=== PATIENT | female | born 1975 | race Caucasian/White ===

== ENCOUNTER → 2017-06-04 | Outpatient (POV) | payer BC, SELFPAY | PROVIDERS: Visit Provider Specialist | DX: F44.5 Conversion disorder with seizures or convulsions (principal); R40.4 Transient alteration of awareness; I95.89 Other hypotension; M54.2 Cervicalgia | CPT/HCPCS: 95819 ==

== ENCOUNTER → 2017-08-10 12:42 | Outpatient (CLI) | payer BC, SELFPAY ==
--- NOTE | 2017-08-10 12:46 | CT_ITS ---
CT abdomen pelvis wo con CLINICAL INDICATION: Lower abdominal pain and flank pain with microhematuria ITS.REASON: MICROHEMATURIA ORDERING PHYSICIAN: Venkatesh Irene MD PATIENT AGE: 41 years COMPARISON: 04/16/2010 TECHNIQUE: Axial images obtained with sagittal and coronal reformats. PROCEDURE: Oral Contrast: None IV Contrast: None . FINDINGS: Lung bases are clear. The liver, gallbladder, spleen, adrenal glands, and pancreas have an unremarkable unenhanced CT appearance. No renal mass or hydronephrosis. No renal or ureteral calculi. Urinary bladder is decompressed. No stones evident within the bladder. Prior appendectomy. No evidence of intestinal obstruction, free air, or diverticulitis. Surgical clips are present in the posterior aspect of the left mid abdominal region. There is mild thickening of the ascending colon which could be due to nondistention or mild colitis. There is a small umbilical hernia containing fat. Para no pelvic mass or focal inflammatory change evident. There are postsurgical changes of the rectosigmoid region. No acute bony anomalies. IMPRESSION: 1. No acute abdominal or pelvic findings. No renal or ureteral calculi or hydronephrosis. 2. Small umbilical hernia containing fat. 3. Postsurgical changes
== END ==
LOC: RAD 12:42
PROVIDERS: PCP Family Medicine; Visit Provider Urology
DX: R31.29 Other microscopic hematuria (principal)
CPT/HCPCS: 74176

== ENCOUNTER 2017-08-31 20:12 | Emergency (ER) | payer BC, SELFPAY ==
[2017-08-31 20:31] VITALS: BP 128/85; PULSE 107; RESP 28; TEMP 37.4; O2SAT 86; BMI 30.7
--- NOTE | 2017-08-31 20:42 | XR_ITS ---
XR chest 2V COMPARISON: PA and lateral chest 01/10/2016 HISTORY: Shortness of breath TECHNIQUE: PA and lateral chest FINDINGS: Lung linder are well expanded. There is ill-defined opacity left suprahilar region and proximal aspect of the left upper lobe suggesting a pneumonic infiltrate. The remainder left lung field is clear and right lung field is clear. Cardiac size is normal and is no pleural fluid. IMPRESSION: Probable left suprahilar left upper lobe bronchopneumonia
[2017-08-31 20:55] LABS: Basophils % 0.2 % (0.1-2.0); Eosinophils % 0.6 % (0.1-12.0); Hematocrit 41.4 % (37.0-47.0); Hemoglobin 14.5 g/dL (12.2-16.2); Lymphocytes # 1.3 K/mm3 (0.7-4.5); Lymphocytes % 23.7 K/mm3 (10-50); Mean Corpuscular HGB Conc 34.9 g/dL (31.8-35.4); Mean Corpuscular Hemoglobin 31.9 pg (27.0-31.2); Mean Corpuscular Volume 91.3 fl (81-99); Mean Platelet Volume 8.6 fl (7.4-10.4); Monocytes # 0.2 K/mm3 (0.1-1.0); Monocytes % 3.1 % (1.7-9.3); Neutrophils % 72.5 % (37.0-80.0); Platelet Count 130 K/mm3 (142-424); Red Blood Count 4.54 M/mm3 (4.20-5.40); Red Cell Distribution Width 13.1 % (11.5-17.5); White Blood Count 5.5 K/mm3 (4.8-10.8)
[2017-08-31 21:08] LABS: Alanine Aminotransferase 45 U/L (12-78); Albumin Level 3.4 gm/dL (3.4-5.0); Albumin/Globulin Ratio 0.9 (1.1-1.8); Alkaline Phosphatase 109 U/L (46-116); Anion Gap 12.4 mEq/L (5-15); Aspartate Amino Transferase 40 U/L (15-37); Bilirubin,Total 0.2 mg/dL (0.2-1.0); Blood Urea Nitrogen 4 mg/dL (7-18); Calcium 8.1 mg/dL (8.5-10.1); Carbon Dioxide 25 mmol/L (21.0-32.0); Chloride 101 mmol/L (98-107); Creatinine Clearance Estimated 132 mL/min (0-300); Creatinine,Serum 0.76 mg/dL (0.55-1.02); Estimated Glomerular Filt Rate 85 ml/min (>60); GFR (African American) 103 ML/MIN (>60); Globulin 3.9 gm/dl (1.3-3.2); Glucose 130 mg/dL (74-106); Potassium 3.4 mmoL/L (3.5-5.1); Sodium 135 mmol/L (136-145); Total Protein,Serum 7.3 gm/dL (6.4-8.2)
[2017-08-31 21:16] LABS: Lactic Acid 1.8 mmol/L (0.4-2.0)
--- NOTE | 2017-08-31 21:56 | HMH.EDSOB ---
ED Disposition Clinical Impression: Bronchitis, Pleurisy Disposition: Home, Self-Care Condition on Discharge: Good Instructions: DI for Pleurisy Additional Instructions: use meds and call pcp for follow up Prescriptions: Azithromycin [Zithromax 250mg tab] 250 mg PO DIRECTED #6 tab predniSONE [Prednisone 20mg Tab] 20 mg PO DAILY #10 tab Referrals: Newton Connors MD [Primary Care Provider] - - Critical Care Critical Care Time: No Attestation: On 08/31/17, the high probability of a clinically significant, sudden or life threatening deterioration of the following system(s) required my full and direct attention, intervention and personal management. The time I documented below is in addition to time spent performing reported procedures but includes the following listed in this critical care notation. Medical Decision Making - Medical Records Medical records reviewed: Yes: I reviewed the patient's medical records. Vital Signs: 08/31/17 20:31 08/31/17 22:22 Temperature 99.3 F 100.1 F H Temperature Source Oral Oral Pulse Rate [Right Radial] 107 H 91 H Respiratory Rate 28 H 18 Blood Pressure [Right Arm] 128/85 107/67 Blood Pressure Mean [Right Arm] 99 80 Blood Pressure Source [Right Arm] Automatic Cuff Automatic Cuff Blood Pressure Position [Right Arm] Sitting Sitting 02 Sat by Pulse Oximetry 86 L 94 L Oxygen Delivery Method Room Air Room Air - Lab Data Lab results reviewed: Yes: I reviewed the patient's lab results. Lab Results 08/31/17 20:40: WBC 5.5, RBC 4.54, Hgb 14.5, Hct 41.4, MCV 91.3, MCH 31.9 H, MCHC 34.9, RDW 13.1, Plt Count 130 L, MPV 8.6, Neut % (Auto) 72.5, Lymph % (Auto) 23.7, [place] % (Auto) 3.1, Eos % (Auto) 0.6, Baso % (Auto) 0.2, Neut # (Auto) 4.0, Lymph # (Auto) 1.3, [place] # (Auto) 0.2, Eos # (Auto) 0.0, Baso # (Auto) 0.0 08/31/17 20:40: Sodium 135 L, Potassium 3.4 L, Chloride 101, Carbon Dioxide 25, Anion Gap 12.4, BUN 4 L, Creatinine 0.76, Estimated Creat Clear 132, Estimated GFR 85, Est GFR ( Amer) 103, Glucose 130 H, Calcium 8.1 L, Total Bilirubin 0.2, AST 40 H, ALT 45, Alkaline Phosphatase 109, Total Protein 7.3, Albumin 3.4, Globulin 3.9 H, Albumin/Globulin Ratio 0.9 L 08/31/17 20:40: Lactic Acid 1.8 Result diagrams: 08/31/17 20:40 08/31/17 20:40 Orders (Tests/Meds): ED MEDICATIONS Discontinued Medications Generic Name Dose Route Start Last Admin Trade Name Freq PRN Reason Stop Dose Admin Acetaminophen 650 mg 08/31/17 20:52 08/31/17 20:54 Acetaminophen 325mg Tab PO 08/31/17 20:53 650 mg ONCE ONE Administration Albuterol/Ipratropium 3 ml 08/31/17 20:42 08/31/17 20:45 Duoneb 3ml Neb IH 08/31/17 20:43 3 ml ONCE ONE Administration Sodium Chloride 1,000 mls @ 999 mls/hr 08/31/17 20:45 08/31/17 20:45 Sod Chlor 0.9% 1000ml Bag IV 08/31/17 21:45 999 mls/hr .Q1H1M LIDA Administration Ceftriaxone Sodium 1 gm/ 50 mls @ 100 mls/hr 08/31/17 22:08 08/31/17 22:17 Sodium Chloride IV 08/31/17 22:37 100 mls/hr ONCE ONE Administration Ibuprofen 600 mg 08/31/17 20:52 08/31/17 20:54 Motrin 600mg Tablet PO 08/31/17 20:53 600 mg ONCE ONE Administration Ketorolac Tromethamine 30 mg 08/31/17 22:07 08/31/17 22:17 Toradol 30mg/Ml Vial IV 08/31/17 22:08 30 mg ONCE ONE Administration Methylprednisolone Sodium Succinate 125 mg 08/31/17 20:42 08/31/17 20:44 Solu-Medrol 125mg/2ml Vial IV 08/31/17 20:43 125 mg ONCE ONE Administration ORDERS Category Date Time Status XR chest 2V Stat Exams 08/31/17 20:42 Taken Blood Culture Stat Micro 08/31/17 20:40 Received - Radiology Data #1 Image(s): Chest Image Reviewed: Yes I reviewed the patient's radiology image Preliminary Findings: Abnormal (central marking ) - Elver Inquiry Pt receiving controlled substance: No Resp/SOB HPI - General Chief Complaint: Shortness of Breath/Dyspnea Stated Complaint: SOA; has had flu & b
--- NOTE | 2017-08-31 22:03 | ED_ITS ---
ED Disposition Clinical Impression: Bronchitis, Pleurisy Disposition: Home, Self-Care Condition on Discharge: Good Instructions: DI for Pleurisy Additional Instructions: use meds and call pcp for follow up Prescriptions: Azithromycin [Zithromax 250mg tab] 250 mg PO DIRECTED #6 tab predniSONE [Prednisone 20mg Tab] 20 mg PO DAILY #10 tab Referrals: Newton Connors MD [Primary Care Provider] - - Critical Care Critical Care Time: No Attestation: On 08/31/17, the high probability of a clinically significant, sudden or life threatening deterioration of the following system(s) required my full and direct attention, intervention and personal management. The time I documented below is in addition to time spent performing reported procedures but includes the following listed in this critical care notation. Medical Decision Making - Medical Records Medical records reviewed: Yes: I reviewed the patient's medical records. Vital Signs: 08/31/17 20:31 08/31/17 22:22 Temperature 99.3 F 100.1 F H Temperature Source Oral Oral Pulse Rate [Right Radial] 107 H 91 H Respiratory Rate 28 H 18 Blood Pressure [Right Arm] 128/85 107/67 Blood Pressure Mean [Right Arm] 99 80 Blood Pressure Source [Right Arm] Automatic Cuff Automatic Cuff Blood Pressure Position [Right Arm] Sitting Sitting 02 Sat by Pulse Oximetry 86 L 94 L Oxygen Delivery Method Room Air Room Air - Lab Data Lab results reviewed: Yes: I reviewed the patient's lab results. Lab Results 08/31/17 20:40: WBC 5.5, RBC 4.54, Hgb 14.5, Hct 41.4, MCV 91.3, MCH 31.9 H, MCHC 34.9, RDW 13.1, Plt Count 130 L, MPV 8.6, Neut % (Auto) 72.5, Lymph % (Auto ) 23.7, [place] % (Auto) 3.1, Eos % (Auto) 0.6, Baso % (Auto) 0.2, Neut # (Auto) 4.0, Lymph # (Auto) 1.3, [place] # (Auto) 0.2, Eos # (Auto) 0.0, Baso # (Auto) 0.0 08/31/17 20:40: Sodium 135 L, Potassium 3.4 L, Chloride 101, Carbon Dioxide 25, Anion Gap 12.4, BUN 4 L, Creatinine 0.76, Estimated Creat Clear 132, Estimated GFR 85, Est GFR ( Amer) 103, Glucose 130 H, Calcium 8.1 L, Total Bilirubin 0.2, AST 40 H, ALT 45, Alkaline Phosphatase 109, Total Protein 7.3, Albumin 3.4, Globulin 3.9 H, Albumin/Globulin Ratio 0.9 L 08/31/17 20:40: Lactic Acid 1.8 Result diagrams: 08/31/17 20:40 08/31/17 20:40 Orders (Tests/Meds): ED MEDICATIONS Discontinued Medications Generic Name Dose Route Start Last Admin Trade Name Freq PRN Reason Stop Dose Admin Acetaminophen 650 mg 08/31/17 20:52 08/31/17 20:54 Acetaminophen 325mg Tab PO 08/31/17 20:53 650 mg ONCE ONE Administration Albuterol/Ipratropium 3 ml 08/31/17 20:42 08/31/17 20:45 Duoneb 3ml Neb IH 08/31/17 20:43 3 ml ONCE ONE Administration Sodium Chloride 1,000 mls @ 999 mls/hr 08/31/17 20:45 08/31/17 20:45 Sod Chlor 0.9% 1000ml Bag IV 08/31/17 21:45 999 mls/hr .Q1H1M LIDA Administration Ceftriaxone Sodium 1 gm/ 50 mls @ 100 mls/hr 08/31/17 22:08 08/31/17 22:17 Sodium Chloride IV 08/31/17 22:37 100 mls/hr ONCE ONE Administration Ibuprofen 600 mg 08/31/17 20:52 08/31/17 20:54 Motrin 600mg Tablet PO 08/31/17 20:53 600 mg ONCE ONE Administration Ketorolac Tromethamine 30 mg 08/31/17 22:07 08/31/17 22:17 Toradol 30mg/Ml Vial IV 08/31/17 22:08 30 mg ONCE ONE Administration Methylpr
[2017-08-31 22:22] VITALS: BP 107/67; PULSE 91; RESP 18; TEMP 37.8; O2SAT 94
[2017-08-31 23:13] VITALS: BP 130/78; PULSE 88; RESP 20; TEMP 37.7; O2SAT 95
== END 2017-08-31 23:16 | disposition home or self-care (01) ==
LOC: ER 20:15 → UTC 20:18 → ER 20:27
PROVIDERS: Emergency Medicine; Emergency Provider Nurse Practitioner; PCP Family Medicine
DX: J20.9 Acute bronchitis, unspecified (principal); R09.1 Pleurisy; F17.210 Nicotine dependence, cigarettes, uncomplicated; Z88.1 Allergy status to other antibiotic agents
CPT/HCPCS: 71046; 80053; 83605; 85025; 87040; 87077; 96365; 96367; 96374; 96375; 99284

== ENCOUNTER 2017-09-04 18:41 | Emergency (ER) | payer BC, SELFPAY ==
[2017-09-04 19:19] VITALS: BP 121/82; PULSE 84; RESP 20; TEMP 36.3; O2SAT 96; BMI 29.9
--- NOTE | 2017-09-04 20:01 | HMH.EDUTC ---
[facility] [place] Clinical Impression: Nausea & vomiting Disposition: Home, Self-Care Condition on Discharge: Good Instructions: DI for Nausea -- Adult, DI for Vomiting -- Adult Additional Instructions: ? Drink extra fluids with and between meals. If you have difficulty drinking, try very small amounts of water or suck on ice chips. ? Avoid fruit juices, as these do not replace minerals and can actually increase diarrhea. ? Children and adults can use sports drinks to replenish electrolytes. Younger children and infants should use products formulated for children, like oral rehydration solutions. ? Eat food in small amounts and let your stomach recover. ? Get lots of rest. You may feel tired or weak. ? Check with your doctor before taking medications or giving them to children. Never give aspirin to children or teenagers with a viral illness. This can cause Markos syndrome, a potentially life-threatening condition. Prescriptions: Ondansetron [Zofran 4mg ODT] 4 mg PO Q8H PRN #20 tab.rapdis PRN Reason: Nausea Referrals: Newton Connors MD [Primary Care Provider] - As needed Forms: Work/School Release Time of Disposition: 20:19 Medical Decision Making - Medical Records Medical records reviewed: Yes: I reviewed the patient's medical records. Vital Signs: 09/04/17 19:19 Temperature 97.4 F L Temperature Source Temporal Artery Scan Pulse Rate [Right Radial] 84 Respiratory Rate 20 Blood Pressure [Right Arm] 121/82 Blood Pressure Mean [Right Arm] 95 Blood Pressure Source [Right Arm] Automatic Cuff Blood Pressure Position [Right Arm] Sitting 02 Sat by Pulse Oximetry 96 Oxygen Delivery Method Room Air - Elver Inquiry Pt receiving controlled substance: No Elver was queried for this patient: No [facility] [place] - General Stated complaint: Cough, Vomiting Mode of Arrival: Family Vehicle Source of Information: Patient Limitations: No Limitations Description of Symptoms (Recalled from Triage Doc. by RN): PT C/O NAUSEA, VOMITING, CONGESTION. HEENT Symptoms (Recalled from RN notes): Yes (CONGESTION) Resp Symptoms (Recalled from RN notes): No Skin Symptoms (Recalled from RN notes): No MS Symptoms (Recalled from RN notes): No Functional Status (Recalled from RN notes): NA - History of Present Illness Provider Complaint: Patient state that she was recently seen and treated for flu State that then about 3 days ago she was given azithromycin and steriod State that now she is having some nausea States that she has been vomiting since early this morning States that she was worried that she would get dehydrated so she came in to get something for her nausea - Related Data Home Medications Medication Instructions Recorded Confirmed etodolac 400 mg tablet 400 mg PO .prn tab 07/26/17 09/04/17 nebivolol 5 mg tablet 5 mg PO QDAY 07/26/17 09/04/17 omeprazole 40 mg capsule,delayed 40 mg PO QDAY 07/26/17 09/04/17 release Albuterol Sulfate [Albuterol HFA 2 act INHALATION Q4HP PRN 08/31/17 09/04/17 Inhaler] Benzonatate [Benzonatate 200mg Cap] 200 mg PO TIDP PRN 08/31/17 09/04/17 Oseltamivir Phosphate 75 mg PO DAILY 08/31/17 09/04/17 Promethazine/Dextromethorphan 5 ml PO Q6HP PRN 08/31/17 09/04/17 [Promethazine-Dm Syrup] Venlafaxine HCl [Venlafaxine HCl 150 mg PO DAILY 08/31/17 09/04/17 ER] Azithromycin [Zithromax 250mg 250 mg PO DIRECTED 09/04/17 09/04/17 tab] predniSONE [Prednisone 20mg 20 mg PO DAILY 09/04/17 09/04/17 Tab] Previous Rx's Medication Instructions Recorded Ondansetron [Zofran 4mg ODT] 4 mg PO Q8H PRN #20 tab.rapdis 09/04/17 Allergies Allergy/AdvReac Type Severity Reaction Status Date / Time levofloxacin [From LEVAQUIN] Allergy Unknown SWELLING Verified 08/31/17 20:44 - Worker's Comp Is this a Worker's Comp case?: No H History I have reviewed the patient's past medical history: Yes Medical History: Denies:: Cancer, Diabetes Mellitus Typ
--- NOTE | 2017-09-04 20:15 | ED_ITS ---
[facility] [place] Clinical Impression: Nausea & vomiting Disposition: Home, Self-Care Condition on Discharge: Good Instructions: DI for Nausea -- Adult, DI for Vomiting -- Adult Additional Instructions: ? Drink extra fluids with and between meals. If you have difficulty drinking, try very small amounts of water or suck on ice chips. ? Avoid fruit juices, as these do not replace minerals and can actually increase diarrhea. ? Children and adults can use sports drinks to replenish electrolytes. Younger children and infants should use products formulated for children, like oral rehydration solutions. ? Eat food in small amounts and let your stomach recover. ? Get lots of rest. You may feel tired or weak. ? Check with your doctor before taking medications or giving them to children. Never give aspirin to children or teenagers with a viral illness. This can cause Kae?s syndrome, a potentially life-threatening condition. Prescriptions: Ondansetron [Zofran 4mg ODT] 4 mg PO Q8H PRN #20 tab.rapdis PRN Reason: Nausea Referrals: Newton Connors MD [Primary Care Provider] - As needed Forms: Work/School Release Time of Disposition: 20:19 Medical Decision Making - Medical Records Medical records reviewed: Yes: I reviewed the patient's medical records. Vital Signs: 09/04/17 19:19 Temperature 97.4 F L Temperature Source Temporal Artery Scan Pulse Rate [Right Radial] 84 Respiratory Rate 20 Blood Pressure [Right Arm] 121/82 Blood Pressure Mean [Right Arm] 95 Blood Pressure Source [Right Arm] Automatic Cuff Blood Pressure Position [Right Arm] Sitting 02 Sat by Pulse Oximetry 96 Oxygen Delivery Method Room Air - Elver Inquiry Pt receiving controlled substance: No Elver was queried for this patient: No [facility] [place] - General Stated complaint: Cough, Vomiting Mode of Arrival: Family Vehicle Source of Information: Patient Limitations: No Limitations Description of Symptoms (Recalled from Triage Doc. by RN): PT C/O NAUSEA, VOMITING, CONGESTION. HEENT Symptoms (Recalled from RN notes): Yes (CONGESTION) Resp Symptoms (Recalled from RN notes): No Skin Symptoms (Recalled from RN notes): No MS Symptoms (Recalled from RN notes): No Functional Status (Recalled from RN notes): NA - History of Present Illness Provider Complaint: Patient state that she was recently seen and treated for flu State that then about 3 days ago she was given azithromycin and steriod State that now she is having some nausea States that she has been vomiting since early this morning States that she was worried that she would get dehydrated so she came in to get something for her nausea - Related Data Home Medications Medication Instructions Recorded Confirmed etodolac 400 mg tablet 400 mg PO .prn tab 07/26/17 09/04/17 nebivolol 5 mg tablet 5 mg PO QDAY 07/26/17 09/04/17 omeprazole 40 mg capsule,delayed 40 mg PO QDAY 07/26/17 09/04/17 release Albuterol Sulfate [Albuterol HFA 2 act INHALATION Q4HP PRN 08/31/17 09/04/17 Inhaler] Benzonatate [Benzonatate 200mg Cap] 200 mg PO TIDP PRN 08/31/17 09/04/17 Oseltamivir Phosphate 75 mg PO DAILY 08/31/17 09/04/17 Promethazine/Dextromethorphan 5 ml PO Q6HP PRN 08/31/17 09/04/17 [Promethazine-Dm Syrup] Venlafaxine HCl [Venlafaxine HCl 150 mg PO DAILY 08/31/17 09/04/17 ER] Azithromycin [Zithromax 250mg 250 mg PO DIRECTED
[2017-09-04 20:28] VITALS: BP 128/79; PULSE 81; RESP 20; TEMP 36.6; O2SAT 97
== END 2017-09-04 20:29 | disposition home or self-care (01) ==
PROVIDERS: Emergency Provider Nurse Practitioner; PCP Family Medicine
DX: R11.2 Nausea with vomiting, unspecified (principal); Z79.52 Long term (current) use of systemic steroids; Z79.899 Other long term (current) drug therapy; F17.210 Nicotine dependence, cigarettes, uncomplicated
CPT/HCPCS: 96372; 99202; J2405

== ENCOUNTER 2017-09-06 13:36 | Outpatient (CLI) | payer BC, SELFPAY ==
[2017-09-06 13:50] VITALS: BMI 28.6
[2017-09-06 14:00] VITALS: BP 113/67; PULSE 65; RESP 18; O2SAT 96
[2017-09-06 14:11] LABS: Hemoglobin 14.8 g/dL (12.2-16.2); Red Blood Count 4.72 M/mm3 (4.20-5.40); White Blood Count 6.2 K/mm3 (4.8-10.8)
[2017-09-06 14:12] LABS: Basophils % 0.4 % (0.1-2.0); Eosinophils # 0.1 K/mm3 (0.0-0.4); Eosinophils % 1.4 % (0.1-12.0); Lymphocytes # 1.6 K/mm3 (0.7-4.5); Lymphocytes % 27.1 K/mm3 (10-50); Mean Corpuscular HGB Conc 33.6 g/dL (31.8-35.4); Mean Corpuscular Hemoglobin 31.3 pg (27.0-31.2); Mean Corpuscular Volume 93.3 fl (81-99); Mean Platelet Volume 7.7 fl (7.4-10.4); Monocytes # 0.3 K/mm3 (0.1-1.0); Neutrophils # 4.1 K/mm3 (1.8-7.8); Neutrophils % 66.2 % (37.0-80.0); Platelet Count 375 K/mm3 (142-424); Red Cell Distribution Width 13.1 % (11.5-17.5)
[2017-09-06 14:30] VITALS: BP 116/62; PULSE 69; RESP 18
[2017-09-06 14:38] LABS: Anion Gap 11.1 mEq/L (5-15); Blood Urea Nitrogen 14 mg/dL (7-18); Carbon Dioxide 30 mmol/L (21.0-32.0); Chloride 100 mmol/L (98-107); Creatinine Clearance Estimated 126 mL/min (0-300); Creatinine,Serum 0.74 mg/dL (0.55-1.02); Estimated Glomerular Filt Rate 87 ml/min (>60); GFR (African American) 106 ML/MIN (>60); Glucose 109 mg/dL (74-106); Potassium 3.1 mmoL/L (3.5-5.1); Sodium 138 mmol/L (136-145)
[2017-09-06 15:00] VITALS: BP 139/82; PULSE 78; RESP 18
[2017-09-06 15:30] VITALS: BP 140/75; PULSE 87; RESP 16
[2017-09-06 16:00] VITALS: BP 137/65; PULSE 86; RESP 18
[2017-09-06 16:37] VITALS: BP 129/69; PULSE 84; RESP 18
== END 2017-09-06 16:39 | disposition home or self-care (01) ==
LOC: INF 13:38
PROVIDERS: PCP Family Medicine; Visit Provider Family Medicine
DX: R11.10 Vomiting, unspecified (principal); E87.6 Hypokalemia
CPT/HCPCS: 80048; 85025; 96360; 96361; 96375

== ENCOUNTER 2017-12-28 12:29 | Observation (INO) ==
--- NOTE | 2017-12-28 12:34 | Emergency Department Note ---
ED Disposition Clinical Impression: Precordial chest pain, Elevated troponin Disposition: Still a Patient Condition on Discharge: Good Referrals: Newton Connors MD [Primary Care Provider] - - Critical Care Critical Care Time: No Attestation: On , the high probability of a clinically significant, sudden or life threatening deterioration of the following system(s) required my full and direct attention, intervention and personal management. The time I documented below is in addition to time spent performing reported procedures but includes the following listed in this critical care notation. Medical Decision Making - Elver Inquiry Pt receiving controlled substance: No Vital Signs: 12/28/17 12:30 12/28/17 12:32 Temperature 98.0 F 98.1 F Temperature Source Oral Oral Pulse Rate [Right Brachial] 68 Pulse Rate [Right Radial] 77 Respiratory Rate 18 20 Blood Pressure [Right Arm] 155/75 158/89 Blood Pressure Mean [Right Arm] 101 112 Blood Pressure Source [Right Arm] Automatic Cuff Automatic Cuff Blood Pressure Position [Right Arm] Sitting Supine 02 Sat by Pulse Oximetry 98 97 Oxygen Delivery Method Room Air Room Air - Lab Data Lab Results 12/28/17 12:35: WBC 8.0, RBC 4.57, Hgb 13.6, Hct 42.7, MCV 93.5, MCH 29.8, MCHC 31.9, RDW 12.8, Plt Count 332, MPV 7.7, Neut % (Auto) 67.4, Lymph % (Auto) 23.2 , [place] % (Auto) 5.1, Eos % (Auto) 3.9, Baso % (Auto) 0.4, Neut # (Auto) 5.4, Lymph # (Auto) 1.8, [place] # (Auto) 0.4, Eos # (Auto) 0.3, Baso # (Auto) 0.0 12/28/17 12:35: Sodium 135 L, Potassium 3.7, Chloride 103, Carbon Dioxide 22, Anion Gap 13.7, BUN 11, Creatinine 0.77, Estimated Creat Clear 116, Estimated GFR 83, Est GFR ( Amer) 100, Glucose 111 H, Calcium 8.5, Total Bilirubin 0.3, AST 15, ALT 27, Alkaline Phosphatase 109, Total Creatine Kinase 299 H, CK- MB (CK-2) 2.4, CK-MB (CK-2) Rel Index 0.8, Troponin I 0.10 H, Total Protein 7.7 , Albumin 3.7, Globulin 4.0 H, Albumin/Globulin Ratio 0.9 L Result diagrams: 12/28/17 12:35 12/28/17 12:35 Orders (Tests/Meds): ED MEDICATIONS Discontinued Medications Generic Name Dose Route Start Last Admin Trade Name Marce PRN Reason Stop Dose Admin Aspirin 324 mg 12/28/17 14:12 Aspirin 81mg Chewable Tablet PO 12/28/17 14:13 ONCE ONE - Radiology Data #1 Image(s): Chest Image Reviewed: Yes I have reviewed radiologist's interpretation Preliminary Findings: Normal/NAD - ECG Data Tracing #1 EKG interpreted by Daniele Pineda MD: Rhythm: sinus Rate: C5 [place]: normal Ectopy: none Conduction: normal ST Segment Changes: none T Wave Changes: none Q Waves: none No evidence of acute ischemia or injury Normal electrocardiogram - Physician Consults Physician Consulted: Precious Time: 14:10 Reason -: Admission Comment/Response: Agrees to admit the patient to the hospital. We discussed the patient's clinical information, including history, exam, laboratory and radiology results and ED course. Per hospital procedure, I will write temporary bridge inpatient orders on the patient. Specific orders requested by the admitting physician: Cardiology consult, serial cardiac enzymes Additional Consult: Cori Time: 14:20 Reason -: Cardiology Eval/Care Comment/Response: Brilinta 180 mg p.o., then 90 mg twice daily. General Adult HPI - General Chief complaint: Chest Pain Stated complaint: CP Time Seen by Provider: 12/28/17 14:06 - History of Present Illness HPI narrative: Had a 10 minute episode of severe substernal chest pain going into her neck associated with shortness of breath, diaphoresis, and nausea. Since then has had several episodes lasting a couple of minutes each. Went to Dr. Connors's office and saw a nurse who took her blood pressure and sent her to the emergency room. Family history of heart disease. She has hypertension. She is a former smoker , quit 4 months ago. She has had previous workup for palpitations. Echocardiogram 2, Holter monitor. States has never had a stress test or angiogram. - Related Data Home Medications Medication Instructions Recorded Confirmed etodolac 400 mg tablet 400 mg PO .prn tab 07/26/17 09/06/17 nebivolol 5 mg tablet 5 mg PO QDAY 07/26/17 09/06/17 omeprazole 40 mg capsule,delayed 40 mg PO QDAY 07/26/17 09/06/17 release Albuterol Sulfate [Albuterol HFA 2 act INHALATION Q4HP PRN 08/31/17 09/06/17 Inhaler] Benzonatate [Benzonatate 200mg Cap] 200 mg PO TIDP PRN 08/31/17 09/06/17 Promethazine/Dextromethorphan 5 ml PO Q6HP PRN 08/31/17 09/06/17 [Promethazine-Dm Syrup] Venlafaxine HCl [Venlafaxine HCl 150 mg PO DAILY 08/31/17 09/06/17 ER] Previous Rx's Medication Instructions Recorded Ondansetron [Zofran 4mg ODT] 4 mg PO Q8H PRN #20 tab.rapdis 09/04/17 Allergies Allergy/AdvReac Type Severity Reaction Status Date / Time levofloxacin [From LEVAQUIN] Allergy Unknown SWELLING Verified 09/06/17 14:41 [facility] History I have reviewed the patient's past medical history: Yes Medical History: Denies:: Cancer, Diabetes Mellitus Type 1, Diabetes Mellitus Type 2, MRSA Amputation: No Fractures: No - Social History Smoking Status: Current every day smoker # Packs/Day (cigarettes): 1 Alcohol Intake: never Substance Use Type: denies use Family Hx:: Unable to obtain ROS Obtained: Yes All systems reviewed & no additional complaints - Constitutional Constitutional: Reports excessive sweating, Denies fever(s) - Cardiovascular Cardiovascular: Reports chest pain - Respiratory Respiratory: Yes dyspnea - Gastrointestinal Gastrointestingal: Reports: nausea. Denies: abdominal pain Physical Exam - General General appearance: alert, in no apparent distress - Head Head exam: atraumatic, normocephalic, normal inspection - Eye Eye exam: Present: normal appearance, PERRL, EOMI - ENT ENT exam: Present: normal exam, normal oropharynx, mucous membranes moist, TM's normal bilaterally, normal external ear exam - Neck Neck exam: Present: normal inspection, full ROM, trachea midline. Absent: meningismus, lymphadenopathy - Chest Chest inspection: Present: normal inspection, symmetric chest wall rise. Absent : tenderness - Respiratory Respiratory exam: Present: normal lung sounds bilaterally. Absent: respiratory distress - Cardiovascular Cardiovascular exam: Present: regular rate, normal rhythm. Absent: JVD - Abdominal Exam Abdominal exam: Present: soft, normal bowel sounds. Absent: distention, tenderness, guarding - Extremities Exam Extremities exam: Present: normal inspection, full ROM, normal capillary refill. Absent: calf tenderness - Back Exam Back exam: Present: normal inspection. Absent: tenderness - Neurological Exam Neurological exam: Present: alert, oriented X3 - Psychiatric Psychiatric exam: Present: normal affect, normal mood - Skin Skin exam: Present: warm, dry, intact, normal color - Lymphatic Lymphatic Findings: no adenopathy
[2017-12-28 13:27] LABS: Basophils % 0.4 % (0.1-2.0); Eosinophils # 0.3 K/mm3 (0.0-0.4); Eosinophils % 3.9 % (0.1-12.0); Hematocrit 42.7 % (37.0-47.0); Hemoglobin 13.6 g/dL (12.2-16.2); Lymphocytes # 1.8 K/mm3 (0.7-4.5); Lymphocytes % 23.2 K/mm3 (10-50); Mean Corpuscular HGB Conc 31.9 g/dL (31.8-35.4); Mean Corpuscular Hemoglobin 29.8 pg (27.0-31.2); Mean Corpuscular Volume 93.5 fl (81-99); Mean Platelet Volume 7.7 fl (7.4-10.4); Monocytes # 0.4 K/mm3 (0.1-1.0); Monocytes % 5.1 % (1.7-9.3); Neutrophils # 5.4 K/mm3 (1.8-7.8); Neutrophils % 67.4 % (37.0-80.0); Platelet Count 332 K/mm3 (142-424); Red Blood Count 4.57 M/mm3 (4.20-5.40); Red Cell Distribution Width 12.8 % (11.5-17.5)
[2017-12-28 13:46] LABS: Albumin Level 3.7 gm/dL (3.4-5.0); Albumin/Globulin Ratio 0.9 (1.1-1.8); Anion Gap 13.7 mEq/L (5-15); Bilirubin,Total 0.3 mg/dL (0.2-1.0); Calcium 8.5 mg/dL (8.5-10.1); Potassium 3.7 mmoL/L (3.5-5.1); Total Protein,Serum 7.7 gm/dL (6.4-8.2)
--- NOTE | 2017-12-28 16:06 | Pharmacy Consult Notes ---
[facility] Pharmacy VTE Monitoring - Patient Demographics Admission date: 12/28/17 Report Date: 12/28/17 Time: 16:06 Allergies/Adverse Reactions: Patient Allergies levofloxacin [From LEVAQUIN] Allergy (Unknown, Verified 09/06/17 14:41) SWELLING Height: 1.65 m Weight: 86.409 kg Patient Problems: Current Active Problems Precordial chest pain (Acute) Elevated troponin (Acute) - VTE Risk Labs: VTE Related Lab Results Hgb 13.6 g/dL (12.2-16.2) 12/28/17 12:35 Hct 42.7 % (37.0-47.0) 12/28/17 12:35 Plt Count 332 K/mm3 (142-424) 12/28/17 12:35 BUN 11 mg/dL (7-18) 12/28/17 12:35 Creatinine 0.77 mg/dL (0.55-1.02) 12/28/17 12:35 Estimated Creat Clear 116 mL/min (0-300) 12/28/17 12:35 Was VTE Risk Assessment Performed: Yes VTE Score: 0 VTE Risk Level: Very Low Risk Clinical Trial Participant: No - Prophylaxis VTE Prophylaxis Ordered?: Yes Types of VTE Prophylaxis: TEDS Knee High Location of Applied Device: Right Leg, Left Leg
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
--- NOTE | 2017-12-29 08:44 | Progress Note ---
Internal Medicine - PN: Subj *Date: 12/29/17 *Time: 08:41 Interval history: Patient states she feels perfect this morning, hasn't felt this well in a long time. BP was normal overnight. She does not want to have a heart cath. Exam Vital signs and Labs for Last 24 Hours: Temp Pulse Resp BP Pulse Ox 98.2 F 74 18 102/52 98 12/29/17 04:00 12/29/17 04:00 12/29/17 04:00 12/29/17 04:00 12/29/17 07:29 Laboratory Results - last 24 hr 12/28/17 12:35: WBC 8.0, RBC 4.57, Hgb 13.6, Hct 42.7, MCV 93.5, MCH 29.8, MCHC 31.9, RDW 12.8, Plt Count 332, MPV 7.7, Neut % (Auto) 67.4, Lymph % (Auto) 23.2 , [place] % (Auto) 5.1, Eos % (Auto) 3.9, Baso % (Auto) 0.4, Neut # (Auto) 5.4, Lymph # (Auto) 1.8, [place] # (Auto) 0.4, Eos # (Auto) 0.3, Baso # (Auto) 0.0 12/28/17 12:35: Sodium 135 L, Potassium 3.7, Chloride 103, Carbon Dioxide 22, Anion Gap 13.7, BUN 11, Creatinine 0.77, Estimated Creat Clear 116, Estimated GFR 83, Est GFR ( Amer) 100, Glucose 111 H, Calcium 8.5, Total Bilirubin 0.3, AST 15, ALT 27, Alkaline Phosphatase 109, Total Creatine Kinase 299 H, CK- MB (CK-2) 2.4, CK-MB (CK-2) Rel Index 0.8, Troponin I 0.10 H, Total Protein 7.7 , Albumin 3.7, Globulin 4.0 H, Albumin/Globulin Ratio 0.9 L 12/28/17 15:17: Troponin I < 0.02 12/28/17 18:00: Troponin I < 0.02 12/28/17 20:54: Troponin I < 0.02 Vital Signs Temp Pulse Pulse Pulse Resp BP BP 12/29/17 07:29 12/29/17 04:00 98.2 F 80 74 18 102/52 12/29/17 00:00 98.5 F 80 72 20 121/72 12/28/17 21:35 80 12/28/17 20:45 78 12/28/17 20:00 97.9 F 78 18 121/66 12/28/17 16:00 98.1 F 70 82 18 119/54 12/28/17 15:19 97.9 F 79 16 148/92 12/28/17 14:57 98.1 F 82 18 119/54 12/28/17 14:45 98.2 F 84 20 126/80 12/28/17 12:32 98.1 F 77 20 158/89 12/28/17 12:30 98.0 F 68 18 155/75 Pulse Ox 12/29/17 07:29 98 12/29/17 04:00 98 12/29/17 00:00 97 12/28/17 21:35 12/28/17 20:45 98 12/28/17 20:00 98 12/28/17 16:00 97 12/28/17 15:19 12/28/17 14:57 97 12/28/17 14:45 95 12/28/17 12:32 97 12/28/17 12:30 98 Intake and Output 12/28/17 12/29/17 12/29/17 19:59 03:59 11:59 Intake Total 360 / 360 20 / 20 Balance 360 / 360 20 / 20 Intake: Intake, Oral Amount 360 / 360 Intake, Other Amount 20 / 20 Other: Intake, Other Source Saline Solution Weight 190 lb 8 oz Patient Weight 12/29/17 11:59 Weight 190 lb 8 oz I & O for Last 24 hours: Intake & Output 12/26/17 12/27/17 12/28/17 12/29/17 11:59 11:59 11:59 11:59 Intake Total 380 / 380 Balance 380 / 380 Weight 190 lb 8 oz - Constitutional no acute distress - *Routine HEENT Exam ENT: Present: mucous membranes moist - *Routine Respiratory Exam Present: CTA bilaterally - *Routine Cardiovascular Exam Present: RRR, Normal S1, Normal S2. Absent: murmur - *Routine Extremities Exam Absent: cyanosis, clubbing, edema Assessment and Plan (1) Precordial chest pain Current visit: Yes Status: Resolved Category: Medical Code(s): R07.2 - Precordial pain (2) Hypertension Current visit: Yes Status: Chronic Category: Medical Code(s): I10 - Essential (primary) hypertension (3) Asthma Current visit: Yes Status: Chronic Category: Medical Code(s): J45.909 - Unspecified asthma, uncomplicated - Assessment and plan all Dx Assessment and Plan for all problems:: Plan discharge today. Will change beta ace to Coreg and continue Brilinta. Plan outpatient stress test next week per patient's request. Office f/u in 3 days.
--- NOTE | 2017-12-31 11:16 | Discharge Summary ---
General - General Admission date:: 12/28/17 Discharge date: 12/29/17 HPI HPI: Ms. Guillen is a 42-year-old female who began having midsternal chest pain that radiated to the left side of her chest and up her neck this morning while sitting in a car at around 11:00am. She states the pain lasted for approximately 5-10 minutes and subsided. She has had a few episodes since that time. [facility] to have her blood pressure checked and it was normal. She then presented the emergency room when she began experiencing the chest pain again. Her initial troponin was slightly elevated, therefore she was admitted for further evaluation and treatment. Hospital Course Hospital Course: The patient was started on brilinta and cardiology was consulted. Her second set of enzymes were normal. By the next am, the patient felt much better. She stated she did not want to have a heart cath. Her BP was normal. She was stable to be discharged home on Coreg and Brilinta. She will have an outpatient stress test next week and will f/u in the office in 3 days. Objective Vital signs: Temp Pulse Resp BP Pulse Ox 98.3 F 71 16 100/44 98 12/29/17 08:00 12/29/17 08:00 12/29/17 08:00 12/29/17 08:00 12/29/17 08:00 Narrative: - Constitutional no acute distress - *Routine HEENT Exam Head: Present: normocephalic, atraumatic Eye: Present: EOMI ENT: Present: mucous membranes moist - *Routine Neck Exam Present: supple, full ROM. Absent: carotid bruit - *Routine Respiratory Exam Present: CTA bilaterally - *Routine Cardiovascular Exam Present: RRR - *Routine Abdominal Exam Present: soft, normoactive bowel sounds. Absent: tenderness - *Routine Extremities Exam Absent: edema - *Routine Skin Exam Present: intact - *Routine Neurological Exam Present: alert, oriented X3 DS: Diagnosis - Discharge Diagnosis (1) Precordial chest pain Status: Resolved (2) Hypertension Status: Chronic (3) Asthma Status: Chronic Discharge Plan - Patient Discharge Instructions ACTIVITY: Limited activity DIET: continue same diet Patient Instructions: DI for Chest Pain - Follow up Plan Follow up with: Ashok Lang MD [Staff Physician] - 01/01/18 Disposition: Home, Self-Snf Medications: Home Medications Medication Instructions Recorded Confirmed Type etodolac 400 mg tablet 400 mg PO .prn tab 07/26/17 12/28/17 History omeprazole 40 mg capsule,delayed 40 mg PO DAILY 07/26/17 12/28/17 History release Albuterol Sulfate [Albuterol HFA 2 act INHALATION Q4HP PRN 08/31/17 12/28/17 History Inhaler] Benzonatate [Benzonatate 200mg Cap] 200 mg PO TIDP PRN 08/31/17 12/28/17 History Promethazine/Dextromethorphan 5 ml PO Q6HP PRN 08/31/17 12/28/17 History [Promethazine-Dm Solution] Venlafaxine HCl [Venlafaxine HCl 150 mg PO DAILY 08/31/17 12/28/17 History ER] Prescriptions/Medication Reconciliation: New Ticagrelor [Brilinta 90mg Tablet] 90 mg PO BID #60 tab Carvedilol [Coreg 6.25mg Tablet] 6.25 mg PO BID #60 tab Continue omeprazole 40 mg capsule,delayed release 40 mg PO DAILY etodolac 400 mg tablet 400 mg PO .prn tab Venlafaxine HCl [Venlafaxine HCl ER] 150 mg PO DAILY Promethazine/Dextromethorphan [Promethazine-Dm Solution] 5 ml PO Q6HP PRN PRN Reason: Cough Benzonatate [Benzonatate 200mg Cap] 200 mg PO TIDP PRN PRN Reason: Cough Albuterol Sulfate [Albuterol HFA Inhaler] 2 act INHALATION Q4HP PRN PRN Reason: sob Ondansetron [Zofran 4mg ODT] 4 mg PO Q8H PRN #20 tab.rapdis PRN Reason: Nausea Discontinued Nebivolol HCl [Bystolic] 10 mg PO DAILY
== END 2017-12-29 09:50 | disposition home or self-care (01) ==
LOC: ER 12:29 → 2ND 12:29
PROVIDERS: ADMIT Family Medicine; ATTEND Family Medicine

== ENCOUNTER → 2018-01-03 07:21 | Outpatient (CLI) | payer BC, SELFPAY | LOC: RT 07:23 | PROVIDERS: PCP Family Medicine; Visit Provider Family Medicine | DX: R07.2 Precordial pain (principal) | CPT/HCPCS: 93017 ==

== ENCOUNTER → 2018-01-22 14:07 | Outpatient (CLI) | payer BC, SELFPAY ==
--- NOTE | 2018-01-22 14:15 | CT_ITS ---
CT abdomen pelvis wo con CLINICAL HISTORY: Left flank pain for 3 days TECHNIQUE: Axial images obtained with sagittal and coronal reformats. All CT scans at this facility use one or more dose reduction techniques, viz.: automated exposure control; ma/kV adjustment per patient size (including targeted exams where dose is matched to indication; i.e. head) or iterative reconstruction technique. COMPARISON: CT scan abdomen pelvis stone protocol 08/10/2017 PROCEDURE: No IV or oral contrast was used. FINDINGS: Lung bases: Clear, there is no pleural fluid ABDOMEN: Liver: No masses or biliary dilatation. Gallbladder: Nondistended. I question possibility of a small amount biliary sludge and just clinical correlation and possibly follow-up ultrasound right upper quadrant if clinically indicated.. Pancreas: No masses or peripancreatic fluid collections. Spleen: Unremarkable. Adrenals: Unremarkable Kidneys/ureters: No masses. No renal calculi. No hydronephrosis. No perinephric fluid collections. No ureteral dilatation or obvious ureteral calculi. Stomach bowel: Stomach is markedly distended with ingested food particles. The small bowel appears grossly normal. There is a moderately large amount stool in the cecum and ascending and proximal transverse colon.. Peritoneum: No abnormal fluid collections. No obvious inflammatory changes. There is a small umbilical hernia containing fat only. Lymph nodes: No enlarged lymph nodes apparent. Vasculature: No evidence of abdominal aortic aneurysm. No retroperitoneal hemorrhage evident. Bones: Unremarkable appearing bony structures. No lytic or blastic changes. No obvious fractures. PELVIS: Reproductive: Unremarkable except for possible small right ovarian cyst. Bladder: Nondistended. No obvious masses. Appendix: There is been previous appendectomy. IMPRESSION: No evidence of renal or ureteral calculi, no obstructive uropathy. Question the possibility of biliary sludge and consider follow-up nonemergent ultrasound of the right upper quadrant
== END ==
LOC: RAD 14:10
PROVIDERS: PCP Family Medicine; Visit Provider Family Medicine
DX: R10.9 Unspecified abdominal pain (principal)
CPT/HCPCS: 74176

== ENCOUNTER → 2018-03-22 12:00 | Outpatient (CLI) | payer BC, SELFPAY ==
--- NOTE | 2018-03-22 | XR_ITS ---
XR shoulder RT min 2V COMPARISON: PA and lateral chest 12/28/2017 HISTORY: Right shoulder pain TECHNIQUE: 3 views right shoulder FINDINGS: The clavicle is intact and the AC joint appears normal. Humeral head does right somewhat high in the glenoid using indication of some degree of rotator cuff pathology. The humeral head and glenoid otherwise appear normal. There are no soft tissue calcifications or foreign bodies. IMPRESSION: Somewhat high riding humeral head otherwise grossly negative right shoulder
== END ==
PROVIDERS: PCP Family Medicine; Visit Provider Family Medicine
DX: S46.911A Strain of unspecified muscle, fascia and tendon at shoulder and upper arm level, right arm, initial encounter (principal)
CPT/HCPCS: 73030

== ENCOUNTER 2018-05-02 09:30 | Outpatient (RCR) | payer BC, SELFPAY | END 2018-05-02 09:31 | disposition home or self-care (01) | LOC: PT 09:30 | PROVIDERS: PCP Family Medicine; Visit Provider Family Medicine | DX: S46.911D Strain of unspecified muscle, fascia and tendon at shoulder and upper arm level, right arm, subsequent encounter (principal) | CPT/HCPCS: 97010; 97014; 97016; 97033; 97110; 97163; G0283 ==

== ENCOUNTER → 2018-05-06 12:44 | Outpatient (CLI) | payer BC, SELFPAY ==
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
== END ==
PROVIDERS: PCP Family Medicine; Visit Provider Family Medicine
DX: S46.911D Strain of unspecified muscle, fascia and tendon at shoulder and upper arm level, right arm, subsequent encounter (principal)
CPT/HCPCS: 73221

== ENCOUNTER → 2018-10-23 09:39 | Outpatient (CLI) | payer BC, SELFPAY ==
[2018-10-23 10:12] LABS: Basophils % 0.5 % (0.1-2.0); Eosinophils # 0.2 K/mm3 (0.0-0.4); Hematocrit 40.6 % (37.0-47.0); Hemoglobin 13.7 g/dL (12.2-16.2); Lymphocytes # 1.8 K/mm3 (0.7-4.5); Lymphocytes % 29.2 % (10-50); Mean Corpuscular HGB Conc 33.8 g/dL (31.8-35.4); Mean Corpuscular Hemoglobin 30.7 pg (27.0-31.2); Mean Corpuscular Volume 90.8 fl (81-99); Mean Platelet Volume 7.1 fl (7.4-10.4); Monocytes # 0.2 K/mm3 (0.1-1.0); Monocytes % 3.9 % (1.7-9.3); Neutrophils % 63.3 % (37.0-80.0); Platelet Count 329 K/mm3 (142-424); Red Blood Count 4.47 M/mm3 (4.20-5.40); Red Cell Distribution Width 12.9 % (11.5-17.5); White Blood Count 6.2 K/mm3 (4.8-10.8)
[2018-10-23 12:15] LABS: Alanine Aminotransferase 25 U/L (12-78); Albumin Level 3.7 gm/dL (3.4-5.0); Alkaline Phosphatase 106 U/L (46-116); Aspartate Amino Transferase 12 U/L (15-37); Bilirubin,Total 0.3 mg/dL (0.2-1.0); Blood Urea Nitrogen 11 mg/dL (7-18); Carbon Dioxide 24 mmol/L (21.0-32.0); Chloride 104 mmol/L (98-107); Creatinine,Serum 0.84 mg/dL (0.55-1.02); Estimated Glomerular Filt Rate 75 ml/min (>60); Free T4 (Free Thyroxine) 0.92 ng/dl (0.76-1.46); GFR (African American) 91 ML/MIN (>60); Globulin 3.7 gm/dl (1.3-3.2); Glucose 94 mg/dL (74-106); Sodium 139 mmol/L (136-145); Thyroid Stimulating Hormone 3.44 uIU/ml (0.358-3.740); Total Protein,Serum 7.4 gm/dL (6.4-8.2)
[2018-10-24 08:20] LABS: Thyroid Peroxidase Antibodies 6 IU/mL (0-34)
[2018-10-25 06:19] LABS: Adrenocorticotropic Hormone 33.7 pg/mL (7.2-63.3); Insulin Level Total 18.4 uIU/mL (2.6-24.9)
[2018-10-26 19:08] LABS: Renin Activity, Plasma 0.785 ng/mL/hr (0.167-5.380)
== END ==
PROVIDERS: Otolaryngology; Visit Provider Internal Medicine Endocrinology, Diabetes & Metabolism
DX: Z01.818 Encounter for other preprocedural examination (principal); L98.9 Disorder of the skin and subcutaneous tissue, unspecified; E34.9 Endocrine disorder, unspecified; I10 Essential (primary) hypertension; R63.5 Abnormal weight gain
CPT/HCPCS: 36415; 80053; 82024; 82088; 82533; 83525; 84244; 84439; 84443; 85025; 86376

== ENCOUNTER → 2018-10-25 07:33 | Outpatient (CLI) | payer BC, SELFPAY ==
--- NOTE | 2018-10-25 07:35 | NM_ITS ---
SPECT MYOCARDIAL PERFUSION SCAN, REST AND STRESS: EXERCISE STRESS: [facility] REVIEW QGS EF AND WALL MOTION EVALUATION: QPS - PERFUSION EVALUATION: HISTORY: SOB, ABN STRESS PROCEDURE: Rest imaging performed after administration of10.23 millicuries Tc MIBI. Dose administered at8:10AM a.m., with imaging thereafter. Stress imaging was then performed following9 minutes of exercise stress. The patient achieved a heart [id number] with projected heart rate of150 . Resting BP166/92 with stress 178/85. At maximum exercise stress,31.2 millicuries Tc MIBI administered at9:30AM a.m. with [id number] minutes thereafter. FINDINGS: Perfusion Evaluation: The single slice spect images as well as the [facility] bull's-eye data summary were reviewed. Wall Motion and Ejection Fraction Evaluation: Gated SPECT review and analysis used to evaluate these features. There is a 62 % left ventricular ejection fraction. There seems to be good wall motion Uniform myocardial activity at both stress and rest gated images calculated ejection fraction of 62% with normal wall motion IMPRESSION: No scintigraphic evidence of exercise-induced myocardial ischemia with normal ejection fraction normal wall motion
--- NOTE | 2018-10-25 09:55 | HMH.ITSHM ---
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 []TICAGRELOR OMEPRAZOLE VENLAFAXINE HCI ALBUTERAL
== END ==
PROVIDERS: PCP Family Medicine; Visit Provider Internal Medicine
DX: Z01.818 Encounter for other preprocedural examination (principal); I10 Essential (primary) hypertension; I82.90 Acute embolism and thrombosis of unspecified vein; R06.09 Other forms of dyspnea; R94.31 Abnormal electrocardiogram [ECG] [EKG]; Z82.49 Family history of ischemic heart disease and other diseases of the circulatory system; Z86.73 Personal history of transient ischemic attack (TIA), and cerebral infarction without residual deficits; Z87.891 Personal history of nicotine dependence
CPT/HCPCS: 78452; 93017; 93306; A9502

== ENCOUNTER → 2018-10-28 11:11 | Outpatient (CLI) | payer BC, SELFPAY ==
[2018-10-31 07:11] LABS: Cortisol,F,ug/24hr,U 4 ug/24 hr (6-42); Cortisol,F,ug/L,U 3 ug/L (Undefined)
== END ==
PROVIDERS: Visit Provider Internal Medicine Endocrinology, Diabetes & Metabolism
DX: E34.9 Endocrine disorder, unspecified (principal); R63.5 Abnormal weight gain; I10 Essential (primary) hypertension
CPT/HCPCS: 82530

== ENCOUNTER → 2018-10-30 | Outpatient (CLI) | payer BC, SELFPAY | PROVIDERS: Visit Provider Internal Medicine Endocrinology, Diabetes & Metabolism | DX: E34.9 Endocrine disorder, unspecified (principal); R63.5 Abnormal weight gain; I10 Essential (primary) hypertension ==

== ENCOUNTER → 2019-02-07 12:59 | Outpatient (CLI) | payer BC, SELFPAY ==
--- NOTE | 2019-02-07 13:05 | NVE_ITS ---
Venous Exam Indications: 782.3 Edema. IMPRESSIONS No evidence of deep or superficial vein thrombosis involving the right lower extremity and left lower extremity History: PMH: Deep vein thrombosis. Patient had a DVT inRLE more than 20 years ago. She takes 81 mg ASA daily. Risk factors: Former tobacco use. Hypertension. Complete lower extremity venous duplex evaluation. Doppler flow study including spectral analysis, color and east scale imaging. Location: Vascular laboratory. Patient status: Outpatient. Tables: Venous flow and imaging: + +-------+ + Location Overall Flow properties + +-------+ + Right common femoral Patent Normal phasicity; spontaneous; normal augmentation; compressible + +-------+ + Right saphenofemoral junction Patent Compressible + +-------+ + Right profunda femoral Patent Compressible + +-------+ + Right femoral Patent Normal phasicity; spontaneous; normal augmentation; compressible; no reflux + +-------+ + Right greater saphenous Patent Normal phasicity; spontaneous; normal augmentation; compressible + +-------+ + Right popliteal Patent Normal phasicity; spontaneous; normal augmentation; compressible + +-------+ + Right posterior tibial Patent Compressible + +-------+ + Right peroneal Patent Compressible + +-------+ + Right gastrocnemius Patent Compressible + +-------+ + Right soleal Patent Compressible + +-------+ + Left common femoral Patent Normal phasicity; spontaneous; normal augmentation; compressible + +-------+ + Left saphenofemoral junction Patent Compressible + +-------+ + Left profunda femoral Patent Compressible + +-------+ + Left femoral Patent Normal phasicity; spontaneous; normal augmentation; compressible + +-------+ + Left greater saphenous Patent Normal phasicity; spontaneous; normal augmentation; compressible + +-------+ + Left popli
== END ==
PROVIDERS: PCP Family Medicine; Visit Provider Internal Medicine
DX: R79.89 Other specified abnormal findings of blood chemistry (principal); R06.09 Other forms of dyspnea; I10 Essential (primary) hypertension; R00.0 Tachycardia, unspecified; R07.8 Other chest pain; R07.89 Other chest pain; R94.31 Abnormal electrocardiogram [ECG] [EKG]; Z86.73 Personal history of transient ischemic attack (TIA), and cerebral infarction without residual deficits; Z87.891 Personal history of nicotine dependence
CPT/HCPCS: 93970

== ENCOUNTER 2019-02-13 14:45 | Observation (INO) ==
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
[2019-02-13 15:09] LABS: Basophils % 0.3 % (0.1-2.0); Eosinophils # 0.2 K/mm3 (0.0-0.4); Eosinophils % 2.9 % (0.1-12.0); Hematocrit 41.6 % (37.0-47.0); Hemoglobin 13.6 g/dL (12.2-16.2); Lymphocytes # 2.2 K/mm3 (0.7-4.5); Lymphocytes % 27.2 % (10-50); Mean Corpuscular HGB Conc 32.7 g/dL (31.8-35.4); Mean Corpuscular Volume 91.4 fl (81-99); Mean Platelet Volume 7.3 fl (7.4-10.4); Monocytes # 0.2 K/mm3 (0.1-1.0); Neutrophils # 5.4 K/mm3 (1.8-7.8); Neutrophils % 66.6 % (37.0-80.0); Platelet Count 384 K/mm3 (142-424); Red Blood Count 4.55 M/mm3 (4.20-5.40); Red Cell Distribution Width 13.4 % (11.5-17.5); White Blood Count 8.2 K/mm3 (4.8-10.8)
[2019-02-13 15:19] LABS: Blood Urea Nitrogen 7 mg/dL (7-18); Carbon Dioxide 19 mmol/L (21.0-32.0); Chloride 102 mmol/L (98-107); Glucose 197 mg/dL (74-106); Sodium 137 mmol/L (136-145)
--- NOTE | 2019-02-13 15:47 | Consult Report ---
History of Present Illness Consult date: 02/13/19 Requesting physician: Daniele Pineda Consult reason: chest pain, shortness of breath Chief complaint: Chest pain and shortness of breath Additional Medical History:: 1. Hypertension 2. GERD 3. Asthma 4. TIA 5. DVT Myoview stress test from October 25, 2018 shows: No scintigraphic evidence of exercise-induced myocardial ischemia with normal ejection fraction normal wall motion Echocardiogram from October 25, 2018 shows: Normal ejection fraction at 55% with mild MR. History of present illness: This is a 43-year-old white female who presented to the emergency department with complaints of shortness of breath and chest pain. The patient states that she was doing well and then suddenly today she states that her lower lip started to swell and her throat felt funny. She states she then became significantly short of breath and had a rapid heart rate. She states that with the shortness of breath she was having a deep aching pain in her chest. This did not radiate. She states that she checked her blood pressure and it was 159/100 and her heart rate was 176. She states then it dropped down to around 150. She states that she thought she was having an allergic reaction to something and she took Benadryl. She states that she did have an old inhaler at the house and she took 2 puffs of the inhaler and neither the Benadryl or inhaler helped her symptoms. The patient then called Dr. Connors office and she was advised to come to the emergency department. A few weeks ago the patient was seen at the hospital in [place] for similar symptoms. The patient was worked up for what sounds like an elevated d-dimer. A CT of her chest was negative. She did have a history of DVTs but no venous duplex was completed on her legs so when she did come to the cardiology clinic after this and venous duplex was obtained which was negative for a DVT. The patient was tachycardic at that time to her metoprolol was increased. The pat ient states that she has been taking the increased dose of her metoprolol and her heart rate had been under good control last week, but this week her heart rate has begun to elevate again. The patient did have a normal stress test and echocardiogram in October but she continues to be symptomatic. This is most likely from her tachycardia. She does also have a history of asthma. [facility] History I have reviewed the patient's past medical history: Yes Medical History: Reports:: Asthma, Deep Vein Thrombosis, Gastroesophageal Reflux Disease(GERD), Hypertension, Transient Ischemic Attacks (TIA) Denies:: Cancer, Diabetes Mellitus Type 1, Diabetes Mellitus Type 2, Internal Pacemaker, MRSA, Seizures *Have you ever received a pneumonia vaccine?: No *Have you received a flu vaccine this season?: No Other Medical History: Denies: Blood Transfusion Reaction Laterality Cases: Bilateral: Other Other Surgeries: Yes: Appendectomy, Colon Resection, , Dilation and Curettage, Other (Jaw sx). No: Pacemaker Amputation: No Fractures: No - *Social History Smoking Status: Former smoker # Packs/Day (cigarettes): 1 Alcohol Intake: never Substance Use Type: denies use *Occupational Status:: employed Housing: house Household Members: spouse, children *Travel in the last 8 weeks: None Family Hx:: Cancer, Heart Attack, Hypertension Meds Home Medications Medication Instructions Recorded Confirmed Type omeprazole 40 mg capsule,delayed 40 mg PO DAILY 07/26/17 02/13/19 History release Albuterol Sulfate [Albuterol HFA 2 act INHALATION Q4HP PRN 08/31/17 02/13/19 History Inhaler] Aspirin [Low Dose Aspirin EC] 81 mg PO DAILY 10/31/18 02/13/19 History loratadine 10 mg tablet 10 mg PO DAILY 12/09/18 02/13/19 History venlafaxine ER 75 mg 150 mg PO DAILY cap 12/09/18 02/13/19 History capsule,extended release 24 hr Metoprolol Succinate [Metoprolol 200 mg PO DAILY 02/13/19 02/13/19 History Succinate 200mg Tablet] Allergies Allergy/AdvReac Type Severity Reaction Status Date / Time levofloxacin [From LEVAQUIN] Allergy Unknown SWELLING Verified 02/03/19 13:40 Review of Systems - Review of Systems Review of systems:: pertinent systems reviewed and negative unless documented below - Constitutional Reports lack of energy - ENT Reports lip swelling, Reports throat swelling - *Cardiovascular Reports chest pain, Reports chest pain at rest, Reports chest pain with activity, Reports shortness of breath, Reports shortness of breath with activity, Reports rapid, pounding, or irregular heartbeat - *Respiratory Reports shortness of breath, Reports shortness of breath with activity Exam Vital signs and Labs for Last 24 Hours: Temp Pulse Resp BP Pulse Ox 98.5 F 136 H 40 H 135/82 98 02/13/19 14:46 02/13/19 15:08 02/13/19 14:46 02/13/19 15:08 02/13/19 15:08 Laboratory Results - last 24 hr 02/13/19 14:52: WBC 8.2, RBC 4.55, Hgb 13.6, Hct 41.6, MCV 91.4, MCH 29.9, MCHC 32.7, RDW 13.4, Plt Count 384, MPV 7.3 L, Neut % (Auto) 66.6, Lymph % (Auto) 27.2, [place] % (Auto) 3.0, Eos % (Auto) 2.9, Baso % (Auto) 0.3, Neut # (Auto) 5.4, Lymph # (Auto) 2.2, [place] # (Auto) 0.2, Eos # (Auto) 0.2, Baso # (Auto) 0.0 02/13/19 14:52: Sodium 137, Potassium 3.0 L, Chloride 102, Carbon Dioxide 19 L, Anion Gap 19.0 H, BUN 7, Creatinine 1.02, Estimated Creat Clear 103, Estimated GFR 60, Est GFR ( Amer) 72, Glucose 197 H, Calcium 9.0, Troponin I < 0.02 02/13/19 14:52: Serum HCG, Qual Negative 02/13/19 14:52: Lactate 4.7 H I & O for Last 24 hours: Intake & Output 02/10/19 02/11/19 02/12/19 02/13/19 23:59 23:59 23:59 23:59 Weight 198 lb Narrative: Her EKG is sinus tachycardia with a rate of 152. There are nonspecific ST and T wave abnormalities. - *Routine HEENT Exam Head: Present: normocephalic, atraumatic Eye: Present: EOMI, PERRL ENT: Present: mucous membranes moist - *Routine Neck Exam Present: supple, full ROM, normal carotid upstroke. Absent: JVD, carotid bruit, lymphadenopathy - *Routine Respiratory Exam Present: CTA bilaterally - *Routine Cardiovascular Exam Present: Normal S1, Normal S2, tachycardia. Absent: murmur - *Routine Abdominal Exam Present: soft, normoactive bowel sounds. Absent: tenderness, distended - *Routine Extremities Exam Present: full ROM, pulses intact, normal capillary refill. Absent: cyanosis, clubbing, edema - *Routine Skin Exam Present: intact, warm. Absent: erythema, rash - *Routine Neurological Exam Present: alert, oriented X3, CN II-XII intact. Absent: sensory deficit, motor deficit - Routine Psychiatric Exam Present: normal affect, normal thought process - Detailed Eye Exam Eyelids: Left normal inspection Assessment and Plan (1) Sinus tachycardia Current visit: Yes Status: Acute Category: Medical Code(s): R00.0 - Tachycardia, unspecified (2) Chest pain Current visit: Yes Status: Acute Category: Medical Code(s): R07.9 - Chest pain, unspecified (3) Shortness of breath Current visit: Yes Status: Acute Category: Medical Code(s): R06.02 - Shortness of breath (4) Abnormal EKG Current visit: No Status: Acute Category: Medical Code(s): R94.31 - Abnormal electrocardiogram [ECG] [EKG] (5) Family history of heart disease Current visit: No Status: Chronic Category: Medical Code(s): Z82.49 - Family history of ischemic heart disease and other diseases of the circulatory system (6) History of TIA (transient ischemic attack) Current visit: No Status: Chronic Category: Medical Code(s): Z86.73 - Personal history of transient ischemic attack (TIA), and cerebral infarction without residual deficits (7) Hypertension Current visit: No Status: Chronic Qualifiers: Hypertension type: essential hypertension Qualified Code(s): I10 - Essential (primary) hypertension Category: Medical Code(s): I10 - Essential (primary) hypertension - Assessment and plan all Dx Assessment and Plan for all problems:: Plan: 1. The patient presented to the emergency department with complaints of chest pain and shortness of breath. She states that the symptoms started abruptly when her lip and throat started swelling. She took Benadryl and if he puffs of her albuterol inhaler with no improvement in her symptoms. The patient states that she is still having chest pain although it is better at this time. She states that at home her heart rate went up to 176. When she got to the hospital her heart rate was 152. She is in sinus rhythm and her heart rate is anywhere between 120 and 130 at the time of my evaluation. 2. The patient is adamant that she is taking her metoprolol XL 200 mg daily and her heart rate was under really good control last week with a heart rate in the 70s. We will change her on her metoprolol to see if we can get improvement in her heart rate. We will give her metoprolol tartrate 50 mg now and then will prescribe metoprolol tartrate 50 mg p.o. every 6 hours for better heart rate control. 3. The patient's initial troponin is negative. She does have a normal stress test in October. No plans for invasive cardiac catheterization unless her troponin is positive. 4. If the patient's heart rate is under better control by tomorrow, then she can likely be discharged home on the new dose of metoprolol tartrate. If her heart rate is still high tomorrow, then we may need to consider treating her with a different beta-ace. 5. Her blood pressure is well controlled at this time. 6. Her LDL goal is less than 100. We will get a liver and lipid panel in the morning. 7. Continue serial troponins. 8. Recommend aspirin 81 mg daily 9. Further recommendations were made pending the patient's response to treatment. Thank you for the opportunity to help participate in the care of this patient.
--- NOTE | 2019-02-13 16:02 | History & Physical Report ---
*Admission Date: 02/13/19 <Lanny Dyer - 02/13/19 17:02> *Chief complaint: chest pain <Lanny Dyer - 02/13/19 17:02> *History of present illness: Ms. Guillen is a 43-year-old white female who presented to the emergency room today with complaints of shortness of breath and chest pain. She was doing well until this am when her lower lip started to swell and her throat felt like it was swelling as well. She then became very short of breath and tachycardic. Along with the shortness of breath she had a pain in her chest that did not radiate. She states it felt like a pressure and she couldn't take a deep breath. Her blood pressure was elevated at 159/100 and her heart rate was reportedly 176. She was worried she may be having an allergic reaction and took Benadryl as well as an inhaler but nothing helped her symptoms. She called [facility] and was advised to go to the emergency room. By the time she got to the ER she was feeling a little better. The throat and lip swelling were improving. Work-up in the emergency room did reveal a low potassium and an elevated lactic acid. Her heart rate was in the 150s and her blood pressure was elevated. Cardiology was consulted and they have seen the patient and request admission for monitorin of her tachycardia. Of note, the patient was seen a few weeks ago at [facility] for very similar symptoms and had a work-up due to an elevated d-dimer. A CTA of her chest was negative. She did not have venous dopplers done at that time, but when she followed up in the cardiology clinic, these were ordered. They were negative for DVT. The patient was tachycardic at the time of her cardiology appointment and her metoprolol dose was increased to 200mg daily. She has been taking that dose and her heart rate was under good control until about a week ago when it began to elevate. She did have a stress test and an echo done in October. The stress test showed no evidence of exercise-induced myocardial ischemia and she had a normal ejection fraction. Cardiology saw the patient in the emergency room and gave her a dose of 50 milligrams of metoprolol tartrate and prescribed metoprolol tartrate 50 mg every 6 hours for better heart rate control. Her initial troponin is negative and due to her normal stress test, cardiology did not want to do a heart cath unless her serial troponins returned positive. She states her son has also recently been diagnosed with mono and strep throat. Her throat does not hurt but she has been fatigued. She is also worried her B12 level could be low. <Lanny Dyer 02/13/19 17:02> [facility] History I have reviewed the patient's past medical history: Yes <Lanny Dyer 02/13/19 17:02> Medical History: Reports:: Asthma, Deep Vein Thrombosis, Gastroesophageal Reflux Disease(GERD), Hypertension, Transient Ischemic Attacks (TIA) Denies:: Cancer, Diabetes Mellitus Type 1, Diabetes Mellitus Type 2, Internal Pacemaker, MRSA, Seizures <Lanny Dyer 02/13/19 17:02> *Have you ever received a pneumonia vaccine?: No <Lanny Dyer 02/13/19 17:02> *Have you received a flu vaccine this season?: No <Lanny Dyer 02/13/19 17:02> Other Medical History: Reports: Other (IBS). Denies: Blood Transfusion Reaction <Lanny Dyer 02/13/19 17:02> Laterality Cases: Bilateral: Other <Lanny Dyer 02/13/19 17:02> Other Surgeries: Yes: Appendectomy, Colon Resection, , Dilation and Curettage, Other (Jaw reconstruction, lip lesion removal). No: Pacemaker <Lanny Dyer 02/13/19 17:02> Amputation: No <Lanny Dyer 02/13/19 17:02> Fractures: No <Lanny Dyer 02/13/19 17:02> - *Social History Smoking Status: Former smoker <Lanny Dyer 02/13/19 17:02> # Packs/Day (cigarettes): 1 <Lanny Dyer 02/13/19 17:02> Alcohol Intake: never <Lanny Dyer 02/13/19 17:02> Substance Use Type: denies use <Lanny Dyer 02/13/19 17:02> *Occupational Status:: employed <Lanny Dyer 02/13/19 17:02> Housing: house <Lanny Dyer 02/13/19 17:02> Household Members: spouse, children [facility]> *Travel in the last 8 weeks: None <[facility] 02/13/19 17:02> Family Hx:: Cancer, Heart Attack, Hypertension <[facility] 02/13/19 17:02> Review of Systems - Constitutional Denies chills, Denies fever(s), Denies weakness <[facility] 02/13/19 17:02> - Eyes Denies blurry vision, Denies double vision <[facility] 02/13/19 17:02> - ENT Reports lip swelling, Reports nasal congestion, Reports throat swelling, Denies sore throat <[facility] 02/13/19 17:02> - *Cardiovascular Reports chest pain, Reports shortness of breath, Reports rapid, pounding, or irregular heartbeat, Denies radiating jaw, neck or arm pain <[facility] 02/13/19 17:02> - *Respiratory Denies chest congestion, Denies cough <[facility] 02/13/19 17:02> - *Gastrointestinal Denies abdominal pain, Denies loose stools, Denies nausea, Denies vomiting <[facility] 02/13/19 17:02> - *Genitourinary Denies difficulty urinating, Denies painful urination <[facility] 02/13/19 17:02> - *Musculoskeletal Denies joint pain <[facility] 02/13/19 17:02> - *Neurologic Denies headache(s), Denies tingling/numbness/burning sensations, Denies weakness <[facility] 02/13/19 17:02> Meds Home Medications Medication Instructions Recorded Confirmed Type omeprazole 40 mg capsule,delayed 40 mg PO DAILY 07/26/17 02/13/19 History release Albuterol Sulfate [Albuterol HFA 2 act INHALATION Q4HP PRN 08/31/17 02/13/19 History Inhaler] Aspirin [Low Dose Aspirin EC] 81 mg PO DAILY 10/31/18 02/13/19 History loratadine 10 mg tablet 10 mg PO DAILY 12/09/18 02/13/19 History venlafaxine ER 75 mg 150 mg PO DAILY cap 12/09/18 02/13/19 History capsule,extended release 24 hr Metoprolol Succinate [Metoprolol 200 mg PO DAILY 02/13/19 02/13/19 History Succinate 200mg Tablet] <Newton Connors - 02/13/19 17:33> Allergies Allergy/AdvReac Type Severity Reaction Status Date / Time levofloxacin [From [facility]] Allergy Unknown SWELLING Verified 02/03/19 13:40 <WaylonNewton cloud Omid - 02/13/19 17:33> Exam Vital signs and Labs for Last 24 Hours: Temp Pulse Resp BP Pulse Ox 98 F 90 22 145/74 H 98 02/13/19 17:07 02/13/19 17:10 02/13/19 17:07 02/13/19 17:07 02/13/19 15:08 Laboratory Results - last 24 hr 02/13/19 14:52: WBC 8.2, RBC 4.55, Hgb 13.6, Hct 41.6, MCV 91.4, MCH 29.9, MCHC 32.7, RDW 13.4, Plt Count 384, MPV 7.3 L, Neut % (Auto) 66.6, Lymph % (Auto) 27.2, [place] % (Auto) 3.0, Eos % (Auto) 2.9, Baso % (Auto) 0.3, Neut # (Auto) 5.4, Lymph # (Auto) 2.2, [place] # (Auto) 0.2, Eos # (Auto) 0.2, Baso # (Auto) 0.0 02/13/19 14:52: Sodium 137, Potassium 3.0 L, Chloride 102, Carbon Dioxide 19 L, Anion Gap 19.0 H, BUN 7, Creatinine 1.02, Estimated Creat Clear 103, Estimated GFR 60, Est GFR ( Amer) 72, Glucose 197 H, Calcium 9.0, Troponin I < 0.02 02/13/19 14:52: Serum HCG, Qual Negative 02/13/19 14:52: Lactate 4.7 H <WaylonNewton Omid - 02/13/19 17:33> Temp Pulse Resp BP Pulse Ox 98.5 F 136 H 40 H 135/82 98 02/13/19 14:46 02/13/19 15:08 02/13/19 14:46 02/13/19 15:08 02/13/19 15:08 Laboratory Results - last 24 hr 02/13/19 14:52: WBC 8.2, RBC 4.55, Hgb 13.6, Hct 41.6, MCV 91.4, MCH 29.9, MCHC 32.7, RDW 13.4, Plt Count 384, MPV 7.3 L, Neut % (Auto) 66.6, Lymph % (Auto) 27.2, [place] % (Auto) 3.0, Eos % (Auto) 2.9, Baso % (Auto) 0.3, Neut # (Auto) 5.4, Lymph # (Auto) 2.2, [place] # (Auto) 0.2, Eos # (Auto) 0.2, Baso # (Auto) 0.0 02/13/19 14:52: Sodium 137, Potassium 3.0 L, Chloride 102, Carbon Dioxide 19 L, Anion Gap 19.0 H, BUN 7, Creatinine 1.02, Estimated Creat Clear 103, Estimated GFR 60, Est GFR ( Amer) 72, Glucose 197 H, Calcium 9.0, Troponin I < 0.02 02/13/19 14:52: Serum HCG, Qual Negative 02/13/19 14:52: Lactate 4.7 H <Lanny Dyer - 02/13/19 17:02> I & O for Last 24 hours: Intake & Output 02/11/19 02/12/19 02/13/19 02/14/19 11:59 11:59 11:59 11:59 Weight 200 lb 6.403 oz <Newton Connors Omid - 02/13/19 17:33> Intake & Output 02/11/19 02/12/19 02/13/19 02/14/19 11:59 11:59 11:59 11:59 Weight 198 lb <Lanny Dyer - 02/13/19 17:02> - Constitutional no acute distress <Lanny Dyer - 02/13/19 17:02> - *Routine HEENT Exam Head: Present: normocephalic <Lanny Dyer - 02/13/19 17:02> Eye: Present: EOMI, PERRL <[facility] 02/13/19 17:02> ENT: Present: mucous membranes moist <[facility] 02/13/19 17:02> - *Routine Neck Exam Present: supple. Absent: carotid bruit, lymphadenopathy <[facility] 02/13/19 17:02> - *Routine Respiratory Exam Present: CTA bilaterally <[facility] 02/13/19 17:02> - *Routine Cardiovascular Exam Present: RRR, tachycardia <[facility] 02/13/19 17:02> - *Routine Abdominal Exam Present: soft, normoactive bowel sounds. Absent: tenderness <[facility] 02/13/19 17:02> - *Routine Extremities Exam Absent: cyanosis, clubbing, edema <[facility] 02/13/19 17:02> - *Routine Skin Exam Present: warm. Absent: rash <[facility] 02/13/19 17:02> - *Routine Neurological Exam Present: alert, oriented X3, CN II-XII intact. Absent: sensory deficit, motor deficit <[facility] 02/13/19 17:02> H&P: Result - Impressions CXR - pending <[facility] 02/13/19 17:02> Assessment and Plan (1) Sinus tachycardia Current visit: Yes Status: Acute Category: Medical Code(s): R00.0 - Tachycardia, unspecified (2) Swelling of lip, tongue, and throat Current visit: Yes Status: Acute Category: Medical Code(s): R22.0 - Localized swelling, mass and lump, head; R22.1 - Localized swelling, mass and lump, neck (3) Chest pain Current visit: Yes Status: Acute Category: Medical Code(s): R07.9 - Chest pain, unspecified (4) Shortness of breath Current visit: Yes Status: Acute Category: Medical Code(s): R06.02 - Shortness of breath (5) Abnormal EKG Current visit: No Status: Acute Category: Medical Code(s): R94.31 - Abnormal electrocardiogram [ECG] [EKG] (6) Family history of heart disease Current visit: No Status: Chronic Category: Medical Code(s): Z82.49 - Family history of ischemic heart disease and other diseases of the circulatory system (7) History of TIA (transient ischemic attack) Current visit: No Status: Chronic Category: Medical Code(s): Z86.73 - Personal history of transient ischemic attack (TIA), and cerebral infarction without residual deficits (8) Hypertension Current visit: No Status: Chronic Qualifiers: Hypertension type: essential hypertension Qualified Code(s): I10 - Essential (primary) hypertension Category: Medical Code(s): I10 - Essential (primary) hypertension (9) Hypokalemia Current visit: Yes Status: Acute Category: Medical Code(s): E87.6 - Hypokalemia (10) Elevated lactic acid level Current visit: Yes Status: Acute Category: Medical Code(s): R79.89 - Other specified abnormal findings of blood chemistry <Lanny Dyer - 02/13/19 15:58> (1) Sinus tachycardia Current visit: Yes Status: Acute Category: Medical Code(s): R00.0 - Tachycardia, unspecified (2) Swelling of lip, tongue, and throat Current visit: Yes Status: Acute Category: Medical Code(s): R22.0 - Localized swelling, mass and lump, head; R22.1 - Localized swelling, mass and lump, neck (3) Chest pain Current visit: Yes Status: Acute Category: Medical Code(s): R07.9 - Chest pain, unspecified (4) Shortness of breath Current visit: Yes Status: Acute Category: Medical Code(s): R06.02 - Shortness of breath (5) Abnormal EKG Current visit: No Status: Acute Category: Medical Code(s): R94.31 - Abnormal electrocardiogram [ECG] [EKG] (6) Family history of heart disease Current visit: No Status: Chronic Category: Medical Code(s): Z82.49 - Family history of ischemic heart disease and other diseases of the circulatory system (7) History of TIA (transient ischemic attack) Current visit: No Status: Chronic Category: Medical Code(s): Z86.73 - Personal history of transient ischemic attack (TIA), and cerebral infarction without residual deficits (8) Hypertension Current visit: No Status: Chronic Qualifiers: Hypertension type: essential hypertension Qualified Code(s): I10 - [place] l (primary) hypertension Category: Medical Code(s): I10 - Essential (primary) hypertension (9) Hypokalemia Current visit: Yes Status: Acute Category: Medical Code(s): E87.6 - Hypokalemia (10) Elevated lactic acid level Current visit: Yes Status: Acute Category: Medical Code(s): R79.89 - Other specified abnormal findings of blood chemistry <Newton Connors - 02/13/19 17:33> - Assessment and plan all Dx Assessment and Plan for all problems:: Patient seen and examined. She is feeling much better at present. Concur with above assessment and plan. <Newton Connors - 02/13/19 17:33> Will keep overnight on telemetry for monitoring. Cardiology has adjusted metoprolol dose. Will add EBV antibodies and a B12 level to labs already collected. Will start on potassium and recheck lactic acid level tomorrow with other labs. <Lanny Dyer - 02/13/19 17:02>
[2019-02-14 05:54] LABS: Basophils % 0.4 % (0.1-2.0); Eosinophils # 0.5 K/mm3 (0.0-0.4); Hemoglobin 12.5 g/dL (12.2-16.2); Lymphocytes % 23.1 % (10-50); Mean Corpuscular HGB Conc 31.4 g/dL (31.8-35.4); Mean Corpuscular Volume 93.5 fl (81-99); Mean Platelet Volume 7.3 fl (7.4-10.4); Monocytes # 0.4 K/mm3 (0.1-1.0); Monocytes % 4.2 % (1.7-9.3); Neutrophils # 5.9 K/mm3 (1.8-7.8); Neutrophils % 66.4 % (37.0-80.0); Platelet Count 352 K/mm3 (142-424); Red Blood Count 4.28 M/mm3 (4.20-5.40); Red Cell Distribution Width 13.4 % (11.5-17.5); White Blood Count 8.9 K/mm3 (4.8-10.8)
[2019-02-14 06:02] LABS: Albumin Level 3.4 gm/dL (3.4-5.0); Anion Gap 11.5 mEq/L (5-15); Bilirubin,Direct 0.1 mg/dL (0.0-0.2); Bilirubin,Indirect 0.1 mg/dL (0.0-0.9); Bilirubin,Total 0.2 mg/dL (0.2-1.0); Calcium 8.9 mg/dL (8.5-10.1); Chol/HDL Ratio 5.5 (1-3.5); Total Protein,Serum 7.2 gm/dL (6.4-8.2)
--- NOTE | 2019-02-14 07:49 | Pharmacy Consult Notes ---
[facility] Pharmacy VTE Monitoring - Patient Demographics Admission date: 02/14/19 Report Date: 02/14/19 Time: 07:48 Allergies/Adverse Reactions: Patient Allergies levofloxacin [From [facility]] Allergy (Unknown, Verified 02/03/19 13:40) SWELLING Height: 1.65 m Weight: 90.9 kg Patient Problems: Current Active Problems Sinus tachycardia (Acute) Chest pain (Acute) Shortness of breath (Acute) Swelling of lip, tongue, and throat (Acute) Hypokalemia (Acute) Elevated lactic acid level (Acute) Chest pain (Acute) Sinus tachycardia (Acute) Hypokalemia (Acute) Dyspnea (Acute) - VTE Risk Labs: VTE Related Lab Results Hgb 12.5 g/dL (12.2-16.2) 02/14/19 05:39 Hct 40.0 % (37.0-47.0) 02/14/19 05:39 Plt Count 352 K/mm3 (142-424) 02/14/19 05:39 BUN 7 mg/dL (7-18) 02/14/19 05:39 Creatinine 0.82 mg/dL (0.55-1.02) 02/14/19 05:39 Estimated Creat Clear 130 mL/min (50-200) 02/14/19 05:39 Was VTE Risk Assessment Performed: Yes VTE Score: 3 VTE Risk Level: Low Risk Clinical Trial Participant: No - Prophylaxis VTE Prophylaxis Ordered?: Yes Types of VTE Prophylaxis: TEDS Knee High
--- NOTE | 2019-02-14 08:18 | Progress Note ---
<Lanny Dyer - Last Filed: 02/14/19 08:15> Internal Medicine - PN: Subj *Date: 02/14/19 *Time: 08:15 Interval history: Patient states she had a rough night. She describes what sounds like esophageal spasms where she had pain from the epigastric area all the way up to the throat off and on all night. She also had a headache throughout the night. She attributes this to the nitroglycerin. Her blood pressure and heart rate have improved. She did not rest well. Exam Vital signs and Labs for Last 24 Hours: Temp Pulse Resp BP Pulse Ox 98.0 F 62 17 115/51 L 95 02/13/19 20:00 02/14/19 04:00 02/13/19 20:00 02/14/19 04:00 02/14/19 04:00 Laboratory Results - last 24 hr 02/13/19 14:45: Troponin I < 0.02 02/13/19 14:52: WBC 8.2, RBC 4.55, Hgb 13.6, Hct 41.6, MCV 91.4, MCH 29.9, MCHC 32.7, RDW 13.4, Plt Count 384, MPV 7.3 L, Neut % (Auto) 66.6, Lymph % (Auto) 27.2, [place] % (Auto) 3.0, Eos % (Auto) 2.9, Baso % (Auto) 0.3, Neut # (Auto) 5.4, Lymph # (Auto) 2.2, [place] # (Auto) 0.2, Eos # (Auto) 0.2, Baso # (Auto) 0.0 02/13/19 14:52: Sodium 137, Potassium 3.0 L, Chloride 102, Carbon Dioxide 19 L, Anion Gap 19.0 H, BUN 7, Creatinine 1.02, Estimated Creat Clear 103, Estimated GFR 60, Est GFR ( Amer) 72, Glucose 197 H, Calcium 9.0, Troponin I < 0.02 02/13/19 14:52: Serum HCG, Qual Negative 02/13/19 14:52: Lactate 4.7 H 02/13/19 19:39: Lactate 1.1 02/13/19 19:50: Troponin I < 0.02 02/13/19 22:30: Troponin I < 0.02 02/14/19 05:39: WBC 8.9, RBC 4.28, Hgb 12.5, Hct 40.0, MCV 93.5, MCH 29.3, MCHC 31.4 L, RDW 13.4, Plt Count 352, MPV 7.3 L, Neut % (Auto) 66.4, Lymph % (Auto) 23.1, [place] % (Auto) 4.2, Eos % (Auto) 6.0, Baso % (Auto) 0.4, Neut # (Auto) 5.9, Lymph # (Auto) 2.0, [place] # (Auto) 0.4, Eos # (Auto) 0.5 H, Baso # (Auto) 0.0 02/14/19 05:39: Sodium 139, Potassium 4.5 D, Chloride 104, Carbon Dioxide 28 D , Anion Gap 11.5, BUN 7, Creatinine 0.82, Estimated Creat Clear 130, Estimated GFR 77, Est GFR ( Amer) 93 D, Glucose 108 H D, Calcium 8.9, Total Bilirubin 0.2, Direct Bilirubin 0.1, Indirect Bilirubin 0.1, AST 10 L, ALT 26, Alkaline Phosphatase 97, Total Protein 7.2, Albumin 3.4, Triglycerides 130, Cholesterol 183, LDL Cholesterol 124, VLDL Cholesterol 26, HDL Cholesterol 33, Cholesterol/HDL Ratio 5.5 H 02/14/19 05:39: Lactate 0.9 I & O for Last 24 hours: Intake & Output 02/11/19 02/12/19 02/13/19 02/14/19 11:59 11:59 11:59 11:59 Intake Total 490 / 490 Balance 490 / 490 Weight 200 lb 6.403 oz - Constitutional no acute distress - *Routine Respiratory Exam Present: CTA bilaterally - *Routine Cardiovascular Exam Present: RRR - *Routine Abdominal Exam Present: soft, normoactive bowel sounds, tenderness (epigastric area) - *Routine Extremities Exam Absent: cyanosis, clubbing, edema - *Routine Skin Exam Present: warm. Absent: rash - *Routine Neurological Exam Present: alert, oriented X3 Assessment and Plan (1) Sinus tachycardia Status: Acute Category: Medical Code(s): R00.0 - Tachycardia, unspecified (2) Swelling of lip, tongue, and throat Status: Acute Category: Medical Code(s): R22.0 - Localized swelling, mass and lump, head; R22.1 - Localized swelling, mass and lump, neck (3) Chest pain Status: Acute Category: Medical Code(s): R07.9 - Chest pain, unspecified (4) Shortness of breath Status: Acute Category: Medical Code(s): R06.02 - Shortness of breath (5) Abnormal EKG Status: Acute Category: Medical Code(s): R94.31 - Abnormal electrocardiogram [ECG] [EKG] (6) Family history of heart disease Status: Chronic Category: Medical Code(s): Z82.49 - Family history of ischemic heart disease and other diseases of the circulatory system (7) History of TIA (transient ischemic attack) Status: Chronic Category: Medical Code(s): Z86.73 - Personal history of transient ischemic attack (TIA), and cerebral infarction without residual deficits (8) Hypertension Status: Chronic Qualifiers: Hypertension type: essential hypertension Qualified Code(s): I10 - Essential (primary) hypertension Category: Medical Code(s): I10 - Essential (primary) hypertension (9) Hypokalemia Status: Acute Category: Medical Code(s): E87.6 - Hypokalemia (10) Elevated lactic acid level Status: Acute Category: Medical Code(s): R79.89 - Other specified abnormal findings of blood chemistry (11) Epigastric pain Status: Acute Category: Medical Code(s): R10.13 - Epigastric pain - Assessment and plan all Dx Assessment and Plan for all problems:: Cardiology to follow today. Patient's heart rate and blood pressure have improved but she is still having pain that radiates from her epigastric area up through her chest. She may need an upper GI. <Newton Connors - Last Filed: 02/14/19 13:34> Internal Medicine - PN: Subj *Date: 02/14/19 *Time: 13:32 Exam Vital signs and Labs for Last 24 Hours: Temp Pulse Resp BP Pulse Ox 97.9 F 66 19 128/74 97 02/14/19 08:00 02/14/19 08:00 02/14/19 08:00 02/14/19 08:00 02/14/19 08:00 Laboratory Results - last 24 hr 02/13/19 14:45: Troponin I < 0.02 02/13/19 14:52: WBC 8.2, RBC 4.55, Hgb 13.6, Hct 41.6, MCV 91.4, MCH 29.9, MCHC 32.7, RDW 13.4, Plt Count 384, MPV 7.3 L, Neut % (Auto) 66.6, Lymph % (Auto) 27.2, [place] % (Auto) 3.0, Eos % (Auto) 2.9, Baso % (Auto) 0.3, Neut # (Auto) 5.4, Lymph # (Auto) 2.2, [place] # (Auto) 0.2, Eos # (Auto) 0.2, Baso # (Auto) 0.0 02/13/19 14:52: Sodium 137, Potassium 3.0 L, Chloride 102, Carbon Dioxide 19 L, Anion Gap 19.0 H, BUN 7, Creatinine 1.02, Estimated Creat Clear 103, Estimated GFR 60, Est GFR ( Amer) 72, Glucose 197 H, Calcium 9.0, Troponin I < 0.02 02/13/19 14:52: Serum HCG, Qual Negative 02/13/19 14:52: Lactate 4.7 H 02/13/19 19:39: Lactate 1.1 02/13/19 19:50: Troponin I < 0.02 02/13/19 22:30: Troponin I < 0.02 02/14/19 05:39: WBC 8.9, RBC 4.28, Hgb 12.5, Hct 40.0, MCV 93.5, MCH 29.3, MCHC 31.4 L, RDW 13.4, Plt Count 352, MPV 7.3 L, Neut % (Auto) 66.4, Lymph % (Auto) 23.1, [place] % (Auto) 4.2, Eos % (Auto) 6.0, Baso % (Auto) 0.4, Neut # (Auto) 5.9, Lymph # (Auto) 2.0, [place] # (Auto) 0.4, Eos # (Auto) 0.5 H, Baso # (Auto) 0.0 02/14/19 05:39: Sodium 139, Potassium 4.5 D, Chloride 104, Carbon Dioxide 28 D , Anion Gap 11.5, BUN 7, Creatinine 0.82, Estimated Creat Clear 130, Estimated GFR 77, Est GFR ( Amer) 93 D, Glucose 108 H D, Calcium 8.9, Total Bilirubin 0.2, Direct Bilirubin 0.1, Indirect Bilirubin 0.1, AST 10 L, ALT 26, Alkaline Phosphatase 97, Total Protein 7.2, Albumin 3.4, Triglycerides 130, Cholesterol 183, LDL Cholesterol 124, VLDL Cholesterol 26, HDL Cholesterol 33, Cholesterol/HDL Ratio 5.5 H 02/14/19 05:39: Lactate 0.9 I & O for Last 24 hours: Intake & Output 02/12/19 02/13/19 02/14/19 02/15/19 11:59 11:59 11:59 11:59 Intake Total 490 / 490 Balance 490 / 490 Weight 200 lb 6.403 oz Assessment and Plan (1) Sinus tachycardia Status: Acute Category: Medical Code(s): R00.0 - Tachycardia, unspecified (2) Swelling of lip, tongue, and throat Status: Acute Category: Medical Code(s): R22.0 - Localized swelling, mass and lump, head; R22.1 - Localized swelling, mass and lump, neck (3) Chest pain Status: Acute Category: Medical Code(s): R07.9 - Chest pain, unspecified (4) Shortness of breath Status: Acute Category: Medical Code(s): R06.02 - Shortness of breath (5) Abnormal EKG Status: Acute Category: Medical Code(s): R94.31 - Abnormal electrocardiogram [ECG] [EKG] (6) Family history of heart disease Status: Chronic Category: Medical Code(s): Z82.49 - Family history of ischemic heart disease and other diseases of the circulatory system (7) History of TIA (transient ischemic attack) Status: Chronic Category: Medical Code(s): Z86.73 - Personal history of transient ischemic attack (TIA), and cerebral infarction without residual deficits (8) Hypertension Status: Chronic Qualifiers: Hypertension type: essential hypertension Qualified Code(s): I10 - Essential (primary) hypertension Category: Medical Code(s): I10 - Essential (primary) hypertension (9) Hypokalemia Status: Acute Category: Medical Code(s): E87.6 - Hypokalemia (10) Elevated lactic acid level Status: Acute Category: Medical Code(s): R79.89 - Other specified abnormal findings of blood chemistry (11) Costochondral chest pain Status: Acute Category: Medical Code(s): R07.1 - Chest pain on breathing - Assessment and plan all Dx Assessment and Plan for all problems:: Patient seen and examined this morning. She had recurring chest pain through the night. She states that usually occurred when she was laying on her left side and she localizes the pain along the left sternal border. No shortness of breath or palpitations. On exam her lungs are clear. There is moderate tenderness to palpation along the left sternal border. Cardiac enzymes have been normal. Unless cardiology has plans for further testing, I think she can be discharged home with anti-inflammatories and followed up as an outpatient.
[2019-02-14 08:23] VITALS: BP 128/74
--- NOTE | 2019-02-14 09:18 | Progress Note ---
Subjective Date: 02/14/19 Time: 09:15 Principal diagnosis: chest pain Interval history: 43-year-old white female in bed in no acute distress. Nurses relate episodes of chest discomfort overnight that improved with morphine IV. Patient describes an acute increase in chest discomfort with lying on her left side or taking a deep breath. She has previous back injuries and has noticed some numbness and tingling into her legs at times. Patient also drinks a significant amount of caffeine every day and has reflux symptoms despite taking omeprazole, although she admits noncompliance on a daily basis. EKGs during chest pains were unchanged from previous tracings. Troponins remain normal. I had a long discussion today with the patient regarding possible etiology of her chest pain and further treatment including adjusting her meds and/or proceeding with left heart catheterization. At this point I do not feel that the patient needs left heart catheterization and would recommend continuing with medical therapy which the patient is in agreement with. Exam Vital signs and Labs for Last 24 Hours: Temp Pulse Resp BP Pulse Ox 97.9 F 66 19 128/74 97 02/14/19 08:00 02/14/19 08:00 02/14/19 08:00 02/14/19 08:00 02/14/19 08:00 Laboratory Results - last 24 hr 02/13/19 14:45: Troponin I < 0.02 02/13/19 14:52: WBC 8.2, RBC 4.55, Hgb 13.6, Hct 41.6, MCV 91.4, MCH 29.9, MCHC 32.7, RDW 13.4, Plt Count 384, MPV 7.3 L, Neut % (Auto) 66.6, Lymph % (Auto) 27.2, [place] % (Auto) 3.0, Eos % (Auto) 2.9, Baso % (Auto) 0.3, Neut # (Auto) 5.4, Lymph # (Auto) 2.2, [place] # (Auto) 0.2, Eos # (Auto) 0.2, Baso # (Auto) 0.0 02/13/19 14:52: Sodium 137, Potassium 3.0 L, Chloride 102, Carbon Dioxide 19 L, Anion Gap 19.0 H, BUN 7, Creatinine 1.02, Estimated Creat Clear 103, Estimated GFR 60, Est GFR ( Amer) 72, Glucose 197 H, Calcium 9.0, Troponin I < 0.02 02/13/19 14:52: Serum HCG, Qual Negative 02/13/19 14:52: Lactate 4.7 H 02/13/19 19:39: Lactate 1.1 02/13/19 19:50: Troponin I < 0.02 02/13/19 22:30: Troponin I < 0.02 02/14/19 05:39: WBC 8.9, RBC 4.28, Hgb 12.5, Hct 40.0, MCV 93.5, MCH 29.3, MCHC 31.4 L, RDW 13.4, Plt Count 352, MPV 7.3 L, Neut % (Auto) 66.4, Lymph % (Auto) 23.1, [place] % (Auto) 4.2, Eos % (Auto) 6.0, Baso % (Auto) 0.4, Neut # (Auto) 5.9, Lymph # (Auto) 2.0, [place] # (Auto) 0.4, Eos # (Auto) 0.5 H, Baso # (Auto) 0.0 02/14/19 05:39: Sodium 139, Potassium 4.5 D, Chloride 104, Carbon Dioxide 28 D , Anion Gap 11.5, BUN 7, Creatinine 0.82, Estimated Creat Clear 130, Estimated GFR 77, Est GFR ( Amer) 93 D, Glucose 108 H D, Calcium 8.9, Total Bilirubin 0.2, Direct Bilirubin 0.1, Indirect Bilirubin 0.1, AST 10 L, ALT 26, Alkaline Phosphatase 97, Total Protein 7.2, Albumin 3.4, Triglycerides 130, Cholesterol 183, LDL Cholesterol 124, VLDL Cholesterol 26, HDL Cholesterol 33, Cholesterol/HDL Ratio 5.5 H 02/14/19 05:39: Lactate 0.9 I & O for Last 24 hours: Intake & Output 02/11/19 02/12/19 02/13/19 02/14/19 11:59 11:59 11:59 11:59 Intake Total 490 / 490 Balance 490 / 490 Weight 200 lb 6.403 oz - *Routine Respiratory Exam Present: CTA bilaterally. Absent: accessory muscle use, rales, rhonchi, wheezes - *Routine Cardiovascular Exam Present: RRR. Absent: murmur, gallop, rubs - *Routine Extremities Exam Absent: edema, calf tenderness - *Routine Neurological Exam Present: alert, oriented X3, moving all extremities Progress Note: A&P (1) Sinus tachycardia Status: Acute Current Visit: Yes (2) Swelling of lip, tongue, and throat Status: Acute Current Visit: Yes (3) Chest pain Status: Acute Current Visit: Yes (4) Shortness of breath Status: Acute Current Visit: Yes (5) Abnormal EKG Status: Acute Current Visit: No (6) Family history of heart disease Status: Chronic Current Visit: No (7) History of TIA (transient ischemic attack) Status: Chronic Current Visit: No (8) Hypertension Status: Chronic Current Visit: No (9) Hypokalemia Status: Acute Current Visit: Yes (10) Elevated lactic acid level Status: Acute Current Visit: Yes (11) Epigastric pain Status: Acute Current Visit: Yes Assessment and Plan for All Diagnoses:: 1. Suggested to change her metoprolol to 200 mg one half tab twice daily. 2. Recommend daily use of omeprazole and can even add [id number] Zantac daily 3. Recommend decreasing caffeine intake 4. Recommend a more regular sleep schedule 5. Patient can be discharged home with follow-up in our office in 1 to 2 weeks.
--- NOTE | 2019-02-14 13:45 | Discharge Summary ---
General - General Admission date:: 02/13/19 <WaylonNewton anderson - 03/02/19 22:05> 02/13/19 <Lanny Dyer - 02/14/19 13:46> Discharge date: 02/14/19 <Lanny Dyer - 02/14/19 13:46> HPI HPI: Ms. Guillen is a 43-year-old white female who presented to the emergency room with complaints of shortness of breath and chest pain. She was doing well until her lower lip started to swell and her throat felt like it was swelling as well. She then became very short of breath and tachycardic. Along with the shortness of breath she had a pain in her chest that did not radiate. She st ated it felt like a pressure and she couldn't take a deep breath. Her blood pressure was elevated at 159/100 and her heart rate was reportedly 176. She was worried she may be having an allergic reaction and took Benadryl as well as an inhaler but nothing helped her symptoms. She called [facility] and was advised to go to the emergency room. By the time she got to the ER she was feeling a little better. The throat and lip swelling were improving. Work-up in the emergency room did reveal a low potassium and an elevated lactic acid. Her heart rate was in the 150s and her blood pressure was elevated. Cardiology was consulted and they have seen the patient and request admission for monitoring of her tachycardia. Of note, the patient was seen a few weeks ago at [facility] for very similar symptoms and had a work-up due to an elevated d-dimer. A CTA of her chest was negative. She did not have venous dopplers done at that time, but when she followed up in the cardiology clinic, these were ordered. They were negative for DVT. The patient was tachycardic at the time of her cardiology appointment and her metoprolol dose was increased to 200mg daily. She has been taking that dose and her heart rate was under good control until about a week ago when it began to elevate. She did have a stress test and an echo done in October. The stress test showed no evidence of exercise-induced myocardial ischemia and she had a normal ejection fraction. Cardiology saw the patient in the emergency room and gave her a dose of 50 milligrams of metoprolol tartrate and prescribed metoprolol tartrate 50 mg every 6 hours for better heart rate control. Her initial troponin was negative and due to her normal stress test, cardiology did not want to do a heart cath unless her serial troponins returned positive. She states her son has also recently been diagnosed with mono and strep throat. <Lanny Dyer - 02/14/19 13:46> Hospital Course Hospital Course: The patient's CXR showed nothing acute. She was seen in consultation by cardiology and was given a dose of 50 mg of metoprolol tartrate. Metoprolol tartrate 50 mg was then ordered every 6 hours for better heart rate control. She was kept overnight on telemetry for monitoring. Her lactic acid level was initially elevated but returned to normal. She did have a rough night and had some pain all along the midsternal to left side of her chest. She also had a headache. Her blood pressure and heart rate did both improve. She had no shortness of breath or further palpitations. There was some tenderness to palpation along the left sternal border. All of her cardiac enzymes returned normal. Dr. Connors felt she may have costochondritis. Cardiology followed the patient and suggested changing her metoprolol to 200 mg 1/2 tablet twice daily. They also recommended daily use of omeprazole. They felt she was stable for discharge, therefore she was discharged on anti-inflammatories. <Lanny Dyer - 02/14/19 13:46> Objective Vital signs: Temp Pulse Resp BP Pulse Ox 97.9 F 66 19 128/74 97 02/14/19 08:00 02/14/19 08:00 02/14/19 08:00 02/14/19 08:00 02/14/19 08:00 <Newton Connors - 03/02/19 22:05> Temp Pulse Resp BP Pulse Ox 97.9 F 66 19 128/74 97 02/14/19 08:00 02/14/19 08:00 02/14/19 08:00 02/14/19 08:00 02/14/19 08:00 <Lanny Dyer - 02/14/19 13:46> Narrative: - Constitutional no acute distress - *Routine Respiratory Exam Present: CTA bilaterally - *Routine Cardiovascular Exam Present: RRR - *Routine Abdominal Exam Present: soft, normoactive bowel sounds, tenderness (epigastric area) - *Routine Extremities Exam Absent: cyanosis, clubbing, edema - *Routine Skin Exam Present: warm. Absent: rash - *Routine Neurological Exam Present: alert, oriented X3 <Lanny Dyer - 02/14/19 13:46> Results Labs on day of discharge: Labs from last 24 hours 02/14/19 02/14/19 02/14/19 05:39 05:39 05:39 WBC 8.9 RBC 4.28 Hgb 12.5 Hct 40.0 MCV 93.5 MCH 29.3 MCHC 31.4 L RDW 13.4 Plt Count 352 MPV 7.3 L Neut % (Auto) 66.4 Lymph % (Auto) 23.1 [place] % (Auto) 4.2 Eos % (Auto) 6.0 Baso % (Auto) 0.4 Neut # (Auto) 5.9 Lymph # (Auto) 2.0 [place] # (Auto) 0.4 Eos # (Auto) 0.5 H Baso # (Auto) 0.0 Sodium 139 Potassium 4.5 D Chloride 104 Carbon Dioxide 28 D Anion Gap 11.5 BUN 7 Creatinine 0.82 Estimated Creat Clear 130 Estimated GFR 77 Est GFR ( Amer) 93 D Glucose 108 H D Lactate 0.9 Calcium 8.9 Total Bilirubin 0.2 Direct Bilirubin 0.1 Indirect Bilirubin 0.1 AST 10 L ALT 26 Alkaline Phosphatase 97 Troponin I Total Protein 7.2 Albumin 3.4 Triglycerides 130 Cholesterol 183 LDL Cholesterol 124 VLDL Cholesterol 26 HDL Cholesterol 33 Cholesterol/HDL Ratio 5.5 H Serum HCG, Qual 02/13/19 02/13/19 02/13/19 22:30 19:50 19:39 WBC RBC Hgb Hct MCV MCH MCHC RDW Plt Count MPV Neut % (Auto) Lymph % (Auto) [place] % (Auto) Eos % (Auto) Baso % (Auto) Neut # (Auto) Lymph # (Auto) [place] # (Auto) Eos # (Auto) Baso # (Auto) Sodium Potassium Chloride Carbon Dioxide Anion Gap BUN Creatinine Estimated Creat Clear Estimated GFR Est GFR ( Amer) Glucose Lactate 1.1 Calcium Total Bilirubin Direct Bilirubin Indirect Bilirubin AST ALT Alkaline Phosphatase Troponin I < 0.02 < 0.02 Total Protein Albumin Triglycerides Cholesterol LDL Cholesterol VLDL Cholesterol HDL Cholesterol Cholesterol/HDL Ratio Serum HCG, Qual 0802/13/19 02/13/19 14:52 14:52 14:52 WBC RBC Hgb Hct MCV MCH MCHC RDW Plt Count MPV Neut % (Auto) Lymph % (Auto) [place] % (Auto) Eos % (Auto) Baso % (Auto) Neut # (Auto) Lymph # (Auto) [place] # (Auto) Eos # (Auto) Baso # (Auto) Sodium 137 Potassium 3.0 L Chloride 102 Carbon Dioxide 19 L Anion Gap 19.0 H BUN 7 Creatinine 1.02 Estimated Creat Clear 103 Estimated GFR 60 Est GFR ( Amer) 72 Glucose 197 H Lactate 4.7 H Calcium 9.0 Total Bilirubin Direct Bilirubin Indirect Bilirubin AST ALT Alkaline Phosphatase Troponin I < 0.02 Total Protein Albumin Triglycerides Cholesterol LDL Cholesterol VLDL Cholesterol HDL Cholesterol Cholesterol/HDL Ratio Serum HCG, Qual Negative 02/13/19 02/13/19 14:52 14:45 WBC 8.2 RBC 4.55 Hgb 13.6 Hct 41.6 MCV 91.4 MCH 29.9 MCHC 32.7 RDW 13.4 Plt Count 384 MPV 7.3 L Neut % (Auto) 66.6 Lymph % (Auto) 27.2 [place] % (Auto) 3.0 Eos % (Auto) 2.9 Baso % (Auto) 0.3 Neut # (Auto) 5.4 Lymph # (Auto) 2.2 [place] # (Auto) 0.2 Eos # (Auto) 0.2 Baso # (Auto) 0.0 Sodium Potassium Chloride Carbon Dioxide Anion Gap BUN Creatinine Estimated Creat Clear Estimated GFR Est GFR ( Amer) Glucose Lactate Calcium Total Bilirubin Direct Bilirubin Indirect Bilirubin AST ALT Alkaline Phosphatase Troponin I < 0.02 Total Protein Albumin Triglycerides Cholesterol LDL Cholesterol VLDL Cholesterol HDL Cholesterol Cholesterol/HDL Ratio Serum HCG, Qual <Lanny Dyer - 02/14/19 13:46> DS: Diagnosis - Discharge Diagnosis (1) Sinus tachycardia Status: Acute (2) Swelling of lip, tongue, and throat Status: Acute (3) Chest pain Status: Acute (4) Shortness of breath Status: Acute (5) Abnormal EKG Status: Acute (6) Family history of heart disease Status: Chronic (7) History of TIA (transient ischemic attack) Status: Chronic (8) Hypertension Status: Chronic (9) Hypokalemia Status: Acute (10) Elevated lactic acid level Status: Acute (11) Costochondral chest pain Status: Acute <Lanny Dyer - 02/14/19 13:40> (1) Sinus tachycardia Status: Acute (2) Swelling of lip, tongue, and throat Status: Acute (3) Chest pain Status: Acute (4) Shortness of breath Status: Acute (5) Abnormal EKG Status: Acute (6) Family history of heart disease Status: Chronic (7) History of TIA (transient ischemic attack) Status: Chronic (8) Hypertension Status: Chronic (9) Hypokalemia Status: Acute (10) Elevated lactic acid level Status: Acute (11) Costochondral chest pain Status: Acute <Newton Connors - 03/02/19 22:05> Discharge Plan - Patient Discharge Instructions ACTIVITY: Continue current activity <Lanny Dyer - 02/14/19 13:46> DIET: continue same diet <Lanny Dyer - 02/14/19 13:46> Patient Instructions: Angina, DI for Angina, DI for Costochondritis <Newton Connors - 03/02/19 22:05> Forms: <Newton Connors - 03/02/19 22:05> - Follow up Plan Follow up with: Newton Connors MD [Primary Care Provider] - 02/24/19 3:00 pm Sp Persaud MD [Staff Physician] - 02/24/19 1:40 pm <Newton Connors - 03/02/19 22:05> Disposition: Home, Self-Care <Newton Connors - 03/02/19 22:05> Home Medications: Home Medications Medication Instructions Recorded Confirmed Type omeprazole 40 mg capsule,delayed 40 mg PO DAILY 07/26/17 02/24/19 History release Albuterol Sulfate [Albuterol HFA 2 act INHALATION Q4HP PRN 08/31/17 02/24/19 History Inhaler] Aspirin [Low Dose Aspirin EC] 81 mg PO DAILY 10/31/18 02/24/19 History loratadine 10 mg tablet 10 mg PO DAILY 12/09/18 02/24/19 History Metoprolol Succinate [Metoprolol 200 mg PO DAILY 02/13/19 02/24/19 History Succinate 200mg Tablet] Diclofenac Sodium [Diclofenac 75mg 75 mg PO BID #30 tab 02/14/19 02/24/19 Rx Tab] Venlafaxine HCl [Venlafaxine HCl 150 mg PO DAILY 02/14/19 02/24/19 History ER] <Newton Connors - 03/02/19 22:05> Prescriptions/Medication Reconciliation: New Diclofenac Sodium [Diclofenac 75mg Tab] 75 mg PO BID #30 tab Continued omeprazole 40 mg capsule,delayed release 40 mg PO DAILY loratadine 10 mg tablet 10 mg PO DAILY Albuterol Sulfate [Albuterol HFA Inhaler] 2 act INHALATION Q4HP PRN PRN Reason: sob Aspirin [Low Dose Aspirin EC] 81 mg PO DAILY Venlafaxine HCl [Venlafaxine HCl ER] 150 mg PO DAILY Metoprolol Succinate [Metoprolol Succinate 200mg Tablet] 200 mg PO DAILY <Newton Connors - 03/02/19 22:05> - Problem Reconciliation Problems Reviewed?: Yes <Newton Connors - 03/02/19 22:05> Yes <Lanny Dyer - 02/14/19 13:46> - Additional Information Additional Information: Concur with assessment and plan for discharge. <Newton Connors - 03/02/19 22:05>
[2019-02-15 18:02] LABS: Epstein-Barr Virus Early Ag Ab <9.0 U/mL (0.0-8.9)
== END 2019-02-14 09:55 | disposition home or self-care (01) ==
LOC: ER 14:45 → ICU 14:45
PROVIDERS: ADMIT Family Medicine; ATTEND Family Medicine
DX: Z88.1 Allergy status to other antibiotic agents; R07.1 Chest pain on breathing; Z86.718 Personal history of other venous thrombosis and embolism; J45.909 Unspecified asthma, uncomplicated; Z82.49 Family history of ischemic heart disease and other diseases of the circulatory system; R79.89 Other specified abnormal findings of blood chemistry; Z79.899 Other long term (current) drug therapy; R00.0 Tachycardia, unspecified; I10 Essential (primary) hypertension; R22.0 Localized swelling, mass and lump, head; Z86.73 Personal history of transient ischemic attack (TIA), and cerebral infarction without residual deficits; R10.13 Epigastric pain; E87.6 Hypokalemia; R94.31 Abnormal electrocardiogram [ECG] [EKG]; R06.00 Dyspnea, unspecified; Z79.82 Long term (current) use of aspirin
CPT/HCPCS: 36415; 71020; 71046; 80048; 80061; 80076; 82607; 83605; 84484; 84703; 85025; 86663; 86664; 86665; 93005; 99284; G0378; J2405

== ENCOUNTER → 2019-03-04 11:16 | Outpatient (CLI) | payer BC, SELFPAY ==
--- NOTE | 2019-03-04 11:22 | XR_ITS ---
PROCEDURE: XR MULTIPLE SPINE 6+V CLINICAL INDICATION: ACUTE MIDLINE LOW BACK PAIN Acute back pain, numbness in both feet COMPARISON: [id number] CT abdomen pelvis wo con from 01/22/2018 FINDINGS: Thoracic spine: Three views of the thoracic show normal alignment. No acute fracture or dislocation. Minimal degenerative changes are present in the midthoracic. No lytic or blastic change. Minimal thoracic curvature convex left. Lumbar spine: Five views of the lumbar spine show normal alignment. The disc spaces are well preserved. No fracture, dislocation, lytic change or blastic change evident. There is mild anterior displacement and anterior angulation of the coccyx which may be related to old injury. This was present on an older CT scan of 01/22/2018 IMPRESSION: Thoracic spine: No acute finding mild degenerative change Lumbar spine: No acute finding, old coccyx fracture Dictated by: Jorge Hanley MD 03/04/2019 13:27 Signed by: <Electronically signed by Jorge Hanley MD in [place]> 03/04/2019 13:27
== END ==
PROVIDERS: PCP Family Medicine; Visit Provider Physician Assistant
DX: M54.5 Low back pain (principal); M54.6 Pain in thoracic spine
CPT/HCPCS: 72084

== ENCOUNTER → 2019-05-15 16:41 | Outpatient (CLI) | payer BC, SELFPAY ==
--- NOTE | 2019-05-15 | XR_ITS ---
PROCEDURE: XR SHOULDER RT MIN 2V CLINICAL INDICATION: TRAUMA Posttraumatic pain COMPARISON: [id number] [id number] from 05/11/2014 SHOULDCMRT XR shoulder RT min 2V from 03/22/2018 XR CLAVICLE RT from 05/15/2019 FINDINGS: No fracture, dislocation, lytic change, or blastic change evident. No significant degenerative change IMPRESSION: No acute findings. Dictated by: Jorge Hanley MD 05/15/2019 17:07 Electronically signed by Jorge Hanley MD in [place] 05/15/2019 17:09
--- NOTE | 2019-05-15 | XR_ITS ---
PROCEDURE: XR CLAVICLE RT CLINICAL INDICATION: Posttraumatic pain COMPARISON: No exams were available for comparison FINDINGS: No fracture or dislocation. No lytic or blastic change. There is normal mineralization. The joint spaces are well-preserved. No significant degenerative/arthritic changes. No erosive changes evident. Other findings:None. IMPRESSION: No acute findings. Dictated by: Jorge Hanley MD 05/15/2019 17:08 Electronically signed by Jorge Hanley MD in [place] 05/15/2019 17:08
== END ==
PROVIDERS: PCP Emergency Medicine; Visit Provider Emergency Medicine
DX: M25.511 Pain in right shoulder (principal); T14.90XA Injury, unspecified, initial encounter
CPT/HCPCS: 73000; 73030

== ENCOUNTER → 2019-05-20 15:56 | Outpatient (CLI) | payer BC, SELFPAY ==
--- NOTE | 2019-05-20 15:58 | MR_ITS ---
PROCEDURE: MR SHOULDER RT WO CON CLINICAL INDICATION: RIGHT ANTERIOR SHOULDER PAIN, TRAUMA Right shoulder pain with limited range of motion COMPARISON: XR SHOULDER RT MIN 2V from 05/15/2019 TECHNIQUE: Routine multiplanar multi echo sequences are performed without gadolinium enhancement. FINDINGS: There is downsloping of the a chromium laterally with resultant subacromial stenosis with a subacromial space measuring 3 mm. There is increased T2 signal of the supraspinatus tendon with mild thickening consistent with tendinopathy/tendinosis with suspected partial tear of the superficial distal aspect of the supraspinatus tendon. A complete tear is not identified. A full-thickness tear is not identified. The infraspinatus, subscapularis, and teres minor tendons are intact. The bicipital tendon is in place. No obvious labral tear. There is increased T2 signal involving the humeral head anteriorly and posteriorly and may represent subcortical cystic changes. Both anterior and posterior areas of increased T2 signal are in locations that could represent a Hill-Sachs or reverse Hill-Sachs injury however, no obvious cortical defect associated with these findings. Please correlate as to possible prior history of shoulder dislocation. IMPRESSION: 1. 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 No evidence of full-thickness or complete tear. 2. Increased T2 signal involving both anterior and posterior aspect of the humeral head which may represent sub chondral cystic changes versus prior old Hill-Sachs or reverse Hill-Sachs injury Dictated by: Jorge Hanley MD 05/22/2019 18:30 Electronically signed by Jorge Hanley MD in [place] 05/23/2019 08:00
== END ==
PROVIDERS: PCP Emergency Medicine; Visit Provider Emergency Medicine
DX: M25.511 Pain in right shoulder (principal); T14.90XA Injury, unspecified, initial encounter
CPT/HCPCS: 73221

== ENCOUNTER 2019-06-30 09:00 | Outpatient (RCR) | payer BC, SELFPAY | END 2019-06-30 09:05 | disposition home or self-care (01) | LOC: PT 09:00 | PROVIDERS: PCP Family Medicine; Visit Provider Orthopaedic Surgery | DX: M25.511 Pain in right shoulder (principal) | CPT/HCPCS: 97010; 97033; 97110; 97163 ==

== ENCOUNTER → 2019-08-11 11:37 | Outpatient (CLI) | payer BC, SELFPAY ==
--- NOTE | 2019-08-11 11:43 | XR_ITS ---
PROCEDURE: XR CHEST 2V CLINICAL HISTORY: SOB COMPARISON: CXR CHEST(2 VIEWS-NOT PORTABLE) from 01/10/2016 CXR2V XR chest 2V from 08/31/2017 CXR2V XR chest 2V from 12/28/2017 Chest from 02/13/2019 FINDINGS: The cardiomediastinal silhouette and pulmonary vascularity are within normal limits. The lungs are clear without infiltrates, suspicious nodules, or pleural effusions. There are noncalcified bilateral small nodular densities some which may be due to granuloma is not significantly changed No acute bony abnormalities. IMPRESSION: No acute findings. Dictated by: Jorge Hanley MD 08/11/2019 13:39 Electronically signed by Jorge Hanley MD in [facility] 08/11/2019 13:39
== END ==
LOC: RAD 11:39
PROVIDERS: PCP Family Medicine; Visit Provider Nurse Practitioner Family
DX: R06.02 Shortness of breath (principal)
CPT/HCPCS: 71046

== ENCOUNTER → 2019-08-14 10:38 | Outpatient (CLI) | payer BC, SELFPAY ==
--- NOTE | 2019-08-14 10:55 | ECG_ITS ---
APPROVED REPORT Exam: Resting ECG HR:77 bpm ECG Measurements Heart Rate 77 AXES NC 126 P 74 QRSd 78 QRS 71 QT 378 T 54 QTc 427 <Conclusion> Normal sinus rhythm Normal ECG Electronically signed by : Javi Dunham, 08/14/2019 15:27:50
== END ==
PROVIDERS: PCP Family Medicine; Visit Provider Nurse Practitioner Family
DX: R00.2 Palpitations (principal)
CPT/HCPCS: 93005

== ENCOUNTER → 2020-02-18 11:55 | Outpatient (CLI) | payer BC, SELFPAY | LOC: RT 11:56 | PROVIDERS: PCP Family Medicine; Visit Provider Nurse Practitioner Family | DX: R00.2 Palpitations (principal); R00.0 Tachycardia, unspecified; R07.9 Chest pain, unspecified | CPT/HCPCS: 93270 ==

== ENCOUNTER → 2020-02-24 14:54 | Outpatient (CLI) | payer BC, SELFPAY ==
--- NOTE | 2020-02-24 15:07 | CA_ITS ---
APPROVED REPORT EXAM: Comprehensive 2D, Doppler, and color-flow Echocardiogram Autocad Technician: Delaney Patel CRT Ht: 5 ft 5 in Wt: 206lbs BSA: 2.00 BP: 142/83 mmHg Indications: soa, palpitations, tachycardia, ex smoker, CP, HTN, currently wearing event recorder M-Mode Dimensions RVDd 2.71 cm (0.9-2.6) LVDd 4.28 cm (3.5-5.7) LVDs 3.18 cm (3.5-5.7) IVSd 1.14 cm (0.6-1.1) PWd 0.76 cm (0.6-1.1) EF (Teich) 51.00% FS 25.70% EDV (Teich) 82.20 mL ESV (Teich) 40.30 mL LV Diastology E/A Ratio 1.77 Mitral Valve MV A Velocity 46.00 (40-130 cm/s) Left Ventricle Left atrium is normal size, left ventricle is normal size, there is no concentric left ventricular hypertrophy, visually estimated ejection fraction 55% with no regional wall motion abnormality, diastolic parameters are within normal range. Right Ventricle Right atrium and right ventricle are normal size and contractility. Aortic Valve Aortic valve is minimally thickened and fibrosed, there is no aortic stenosis or aortic insufficiency. Mitral Valve Mitral valve is grossly normal. There is mild mitral regurgitation. Tricuspid Valve Tricuspid valve is grossly normal, there is mild tricuspid regurgitation, tricuspid regurgitation jet velocity is inadequate for calculation of the right ventricular systolic pressure. Pulmonic Valve Pulmonic valve is poorly visualized. Great Vessels Aortic root is normal size. Pericardium No significant pericardial effusion noted. Conclusion 1. Normal left ventricular size, preserved left ventricular systolic function, visually estimated ejection fraction 55% with no regional wall motion abnormality, diastolic parameters are within normal range. 2. Mild mitral and tricuspid regurgitation. 3. No significant pericardial effusion noted. Electronically signed by : Tian Navarrete, 02/25/2020 05:40:07
== END ==
PROVIDERS: PCP Family Medicine; Visit Provider Nurse Practitioner Family
DX: R06.00 Dyspnea, unspecified (principal); R07.9 Chest pain, unspecified; I10 Essential (primary) hypertension; R00.0 Tachycardia, unspecified
CPT/HCPCS: 93306

== ENCOUNTER 2020-05-07 14:48 | Emergency (ER) | payer BC, SELFPAY ==
[2020-05-07] VITALS (9 sets, daily range): BP systolic 115–162; BP diastolic 66–82; PULSE 85–113; RESP 16–21; TEMP 36.6–36.7; O2SAT 99–100; BMI 34.2
--- NOTE | 2020-05-07 14:44 | ECG_ITS ---
APPROVED REPORT Exam: Resting ECG HR:102 bpm ECG Measurements Heart Rate 102 AXES PA 134 P 45 QRSd 74 QRS 31 QT 342 T 34 QTc 445 Conclusion Sinus tachycardia Nonspecific ST-T wave abnormalities Abnormal ECG Electronically signed by : Lee Soliman, 05/10/2020 16:24:26
--- NOTE | 2020-05-07 14:58 | CT_ITS ---
PROCEDURE: CT ANGIO CHEST CLINCIAL INDICATION: dyspnea Chest pain with sharp chest pain and shortness of air COMPARISON: No exams were available for comparison TECHNIQUE: IV Contrast: 70ML Isovue 370 Axial images obtained with sagittal and coronal reformats. All CT scans at the facility use one or more dose reduction, viz: automated exposure control, ma/kV adjustment per patient size (including targeted exams where dose is matched to indication, i.e. head), or iterative reconstruction technique. FINDINGS: HEART AND MEDIASTINAL STRUCTURES: No evidence of pulmonary embolus aortic aneurysm or dissection. The left vertebral artery arises from the aortic arch has a normal variant. LUNGS AND PLEURAL SPACES: There are 2 fissural nodules on the right 1 at 3 mm and 1 at 7 mm. There is a 3 mm nodule in the left lower lobe image 73. Calcified granuloma is present in the left lower lobe. 3 mm nodule left upper lobe image 54 BONY STRUCTURES: No acute bony abnormalities apparent. UPPER ABDOMEN: Fatty infiltration of the liver. There are some small periportal lymph nodes. ADDITIONAL FINDINGS: No other significant abnormalities. IMPRESSION: 1. No acute pulmonary embolus. 2. Scattered noncalcified nodules as described above. Suggest 6-12 month follow-up. Dictated by: Jorge Hanley MD 05/07/2020 18:35 Jorge Hanley MD in [facility] 05/07/2020 18:35
--- NOTE | 2020-05-07 14:59 | HMH.EDCP ---
ED Disposition Clinical Impression: Non-cardiac chest pain, Atypical chest pain Disposition: Home, Self-Care Condition on Discharge: Good Instructions: DI for Atypical Chest Pain Additional Instructions: You were seen on an emergency basis. It is very important that you follow up with your primary care provider and/or specialist as we discussed within 2 days. All labs and imaging were obtained and interpreted here to rule out life threatening emergencies, but your final results should be reviewed by your primary doctor at your follow up appointment. Please return to the emergency department if any of your symptoms worsen, or if they do not improve as we discussed. Referrals: Newton Connors MD [Primary Care Provider] - - Critical Care Critical Care Time: No Attestation: On , the high probability of a clinically significant, sudden or life threatening deterioration of the following system(s) required my full and direct attention, intervention and personal management. The time I documented below is in addition to time spent performing reported procedures but includes the following listed in this critical care notation. Medical Decision Making - Medical Records Medical records reviewed: Yes: I reviewed the patient's medical records. - Elver Inquiry Pt receiving controlled substance: No Vital Signs: 05/07/20 14:48 05/07/20 15:43 05/07/20 16:16 Temperature 97.8 F Temperature Source Oral Pulse Rate [Left Radial] 113 H 104 H 99 H Respiratory Rate 21 20 20 Blood Pressure [Right Arm] 162/82 H 126/80 136/75 Blood Pressure Mean [Right Arm] 108 95 95 Blood Pressure Source [Right Arm] Automatic Cuff Automatic Cuff Automatic Cuff Blood Pressure Position [Right Arm] Sitting Sitting Sitting 02 Sat by Pulse Oximetry 100 99 100 Oxygen Delivery Method Room Air Room Air 05/07/20 17:00 05/07/20 17:30 05/07/20 18:00 Temperature Temperature Source Pulse Rate [Left Radial] 96 H 97 H 93 H Respiratory Rate 18 18 20 Blood Pressure [Right Arm] 115/69 120/75 123/74 Blood Pressure Mean [Right Arm] 84 90 90 Blood Pressure Source [Right Arm] Automatic Cuff Automatic Cuff Automatic Cuff Blood Pressure Position [Right Arm] Sitting Sitting Sitting 02 Sat by Pulse Oximetry 99 100 99 Oxygen Delivery Method Room Air Room Air Room Air 05/07/20 18:30 Temperature Temperature Source Pulse Rate [Left Radial] 85 Respiratory Rate 20 Blood Pressure [Right Arm] 119/76 Blood Pressure Mean [Right Arm] 90 Blood Pressure Source [Right Arm] Automatic Cuff Blood Pressure Position [Right Arm] Sitting 02 Sat by Pulse Oximetry 99 Oxygen Delivery Method Room Air - Lab Data Lab Results 05/07/20 14:55: Troponin I < 0.01 05/07/20 14:55: Sodium 135 L, Potassium 4.0, Chloride 104, Carbon Dioxide 20 L, Anion Gap 15.0, BUN 7, Creatinine 0.70, Estimated Creat Clear 154, Estimated GFR 92, Est GFR ( Amer) 111, Glucose 152 H, Calcium 9.5, Total Bilirubin 0.4, AST 33, ALT 28, Alkaline Phosphatase 99, Total Protein 7.9, Albumin 4.4, Globulin 3.5 H, Albumin/Globulin Ratio 1.3 05/07/20 15:18: WBC 8.5, RBC 4.34, Hgb 13.3, Hct 39.6, MCV 91.1, MCH 30.7, MCHC 33.7, RDW 13.5, Plt Count 274, MPV 7.5, Neut % (Auto) 66.7, Lymph % (Auto) 25.3, Dupage % (Auto) 4.9, Eos % (Auto) 2.5, Baso % (Auto) 0.5, Neut # (Auto) 5.7, Lymph # (Auto) 2.2, Dupage # (Auto) 0.4, Eos # (Auto) 0.2, Baso # (Auto) 0.0 05/07/20 15:39: Serum HCG, Qual Negative 05/07/20 18:05: Troponin I < 0.01 Result diagrams: 05/07/20 15:18 05/07/20 14:55 Orders (Tests/Meds): ED MEDICATIONS Generic Name Dose Route Start Last Admin Trade Name Freq PRN Reason Stop Dose Admin Lactated Ringer's 1,000 mls @ 999 mls/hr 05/07/20 17:30 05/07/20 18:14 Lactated Ringer's 1000 Ml Bag IV 05/07/20 18:30 999 mls/hr .Q1H1M LIDA Administration Discontinued Medications Generic Name Dose Route Start Last Admin Trade Name Freq PRN Reason Stop Dose Admin Aspirin 324 mg
[2020-05-07 15:13] LABS: Chloride 104 mmol/L (98-107); Sodium 135 mmol/L (136-145)
[2020-05-07 15:15] LABS: Blood Urea Nitrogen 7 mg/dl (7-17); Creatinine Clearance Estimated 154 mL/min (50-200); Estimated Glomerular Filt Rate 92 ml/min (>60); GFR (African American) 111 ML/MIN (>60)
[2020-05-07 15:16] LABS: Alanine Aminotransferase 28 U/L (12-78); Albumin Level 4.4 g/dl (3.5-5.0); Albumin/Globulin Ratio 1.3 (1.1-1.8); Alkaline Phosphatase 99 U/L (38-126); Aspartate Amino Transferase 33 U/L (14-36); Bilirubin,Total 0.4 mg/dl (0.2-1.3); Calcium 9.5 mg/dl (8.4-10.2); Carbon Dioxide 20 mmol/L (22.0-30.0); Globulin 3.5 g/dL (1.3-3.2); Glucose 152 mg/dl (74-100); Total Protein,Serum 7.9 g/dl (6.3-8.2)
[2020-05-07 15:23] LABS: Basophils % 0.5 % (0.1-2.0); Eosinophils # 0.2 K/mm3 (0.0-0.4); Eosinophils % 2.5 % (0.1-12.0); Hematocrit 39.6 % (37.0-47.0); Hemoglobin 13.3 g/dL (12.2-16.2); Lymphocytes # 2.2 K/mm3 (0.7-4.5); Lymphocytes % 25.3 % (10-50); Mean Corpuscular HGB Conc 33.7 g/dL (31.8-35.4); Mean Corpuscular Hemoglobin 30.7 pg (27.0-31.2); Mean Corpuscular Volume 91.1 fl (81-99); Mean Platelet Volume 7.5 fl (7.4-10.4); Monocytes # 0.4 K/mm3 (0.1-1.0); Monocytes % 4.9 % (1.7-9.3); Neutrophils # 5.7 K/mm3 (1.8-7.8); Neutrophils % 66.7 % (37.0-80.0); Platelet Count 274 K/mm3 (142-424); Red Blood Count 4.34 M/mm3 (4.20-5.40); Red Cell Distribution Width 13.5 % (11.5-17.5); White Blood Count 8.5 K/mm3 (4.8-10.8)
[2020-05-07 15:29] LABS: Troponin I < 0.01 ng/ml (0.00-0.034)
[2020-05-07 16:06] LABS: HCG Qualitative, Serum Negative (Negative)
[2020-05-07 18:32] LABS: Troponin I < 0.01 ng/ml (0.00-0.034)
== END 2020-05-07 19:44 | disposition home or self-care (01) ==
PROVIDERS: Emergency Provider Physician Assistant; PCP Family Medicine
DX: R07.89 Other chest pain (principal); R91.1 Solitary pulmonary nodule; R06.02 Shortness of breath; J45.909 Unspecified asthma, uncomplicated; K21.9 Gastro-esophageal reflux disease without esophagitis; I10 Essential (primary) hypertension; Z87.891 Personal history of nicotine dependence
CPT/HCPCS: 71275; 80053; 84484; 84703; 85025; 93005; 96365; 99284; Q9967

== ENCOUNTER 2020-06-11 18:55 | Emergency (ER) | payer BC, SELFPAY ==
[2020-06-11 19:03] VITALS: BP 148/85; PULSE 82; RESP 19; TEMP 36.9; O2SAT 98; BMI 35.7
--- NOTE | 2020-06-11 19:40 | HMH.EDUTC ---
[facility] [place] Clinical Impression: Viral gastroenteritis Disposition: Home, Self-Care Condition on Discharge: Good Instructions: Viral Gastroenteritis, DI for Viral Gastroenteritis -- Adult Additional Instructions: Drink plenty of fluids. Take tylenol for pain or fever. Take the zofran for nausea/vomiting. Follow up with your regular doctor. GO TO THE ER FOR ANY WORSENING SYMPTOMS Prescriptions: Ondansetron [Zofran 4mg ODT] 4 mg PO Q8HP PRN #20 tab.rapdis PRN Reason: Nausea Transmission Status: Pending to [id number] Referrals: Newton Connors MD [Primary Care Provider] - Forms: Work/School Release Time of Disposition: 19:43 Medical Decision Making - Medical Records Medical records reviewed: No: I reviewed the patient's medical records. - Elver Inquiry Pt receiving controlled substance: No Vital Signs: 06/11/20 19:03 Temperature 98.4 F Temperature Source Oral Pulse Rate [Radial] 82 Respiratory Rate 19 Blood Pressure [Right Arm] 148/85 H Blood Pressure Mean [Right Arm] 106 Blood Pressure Source [Right Arm] Automatic Cuff Blood Pressure Position [Right Arm] Sitting 02 Sat by Pulse Oximetry 98 Oxygen Delivery Method Room Air - Lab Data Lab results reviewed: Yes: I reviewed the patient's lab results. [facility] [place] - General Stated complaint: VOMITING Time Seen by Provider: 06/11/20 19:40 Mode of Arrival: Ambulatory Source of Information: Patient Limitations: No Limitations Description of Symptoms (Recalled from Triage Doc. by RN): VOMITING FOR A COUPLE OF HOURS. HEENT Symptoms (Recalled from RN notes): No Resp Symptoms (Recalled from RN notes): No Skin Symptoms (Recalled from RN notes): No MS Symptoms (Recalled from RN notes): No Functional Status (Recalled from RN notes): WNL - History of Present Illness Provider Complaint: She states that she began having n/v/d at about 1700 this evening. She had to leave work and come here. She denies any abdominal pain. She does not have an appendix. - Related Data Home Medications Medication Instructions Recorded Confirmed omeprazole 40 mg capsule,delayed 40 mg PO DAILY 07/26/17 06/01/20 release Albuterol Sulfate [Ventolin HFA 2 act INHALATION Q4HP PRN 08/31/17 06/01/20 Inhaler] Venlafaxine HCl [Venlafaxine HCl 150 mg PO DAILY 02/14/19 06/01/20 ER] Cariprazine HCl [Vraylar] 3 mg PO DAILY 05/14/19 06/01/20 cetirizine 10 mg tablet 10 mg PO DAILY 11/25/19 06/01/20 gabapentin 100 mg capsule 300 mg PO BID cap 11/25/19 06/01/20 Previous Rx's Medication Instructions Recorded nadolol 80 mg tablet 80 mg PO DAILY #30 tab 06/01/20 Ondansetron [Zofran 4mg ODT] 4 mg PO Q8HP PRN #20 tab.rapdis 06/11/20 Allergies Allergy/AdvReac Type Severity Reaction Status Date / Time levofloxacin [From LEVAQUIN] Allergy Unknown SWELLING Verified 06/01/20 11:08 - Worker's Comp Is this a Worker's Comp case?: No [facility] History - Hepatitis A Screen Drug use history?: No High risk sexual behaviors?: No History of sexually transmitted infection?: No Currently employed?: No Childcare worker?: No Do you have indoor plumbing?: Yes Do you have electricity?: Yes Attestation statement:: This patient has been screened for Hepatitis A risk factors. I have reviewed the patient's past medical history: Yes Medical History: Reports:: Arrhythmia, Asthma, Deep Vein Thrombosis, Gastroesophageal Reflux Disease(GERD), Hypertension, Palpitations, Seizures, Transient Ischemic Attacks (TIA) Denies:: Cancer, Diabetes Mellitus Type 1, Diabetes Mellitus Type 2, Internal Pacemaker, Lung Disease, MRSA Other Medical History: Reports: Other. Denies: Blood Transfusion Reaction Comment: IBS Laterality Cases: Bilateral: Other Other Surgeries: Yes: Appendectomy, Colon Resection, , Dilation and Curettage, Other (Jaw reconstruction, lip lesion removal). No: Pacemaker Amputation: No Fractures: Yes (NECK, BACK, LEG, JAW
[2020-06-11 19:53] VITALS: BP 148/85; PULSE 82; RESP 19; TEMP 36.9; O2SAT 98
== END 2020-06-11 19:53 | disposition home or self-care (01) ==
PROVIDERS: Emergency Provider Nurse Practitioner Family; PCP Family Medicine
DX: A08.4 Viral intestinal infection, unspecified (principal); K21.9 Gastro-esophageal reflux disease without esophagitis; I10 Essential (primary) hypertension; J45.909 Unspecified asthma, uncomplicated; R00.2 Palpitations; Z88.1 Allergy status to other antibiotic agents; Z87.891 Personal history of nicotine dependence; Z90.49 Acquired absence of other specified parts of digestive tract; Z79.899 Other long term (current) drug therapy
CPT/HCPCS: 96372; 99201

== ENCOUNTER → 2020-08-05 11:15 | Outpatient (CLI) | payer BC, SELFPAY ==
--- NOTE | 2020-08-05 11:19 | CT_ITS ---
PROCEDURE: CT SOFT TISSUE NECK W CON CLINICAL HISTORY: NECK PAIN ON RT SIDE Right-sided neck pain without swelling COMPARISON: No exams were available for comparison TECHNIQUE: Oral Contrast: None IV Contrast: None Axial images obtained with sagittal and coronal reformats. All CT scans at the facility use one or more dose reduction, viz: automated exposure control, ma/kV adjustment per patient size (including targeted exams where dose is matched to indication, i.e. head), or iterative reconstruction technique. FINDINGS: The orbits and sinuses have an unremarkable appearance. There is moderate rightward nasal septal deviation. No mastoid effusion. The nasopharynx hypopharynx and oropharynx are unremarkable. Unremarkable appearing epiglottis and glottic region. No thyroid mass. There is a small circular density in the left parotid gland measuring approximately 7 mm and may be due to small lymph node with prominent fatty hilum. Similar density is noted along the right parotid gland anteriorly. Submandibular glands are unremarkable. There are few scattered small nodes but no dominant adenopathy. Lung apex is clear IMPRESSION: No acute finding Dictated by: Jorge Hanley MD 08/05/2020 17:23 Jorge Hanley MD in [place] 08/05/2020 17:23
== END ==
PROVIDERS: PCP Family Medicine; Visit Provider Physician Assistant
DX: M54.2 Cervicalgia (principal)
CPT/HCPCS: 70491; Q9967

== ENCOUNTER → 2020-09-16 08:14 | Outpatient (CLI) | payer BC, SELFPAY ==
--- NOTE | 2020-09-16 08:20 | CT_ITS ---
PROCEDURE: CT ABDOMEN PELVIS WO CON CLINICAL INDICATION: HEMATURIA Low back pain Prior on pacs COMPARISON: CT ABDPELWO CT abdomen pelvis wo con from 01/22/2018 TECHNIQUE: Axial images obtained with sagittal and coronal reformats. All CT scans at the facility use one or more dose reduction, viz: automated exposure control, ma/kV adjustment per patient size (including targeted exams where dose is matched to indication, i.e. head), or iterative reconstruction technique. FINDINGS: LOWER THORAX: There is patchy ground-glass attenuation in right lobe posterior medially nonspecific. ABDOMEN & PELVIS: Fatty liver. The gallbladder, spleen, adrenal glands, pancreas, and kidneys have an unremarkable unenhanced appearance. No renal or ureteral calculi. No hydronephrosis. There is a small umbilical hernia containing fat. No intestinal obstruction or free air. Prior appendectomy. Prior partial colectomy with colic anastomosis in the rectosigmoid region. There is a 2.7 cm right ovarian cyst. Hypodensity is present in the cervical region on the left consistent with a nabothian cyst at 1.2 cm. There is anterior angulation of the coccyx which may be due to an old injury not significantly changed. Postsurgical changes are present involving the lower abdominal wall IMPRESSION: 1. No renal or ureteral calculi. 2. 2.7 cm right ovarian cyst. 3. Nonspecific patchy ground-glass attenuation in the right lower lobe posterior medially. A faint area of pneumonic infiltrate is a consideration. Dictated by: Jorge Hanley MD 09/18/2020 13:42 Jorge Hanley MD in [place] 09/18/2020 13:42
== END ==
PROVIDERS: PCP Family Medicine; Visit Provider Family Medicine
DX: R31.9 Hematuria, unspecified (principal)
CPT/HCPCS: 74176

== ENCOUNTER → 2020-12-16 19:49 | Outpatient (CLI) | payer BC, SELFPAY | PROVIDERS: Visit Provider Nurse Practitioner Family | DX: J02.9 Acute pharyngitis, unspecified (principal) ==

== ENCOUNTER 2021-01-04 20:34 | Emergency (ER) | payer BC, SELFPAY ==
[2021-01-04 22:00] VITALS: BP 142/77; PULSE 64; RESP 18; TEMP 36.3; O2SAT 99; BMI 35.9
--- NOTE | 2021-01-04 22:33 | HMH.EDUTC ---
[facility] [place] Clinical Impression: Food poisoning Disposition: Home, Self-Care Condition on Discharge: Good Instructions: Food Poisoning, DI for Viral Gastroenteritis -- Adult Additional Instructions: Drink plenty of fluids. Take tylenol or ibuprofen for pain or fever. Take the medications as directed. The promethazine (phenergran) will make you drowsy, so don't drive or operate heavy machinery after taking it. Don't take the zofran and phenergran together. Only use the phenergran if the zofran is not controlling your Follow up with your regular doctor. GO TO THE ER FOR ANY WORSENING SYMPTOMS Prescriptions: Ondansetron [Zofran 4mg ODT] 4 mg PO Q8HP PRN #20 tab.rapdis PRN Reason: Nausea Transmission Status: Received by [id number] Promethazine HCl [Phenergan 25mg tab] 25 mg PO Q6H PRN #20 tab PRN Reason: Nausea And Vomiting Transmission Status: Received by [id number] Referrals: Newton Connors MD [Primary Care Provider] - Time of Disposition: 22:58 Medical Decision Making - Medical Records Medical records reviewed: No: I reviewed the patient's medical records. - Elver Inquiry Pt receiving controlled substance: No Vital Signs: 01/04/21 22:00 01/04/21 22:39 Temperature 97.3 F L 97.3 F L Temperature Source Oral Pulse Rate 64 Pulse Rate [Right Brachial] 64 Respiratory Rate 18 18 Blood Pressure 142/77 H Blood Pressure [Right Arm] 142/77 H Blood Pressure Mean [Right Arm] 98 Blood Pressure Source [Right Arm] Automatic Cuff Blood Pressure Position [Right Arm] Sitting 02 Sat by Pulse Oximetry 99 Oxygen Delivery Method Room Air Orders (Tests/Meds): ED MEDICATIONS Discontinued Medications Generic Name Dose Route Start Last Admin Trade Name Freq PRN Reason Stop Dose Admin Ondansetron HCl 4 mg 01/04/21 22:31 01/04/21 22:33 Ondansetron 4mg Odt SL 01/04/21 22:32 4 mg ONCE ONE Administration Promethazine HCl 25 mg 01/04/21 22:53 01/04/21 23:05 Promethazine Hcl 25mg/Ml 1ml Vial IM 01/04/21 22:54 25 mg ONCE ONE Administration Sodium Chloride 25 ml 01/04/21 22:53 01/04/21 23:05 Sodium Chloride 0.9% 25ml Bag IV 01/04/21 22:54 Not Given ONCE ONE [facility] [place] HPI - General Stated complaint: VOMITING, Time Seen by Provider: 01/04/21 22:33 Mode of Arrival: Ambulatory Source of Information: Patient Limitations: No Limitations Description of Symptoms (Recalled from Triage Doc. by RN): PATIENT C/O NAUSEA AND VOMITING SINCE SUPPER AFTER EATING CHICKEN WINGS FROM [employer]. HEENT Symptoms (Recalled from RN notes): No Resp Symptoms (Recalled from RN notes): No Skin Symptoms (Recalled from RN notes): No MS Symptoms (Recalled from RN notes): No Functional Status (Recalled from RN notes): WNL - History of Present Illness Provider Complaint: She c/o nausea and vomiting since right after eating some chicken wings from a restaurant this evening. She has vomited X4. She denies diarrhea, but she has been having abdominal cramping like it is getting ready to start. She denies any fever/chills. - Related Data Home Medications Medication Instructions Recorded Confirmed omeprazole 40 mg capsule,delayed 40 mg PO DAILY 07/26/17 06/01/20 release Albuterol Sulfate [Ventolin HFA 2 act INHALATION Q4HP PRN 08/31/17 06/01/20 Inhaler] Venlafaxine HCl [Venlafaxine HCl 150 mg PO DAILY 02/14/19 06/01/20 ER] Cariprazine HCl [Vraylar] 3 mg PO DAILY 05/14/19 06/01/20 cetirizine 10 mg tablet 10 mg PO DAILY 11/25/19 06/01/20 gabapentin 100 mg capsule 300 mg PO BID cap 11/25/19 06/01/20 Previous Rx's Medication Instructions Recorded nadolol 80 mg tablet 80 mg PO DAILY #30 tab 06/01/20 Ondansetron [Zofran 4mg ODT] 4 mg PO Q8HP PRN #20 tab.rapdis 01/04/21 Promethazine HCl [Phenergan 25mg 25 mg PO Q6H PRN #20 tab 01/04/21 tab] Allergies Allergy/AdvReac Type Severity Reaction Status Bobby
[2021-01-04 22:39] VITALS: BP 142/77; PULSE 64; RESP 18; TEMP 36.3; O2SAT 99
== END 2021-01-04 23:30 | disposition home or self-care (01) ==
PROVIDERS: Emergency Provider Nurse Practitioner Family; PCP Family Medicine
DX: T62.91XA Toxic effect of unspecified noxious substance eaten as food, accidental (unintentional), initial encounter (principal); R11.2 Nausea with vomiting, unspecified
CPT/HCPCS: 96372; 99202; G0463

== ENCOUNTER → 2021-02-16 10:10 | Outpatient (CLI) | payer BC, SELFPAY ==
--- NOTE | 2021-02-16 10:14 | XR_ITS ---
PROCEDURE: XR HAND RT MIN 3V CLINICAL INDICATION: INJURY OF RT WRIST, SUBSEQUENT ENCOUNTER COMPARISON: No exams were available for comparison FINDINGS: No fracture or dislocation. No lytic or blastic change. There is normal mineralization. The joint spaces are well-preserved. No significant degenerative/arthritic changes. No erosive changes evident. Other findings:None. IMPRESSION: No acute findings. Dictated by: Jorge Hanley MD 02/16/2021 11:52 Jorge Hanley MD in [place] 02/16/2021 11:52
--- NOTE | 2021-02-16 10:14 | XR_ITS ---
PROCEDURE: XR WRIST RT MIN 3V CLINICAL INDICATION: INJURY OF RT WRIST, SUBSEQUENT ENCOUNTER COMPARISON: No exams were available for comparison FINDINGS: No fracture or dislocation. No lytic or blastic change. There is normal mineralization. The joint spaces are well-preserved. No significant degenerative/arthritic changes. No erosive changes evident. Other findings:None. IMPRESSION: No acute findings. Dictated by: Jorge Hanley MD 02/16/2021 11:51 Jorge Hanley MD in [place] 02/16/2021 11:51
== END ==
LOC: RAD 10:11
PROVIDERS: PCP Physician Assistant; Visit Provider Physician Assistant
DX: S69.91XD Unspecified injury of right wrist, hand and finger(s), subsequent encounter (principal)
CPT/HCPCS: 73110; 73130

== ENCOUNTER 2021-03-04 18:22 | Emergency (ER) | payer BC, SELFPAY ==
[2021-03-04 18:23] VITALS: BP 136/100; PULSE 84; RESP 16; TEMP 36.6; O2SAT 98; BMI 37.7
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
[2021-03-04 19:59] VITALS: BP 122/78; PULSE 82; RESP 18; TEMP 36.8; O2SAT 99
== END 2021-03-04 20:01 | disposition home or self-care (01) ==
PROVIDERS: Emergency Provider Family Medicine; PCP Physician Assistant
DX: M79.641 Pain in right hand (principal); R60.0 Localized edema; K21.9 Gastro-esophageal reflux disease without esophagitis; I10 Essential (primary) hypertension
CPT/HCPCS: 96372; 99282

== ENCOUNTER → 2021-03-25 11:22 | Outpatient (CLI) | payer BC, SELFPAY ==
[2021-03-25 12:14] LABS: Basophils # 0.1 K/mm3 (0-0.2); Basophils % 0.8 % (0.1-2.0); Eosinophils # 0.3 K/mm3 (0.0-0.4); Eosinophils % 4.1 % (0.1-12.0); Hematocrit 46.4 % (37.0-47.0); Hemoglobin 15.4 g/dL (12.2-16.2); Lymphocytes # 1.8 K/mm3 (0.7-4.5); Lymphocytes % 25.1 % (10-50); Mean Corpuscular HGB Conc 33.2 g/dL (31.8-35.4); Mean Corpuscular Hemoglobin 31.8 pg (27.0-31.2); Mean Corpuscular Volume 95.6 fl (81-99); Mean Platelet Volume 7.4 fl (7.4-10.4); Monocytes # 0.4 K/mm3 (0.1-1.0); Monocytes % 5.9 % (1.7-9.3); Neutrophils # 4.5 K/mm3 (1.8-7.8); Neutrophils % 64.1 % (37.0-80.0); Platelet Count 324 K/mm3 (142-424); Red Blood Count 4.86 M/mm3 (4.20-5.40); Red Cell Distribution Width 13.1 % (11.5-17.5); White Blood Count 7.1 K/mm3 (4.8-10.8)
== END ==
PROVIDERS: PCP Physician Assistant; Visit Provider Physician Assistant
DX: Z20.822 Contact with and (suspected) exposure to COVID-19 (principal)
CPT/HCPCS: 85025; 87275; 87276; C9803; U0003; U0005

== ENCOUNTER → 2021-07-19 10:14 | Outpatient (CLI) | payer BC, SELFPAY ==
[2021-07-19 11:39] LABS: Alanine Aminotransferase 17 U/L (12-78); Albumin Level 3.7 g/dl (3.5-5.0); Albumin/Globulin Ratio 1.5 (1.1-1.8); Alkaline Phosphatase 81 U/L (38-126); Anion Gap 9.8 mEq/L (5-15); Aspartate Amino Transferase 19 U/L (14-36); Bilirubin,Total 0.3 mg/dl (0.2-1.3); Blood Urea Nitrogen 6 mg/dl (7-17); Calcium 9.1 mg/dl (8.4-10.2); Carbon Dioxide 27 mmol/L (22.0-30.0); Chloride 103 mmol/L (98-107); Chol/HDL Ratio 5.4 (1-3.5); Cholesterol 182 mg/dl (140-200); Estimated Glomerular Filt Rate 109 ml/min (>60); GFR (African American) 132 ML/MIN (>60); Globulin 2.5 g/dL (1.3-3.2); Glucose 101 mg/dl (74-100); HDL Cholesterol 34 mg/dl (40-60); Potassium 3.8 mmoL/L (3.5-5.1); Sodium 136 mmol/L (136-145); Total Protein,Serum 6.2 g/dl (6.3-8.2); Triglycerides 118 mg/dl (30-150); VLDL Cholesterol 24 mg/dL (0-40)
[2021-07-19 11:51] LABS: Direct LDL Cholesterol 130.53 mg/dL (100-129)
[2021-07-19 12:11] LABS: Thyroid Stimulating Hormone 2.56 uIU/mL (0.465-4.68)
[2021-07-19 12:29] LABS: Vitamin B12 541 pg/mL (239-931)
== END ==
PROVIDERS: PCP Family Medicine; Visit Provider Physician Assistant
DX: I10 Essential (primary) hypertension (principal); E53.8 Deficiency of other specified B group vitamins; F41.8 Other specified anxiety disorders; Z13.220 Encounter for screening for lipoid disorders; Z79.899 Other long term (current) drug therapy
CPT/HCPCS: 36415; 80053; 80061; 82607; 84443

== ENCOUNTER → 2021-07-22 08:23 | Outpatient (CLI) | payer BC, SELFPAY ==
--- NOTE | 2021-07-22 08:30 | MM_ITS ---
PROCEDURE INFORMATION: Exam: MG Bilateral Screening 3D Mammography Exam date and time: 07/22/2021 8:30 AM Age: 45 years old Clinical indication: Encounter for screening mammogram for malignant neoplasm of breast TECHNIQUE: Imaging protocol: Screening tomosynthesis and 2D mammography including computer-aided detection (CAD) when performed. COMPARISON: No relevant prior studies available. FINDINGS: MAMMOGRAPHY: Breast composition: The breast tissue is heterogeneously dense, which may obscure small masses. Mass: None. Architectural distortion: None. Calcifications: No suspicious calcifications. Asymmetric density: None. Skin thickening: None. Axillary adenopathy: None. IMPRESSION: No mammographic evidence of malignancy. Annual screening is recommended unless otherwise clinically indicated. ASSESSMENT: BI-RADS Category 1: Negative
== END ==
PROVIDERS: PCP Physician Assistant; Visit Provider Physician Assistant
DX: Z12.31 Encounter for screening mammogram for malignant neoplasm of breast (principal)
CPT/HCPCS: 77063; 77067

== ENCOUNTER 2021-09-09 16:38 | Emergency (ER) | payer BC, SELFPAY ==
--- NOTE | 2021-09-09 16:38 | ECG_ITS ---
APPROVED REPORT Exam: Resting ECG HR:55 bpm ECG Measurements Heart Rate 55 AXES SC 142 P 52 QRSd 79 QRS 62 QT 438 T 45 QTc 428 Conclusion SINUS BRADYCARDIA BORDERLINE ECG UNCONFIRMED REPORT Electronically signed by : Javi Dunham MD 09/10/2021 09:24:14
[2021-09-09 16:39] VITALS: BP 123/83; PULSE 62; RESP 18; TEMP 36.7; O2SAT 100; BMI 35.1
--- NOTE | 2021-09-09 16:40 | PC.NURSE ---
ED MD at bedside
--- NOTE | 2021-09-09 16:42 | XR_ITS ---
PROCEDURE INFORMATION: Exam: XR Chest Exam date and time: 09/09/2021 4:42 PM Age: 45 years old Clinical indication: Cough TECHNIQUE: Imaging protocol: XR of the chest. Views: 1 view. COMPARISON: CT ANGIO CHEST 05/07/2020 4:19 PM FINDINGS: Lungs: Atelectatic changes noted within both lung bases. No focal pneumonia or pneumothorax. Pleural spaces: There are no pleural effusions present. Heart/Mediastinum: Unremarkable. No cardiomegaly. Bones/joints: The thoracic spine demonstrates mild degenerative changes at multiple levels. IMPRESSION: 1. Atelectatic changes noted within both lung bases. 2. No focal pneumonia or pneumothorax.
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
--- NOTE | 2021-09-09 16:53 | HMH.EDCP ---
ED Disposition Clinical Impression: Non-cardiac chest pain Disposition: Home, Self-Care Condition on Discharge: Good Instructions: DI for Atypical Chest Pain Referrals: Provider,Referral, [Referring] - - Critical Care Critical Care Time: No Attestation: On 09/09/21, the high probability of a clinically significant, sudden or life threatening deterioration of the following system(s) required my full and direct attention, intervention and personal management. The time I documented below is in addition to time spent performing reported procedures but includes the following listed in this critical care notation. Medical Decision Making - Medical Records Medical records reviewed: Yes: I reviewed the patient's medical records. - Elver Inquiry Pt receiving controlled substance: No Vital Signs: 09/09/21 16:39 Temperature 98.1 F Temperature Source Oral Pulse Rate [Right Radial] 62 Respiratory Rate 18 Blood Pressure [Right Arm] 123/83 Blood Pressure Mean [Right Arm] 96 Blood Pressure Source [Right Arm] Automatic Cuff Blood Pressure Position [Right Arm] Sitting 02 Sat by Pulse Oximetry 100 Oxygen Delivery Method Room Air - Lab Data Lab Results 09/09/21 16:54: WBC 10.3, RBC 4.32, Hgb 13.5, Hct 41.8, MCV 96.8, MCH 31.2, MCHC 32.2, RDW 13.8, Plt Count 344, MPV 8.2, Neut % (Auto) 57.6, Lymph % (Auto) 33.7, Dillingham % (Auto) 4.2, Eos % (Auto) 3.3, Baso % (Auto) 1.2, Neut # (Auto) 5.9, Lymph # (Auto) 3.5, Dillingham # (Auto) 0.4, Eos # (Auto) 0.3, Baso # (Auto) 0.1 09/09/21 16:54: Sodium 139, Potassium 3.7, Chloride 105, Carbon Dioxide 28, Anion Gap 9.7, BUN 6 L, Creatinine 0.70, Estimated Creat Clear 157, Estimated GFR 91, Est GFR ( Amer) 111, Glucose 96, Calcium 8.9, Total Bilirubin 0.3, AST 26, ALT 19, Alkaline Phosphatase 88, Troponin I < 0.01, NT-Pro-B Natriuret Pep 132 H, Total Protein 7.3, Albumin 4.3, Globulin 3.0, Albumin/Globulin Ratio 1.4 Result diagrams: 09/09/21 16:54 09/09/21 16:54 Orders (Tests/Meds): ORDERS Category Date Time Status Troponin I Q3H Lab 09/09/21 19:45 Ordered Troponin I Q3H Lab 09/09/21 22:45 Ordered - Radiology Data #1 Image(s): Chest Image Reviewed: Yes I reviewed the patient's radiology results, Yes I reviewed the patient's radiology image, Yes I have reviewed radiologist's interpretation - US Data US Images: Lower Extremity ED US Reviewed: Yes: I have reviewed the patient's US results, I have viewed radiologist's interpretation Preliminary Findings: Normal/NAD - ECG Data Tracing #1 I reviewed this ECG and interpreted as documented below: Bradycardic rate of 55 bpm, NM interval 142 ms which is normal, normal QTC. Sinus bradycardia with no ST changes. ECG initial impression date: 09/09/21 ECG initial impression time: 16:38 - Reevaluation(s) Time: 18:40 Reevaluation #1: On reevaluation, the patient is pain-free. Ultrasound was unremarkable. Patient is to follow-up with PCP. Advised consistent with atypical chest discomfort. Patient given strict return precautions. Verbalized understanding. Medical Decision Narrative: 45-year-old female presented to the emergency department with some chest discomfort and discoloration of the leg. Patient has good pulses in the lower extremity. Is no obvious swelling. More consistent with ecchymosis than anything. However given her history we will obtain ultrasound study for DVT. Chest pain sounds atypical in nature. Work-up initiated. Chest Pain HPI - General Chief Complaint: Chest Pain Stated Complaint: CP Time Seen by Provider: 09/09/21 16:45 Mode of Arrival: Wheelchair Limitations: No Limitations Description of Symptoms (Recalled from ER Triage Doc. by RN): Pt to ED from PCP. Pt states that 3 days ago, she began experiencing redness in rt leg and pain behind her knee. Pt states that redness is now gone, but she began experiencing CP today. - History of Present Illness HPI narrative: This is a 45-y
--- NOTE | 2021-09-09 16:56 | PC.NURSE ---
Radiology at bedside
--- NOTE | 2021-09-09 16:58 | PC.NURSE ---
Vascular at bedside
[2021-09-09 17:07] LABS: Basophils # 0.1 K/mm3 (0-0.2); Basophils % 1.2 % (0.1-2.0); Eosinophils # 0.3 K/mm3 (0.0-0.4); Eosinophils % 3.3 % (0.1-12.0); Hematocrit 41.8 % (37.0-47.0); Hemoglobin 13.5 g/dL (12.2-16.2); Lymphocytes # 3.5 K/mm3 (0.7-4.5); Lymphocytes % 33.7 % (10-50); Mean Corpuscular HGB Conc 32.2 g/dL (31.8-35.4); Mean Corpuscular Hemoglobin 31.2 pg (27.0-31.2); Mean Corpuscular Volume 96.8 fl (81-99); Mean Platelet Volume 8.2 fl (7.4-10.4); Monocytes # 0.4 K/mm3 (0.1-1.0); Monocytes % 4.2 % (1.7-9.3); Neutrophils # 5.9 K/mm3 (1.8-7.8); Neutrophils % 57.6 % (37.0-80.0); Platelet Count 344 K/mm3 (142-424); Red Blood Count 4.32 M/mm3 (4.20-5.40); Red Cell Distribution Width 13.8 % (11.5-17.5); White Blood Count 10.3 K/mm3 (4.8-10.8)
[2021-09-09 17:11] LABS: Alanine Aminotransferase 19 U/L (12-78); Albumin Level 4.3 g/dl (3.5-5.0); Albumin/Globulin Ratio 1.4 (1.1-1.8); Alkaline Phosphatase 88 U/L (38-126); Anion Gap 9.7 mEq/L (5-15); Aspartate Amino Transferase 26 U/L (14-36); Bilirubin,Total 0.3 mg/dl (0.2-1.3); Blood Urea Nitrogen 6 mg/dl (7-17); Calcium 8.9 mg/dl (8.4-10.2); Carbon Dioxide 28 mmol/L (22.0-30.0); Chloride 105 mmol/L (98-107); Creatinine Clearance Estimated 157 mL/min (50-200); Estimated Glomerular Filt Rate 91 ml/min (>60); GFR (African American) 111 ML/MIN (>60); Glucose 96 mg/dl (74-100); Potassium 3.7 mmoL/L (3.5-5.1); Sodium 139 mmol/L (136-145); Total Protein,Serum 7.3 g/dl (6.3-8.2)
--- NOTE | 2021-09-09 17:16 | PC.NURSE ---
customer data technician reported negative finding for DVT of RLE. notified.
[2021-09-09 17:23] LABS: NT Pro Brain Natriuretic Pep. 132 pg/mL (0-125)
[2021-09-09 17:26] LABS: Troponin I < 0.01 ng/ml (0.00-0.034)
[2021-09-09 18:51] VITALS: BP 110/66; PULSE 74; RESP 18; TEMP 36.7; O2SAT 97
== END 2021-09-09 18:52 | disposition home or self-care (01) ==
PROVIDERS: Emergency Provider Emergency Medicine; PCP Family Medicine
DX: R07.9 Chest pain, unspecified (principal); R00.2 Palpitations; S70.11XA Contusion of right thigh, initial encounter; R00.1 Bradycardia, unspecified; I10 Essential (primary) hypertension; I25.2 Old myocardial infarction; K21.9 Gastro-esophageal reflux disease without esophagitis; K58.8 Other irritable bowel syndrome; G40.909 Epilepsy, unspecified, not intractable, without status epilepticus; J45.909 Unspecified asthma, uncomplicated; F17.210 Nicotine dependence, cigarettes, uncomplicated; Z79.51 Long term (current) use of inhaled steroids; Z79.899 Other long term (current) drug therapy; Z88.8 Allergy status to other drugs, medicaments and biological substances; Z86.718 Personal history of other venous thrombosis and embolism; Z82.49 Family history of ischemic heart disease and other diseases of the circulatory system; Z83.3 Family history of diabetes mellitus; Z80.9 Family history of malignant neoplasm, unspecified
CPT/HCPCS: 71045; 80053; 83880; 84484; 85025; 93005; 93971; 99285

== ENCOUNTER 2022-02-27 12:02 | Emergency (ER) | payer BC, SELFPAY ==
[2022-02-27 13:30] VITALS: BP 127/74; PULSE 72; RESP 18; TEMP 37.1; O2SAT 95; BMI 36.6
--- NOTE | 2022-02-27 13:48 | HMH.EDUTC ---
[facility] [place] Clinical Impression: Jaw pain, non-TMJ Disposition: Home, Self-Care Condition on Discharge: Good Instructions: Jaw Pain: It's Not Just Stress Additional Instructions: Drink plenty of fluids. Take tylenol or ibuprofen for pain or fever. Take the medications as directed. The muscle relaxer (cyclobenzaprine--Flexeril) will make you drowsy, so don't drive or operate heavy machinery after taking it. Follow up with your regular doctor. GO TO THE ER FOR ANY WORSENING SYMPTOMS Don't start the oral steroids until tomorrow, since you had the shot here today. Prescriptions: Cyclobenzaprine HCl [Cyclobenzaprine 10mg Tab] 10 mg PO BIDP PRN #20 tab PRN Reason: Muscle Spasm Transmission Status: Received by [id number] methylPREDNISolone [Medrol] 4 mg PO DIRECTED 6 Days #21 packet Transmission Status: Received by [id number] Referrals: Newton Connors MD [Primary Care Provider] - Forms: Work/School Release Time of Disposition: 14:01 Medical Decision Making - Medical Records Medical records reviewed: No: I reviewed the patient's medical records. - Elver Inquiry Pt receiving controlled substance: No Vital Signs: 02/27/22 13:30 02/27/22 13:57 Temperature 98.7 F 98.7 F Temperature Source Oral Pulse Rate 72 Pulse Rate [Left Brachial] 72 Respiratory Rate 18 18 Blood Pressure 127/74 Blood Pressure [Left Arm] 127/74 Blood Pressure Mean [Left Arm] 91 Blood Pressure Source [Left Arm] Automatic Cuff Blood Pressure Position [Left Arm] Sitting 02 Sat by Pulse Oximetry 95 Oxygen Delivery Method Room Air Orders (Tests/Meds): ED MEDICATIONS Discontinued Medications Generic Name Dose Route Start Last Admin Trade Name Freq PRN Reason Stop Dose Admin Ketorolac Tromethamine 60 mg 02/27/22 13:48 02/27/22 13:55 Ketorolac 60mg/2ml Vial IM 02/27/22 13:49 60 mg ONCE ONE Administration Methylprednisolone Sodium Succinate 125 mg 02/27/22 13:48 02/27/22 13:55 Methylprednisolone Sod Succ 125mg Vial IM 02/27/22 13:49 125 mg ONCE ONE Administration [facility] [place] - General Stated complaint: jaw pain Time Seen by Provider: 02/27/22 13:48 Mode of Arrival: Ambulatory Source of Information: Patient Limitations: No Limitations Description of Symptoms (Recalled from Triage Doc. by RN): PATIENT C/O PAIN AND CLICKING SOUND TO LEFT JAW THAT STARTED TODAY. REPORTS METAL PLATE IN JAW HEENT Symptoms (Recalled from RN notes): Yes Resp Symptoms (Recalled from RN notes): No Skin Symptoms (Recalled from RN notes): No MS Symptoms (Recalled from RN notes): No Functional Status (Recalled from RN notes): WNL - History of Present Illness Provider Complaint: She c/o right jaw pain. She denies any known injury. She has had simialar episodes in the past. - Related Data Home Medications Medication Instructions Recorded Confirmed omeprazole 40 mg capsule,delayed 40 mg PO DAILY 07/26/17 02/01/21 release Albuterol Sulfate [Ventolin HFA 2 act INHALATION Q4HP PRN 08/31/17 02/01/21 Inhaler] cetirizine 10 mg tablet 10 mg PO DAILY 11/25/19 02/01/21 gabapentin 300 mg capsule 300 mg PO BID 02/01/21 02/01/21 Previous Rx's Medication Instructions Recorded diltiazem HCl 180 mg 180 mg PO DAILY #90 cap 02/01/21 capsule,extended release 24 hr, controlled cariprazine 3 mg capsule 3 mg PO DAILY #30 cap 08/02/21 venlafaxine 150 mg 150 mg PO DAILY #30 cap 08/02/21 capsule,extended release 24 hr venlafaxine 75 mg capsule,extended 75 mg PO .COMPLEX #30 cap 08/02/21 release 24 hr nadolol 80 mg tablet See Rx Instructions .ROUTE 02/02/22 .COMPLEX #90 tab Cyclobenzaprine HCl 10 mg PO BIDP PRN #20 tab 02/27/22 [Cyclobenzaprine 10mg Tab] methylPREDNISolone [Medrol] 4 mg PO DIRECTED 6 Days #21 02/27/22 packet Allergies Allergy/AdvReac Type Severity Reaction Status Date / Time levofloxacin [From LEVAQUIN] Allergy Unknown
[2022-02-27 13:57] VITALS: BP 127/74; PULSE 72; RESP 18; TEMP 37.1; O2SAT 95
== END 2022-02-27 14:07 | disposition home or self-care (01) ==
PROVIDERS: Emergency Provider Nurse Practitioner Family; PCP Family Medicine
DX: R68.84 Jaw pain (principal); F17.210 Nicotine dependence, cigarettes, uncomplicated
CPT/HCPCS: 99212; G0463

== ENCOUNTER → 2022-10-03 13:40 | Outpatient (CLI) | payer BC, SELFPAY ==
--- NOTE | 2022-10-03 13:43 | MR_ITS ---
FINAL REPORT TECHNIQUE: Multiplanar and multisequence imaging the right knee was obtained without contrast. CLINICAL HISTORY: KNEE PAIN ACUTE pt was excersing medical side of the knee since aug 2022 FINDINGS: Bones: There is no acute fracture or marrow edema. The joint space is preserved. There are no full thickness cartilage defects. Menisci: No meniscal tear is present. Ligaments: No cruciate or collateral ligament tear is present. Tendons/Muscles: The quadriceps and patellar tendons are within normal limits. The biceps femoris tendon and iliotibial tract are intact. The popliteus tendon is normal. Other: There is no joint effusion. There is prepatellar edema. Remaining soft tissues are normal. IMPRESSION: No acute osseous abnormality, meniscal tear, or ligament tear. No supporting structure injury. Reviewed, Interpreted and Dictated by Pau Dunn MD Transcribed by Mars Espinoza Authenticated and [facility]
== END ==
LOC: RAD 13:40
PROVIDERS: PCP Family Medicine; Visit Provider Nurse Practitioner Family
DX: M25.561 Pain in right knee (principal)
CPT/HCPCS: 73721

== ENCOUNTER → 2022-10-11 10:30 | Outpatient (CLI) | payer BC, SELFPAY ==
--- NOTE | 2022-10-11 10:34 | XR_ITS ---
FINAL REPORT CLINICAL HISTORY: knee pain FINDINGS: RIGHT KNEE 3 views of the right knee were obtained. There is no acute fracture or dislocation. Visualized joint spaces are normally aligned. Joint spaces are intact. Soft tissues are unremarkable. IMPRESSION: No acute bony abnormality. Reviewed, Interpreted and Dictated by Ion Murphy MD Transcribed by Zehra Shaffer Authenticated and [facility]
== END ==
LOC: RAD 10:31
PROVIDERS: PCP Family Medicine; Visit Provider Orthopaedic Surgery
DX: M25.561 Pain in right knee (principal)
CPT/HCPCS: 73562

== ENCOUNTER → 2022-11-11 09:20 | Outpatient (CLI) | payer BC, SELFPAY ==
--- NOTE | 2022-11-11 09:35 | XR_ITS ---
PROCEDURE INFORMATION: Exam: XR Entire Spine Exam date and time: 11/11/2022 9:38 AM Age: 46 years old Clinical indication: Other: Midline and low back pain; Additional info: Acute midline low back pain w/o sciatica TECHNIQUE: Imaging protocol: XR of the entire spine. Evaluation for scoliosis or surgical evaluation. Views: 6 or more views. COMPARISON: CR XR MULTIPLE SPINE 6+V 03/04/2019 11:30 AM FINDINGS: Tubes, catheters and devices: Postsurgical clips within the abdomen and pelvis. Bones/joints: Normal. No acute fracture. Normal alignment. No scoliosis. IMPRESSION: No acute abnormality.
[2022-11-11 10:06] LABS: Hemoglobin A1C 5.3 % (4.0-6.0)
[2022-11-11 10:09] LABS: Chloride 97 mmol/L (98-107)
[2022-11-11 10:10] LABS: Potassium 3.9 mmoL/L (3.5-5.1); Sodium 139 mmol/L (136-145)
[2022-11-11 10:12] LABS: Alanine Aminotransferase 25 U/L (12-78); Alkaline Phosphatase 111 U/L (38-126); Anion Gap 13.9 mEq/L (5-15); Aspartate Amino Transferase 26 U/L (14-36); Bilirubin,Total 0.3 mg/dl (0.2-1.3); Blood Urea Nitrogen 11 mg/dl (7-17); Carbon Dioxide 32 mmol/L (22.0-30.0); Creatine Kinase 316 U/L (30-135); Estimated Glomerular Filt Rate 91 ml/min (>60); GFR (African American) 110 ML/MIN (>60); Uric Acid 4.6 mg/dl (2.5-6.2)
[2022-11-11 10:13] LABS: Albumin Level 3.6 g/dl (3.5-5.0); Albumin/Globulin Ratio 1.4 (1.1-1.8); Calcium 8.9 mg/dl (8.4-10.2); Cholesterol 205 mg/dl (140-200); Globulin 2.6 g/dL (1.3-3.2); Glucose 96 mg/dl (74-100); HDL Cholesterol 51 mg/dl (40-60); Magnesium 1.9 mg/dl (1.6-2.3); Total Protein,Serum 6.2 g/dl (6.3-8.2); Triglycerides 120 mg/dl (30-150); VLDL Cholesterol 24 mg/dL (0-40)
[2022-11-11 10:24] LABS: Direct LDL Cholesterol 137.28 mg/dL (100-129)
[2022-11-11 10:35] LABS: Erythrocyte Sedimentation Rate 16 mm/hr (0-20)
[2022-11-11 10:42] LABS: Thyroid Stimulating Hormone 2.72 uIU/mL (0.465-4.68)
[2022-11-11 11:07] LABS: Vitamin B12 582 pg/mL (239-931)
[2022-11-12 15:07] LABS: RA Latex Turbid. <10.0 IU/mL (<14.0)
[2022-11-13 20:36] LABS: Antinuclear Antibodies, IFA Negative (.)
== END ==
LOC: LAB 09:21
PROVIDERS: PCP Family Medicine; Visit Provider Physician Assistant
DX: I10 Essential (primary) hypertension (principal); E78.2 Mixed hyperlipidemia; E53.8 Deficiency of other specified B group vitamins; R73.09 Other abnormal glucose; M62.838 Other muscle spasm; M25.50 Pain in unspecified joint; M54.6 Pain in thoracic spine; M54.50 Low back pain, unspecified
CPT/HCPCS: 36415; 72084; 80053; 80061; 82550; 82607; 83036; 83735; 84443; 84550; 85651; 86038; 86431

== ENCOUNTER → 2022-12-26 15:14 | Outpatient (CLI) | payer BC, SELFPAY ==
--- NOTE | 2022-12-26 15:15 | MM_ITS ---
PROCEDURE INFORMATION: Exam: MG Bilateral Screening 3D Mammography Exam date and time: 12/26/2022 3:44 PM Age: 47 years old Clinical indication: Screening examination TECHNIQUE: Imaging protocol: Bilateral Screening tomosynthesis and 2D mammography including computer-aided detection (CAD) when performed. COMPARISON: MG MM DIG SCREENING MAMM BI W/CAD 07/22/2021 8:31 AM FINDINGS: MAMMOGRAPHY: Breast composition: There are scattered areas of fibroglandular density. Mass: Questionable 0.6 cm mass in the posterior left medial breast only well seen in the craniocaudal projection Architectural distortion: None. Calcifications: No suspicious calcifications. Asymmetric density: None. Skin thickening: None. Axillary adenopathy: None. IMPRESSION: Patient to be recalled for a spot compression view of the left breast in the craniocaudal projection, a full 90 degree lateral view of the left breast, and left breast ultrasound for further evaluation of a questionable left breast mass. ASSESSMENT: BI-RADS Category 0: Incomplete- Need Additional Imaging Evaluation and/or Prior Mammograms for Comparison
--- NOTE | 2022-12-26 15:15 | US_ITS ---
PROCEDURE: US TRANSVAGINAL CLINICAL INDICATION: lower left quadrant pain COMPARISON: No exams were available for comparison FINDINGS: UTERUS: 7cm x 5cmx 4cm with a combined endometrial thickness of 4.2mm. Adjacent to the endometrium there are cystic areas. This could be associated with adenomyosis. Within the uterus there are at least 3 fibroids. 1. 1.1 cm x 0.5 cm x 1.1 cm anterior. It has a hyperechoic appearance. 2. 2.3 cm x 1.0 cm x 1.9 cm posterior. 3. 1.3 cm x 1.3 cm x 1.3 cm fundal. LEFT OVARY: 7nitw3ts there is a 2.1 cm follicle within the left ovary. RIGHT OVARY: 3cmx [id number] with a volume of 5ml. There are multiple small follicles within the right ovary. There is an echogenic foci in the right ovary. Both ovaries are seen and appear normal. Doppler flow to both ovaries are seen. There is no fluid in the cul-de-sac. IMPRESSION: 1. Anteverted uterus with an endometrial thickness of 4.2 millimeters. Cystic areas adjacent to the anterior endometrium, possible adenomyosis. 2. There are 3 fibroids within the uterus, the largest of which is 2.3 centimeters. 3. There are multiple nabothian cysts in the cervix the largest of which is 0.7 cm 4. 2.1 cm follicle in the left ovary. 5. There is an echogenic foci within the right ovary possibly consistent with an old corpus luteum. Dictated by: Dario Deluca MD 12/26/2022 18:30 Dario Deluca MD in OV 12/26/2022 18:30
== END ==
PROVIDERS: PCP Family Medicine; Visit Provider Obstetrics & Gynecology
DX: Z12.31 Encounter for screening mammogram for malignant neoplasm of breast (principal); R10.32 Left lower quadrant pain
CPT/HCPCS: 76830; 77063; 77067

== ENCOUNTER → 2022-12-26 16:07 | Outpatient (CLI) | payer BC, SELFPAY ==
[2022-12-26 17:54] LABS: HCG,Quantitative < 2 mIU/ml (0-5.42)
[2022-12-28 11:04] LABS: FSH 19.9 mIU/mL (.)
== END ==
PROVIDERS: PCP Family Medicine; Visit Provider Obstetrics & Gynecology
DX: N91.2 Amenorrhea, unspecified (principal)
CPT/HCPCS: 36415; 82670; 83001; 84702

== ENCOUNTER 2023-01-02 07:24 | Outpatient (CLI) | payer BC, SELFPAY ==
[2023-01-02 08:00] VITALS: BP 125/72; PULSE 67; RESP 18; TEMP 36.1; O2SAT 97
[2023-01-02 08:42] LABS: Urine Pregnancy, HCG Qual. Negative (Negative)
[2023-01-02 08:50] LABS: Chloride 98 mmol/L (98-107); Potassium 3.7 mmoL/L (3.5-5.1); Sodium 134 mmol/L (136-145)
[2023-01-02 08:53] LABS: Anion Gap 12.7 mEq/L (5-15); Blood Urea Nitrogen 7 mg/dl (7-17); Carbon Dioxide 27 mmol/L (22.0-30.0); Creatinine Clearance Estimated 157 mL/min (50-200); Estimated Glomerular Filt Rate 90 ml/min (>60); GFR (African American) 109 ML/MIN (>60)
[2023-01-02 08:54] LABS: Calcium 8.4 mg/dl (8.4-10.2); Glucose 100 mg/dl (74-100)
[2023-01-02 09:20] VITALS: BP 108/62; PULSE 67; RESP 18; O2SAT 93
--- NOTE | 2023-01-02 09:20 | PC.NURSE ---
Heart rate remains high 60-70's despite Metoprolol 100mg po and Metoprolol 10mg IV. 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 New orders noted. NS bolus started. Pt pleasant and without C/O at this time. BP 108/62.
[2023-01-02 10:34] VITALS: BP 116/73; PULSE 64; RESP 18; O2SAT 95
--- NOTE | 2023-01-02 10:34 | PC.NURSE ---
Pt to CT room and on table. VSS.
[2023-01-02 10:44] VITALS: BP 101/54; PULSE 62; RESP 18; O2SAT 95
--- NOTE | 2023-01-02 10:44 | PC.NURSE ---
Scan complete, pt stable and without C/O.
== END 2023-01-02 10:50 | disposition home or self-care (01) ==
LOC: RAD 07:25
PROVIDERS: PCP Physician Assistant; Visit Provider Physician Assistant
DX: R06.00 Dyspnea, unspecified (principal); R07.9 Chest pain, unspecified; R00.0 Tachycardia, unspecified; R00.2 Palpitations; R94.31 Abnormal electrocardiogram [ECG] [EKG]; Z72.0 Tobacco use
CPT/HCPCS: 75574; 80048; 81025; Q9967

== ENCOUNTER → 2023-01-19 13:37 | Outpatient (CLI) | payer BC, SELFPAY ==
--- NOTE | 2023-01-19 13:46 | US_ITS ---
PROCEDURE INFORMATION: Exam: US Left Breast, Complete MG Left Diagnostic Breast Tomosynthesis Exam date and time: 01/19/2023 1:49 PM Age: 47 years old Clinical indication: Patient recalled on the basis of a screening mammogram for further evaluation; Left breast; mass TECHNIQUE: Imaging protocol: Complete ultrasound of all four quadrants of the left breast and the retroareolar regions, including ultrasound of the axilla when performed. Left Diagnostic tomosynthesis and 2D mammography including computer-aided detection (CAD) when performed. Unilateral or bilateral exam. COMPARISON: 1. MG MM DIG SCREENING MAMM BI W/CAD 12/26/2022 3:44 PM 2. MG MM DIG SCREENING MAMM BI W/CAD 07/22/2021 8:31 AM FINDINGS: MAMMOGRAPHY: Digital diagnostic spot compression views of the left breast and 90 degree lateral view of the left breast demonstrate a persistent 0.6 cm mass only well seen in the craniocaudal projection posteromedially ULTRASOUND: Sonographic images of the left breast including the retroareolar region, all 4 quadrants and the axilla do not demonstrate any solid masses. 0.6 cm deep 9 o'clock axis cyst 3 cm from nipple most closely corresponds to the mass on mammography. No architectural distortion or acoustical shadowing. No skin thickening or axillary adenopathy. IMPRESSION: Mass on screening mammography corresponds to underlying cystic change sonographically. There is no mammographic evidence of malignancy.Annual bilateral mammographic screening is recommended unless otherwise clinically indicated. ASSESSMENT: BI-RADS Category 2: Benign
== END ==
PROVIDERS: PCP Physician Assistant; Visit Provider Obstetrics & Gynecology
DX: R92.8 Other abnormal and inconclusive findings on diagnostic imaging of breast (principal)
CPT/HCPCS: 76641; 77061; 77065; G0279

== ENCOUNTER → 2023-02-23 14:50 | Outpatient (CLI) | payer BC, SELFPAY | PROVIDERS: PCP Family Medicine; Visit Provider Family Medicine | DX: R00.0 Tachycardia, unspecified (principal) | CPT/HCPCS: 93225 ==

== ENCOUNTER → 2023-03-20 10:37 | Outpatient (CLI) | payer BC, SELFPAY | PROVIDERS: PCP Family Medicine; Visit Provider Physician Assistant | DX: R06.00 Dyspnea, unspecified (principal); R00.0 Tachycardia, unspecified; R00.2 Palpitations; R07.9 Chest pain, unspecified; R94.31 Abnormal electrocardiogram [ECG] [EKG] | CPT/HCPCS: 93270 ==

== ENCOUNTER → 2023-03-23 12:06 | Outpatient (CLI) | payer BC, SELFPAY ==
--- NOTE | 2023-03-23 12:07 | NM_ITS ---
APPROVED REPORT Exam: Nuclear Stress Test Indication: OBESITY, HTN, TOB USE, C.P., SOB, PALPITATIONS Patient Location: Outpatient Stress Tech: Heydi Van [place] Tech:GIGI Lyles RT (R)(N)(M) Ht: 5 ft 6 in Wt: 225 lbs Bra Size: C HR: 60 bpm BP: 112/64 mmHg BSA: 2.10 m2 Rhythm: NSR TID: 1.16 BMI: 36.3 History: OBESITY, HTN, TOB USE, C.P., SOB, PALPITATIONS Procedure: Patient received 0.4 mg of intravenous Lexiscan, resting heart rate 60 bpm, resting blood pressure 112/64 mmHg, with Lexiscan maximum heart rate achieved was 88 bpm which is % of the maximum predicted heart rate and blood pressure was 134/75 mmHg. With Lexiscan, patient denied any complaint of chest pain. Cardiac Stress and Resting SPECT Images: Cardiac Stress and Resting SPECT images were obtained using technetium 99m Myoview 31.1 mCi stress and 10.27 mCi at rest. Resting and stress imaging in both supine and prone positions demonstrate a large-sized, moderate, reversible perfusion defect in the basal to mid anterior LV wall. Gated imaging demonstrates normal global LV systolic function. There is mild hypokinesis of the basal anterior LV wall. LVEF is calculated at 59%. Conclusion: Large-sized, moderate, reversible perfusion defect in the basal to mid anterior LV wall. Findings are suggestive of reversible ischemia. Gated imaging demonstrates normal global LV systolic function. There is mild hypokinesis of the basal anterior LV wall. LVEF is calculated at 59%. Electronically signed by : Kathi Yepez MD 04/01/2023 16:59:42
--- NOTE | 2023-03-23 13:38 | CA_ITS ---
APPROVED REPORT Exam: Pharmacologic Technologist: Heydi Castillo, Ht: 5 ft 5 in Wt: 225 lbs BSA: 2.08 m2 HR: 60 bpm BP: 112/64 mmHg Rhythm: NSR Medical History Medications: Omeprazole,,,,, Gabapentin,,,,, MeLOXICAM,,,,, Nadolol,,,,, DilTiazem,,,,, Trazodone,,,,, MethylpredNISOLONE,,,,, Vraylar,,,,, Effexor ER,,,,, Stress Test Details Test: LEXISCAN Reason for pharmacologic stress test: physical limitation. HR Resting HR: 57 bpm Max Heart Rate (APMHR): 175 bpm Max HR Achieved: 88 bpm Target HR (85% APMHR): 149 bpm % of APMHR: 50 Recovery HR: 71 bpm BP Resting BP: 112.0/64.0 mmHg Max BP: 153.0/74.0 mmHg Recovery BP: 149.0/82.0 mmHg ECG Resting ECG: NSR, non-specific ST abnormalities Stress ECG: No ST changes Arrhythmia: None Clinical Exercise duration: 04:01 min Highest Stage Achieved: Exercise capacity: 1.0 METs Stress ECG Conclusion Symptoms: SOA, head discomfort, chest heaviness. Arrhythmias/Ectopy: None ST-T Changes: No significant ST changes. Conclusion: Unremarkable Lexiscan stress. Myoview images reported separately. Test Summary REST . . . . . . . Resting REST 02:56 . . 57 . 112/ 64 . . Stage 1 01:00 . . 82 . . . . Stage 2 01:00 . . 86 . 134/ 75 . . Stage 3 01:00 . . 80 . 148/ 77 . . Stage 4 01:00 . . 74 . 148/ 74 . . Stage 4 01:01 . . 76 . 148/ 74 . Stop exercise at 04:01 RECOVERY 01:00 . . 74 . . . . RECOVERY 02:00 . . 77 . 138/ 79 . . RECOVERY 03:00 . . 70 . 149/ 82 . . RECOVERY 03:46 . . 69 . 153/ 74 . . Electronically signed by : Kathi Yepez MD 04/01/2023 16:57:16
== END ==
LOC: RAD 12:07
PROVIDERS: PCP Family Medicine; Visit Provider Physician Assistant
DX: R00.0 Tachycardia, unspecified (principal); R00.2 Palpitations; R06.00 Dyspnea, unspecified; R07.9 Chest pain, unspecified; R94.31 Abnormal electrocardiogram [ECG] [EKG]
CPT/HCPCS: 78452; 93017; A9502; J2785

== ENCOUNTER 2023-04-08 11:14 | Observation (INO) | payer BC, SELFPAY ==
[2023-04-08] VITALS (11 sets, daily range): BP systolic 119–158; BP diastolic 61–88; PULSE 59–72; RESP 18–20; TEMP 36.6; O2SAT 96–99; BMI 36.6; BMI 36.9
--- NOTE | 2023-04-08 11:13 | ECG_ITS ---
APPROVED REPORT Exam: Resting ECG HR:63 bpm ECG Measurements Heart Rate 63 AXES [place] 156 P 61 QRSd 75 QRS 70 QT 395 T 62 QTc 402 Conclusion SINUS RHYTHM NORMAL ECG UNCONFIRMED REPORT Electronically signed by : Javi Dunham MD 04/09/2023 17:12:23
--- NOTE | 2023-04-08 11:47 | PC.NURSE ---
Dr. Olguin at BS for pt eval
--- NOTE | 2023-04-08 12:02 | PC.NURSE ---
RAD at for CXR
[2023-04-08 12:04] LABS: Basophils # 0.1 K/mm3 (0-0.2); Basophils % 0.9 % (0.1-2.0); Eosinophils # 0.4 K/mm3 (0.0-0.4); Hematocrit 48.2 % (37.0-47.0); Hemoglobin 15.1 g/dL (12.2-16.2); Lymphocytes # 3.2 K/mm3 (0.7-4.5); Mean Corpuscular HGB Conc 31.4 g/dL (31.8-35.4); Mean Corpuscular Hemoglobin 29.8 pg (27.0-31.2); Mean Corpuscular Volume 95.1 fl (81-99); Mean Platelet Volume 8.9 fl (7.4-10.4); Monocytes # 0.6 K/mm3 (0.1-1.0); Neutrophils # 7.2 K/mm3 (1.8-7.8); Neutrophils % 63.1 % (37.0-80.0); Platelet Count 414 K/mm3 (142-424); Red Blood Count 5.07 M/mm3 (4.20-5.40); Red Cell Distribution Width 14.3 % (11.5-17.5); White Blood Count 11.5 K/mm3 (4.8-10.8)
[2023-04-08 12:06] LABS: Chloride 100 mmol/L (98-107); Sodium 136 mmol/L (136-145)
[2023-04-08 12:08] LABS: Alanine Aminotransferase 42 U/L (12-78); Alkaline Phosphatase 115 U/L (38-126); Aspartate Amino Transferase 40 U/L (14-36); Bilirubin,Total 0.3 mg/dl (0.2-1.3); Blood Urea Nitrogen 10 mg/dl (7-17); Creatinine Clearance Estimated 140 mL/min (50-200); Estimated Glomerular Filt Rate 78 ml/min (>60); GFR (African American) 94 ML/MIN (>60)
[2023-04-08 12:09] LABS: Albumin Level 4.4 g/dl (3.5-5.0); Albumin/Globulin Ratio 1.2 (1.1-1.8); Calcium 9.5 mg/dl (8.4-10.2); Carbon Dioxide 28 mmol/L (22.0-30.0); Globulin 3.8 g/dL (1.3-3.2); Glucose 108 mg/dl (74-100); Lipase 251 U/L (23-300); Total Protein,Serum 8.2 g/dl (6.3-8.2)
--- NOTE | 2023-04-08 12:10 | XR_ITS ---
PROCEDURE INFORMATION: Exam: XR Chest Exam date and time: 04/08/2023 12:18 PM Age: 47 years old Clinical indication: Sternal or substernal pain; Patient HX: Patient to have cardiac cath tomorrow she states due to coronary artery blockages. Smoker. ; Additional info: Cp TECHNIQUE: Imaging protocol: Radiologic exam of the chest. Views: 1 view. COMPARISON: CR XR CHEST PORTABLE 09/09/2021 4:55 PM FINDINGS: Lungs: Unremarkable. No consolidation. Pleural spaces: Unremarkable. No pleural effusion. No pneumothorax. Heart/Mediastinum: Unremarkable. No cardiomegaly. Bones/joints: Unremarkable. IMPRESSION: No acute findings.
--- NOTE | 2023-04-08 12:20 | HMH.EDGENADL ---
Discharge Plan Disposition Patient Disposition: Admitted Chief Complaint: PAIN Prescriptions Prescriptions: No Action omeprazole 40 mg capsule,delayed release(DR/EC) 40 mg PO DAILY diltiazem HCl [DILT-XR] 180 mg capsule,ext.rel 24h degradable 180 mg PO DAILY Qty: 90 3RF trazodone 50 mg tablet 50 mg PO HS meloxicam 15 mg tablet 15 mg PO DAILY gabapentin 400 mg capsule 400 mg PO BID aspirin 81 mg tablet,delayed release (DR/EC) 81 mg PO DAILY Qty: 90 3RF triamterene-hydrochlorothiazid 37.5-25 mg capsule 1 cap PO DAILY Qty: 90 3RF Vraylar 3 mg capsule 3 mg PO DAILY Qty: 30 1RF nadolol 80 mg tablet See Rx Instructions .ROUTE .COMPLEX Qty: 90 1RF Dose Instruction: Take 1 tablet by mouth once daily Rx Instructions: Take 1 tablet by mouth once daily Referrals Follow up/Referrals: Newton Connors MD [Primary Care Provider] - See instructions Clinical Impressions Clinical Impression: Angina pectoris, unstable Discharge ED Provider: Gabriel Olugin General Adult HPI General Chief complaint: PAIN Stated complaint: Chest pain Time Seen by Provider: 04/08/23 11:18 Mode of Arrival: Ambulatory Source of Information: Patient Limitations: No Limitations Description of Symptoms (Recalled from ER Triage Doc. by RN): Patient complaint of head, neck and left sided chest pain that began yesterday. States she went to work this morning and her head and neck were hurting and then her chest began to hurt. States she is scheduled for a heart cath tomorrow. Per patient she spoke to Dr. Persaud who told her to come to the ER for evaluation and heart cath in the morning. History of Present Illness HPI narrative: 47-year-old female with history of chest pain, tobacco use, hypertension, hyperlipidemia, anxiety, recent abnormal stress test presenting with chest pressure and diaphoresis. Patient states that she is active at work and recently, has been following with cardiology for shortness of breath, diaphoresis, chest pressure. Patient was at work 1 day prior to arrival on 04/07 and had chest pressure so bad that she had to sit down and rest. Broke out in sweat, vomited. Following with cardiology here at [facility] and was supposed have a heart catheterization in the next couple of weeks, but given active symptoms and recent abnormal stress test, recommended come to the emergency department. Patient having symptoms prior to coming in, but none on arrival. Denies fevers or chills, cough, or any other concerns at this time. Neurologically intact. Related Data Home Medications Medication Instructions Recorded Confirmed omeprazole 40 mg capsule,delayed 40 mg PO DAILY Reflux/Acid reflux 07/26/17 04/05/23 release meloxicam 15 mg tablet 15 mg PO DAILY 12/18/22 04/05/23 trazodone 50 mg tablet 50 mg PO HS 12/18/22 04/05/23 gabapentin 400 mg capsule 400 mg PO BID 04/05/23 04/05/23 Previous Rx's Medication Instructions Recorded diltiazem HCl 180 mg 180 mg PO DAILY #90 caps 02/01/21 capsule,extended release 24 hr, controlled (DILT-XR) cariprazine 3 mg capsule (Vraylar) 3 mg PO DAILY #30 caps 08/02/21 nadolol 80 mg tablet See Rx Instructions .Route 02/05/23 .COMPLEX #90 tabs aspirin 81 mg tablet,delayed 81 mg PO DAILY #90 tabs 04/05/23 release triamterene 37.5 1 cap PO DAILY #90 caps 04/05/23 mg-hydrochlorothiazide 25 mg capsule Allergies Allergy/AdvReac Type Severity Reaction Status Date / Time alprazolam [From Xanax] Allergy Severe Swelling Verified 04/05/23 09:23 of Lip/Tongue/Throat levofloxacin [From LEVAQUIN] Allergy Unknown SWELLING Verified 03/20/23 09:31 [facility] Disclaimer: The information contained in this section may have been updated after the patient was seen, as this information can be updated by other users. Medical History (Updated 04/08/23 @ 13:02 by Gabriel Olguin MD) Abnormal stress test Amen
[2023-04-08 12:21] LABS: Troponin I < 0.01 ng/ml (0.00-0.034)
--- NOTE | 2023-04-08 13:15 | PC.NURSE ---
Report called to Ari on Med Surg.
--- NOTE | 2023-04-08 13:51 | HMH.PHAINT1 ---
Pharmacy Intervention Comments: verified home medication list using list from outpatient pharmacy
--- NOTE | 2023-04-08 14:18 | EXP.HP ---
History of Present Illness *Admission Date: 04/08/23 *Reason for visit:: Chest pain *History of present illness: 47-year-old female with known history of coronary atherosclerosis and tobacco use disorder who has been seen in cardiology clinic in the office and over the last couple of weeks has been worked up for accelerating chest pain with a nuclear medicine stress test which showed a significant amount of reversible ischemia. She was scheduled for heart catheterization later this week but over the past couple of days has had increasing chest pain and pressure with rest pain and came to the emergency department. Initial troponins were negative but given her abnormal test and accelerating angina it was deemed appropriate to admit her for observation, telemetry monitoring and obtain more urgent cardiology evaluation for heart catheterization tomorrow. [facility] Disclaimer: The information contained in this section may have been updated after the patient was seen, as this information can be updated by other users. Medical History Abnormal stress test Amenorrhea Anxiety delivery delivered Chest pain Decreased libido without sexual dysfunction Depression DVT (deep venous thrombosis) Dyspnea Family history of breast cancer in first degree relative History of TIA (transient ischemic attack) Jaw dislocation Obesity (BMI 35.0-39.9 without comorbidity) Tobacco abuse Typical angina Surgical History H/O dilation and curettage History of appendectomy History of colon surgery Family History Other Alcoholism Asthma Cancer Diabetes FHx: mental illness Heart attack Hyperlipidemia Hypertension Kidney disease Stroke Social History (Updated 04/08/23 @ 13:41 by Christa Banuelos RN) Smoking Status: Current every day smoker alcohol intake: never substance use type: denies use current occupational status: employed Travel in the last 8 weeks: Inside the [place] household members: spouse and children housing: house number of children: 1 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 current occupational exposures/hazards: No caffeine: No Meds Home Medications and Allergies Home Medications Medication Instructions Recorded Confirmed Type omeprazole 40 mg capsule,delayed 40 mg PO DAILY Reflux/Acid reflux 07/26/17 04/08/23 History release meloxicam 15 mg tablet 15 mg PO DAILY Pain 12/18/22 04/08/23 History trazodone 50 mg tablet 50 mg PO HS sleep 12/18/22 04/08/23 History gabapentin 400 mg capsule 400 mg PO BID Neuropathic pain 04/05/23 04/08/23 History aspirin 81 mg tablet,delayed 81 mg PO DAILY heart health 04/08/23 04/08/23 History release cariprazine 3 mg capsule (Vraylar) 3 mg PO DAILY Depression 04/08/23 04/08/23 History diltiazem HCl 180 mg 180 mg PO DAILY Heart Disease 04/08/23 04/08/23 History capsule,extended release 24 hr, controlled (DILT-XR) duloxetine 60 mg capsule,delayed 60 mg PO DAILY fibromyalgia 04/08/23 04/08/23 History release nadolol 80 mg tablet 80 mg PO DAILY blood pressure 04/08/23 04/08/23 History triamterene 37.5 1 cap PO DAILY blood pressure 04/08/23 04/08/23 History mg-hydrochlorothiazide 25 mg capsule New Prescriptions to Start Prescriptions: Allergies Allergy/AdvReac Type Severity Reaction Status Date / Time alprazolam [From Xanax] Allergy Severe Swelling Verified 04/08/23 13:29 of Lip/Tongue/Throat levofloxacin [From LEVAQUIN] Allergy Unknown SWELLING Verified 04/08/23 13:29 Exam Data for Last 24 hours Vital signs and Labs for Last 24 Hours: Temp Pulse Resp BP Pulse Ox O2 Del Method 97.9 F 59 L 18 135/77 97 Room Air 04/08/23 13:28 04/08/23 13:28 04/08/23 13:28 04/08/23 13:28 04/08/23 13:28 04/08/23 13:28 Laboratory Results - last
[2023-04-08 15:49] LABS: Troponin I < 0.01 ng/ml (0.00-0.034)
[2023-04-08 18:43] LABS: Troponin I < 0.01 ng/ml (0.00-0.034)
--- NOTE | 2023-04-08 19:22 | ECG_ITS ---
APPROVED REPORT Exam: Resting ECG HR:61 bpm ECG Measurements Heart Rate 61 AXES CA 153 P 59 QRSd 81 QRS 68 QT 414 T 56 QTc 416 Conclusion SINUS RHYTHM NONSPECIFIC T-WAVE ABNORMALITY BORDERLINE ECG UNCONFIRMED REPORT Electronically signed by : Javi Dunham MD 04/09/2023 17:09:38
--- NOTE | 2023-04-08 19:31 | PC.NURSE ---
Patient called out with c/o severe chest pain, stated I rolled over and then a sharp pain right over my heart hit me , STAT EKG ordered showed Sinus rhythm with some T-wave abnormality. 1mg Morphine IVP given as ordered. Will continue to monitor
[2023-04-09] VITALS (16 sets, daily range): BP systolic 113–147; BP diastolic 63–77; PULSE 60–95; RESP 16–18; TEMP 36.3–37.1; O2SAT 92–97; BMI 37.3
--- NOTE | 2023-04-09 04:13 | PC.NURSE ---
Patient has rested well this shift. No c/o chest pain since start of shift. 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 VSS.
--- NOTE | 2023-04-09 08:23 | EXP.ACUTE.PN ---
Subjective *Date: 04/09/23 *Time: 08:23 Interval history: Patient did well overnight, did have some anginal chest pain which resolved with the application of Nitropaste. She is n.p.o. for cardiology consult and probable heart cath. Medical Exam Vital signs and Labs for Last 24 Hours: Vital Signs Temp Pulse Pulse Resp BP BP Pulse Ox 04/09/23 07:26 98.7 F 95 H 18 122/70 96 04/09/23 06:07 04/09/23 04:00 90 04/09/23 04:00 97.3 F L 85 18 147/76 H 95 04/09/23 00:00 90 04/09/23 01:00 04/08/23 23:00 04/09/23 00:00 98.6 F 83 18 135/65 96 04/08/23 21:00 04/08/23 20:00 04/08/23 20:00 60 04/08/23 20:00 61 04/08/23 19:51 97.9 F 72 20 131/61 98 04/08/23 18:08 04/08/23 16:00 65 04/08/23 17:00 04/08/23 15:00 04/08/23 15:08 97.9 F 63 18 158/80 H 99 04/08/23 13:28 97.9 F 59 L 18 135/77 97 04/08/23 13:21 97.9 F 68 20 135/77 04/08/23 13:01 68 135/77 96 04/08/23 12:30 61 140/80 96 04/08/23 12:00 68 119/78 96 04/08/23 11:31 72 126/76 98 04/08/23 11:15 97.9 F 69 18 145/88 H 98 O2 Del Method 04/09/23 07:26 Room Air 04/09/23 06:07 Room Air 04/09/23 04:00 04/09/23 04:00 Room Air 04/09/23 00:00 04/09/23 01:00 Room Air 04/08/23 23:00 Room Air 04/09/23 00:00 Room Air 04/08/23 21:00 Room Air 04/08/23 20:00 Room Air 04/08/23 20:00 04/08/23 20:00 04/08/23 19:51 Room Air 04/08/23 18:08 Room Air 04/08/23 16:00 04/08/23 17:00 Room Air 04/08/23 15:00 Room Air 04/08/23 15:08 Room Air 04/08/23 13:28 Room Air 04/08/23 13:21 Room Air 04/08/23 13:01 Room Air 04/08/23 12:30 04/08/23 12:00 04/08/23 11:31 04/08/23 11:15 Room Air Intake and Output 04/08/23 04/09/23 04/09/23 19:59 03:59 11:59 Intake Total 470 / 470 0 / 470 0 / 470 Output Total 0 / 0 0 / 0 Balance 470 / 470 0 / 470 0 / 470 Intake: Intake, Oral Amount 470 / 470 0 / 470 0 / 470 Output: Output, Urine Amount 0 / 0 0 / 0 Other: Number of Unmeasured Voids 1 0 Weight 222 lb 1 oz 224 lb Patient Weight 04/09/23 11:59 Weight 224 lb Laboratory Results - last 24 hr 04/08/23 11:17: WBC 11.5 H, RBC 5.07, Hgb 15.1, Hct 48.2 H, MCV 95.1, MCH 29.8, MCHC 31.4 L, RDW 14.3, Plt Count 414, MPV 8.9, Neut % (Auto) 63.1, Lymph % (Auto) 28.0, [place] % (Auto) 5.0, Eos % (Auto) 3.0, Baso % (Auto) 0.9, Neut # (Auto) 7.2, Lymph # (Auto) 3.2, [place] # (Auto) 0.6, Eos # (Auto) 0.4, Baso # (Auto) 0.1, Sodium 136, Potassium 4.0, Chloride 100, Carbon Dioxide 28, Anion Gap 12.0, BUN 10, Creatinine 0.80, Estimated Creat Clear 140, Estimated GFR 78, Est GFR ( Amer) 94, Glucose 108 H, Calcium 9.5, Total Bilirubin 0.3, AST 40 H, ALT 42, Alkaline Phosphatase 115, Troponin I < 0.01, Total Protein 8.2 D, Albumin 4.4, Globulin 3.8 H, Albumin/Globulin Ratio 1.2, Lipase 251 04/08/23 15:15: Troponin I < 0.01 04/08/23 18:05: Troponin I < 0.01 I & O for Labs for Last 24 Hours: Intake & Output 04/06/23 04/07/23 04/08/23 04/09/23 11:59 11:59 11:59 11:59 Intake Total 470 / 470 Output Total 0 / 0 Balance 470 / 470 Weight 220 lb 224 lb Comment:: Alert, pleasant. Oriented. No distress. Good air movement, heart rate regular. Abdomen not distended. No edema noted. Neurologically intact Assessment and Plan *Assessment and plan (1) Angina pectoris, unstable: Status: Acute Category: Medical Code(s): I20.0 - Unstable angina (2) Abnormal stress test: Status: Acute Category: Medical Code(s): R94.39 - Abnormal result of other cardiovascular function study (3) Tobacco abuse: Status: Acute Category: Medical Code(s): Z72.0 - Tobacco use (4) Obesity (BMI 35.0-39.9 without comorbidity): Status: Acute Category: Medical Code(s): E66.9 - Obesity, unspecified Plan A
--- NOTE | 2023-04-09 09:34 | IR_ITS ---
APPROVED REPORT Patient Location: Inpatient Resident Programs Assistant: GIGI Betancourt RT (R) PROCEDURES Left heart catheterization Left ventriculogram Selective coronary angiogram INDICATION Abnormal Myoview, Unstable angina Informed consent was obtained prior to the procedure. COMPLICATIONS None Estimated Blood Loss: Less than 10 mls TECHNIQUE One percent lidocaine used to anesthetize the right anterior aspect of the wrist. The right radial artery was accessed via the Seldinger technique. A 6 [place] sheath was placed in the right radial artery. 2.5 mg of Verapamil, 800 mcg of nitroglycerin, 1mg Lidocaine and 5000 U Heparin were given through the arterial sheath. The papa catheter was also used to perform left heart catheterization, left ventriculogram and selective coronary angiogram. At the end of the procedure the sheath was removed good hemostasis was achieved using Traclet band, patient was transferred to the postop holding area in stable condition. ANGIOGRAPHIC RESULTS The left main artery Normal The left anterior descending artery Normal The circumflex artery Dominant normal The right coronary artery Normal The CANCHOLA ventriculogram reveals Normal 65% The left ventricular end-diastolic pressure 20 mmHg IMPRESSION Normal coronary arteries Normal ejection fraction Elevated LVEDP consistent with diastolic dysfunction PLAN 1. Empiric treatment for diastolic dysfunction 2. Consider additional work-up for noncardiac symptoms Electronically signed by : Sp Persaud MD 04/09/2023 13:21:44
--- NOTE | 2023-04-09 09:34 | EXP.CARD.CON ---
History of Present Illness History of Present Illness Consult date: 04/09/23 Requesting physician: Elmer Herron Consult reason: chest pain Chief complaint: chest pain History of present illness: 47-year-old white female with history of TIA, hypertension, hypercholesterolemia, obesity, and tobacco use. Patient describes several years of episodic chest discomfort worse with activity better with rest which has been escalating in frequency and severity over the past 6 months. She had CCTA in December which showed a score of 0 however her symptoms continued and she underwent Lexiscan Myoview in our office earlier this month which showed large reversible anterior defect. She was ASA and Nadolol and scheduled for left heart cath. 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 Her employer called 911 and she was transported to the emergency room. Her EKG shows flat T waves V2 V3 otherwise no acute findings. She had normal serial troponins but given her symptoms, she was admitted for observation over weekend. She reports last night she had another episode at rest which improved with nitroglycerin. This was her first ever episode of discomfort occurring at rest. She is stable this morning and agreeable to proceed with left heart cath [facility] Disclaimer: The information contained in this section may have been updated after the patient was seen, as this information can be updated by other users. Medical History Abnormal stress test Amenorrhea Anxiety delivery delivered Chest pain Decreased libido without sexual dysfunction Depression DVT (deep venous thrombosis) Dyspnea Family history of breast cancer in first degree relative History of TIA (transient ischemic attack) Jaw dislocation Obesity (BMI 35.0-39.9 without comorbidity) Tobacco abuse Typical angina Surgical History H/O dilation and curettage History of appendectomy History of colon surgery Family History Other Alcoholism Asthma Cancer Diabetes FHx: mental illness Heart attack Hyperlipidemia Hypertension Kidney disease Stroke Social History (Updated 04/08/23 @ 13:41 by Chrsita Banuelos RN) Smoking Status: Current every day smoker alcohol intake: never substance use type: denies use current occupational status: employed Travel in the last 8 weeks: [place] the [place] household members: spouse and children housing: house number of children: 1 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 current occupational exposures/hazards: No caffeine: No Review of Systems Constitutional Constitutional: Denies fatigue and Denies weakness Eyes Eyes: Denies loss of vision ENT Ears, Nose, Mouth, and Throat: Denies hearing loss and Denies vertigo *Cardiovascular Cardiovascular: Denies chest pain, Denies dyspnea and Denies syncope *Respiratory Respiratory: Denies cough and Denies dyspnea *Gastrointestinal Gastrointestinal: Denies change in stool character, Denies nausea and Denies vomiting *Musculoskeletal Musculoskeletal: Denies muscle weakness Integumentary/Breasts Skin/Breast: Denies changing lesions *Neurologic Neurologic: Denies loss of vision, Denies syncope, Denies vertigo and Denies weakness Endocrine Endocrine: Denies fatigue Exam Data for Last 24 hours Vital signs and Labs for Last 24 Hours: Temp Pulse Resp BP Pulse Ox O2 Del Method 98.7 F 95 H 18 122/70 96 Room Air 04/09/23 07:26 04/09/23 07:26 04/09/23 07:26 04/09/23 07:26 04/09/23 07:26 04/09/23 08:49 Laboratory Results - last 24 hr 04/08/23 11:17: WBC 11.5 H, RBC 5.07, Hgb 15.1, Hct 48.2 H, MCV 95.1, MCH 29.8, MCHC 31.4 L, RDW 14.3, Plt Count 414, MPV 8.9, Neut % (Auto) 63.1, Lymph % (Auto)
--- NOTE | 2023-04-09 13:38 | EXP.DC.SUM ---
General Admission date:: 04/08/23 Discharge date: 04/09/23 HPI HPI HPI: 47-year-old female with known history of coronary atherosclerosis and tobacco use disorder who has been seen in cardiology clinic in the office and over the last couple of weeks has been worked up for accelerating chest pain with a nuclear medicine stress test which showed a significant amount of reversible ischemia. She was scheduled for heart catheterization later this week but over the past couple of days has had increasing chest pain and pressure with rest pain and came to the emergency department. Initial troponins were negative but given her abnormal test and accelerating angina it was deemed appropriate to admit her for observation, telemetry monitoring and obtain more urgent cardiology evaluation for heart catheterization tomorrow. Hospital Course Hospital Course Hospital Course: Patient was admitted, ruled out for MD, given significantly abnormal stress test in the past and plan for outpatient cath she was subjected to cardiology consult who agreed with need for cath as an inpatient given her unstable angina pattern. Interestingly this test was really completely normal with clear coronary arteries and a normal ejection fraction but did have evidence of left ventricular elevated diastolic pressure and the diagnosis of diastolic dysfunction and noncardiac chest pain was made. Plan okay to discharge her home today with Lasix therapy daily as well as proton pump inhibitor. She will follow-up with her regular family practice physician in the next couple of days to reevaluate. Exam Data for Last 24 hours Vital signs and Labs for Last 24 Hours: Temp Pulse Resp BP Pulse Ox O2 Del Method 97.5 F L 80 18 125/65 97 Room Air 04/09/23 11:46 04/09/23 12:00 04/09/23 11:46 04/09/23 11:46 04/09/23 11:46 04/09/23 12:33 Laboratory Results - last 24 hr 04/08/23 15:15: Troponin I < 0.01 04/08/23 18:05: Troponin I < 0.01 I & O for Last 24 hours: Intake & Output 04/07/23 04/08/23 04/09/23 04/10/23 11:59 11:59 11:59 11:59 Intake Total 470 / 470 Output Total 0 / 0 Balance 470 / 470 Weight 220 lb 224 lb Constitutional Constitutional: no acute distress *Routine HEENT Exam Head: Present normocephalic Eye: Present PERRL *Routine Respiratory Exam Respiratory: Present normal respiratory effort; Absent wheezes or crackles *Routine Cardiovascular Exam Cardiovascular: Present RRR, Normal S1 and Normal S2; Absent murmur, gallop or rubs *Routine Abdominal Exam Abdominal: Present soft; Absent tenderness *Routine Extremities Exam Extremities: Absent edema *Routine Skin Exam Skin: Present intact and warm *Routine Neurological Exam Neurological: Present alert and oriented X3 Routine Psychiatric Exam Psychiatric: Present cooperative Results Data Completed and Pending Labs on day of discharge: Labs from last 24 hours 04/08/23 04/08/23 18:05 15:15 Troponin I < 0.01 < 0.01 DS: Diagnosis Discharge Diagnosis (1) Angina pectoris, unstable: Status: Acute Code(s): I20.0 - Unstable angina (2) Abnormal stress test: Status: Acute Code(s): R94.39 - Abnormal result of other cardiovascular function study (3) Tobacco abuse: Status: Acute Code(s): Z72.0 - Tobacco use (4) Hypertension: Status: Chronic Code(s): I10 - Essential (primary) hypertension Qualifiers: Hypertension type: essential hypertension Qualified Code(s): I10 - Essential (primary) hypertension Meds Home Medications and Allergies Home Medications Medication Instructions Recorded Confirmed Type meloxicam 15 mg tablet 15 mg PO DAILY Pain 12/18/22 04/08/23 History trazodone 50 mg tablet 50 mg PO HS sleep 12/18/22 04/08/23 History gabapentin 400 mg capsule 400 mg PO BID Neuropathic pain 04/05/23 04/08/23 History aspirin 81 mg tablet,delayed 81 mg PO DAILY heart health 04/08/23 04/08/23 History
--- NOTE | 2023-04-09 16:44 | PC.NURSE ---
PT HAS HAD NO NEEDS OR C/O T/O DAY AND SINCE ARRIVAL BACK FROM PROCEDURE. VSS. PRESSURE DRESSING TO R RADIAL SITE, CDI.
--- NOTE | 2023-04-09 16:47 | PC.NURSE ---
PT GOING HOME 3 HOURS AFTER PROCEDURE.
--- NOTE | 2023-04-10 13:03 | CARE MANAGER ---
Contacted patient related to hospital discharge. She states she is aware of follow up appointments. She also received her new med and is aware of the one to change and the one to stop. She denies other questions or concerns. She did ask who could fill out [place] papers. I encouraged her to start with cardiology office and if they weren't able to help they may refer her to Dr. Dunham since he took care of her in the hospital. ALVARADO Watson
== END 2023-04-09 17:00 | disposition home or self-care (01) ==
LOC: ER 13:02 → 2ND 13:09
PROVIDERS: Internal Medicine; Admitting Provider Internal Medicine Adolescent Medicine; Emergency Provider Emergency Medicine; PCP Family Medicine; Visit Provider Internal Medicine Adolescent Medicine
DX: I25.110 Atherosclerotic heart disease of native coronary artery with unstable angina pectoris (principal); R94.39 Abnormal result of other cardiovascular function study; F17.210 Nicotine dependence, cigarettes, uncomplicated; E66.9 Obesity, unspecified; Z68.37 Body mass index [BMI] 37.0-37.9, adult; Z79.899 Other long term (current) drug therapy
CPT/HCPCS: 36415; 71045; 80053; 83690; 84484; 85025; 93005; 93458; 99152; 99285; C1725; C1769; G0378; J1644; Q9967

== ENCOUNTER → 2023-06-26 09:29 | Outpatient (CLI) | payer BC, SELFPAY ==
[2023-06-26 10:13] LABS: Basophils % 0.2 % (0.1-2.0); Eosinophils # 0.4 K/mm3 (0.0-0.4); Eosinophils % 5.6 % (0.1-12.0); Hematocrit 37.3 % (37.0-47.0); Hemoglobin 12.6 g/dL (12.2-16.2); Lymphocytes # 1.8 K/mm3 (0.7-4.5); Lymphocytes % 24.9 % (10-50); Mean Corpuscular HGB Conc 33.8 g/dL (31.8-35.4); Mean Corpuscular Volume 91.8 fl (81-99); Mean Platelet Volume 7.5 fl (7.4-10.4); Monocytes # 0.3 K/mm3 (0.1-1.0); Monocytes % 4.2 % (1.7-9.3); Neutrophils # 4.8 K/mm3 (1.8-7.8); Neutrophils % 65.1 % (37.0-80.0); Platelet Count 241 K/mm3 (142-424); Red Blood Count 4.06 M/mm3 (4.20-5.40); Red Cell Distribution Width 14.1 % (11.5-17.5); White Blood Count 7.3 K/mm3 (4.8-10.8)
[2023-06-26 10:38] LABS: Chloride 101 mmol/L (98-107)
[2023-06-26 10:39] LABS: Potassium 4.1 mmoL/L (3.5-5.1); Sodium 136 mmol/L (136-145)
[2023-06-26 10:41] LABS: Alanine Aminotransferase 42 U/L (12-78); Alkaline Phosphatase 102 U/L (38-126); Anion Gap 11.1 mEq/L (5-15); Aspartate Amino Transferase 39 U/L (14-36); Bilirubin,Direct 0.3 mg/dl (0.0-0.4); Bilirubin,Indirect 0.1 mg/dL (0.0-0.9); Bilirubin,Total 0.4 mg/dl (0.2-1.3); Bilirubin,Unconjugated 0.1 mg/dL (0.0-1.1); Blood Urea Nitrogen 12 mg/dl (7-17); Carbon Dioxide 28 mmol/L (22.0-30.0); Cholesterol 210 mg/dl (140-200); Estimated Glomerular Filt Rate 90 ml/min (>60); GFR (African American) 109 ML/MIN (>60); Triglycerides 187 mg/dl (30-150); VLDL Cholesterol 37 mg/dL (0-40)
[2023-06-26 10:42] LABS: Albumin Level 3.9 g/dl (3.5-5.0); Calcium 8.6 mg/dl (8.4-10.2); Chol/HDL Ratio 4.4 (1-3.5); Glucose 100 mg/dl (74-100); HDL Cholesterol 48 mg/dl (40-60); Total Protein,Serum 6.8 g/dl (6.3-8.2)
[2023-06-26 10:53] LABS: Direct LDL Cholesterol 134.01 mg/dL (100-129)
[2023-06-26 10:56] LABS: Free T4 (Free Thyroxine) 0.96 ng/dl (0.78-2.19)
[2023-06-26 11:11] LABS: Thyroid Stimulating Hormone 4.35 uIU/mL (0.465-4.68)
== END ==
PROVIDERS: PCP Family Medicine; Visit Provider Internal Medicine
DX: R06.00 Dyspnea, unspecified (principal); I10 Essential (primary) hypertension; R07.89 Other chest pain; R94.31 Abnormal electrocardiogram [ECG] [EKG]; Z72.0 Tobacco use; E66.9 Obesity, unspecified; Z68.38 Body mass index [BMI] 38.0-38.9, adult
CPT/HCPCS: 36415; 80048; 80061; 80076; 82533; 84439; 84443; 85025

== ENCOUNTER → 2023-06-27 08:30 | Outpatient (CLI) | payer BC, SELFPAY ==
[2023-07-04 15:55] LABS: Dopamine, Ur, 24hr 223 ug/24 hr (0-510); Dopamine, Urine 97 ug/L (Undefined); Epinephrine, U, 24hr <7 ug/24 hr (0-20); Epinephrine, Urine <3 ug/L (Undefined); Norepinephrine, Ur 26 ug/L (Undefined); Norepinephrine,U,24h 60 ug/24 hr (0-135); VMA, Urine, 24hr 2.3 mg/24 hr (0.0-7.5)
== END ==
LOC: LAB.DROPOF 08:31
PROVIDERS: PCP Family Medicine; Visit Provider Internal Medicine
DX: I10 Essential (primary) hypertension (principal)
CPT/HCPCS: 82384; 84585

== ENCOUNTER → 2023-06-28 15:04 | Outpatient (CLI) | payer BC, SELFPAY ==
--- NOTE | 2023-06-28 15:04 | CA_ITS ---
APPROVED REPORT EXAM: Comprehensive 2D, Doppler, and color-flow Echocardiogram Unit Leader: Delaney Patel CRT Ht: 5 ft 5 in Wt: 232lbs BSA: 2.11 BP: 127/53 mmHg Indications: Abnormal ECG, Chest Pain, Shortness of Breath, CVA/TIA, Obesity, Palpitations, Hypertension/HDD 2D Dimensions Left Atrium 3.77 cm F: 2.7 - 3.8 LA Volume 31.50 mL LVOT 1.91 cm (M/F) 1.5-2.5 LA Volume Index 14.93 mL/m2 (M/F) 16-34 EF AP4 58.50 % GL Strain -18.3 % M-Mode Dimensions RVDd 2.70 cm (0.9-2.6) LVDd 4.96 cm (3.5-5.7) Ao Diam 3.50 cm (2.0-3.7) LVDs 2.90 cm (3.5-5.7) IVSd 1.24 cm (0.6-1.1) PWd 0.59 cm (0.6-1.1) EF (Teich) 72.30% FS 41.50% EDV (Teich) 116.10 mL TAPSE 2.69 (<1.7) ESV (Teich) 32.20 mL LV Diastology E Decel Time 331 (160-240 msec) E/A Ratio 1.4 MED E' 6.8 (>= 7 cm/sec) MED A' 9.60 cm/s E'/MED E' Ratio 17.16 (<= 14) LAT E' 5.2 (>= 10 cm/sec) LAT A' 8.10 cm/s E/LAT E' Ratio 22.44 (<= 14) Aortic Valve AoV Peak Asim. 137.0 (50-130 cm/s) AO Peak GR. 7.50 mmHg Mitral Valve MV E Max Asim. 117.0 (40-130 cm/s) MV A Velocity 84.0 (40-130 cm/s) E/A Ratio 1.40 MV Decel. Time 331 (160-240 ms) Tricuspid Valve TR P. Velocity 242.00 cm/s RAP Estimate 10.00 mmHg RVSP 33.40 mmHg Left Ventricle The left ventricle is normal size. The left ventricular systolic function is normal. The left ventricular ejection fraction is within the normal range. There is increased LV wall thickness. There is normal LV segmental wall motion. The left ventricular diastolic function is normal. LVEF is 65%. Right Ventricle The right ventricle is mildly dilated. The right ventricular systolic function is normal. Atria The left atrium size is normal. The right atrium size is normal. There is no Doppler evidence of interatrial shunt. Aortic Valve The aortic valve opens well. There is no aortic valvular stenosis. No aortic regurgitation is present. Mitral Valve The mitral valve is normal in structure. No evidence of mitral valve stenosis. Trace mitral regurgitation. Tricuspid Valve The tricuspid valve leaflets are thin and pliable. Trace tricuspid regurgitation. RVSP 16 mmHg + RA pressure. Pulmonic Valve The pulmonary valve is normal in structure. Trace pulmonic regurgitation. Great Vessels The aortic root is normal in size. The ascending aorta is normal in size. The IVC is not well-visualized. Pericardium There is no pericardial effusion. Other Information Study Quality: Technically Difficult Conclusion Technically difficult study due to poor acoustic windows. Normal biventricular systolic function. Mild RV dilation. No significant valvular stenosis or regurgitation. Electronically signed by : Kathi Yepez MD 07/01/2023 22:56:08
== END ==
PROVIDERS: PCP Family Medicine; Visit Provider Internal Medicine
DX: I10 Essential (primary) hypertension (principal); R07.9 Chest pain, unspecified; F41.9 Anxiety disorder, unspecified; E66.9 Obesity, unspecified; Z68.38 Body mass index [BMI] 38.0-38.9, adult; Z72.0 Tobacco use
CPT/HCPCS: 93306

== ENCOUNTER → 2023-07-03 08:19 | Outpatient (CLI) | payer BC, SELFPAY ==
[2023-07-06 17:38] LABS: Metanephrine, U,24hr 154 ug/24 hr (36-209); Metanephrine, Ur 67 ug/L (Undefined); Normetanephr.,U,24h 377 ug/24 hr (131-612); Normetanephrine, Ur 164 ug/L (Undefined)
== END ==
PROVIDERS: PCP Family Medicine; Visit Provider Internal Medicine
DX: I10 Essential (primary) hypertension (principal); Z79.899 Other long term (current) drug therapy; Z72.0 Tobacco use
CPT/HCPCS: 83835

== ENCOUNTER 2023-09-26 09:34 | Emergency (ER) | payer BC, SELFPAY ==
[2023-09-26 09:45] VITALS: BP 119/69; PULSE 75; RESP 16; TEMP 36.6; O2SAT 97; BMI 36.1
--- NOTE | 2023-09-26 09:51 | XR_ITS ---
FINAL REPORT CLINICAL HISTORY: epigastric pain COMPARISON: None FINDINGS: A single portable view of the chest was obtained. The heart size and pulmonary vascularity are within normal limits. The mediastinum is within normal limits. No acute pulmonary abnormality is identified. The bony thorax is intact. IMPRESSION: No active cardiopulmonary disease. Reviewed, Interpreted and Dictated by Stefano Tijerina III, MD Transcribed by Korin Finch Authenticated and [facility]
[2023-09-26 10:00] VITALS: BP 111/66; PULSE 66; O2SAT 97
--- NOTE | 2023-09-26 10:00 | ECG_ITS ---
APPROVED REPORT Exam: Resting ECG HR:65 bpm ECG Measurements Heart Rate 65 AXES OK 180 P 61 QRSd 85 QRS 65 QT 410 T 66 QTc 422 Conclusion SINUS RHYTHM Electronically signed by : YENNI BERNARDO, 09/27/2023 12:50:19
--- NOTE | 2023-09-26 10:04 | ED_ITS ---
Discharge Plan Disposition Patient Disposition: Home, Self-Care Prescriptions Prescriptions: No Action trazodone 50 mg tablet 50 mg PO HS meloxicam 15 mg tablet 15 mg PO DAILY gabapentin 400 mg capsule 400 mg PO BID omeprazole 40 mg capsule,delayed release(DR/EC) 40 mg PO BID 30 Days Qty: 60 0RF valsartan-hydrochlorothiazide 160-12.5 mg tablet 1 tab PO DAILY Qty: 30 3RF Zepbound 5 mg/0.5 mL pen injector 5 mg SQ WEEKLY Qty: 2 2RF rosuvastatin [Crestor] 10 mg tablet 10 mg PO DAILY Qty: 30 2RF nadolol 80 mg tablet 80 mg PO DAILY Qty: 90 1RF Rx Instructions: Take 1 tablet by mouth once daily diltiazem HCl [DILT-XR] 180 mg capsule,ext.rel 24h degradable 180 mg PO DAILY Vraylar 3 mg capsule 3 mg PO DAILY duloxetine 60 mg capsule,delayed release(DR/EC) 60 mg PO DAILY Patient Comments: TAKE 1 CAPSULE BY MOUTH ONCE DAILY furosemide 20 mg tablet 20 mg PO DAILY Qty: 30 0RF Referrals Follow up/Referrals: Newton Connors MD [Primary Care Provider] - See instructions Activity Restrictions/Add. Instructions Additional Instructions/Restrictions: Call your family doctor to establish care for this visit to the emergency department and schedule follow-up within 48 hours to ensure improvement. If you have any worsening of your condition or any other concerning signs or symptoms, return to the emergency department or your primary care doctor for further evaluation. Clinical Impressions Clinical Impression: Nonepileptic episode Discharge ED Provider: Gabriel Olguin General Adult [facility] General Chief complaint: Neuro Symptoms/Deficit Stated complaint: four seizers this morning, left shoulder pain Time Seen by Provider: 09/26/23 09:35 Mode of Arrival: Ambulatory Source of Information: Patient Limitations: No Limitations Description of Symptoms (Recalled from ER Triage Doc. by RN): pt reports having 4 seizures at work this am. pt states she has a hx of nonepileptic seizures, however, her coworker said that she became very rigid and her limbs jorge up. pt states the episodes have left her tired and weak. pt reports she remembers and could hear during the episodes but was unable to talk. pt states she can tell when the episodes are starting, she gets a feeling in her epigasteric/lower sternum region. pt NIH was zero. History of Present Illness HPI narrative: This is a 47-year-old female with history of hypertension, migraines, nonepileptic seizures presenting with concern for seizure activity. Patient states that she was at work just prior to this visit. She was walking around in no stressful situation and states that she started feeling nauseated. She remembers most of the episode, but states that some of it is spotty, a coworker went over to her to help her sit down and stated I was drawn up, as she demonstrates with her upper extremities. Patient states that she has had no fevers, chills, chest pain, shortness of breath, lower extremity swelling, or any other concerns prior to or since. Please note that above description of symptoms, in this electronic medical record under categorization of recalled from ER triage doctor by RN are reflective of an initial nursing assessment, however, is not reflective of my full history and physical exam that was personally taken and clarified. Consequentially, this preceding description of symptoms, which may include the patient's categorized chief complaint in the EMR, do not reflect my personal clinical impression, and the ultimate description of history of present illness and patient stated complaints should be deferred to this section of the note. Unless stated otherwise or congruent with this section of the note, additional signs, symptoms, or incongruence should be interpreted as inaccurate with my clinical impression. Related Data Home Medications Medication Instructions Recorded Confirmed meloxicam 15 mg tablet 15 mg PO DAILY Pain 12/18/22 09/20/23 trazodone 50 mg tablet 50 mg PO HS sleep 12/18/22 09/20/23 gabapentin 400 mg capsule 400 mg PO BID Neuropathic pain 04/05/23 09/20/23 cariprazine 3 mg capsule (Vraylar) 3 mg PO DAILY Depression 04/08/23 09/20/23 diltiazem HCl 180 mg 180 mg PO DAILY Heart Disease 04/08/23 09/20/23 capsule,extended release 24 hr, controlled (DILT-XR) duloxetine 60 mg capsule,delayed 60 mg PO DAILY fibromyalgia 04/08/23 09/20/23 release Previous Rx's Medication Instructions Recorded furosemide 20 mg tablet 20 mg PO DAILY #30 tabs 04/09/23 rosuvastatin 10 mg tablet (Crestor) 10 mg PO DAILY #30 tabs 12/19/23 valsartan 160 1 tab PO DAILY #30 tabs 07/19/23 mg-hydrochlorothiazide 12.5 mg tablet nadolol 80 mg tablet 80 mg PO DAILY blood pressure #90 07/30/23 tabs omeprazole 40 mg capsule,delayed 40 mg PO BID Reflux/Acid reflux 30 08/06/23 release days #60 caps tirzepatide (weight loss) 5 mg/0.5 5 mg (0.5 mL) SQ WEEKLY #2 mL 09/20/23 mL subcutaneous pen injector (Zepbound) Allergies Allergy/AdvReac Type Severity Reaction Status Date / Time alprazolam [From Xanax] Allergy Severe Swelling Verified 09/26/23 10:07 of Lip/Tongue/Throat levofloxacin [From LEVAQUIN] Allergy Unknown SWELLING Verified 09/26/23 10:07 PFSH [facility] Disclaimer: The information contained in this section may have been updated after the patient was seen, as this information can be updated by other users. Medical History Abnormal stress test Typical angina Tobacco abuse Dyspnea Chest pain Decreased libido without sexual dysfunction Obesity (BMI 35.0-39.9 without comorbidity) Depression Anxiety Amenorrhea Family history of breast cancer in first degree relative delivery delivered Jaw dislocation surgery X7 DVT (deep venous thrombosis) History of TIA (transient ischemic attack) Surgical History H/O dilation and curettage X3 History of appendectomy History of colon surgery 75% of colon removed, colon stopped working Family History Other Alcoholism Asthma Cancer Diabetes FHx: mental illness Heart attack Hyperlipidemia Hypertension Kidney disease Stroke Social History Smoking Status: Former smoker alcohol intake: never substance use type: denies use current occupational status: employed Travel in the last 8 weeks: Inside the [place] household members: spouse and children housing: house number of children: 1 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 current occupational exposures/hazards: No caffeine: No ROS Obtained: Yes All systems reviewed & no additional complaints except as documented Physical Exam General General appearance: alert and in no apparent distress Head Head exam: atraumatic and normocephalic Eye Eye exam: Present normal appearance, PERRL and EOMI ENT ENT exam: Present mucous membranes moist Neck Neck exam: Present normal inspection, full ROM and trachea midline Respiratory Respiratory exam: Absent respiratory distress, wheezes, stridor, accessory muscle use or prolonged expiratory phase Cardiovascular Cardiovascular exam: Present normal rhythm Abdominal Exam Abdominal exam: Present soft; Absent distention, tenderness, guarding, rebound or rigidity Extremities Exam Extremities exam: Absent edema Neurological Exam Neurological exam: Present alert, oriented X3, CN II-XII intact and normal gait; Absent motor sensory deficit Skin Skin exam: Present warm and dry; Absent diaphoresis or erythema Medical Decision Making Medical Records Medical records reviewed: Yes I reviewed the patient's medical records. Elver Inquiry Pt receiving controlled substance: No Elver was queried for this patient: No Vital Signs: 09/26/23 09:45 09/26/23 10:00 Temperature 97.9 F Temperature Source Oral Pulse Rate 66 Pulse Rate [Left] 75 Respiratory Rate 16 Blood Pressure 111/66 Blood Pressure [Right Arm] 119/69 Blood Pressure Mean 81 Blood Pressure Mean [Right Arm] 85 Blood Pressure Source [Right Arm] Automatic Cuff Blood Pressure Position [Right Arm] Sitting 02 Sat by Pulse Oximetry 97 97 Oxygen Delivery Method Room Air Room Air Lab Data Lab Results 09/26/23 09:56: WBC 9.2, RBC 4.49, Hgb 14.3, Hct 43.8, MCV 97.6, MCH 31.9 H, MCHC 32.7, RDW 14.5, Plt Count 288, MPV 8.3, Neut % (Auto) 66.9, Lymph % (Auto) 20.5, [place] % (Auto) 4.2, Eos % (Auto) 7.5, Baso % (Auto) 0.8, Neut # (Auto) 6.2, Lymph # (Auto) 1.9, [place] # (Auto) 0.4, Eos # (Auto) 0.7 H, Baso # (Auto) 0.1, Sodium 137, Potassium 4.0, Chloride 99, Carbon Dioxide 32 H, Anion Gap 10.0, BUN 13, Creatinine 0.90, Estimated Creat Clear 123, Estimated GFR 68, Est GFR ( Amer) 82, Glucose 101 H, Calcium 9.8, Magnesium 2.2, Total Bilirubin 0.4, AST 56 H, ALT 65, Alkaline Phosphatase 106, Troponin I < 0.01, Total Protein 7.9, Albumin 4.6, Globulin 3.3 H, Albumin/Globulin Ratio 1.4 09/26/23 09:56 09/26/23 09:56 Orders (Tests/Meds): ORDERS Category Date Time Status CXR --portable [XR chest portable] Stat Exams 09/26/23 09:51 Taken CBC w/Auto Diff [Complete Blood Count Auto Diff] Stat Lab 09/26/23 09:56 Completed CMP [Comprehensive Metabolic Panel] Stat Lab 09/26/23 09:56 Completed MAG [Magnesium] Stat Lab 09/26/23 09:56 Completed Trop I [Troponin I] Stat Lab 09/26/23 09:56 Completed Troponin I Q3H Lab 09/26/23 13:00 Ordered Troponin I Q3H Lab 09/26/23 16:00 Ordered Medical Decision Narrative: This is a 47-year-old female with history of hypertension, migraines, nonepileptic seizures presenting with concern for seizure activity. Patient states that she was at work just prior to this visit. She was walking around in no stressful situation and states that she started feeling nauseated. She remembers most of the episode, but states that some of it is spotty, a coworker went over to her to help her sit down and stated I was drawn up, as she demonstrates with her upper extremities. Patient states that she has had no fevers, chills, chest pain, shortness of breath, lower extremity swelling, or any other concerns prior to or since. History was obtained via conversation with patient. On arrival, patient hemodynamically stable, alert, oriented x4, appropriate, GCS 15, moving all extremities spontaneously, pupils equal and reactive to light. Full physical exam performed and significant for NIHSS 0. Cardiopulmonary exam grossly normal. Differential includes nonepileptic seizure, panic attack, anxiety, ACS, metabolic abnormality, endocrinologic abnormality, among others. Patient was given p.o. challenge for symptomatic management and correction of underlying abnormalities. Workup independently interpreted and significant for nonactionable CBC or chemistry. Troponin undetectable, LFTs normal. Chest x- ray without acute cardiopulmonary or airspace disease. See radiology read for full review of final results. Independent interpretation of EKG shows sinus rhythm 65 beats a minute no ST or T wave changes concerning for acute ischemia. No LA prolongation, QT interval prolongation, or any other abnormalities. [place] normal. Heart score 1. On reevaluation, patient had another spell. It consisted of eye flickering, [id number] eye scanning, immediate responsiveness. Patient remembers the episode. 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 Probable efficacy of antidepressant medications were discussed with patient, she voiced understanding and agreement to follow-up with outpatient PCP. Because patient at baseline without signs or symptoms of clinical decompensation, deemed appropriate for discharge. Results were relayed to patient who voiced understanding and were agreeable to outpatient management and follow up. I discussed my clinical impression with patient and answered all questions. At this time, the evidence for any other entities in the differential is insufficient to warrant any further testing or ED observation. This was explained as well. Advisory was given that persistent or worsening symptoms require further evaluation. I confirmed the understanding of this discussion. Critical Care Critical Care Time Critical Care Time: No
[2023-09-26 10:08] LABS: Basophils # 0.1 K/mm3 (0-0.2); Basophils % 0.8 % (0.1-2.0); Eosinophils # 0.7 K/mm3 (0.0-0.4); Eosinophils % 7.5 % (0.1-12.0); Hematocrit 43.8 % (37.0-47.0); Hemoglobin 14.3 g/dL (12.2-16.2); Lymphocytes # 1.9 K/mm3 (0.7-4.5); Lymphocytes % 20.5 % (10-50); Mean Corpuscular HGB Conc 32.7 g/dL (31.8-35.4); Mean Corpuscular Hemoglobin 31.9 pg (27.0-31.2); Mean Corpuscular Volume 97.6 fl (81-99); Mean Platelet Volume 8.3 fl (7.4-10.4); Monocytes # 0.4 K/mm3 (0.1-1.0); Monocytes % 4.2 % (1.7-9.3); Neutrophils # 6.2 K/mm3 (1.8-7.8); Neutrophils % 66.9 % (37.0-80.0); Platelet Count 288 K/mm3 (142-424); Red Blood Count 4.49 M/mm3 (4.20-5.40); Red Cell Distribution Width 14.5 % (11.5-17.5); White Blood Count 9.2 K/mm3 (4.8-10.8)
[2023-09-26 10:29] LABS: Chloride 99 mmol/L (98-107)
[2023-09-26 10:30] LABS: Sodium 137 mmol/L (136-145)
[2023-09-26 10:32] LABS: Alanine Aminotransferase 65 U/L (12-78); Aspartate Amino Transferase 56 U/L (14-36); Blood Urea Nitrogen 13 mg/dl (7-17); Creatinine Clearance Estimated 123 mL/min (50-200); Estimated Glomerular Filt Rate 68 ml/min (>60); GFR (African American) 82 ML/MIN (>60)
[2023-09-26 10:33] LABS: Albumin Level 4.6 g/dl (3.5-5.0); Albumin/Globulin Ratio 1.4 (1.1-1.8); Alkaline Phosphatase 106 U/L (38-126); Bilirubin,Total 0.4 mg/dl (0.2-1.3); Calcium 9.8 mg/dl (8.4-10.2); Carbon Dioxide 32 mmol/L (22.0-30.0); Globulin 3.3 g/dL (1.3-3.2); Glucose 101 mg/dl (74-100); Magnesium 2.2 mg/dl (1.6-2.3); Total Protein,Serum 7.9 g/dl (6.3-8.2)
[2023-09-26 10:49] LABS: Troponin I < 0.01 ng/ml (0.00-0.034)
[2023-09-26 11:06] VITALS: BP 102/65; PULSE 71; RESP 15; TEMP 36.6; O2SAT 98
== END 2023-09-26 11:07 | disposition home or self-care (01) ==
PROVIDERS: Emergency Provider Emergency Medicine; PCP Family Medicine
DX: R56.9 Unspecified convulsions (principal); M25.512 Pain in left shoulder; I10 Essential (primary) hypertension; I20.9 Angina pectoris, unspecified; Z86.73 Personal history of transient ischemic attack (TIA), and cerebral infarction without residual deficits; Z86.718 Personal history of other venous thrombosis and embolism; Z87.891 Personal history of nicotine dependence
CPT/HCPCS: 71045; 80053; 83735; 84484; 85025; 93005; 99285

== ENCOUNTER → 2023-11-19 08:19 | Outpatient (CLI) | payer BC, SELFPAY | LOC: SL 08:21 | PROVIDERS: PCP Family Medicine; Visit Provider Physician Assistant | DX: G47.33 Obstructive sleep apnea (adult) (pediatric) (principal); R53.83 Other fatigue; R06.83 Snoring | CPT/HCPCS: G0399 ==

== ENCOUNTER 2024-01-02 12:16 | Emergency (ER) | payer BC, SELFPAY ==
[2024-01-02] VITALS (10 sets, daily range): BP systolic 95–117; BP diastolic 48–59; PULSE 61–77; RESP 16–18; TEMP 36.9; O2SAT 93–100; BMI 35.7
--- NOTE | 2024-01-02 12:17 | ECG_ITS ---
APPROVED REPORT Exam: Resting ECG HR:69 bpm ECG Measurements Heart Rate 69 AXES WI 199 P 54 QRSd 86 QRS 58 QT 406 T 51 QTc 425 Conclusion SINUS RHYTHM NONSPECIFIC T-WAVE ABNORMALITY BORDERLINE ECG Electronically signed by : JESSICA VIEIRA, 01/02/2024 21:40:51
--- NOTE | 2024-01-02 12:18 | XR_ITS ---
FINAL REPORT CLINICAL HISTORY: Chest pain, palpitations, pressure between shoulder blades COMPARISON: 04/08/2023 FINDINGS: No acute pulmonary density is evident. There is no evidence of effusion or other pleural disease. The mediastinum has a normal appearance. The cardiac silhouette is unremarkable. IMPRESSION: Unremarkable chest exam. Reviewed, Interpreted and Dictated by Lexie Reyna MD Transcribed by Joslyn Nguyễn Authenticated and [facility]
--- NOTE | 2024-01-02 12:30 | PC.NURSE ---
PT gone to RAD via wheelchair
--- NOTE | 2024-01-02 12:34 | PC.NURSE ---
Pt returned from RAD
[2024-01-02 12:35] LABS: Basophils # 0.1 K/mm3 (0-0.2); Basophils % 0.7 % (0.1-2.0); Chloride 96 mmol/L (98-107); Eosinophils # 0.4 K/mm3 (0.0-0.4); Eosinophils % 4.2 % (0.1-12.0); Hematocrit 35.1 % (37.0-47.0); Hemoglobin 11.6 g/dL (12.2-16.2); Lymphocytes # 2.2 K/mm3 (0.7-4.5); Lymphocytes % 25.3 % (10-50); Mean Corpuscular Hemoglobin 31.9 pg (27.0-31.2); Mean Corpuscular Volume 96.5 fl (81-99); Mean Platelet Volume 8.7 fl (7.4-10.4); Monocytes # 0.3 K/mm3 (0.1-1.0); Monocytes % 3.5 % (1.7-9.3); Neutrophils # 5.7 K/mm3 (1.8-7.8); Neutrophils % 66.3 % (37.0-80.0); Platelet Count 259 K/mm3 (142-424); Red Blood Count 3.64 M/mm3 (4.20-5.40); Red Cell Distribution Width 13.6 % (11.5-17.5); White Blood Count 8.6 K/mm3 (4.8-10.8)
[2024-01-02 12:36] LABS: Potassium 3.4 mmoL/L (3.5-5.1); Sodium 131 mmol/L (136-145)
--- NOTE | 2024-01-02 12:37 | PC.NURSE ---
DR VILLANUEVA AT BEDSIDE
[2024-01-02 12:38] LABS: Blood Urea Nitrogen 13 mg/dl (7-17); Creatinine Clearance Estimated 77 mL/min (50-200); Estimated Glomerular Filt Rate 40 ml/min (>60); GFR (African American) 49 ML/MIN (>60)
[2024-01-02 12:39] LABS: Alanine Aminotransferase 56 U/L (12-78); Albumin/Globulin Ratio 1.3 (1.1-1.8); Alkaline Phosphatase 93 U/L (38-126); Anion Gap 10.4 mEq/L (5-15); Aspartate Amino Transferase 46 U/L (14-36); Bilirubin,Total 0.2 mg/dl (0.2-1.3); Carbon Dioxide 28 mmol/L (22.0-30.0); Glucose 121 mg/dl (74-100)
--- NOTE | 2024-01-02 12:42 | CT_ITS ---
FINAL REPORT TECHNIQUE: Thin section axial CT with contrast with multiplanar reconstruction. This study was performed with techniques to keep radiation doses as low as reasonably achievable (ALARA). Individualized dose reduction techniques using automated exposure control or adjustment of mA and/or kV according to the patient's size were employed. CLINICAL HISTORY: cp rad to back COMPARISON: 05/07/2020 FINDINGS: Pulmonary vessels enhance in normal fashion without evidence of embolism. Thoracic aorta shows no dissection or aneurysm. No pulmonary mass or infiltrate is present. There is no significant pleural effusion. There is no significant pericardial effusion. No mediastinal or hilar adenopathy is present. There is severe fatty infiltration of the liver. IMPRESSION: There is no evidence of pulmonary embolism or dissection. Reviewed, Interpreted and Dictated by Lexie Reyna MD Transcribed by Tona Bro Authenticated and [facility]
--- NOTE | 2024-01-02 12:44 | HMH.EDGENADL ---
Discharge Plan Disposition Chief Complaint: Chest Pain Prescriptions Prescriptions: No Action trazodone 50 mg tablet 50 mg PO HS meloxicam 15 mg tablet 15 mg PO DAILY gabapentin 400 mg capsule 400 mg PO BID valsartan-hydrochlorothiazide 80-12.5 mg tablet 1 tab PO DAILY Qty: 90 3RF omeprazole 40 mg capsule,delayed release(DR/EC) 40 mg PO BID 30 Days Qty: 60 0RF nadolol 80 mg tablet 80 mg PO DAILY Qty: 90 1RF Rx Instructions: Take 1 tablet by mouth once daily rosuvastatin [Crestor] 10 mg tablet 10 mg PO DAILY Qty: 30 5RF Zepbound 5 mg/0.5 mL pen injector 5 mg SQ WEEKLY Qty: 2 2RF diltiazem HCl [DILT-XR] 180 mg capsule,ext.rel 24h degradable 180 mg PO DAILY Vraylar 3 mg capsule 3 mg PO DAILY duloxetine 60 mg capsule,delayed release(DR/EC) 60 mg PO DAILY Patient Comments: TAKE 1 CAPSULE BY MOUTH ONCE DAILY furosemide 20 mg tablet 20 mg PO DAILY Qty: 30 0RF Referrals Follow up/Referrals: Ashok Lang MD [Primary Care Provider] - See instructions Sp Persaud MD [Staff Physician] - See instructions Clinical Impressions Clinical Impression: Chest pain Discharge ED Provider: Janell Dorantes General Adult HPI General Chief complaint: Chest Pain Stated complaint: CP Time Seen by Provider: 01/02/24 12:37 History of Present Illness HPI narrative: Patient is a 48-year-old female presenting today with chest pain. States symptoms began about an hour and a half prior to arrival. She was at rest at work when this happened. Located in substernal chest area radiating to her back with significant pain between her shoulder blades. She does state that she had what she describes as an NSTEMI within the last few years had a heart cath without any intervention no stents. She states she does not even take a daily aspirin any other antiplatelet or anticoagulants. She did have some diaphoresis associate with this as well as some exertional component. No pleuritic or positional component. Related Data Home Medications Medication Instructions Recorded Confirmed meloxicam 15 mg tablet 15 mg PO DAILY Pain 12/18/22 10/16/23 trazodone 50 mg tablet 50 mg PO HS sleep 12/18/22 10/16/23 gabapentin 400 mg capsule 400 mg PO BID Neuropathic pain 04/05/23 10/16/23 cariprazine 3 mg capsule (Vraylar) 3 mg PO DAILY Depression 04/08/23 10/16/23 diltiazem HCl 180 mg 180 mg PO DAILY Heart Disease 04/08/23 10/16/23 capsule,extended release 24 hr, controlled (DILT-XR) duloxetine 60 mg capsule,delayed 60 mg PO DAILY fibromyalgia 04/08/23 10/16/23 release Previous Rx's Medication Instructions Recorded furosemide 20 mg tablet 20 mg PO DAILY #30 tabs 04/09/23 nadolol 80 mg tablet 80 mg PO DAILY blood pressure #90 07/30/23 tabs omeprazole 40 mg capsule,delayed 40 mg PO BID Reflux/Acid reflux 30 08/06/23 release days #60 caps rosuvastatin 10 mg tablet (Crestor) 10 mg PO DAILY #30 tabs 10/08/23 valsartan 80 1 tab PO DAILY #90 tabs 10/16/23 mg-hydrochlorothiazide 12.5 mg tablet tirzepatide (weight loss) 5 mg/0.5 5 mg (0.5 mL) SQ WEEKLY #2 mL 11/02/23 mL subcutaneous pen injector (Zepbound) Allergies Allergy/AdvReac Type Severity Reaction Status Date / Time alprazolam [From Xanax] Allergy Severe Swelling Verified 10/16/23 15:19 of Lip/Tongue/Throat levofloxacin [From LEVAQUIN] Allergy Unknown SWELLING Verified 10/16/23 15:19 [facility] Disclaimer: The information contained in this section may have been updated after the patient was seen, as this information can be updated by other users. Medical History (Updated 01/02/24 @ 12:44 by Janell Dorantes MD) AMBER (obstructive sleep apnea) Abnormal stress test Typical angina Tobacco abuse Dyspnea Chest pain Decreased libido without sexual dysfunction Obesity (BMI 35.0-39.9 without comorbidity) Depression Anxiety Amenorrhea Family history of breast cancer in first degree relative delivery delivered Jaw dislocation DVT (deep venous thrombosis) History of TIA (transient ischemic attack) Surgical History H/O dilation and curettage History of appendectomy History of colon surgery Family History Other Alcoholism Asthma Cancer Diabetes FHx: mental illness Heart attack Hyperlipidemia Hypertension Kidney disease Stroke Social History Smoking Status: Never smoker alcohol intake: never substance use type: denies use current occupational status: employed Travel in the last 8 weeks: [place] household members: spouse and children housing: house number of children: 1 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 current occupational exposures/hazards: No caffeine: No ROS Obtained: Yes All systems reviewed & no additional complaints except as documented Physical Exam General General appearance: alert and in no apparent distress Respiratory Respiratory exam: Present normal lung sounds bilaterally; Absent respiratory distress Cardiovascular Cardiovascular exam: Present regular rate and normal rhythm Neurological Exam Neurological exam: Present alert and oriented X3 Medical Decision Making Elver Inquiry Pt receiving controlled substance: No Vital Signs: 01/02/24 12:44 01/02/24 12:52 01/02/24 13:00 Temperature 98.5 F Temperature Source Oral Pulse Rate 69 77 Pulse Rate [Left Radial] 73 Respiratory Rate 18 Blood Pressure 108/59 L Blood Pressure [Right Arm] 98/57 L Blood Pressure Mean [Right Arm] 70 02 Sat by Pulse Oximetry 100 97 Oxygen Delivery Method Room Air Room Air 01/02/24 13:30 Temperature Temperature Source Pulse Rate 63 Pulse Rate [Left Radial] Respiratory Rate Blood Pressure 95/48 L Blood Pressure [Right Arm] Blood Pressure Mean [Right Arm] 02 Sat by Pulse Oximetry 95 Oxygen Delivery Method Room Air Lab Data Lab results reviewed: Yes I reviewed the patient's lab results. Lab Results 01/02/24 12:25: WBC 8.6, RBC 3.64 L, Hgb 11.6 L, Hct 35.1 L, MCV 96.5, MCH 31.9 H, MCHC 33.0, RDW 13.6, Plt Count 259, MPV 8.7, Neut % (Auto) 66.3, Lymph % (Auto) 25.3, [place] % (Auto) 3.5, Eos % (Auto) 4.2, Baso % (Auto) 0.7, Neut # (Auto) 5.7, Lymph # (Auto) 2.2, [place] # (Auto) 0.3, Eos # (Auto) 0.4, Baso # (Auto) 0.1, Sodium 131 L, Potassium 3.4 L, Chloride 96 L, Carbon Dioxide 28, Anion Gap 10.4, BUN 13, Creatinine 1.40 H, Estimated Creat Clear 77, Estimated GFR 40 L, Est GFR ( Amer) 49 L, Glucose 121 H, Calcium 9.0, Total Bilirubin 0.2, AST 46 H, ALT 56, Alkaline Phosphatase 93, Troponin I < 0.01, Total Protein 7.0, Albumin 4.0, Globulin 3.0, Albumin/Globulin Ratio 1.3, Serum HCG, Qual Negative 01/02/24 12:25 01/02/24 12:25 Orders (Tests/Meds): ED MEDICATIONS Generic Name Dose Route Start Last Admin Trade Name Freq PRN Reason Stop Dose Admin Sodium Chloride 10 ml 01/02/24 12:19 01/02/24 13:52 Sodium Chloride 0.9% 10ml Flush Syringe IV 02/01/24 12:18 10 ml NEEDED PRN Administration Maintain IV Site Discontinued Medications Generic Name Dose Route Start Last Admin Trade Name Freq PRN Reason Stop Dose Admin Aspirin 324 mg 01/02/24 12:43 01/02/24 12:55 Aspirin 81mg Chewable Tablet PO 01/02/24 12:44 324 mg ONCE ONE Administration Lactated Ringer's 1,000 mls @ 999 mls/hr 01/02/24 12:45 01/02/24 12:55 Lactated Ringer's 1000 Ml Bag IV 01/02/24 13:45 999 mls/hr .Q1H1M LIDA Administration Iopamidol 70 ml 01/02/24 13:51 Iopamidol-370 (76%);100ml Bottle IV 01/02/24 13:52 ONCE ONE Morphine Sulfate 4 mg 01/02/24 12:43 01/02/24 12:55 Morphine 4mg/Ml Syringe IV 01/02/24 12:44 4 mg ONCE ONE Administration Ondansetron HCl 4 mg 01/02/24 12:43 01/02/24 12:55 Ondansetron 4mg/2ml Vial IV 01/02/24 12:44 4 mg ONCE ONE Administration Sodium Chloride 40 ml 01/02/24 13:51 01/02/24 13:52 0.9 % Sodium Chloride 50 Ml Vial IV 01/02/24 13:52 40 ml ONCE ONE Administration Sodium Chloride 10 ml 01/02/24 13:51 01/02/24 13:52 Sodium Chloride 0.9% 10ml Syr (Rad Only) IV 01/02/24 13:52 10 ml ONCE ONE Administration ORDERS Category Date Time Status CTA Chest [CT angio chest - dissection] Stat Cat Scan 01/02/24 12:42 Taken CXR 2 view (NOT portable) [XR chest 2V] Stat Exams 01/02/24 12:18 Completed Complete Blood Count Auto Diff Stat Lab 01/02/24 12:25 Completed Comprehensive Metabolic Panel Stat Lab 01/02/24 12:25 Completed Serum [HCG Qualitative, Serum] Stat Lab 01/02/24 12:25 Completed Troponin I Q3H Lab 01/02/24 15:30 Ordered Troponin I Q3H Lab 01/02/24 18:30 Ordered Troponin I Stat Lab 01/02/24 12:25 Completed ECG Data Tracing #1: I reviewed this ECG and interpreted as documented below: Ventricular of 69 normal sinus rhythm no acute ischemic changes noted there is a normal axis no conduction abnormalities noted Medical Decision Narrative: 48-year-old female presenting today with chest pain radiating through to her back here within 1.5 hours of symptom onset. Aspirin has been given differential includes aortic dissection acute coronary syndrome, musculoskeletal strain, anxiety, pulmonary embolism etc. Will get a CT angio of the patient's chest to rule out aortic dissection and of contrast bolus timing is good could also rule out pulmonary embolism which is on the differential as well. She will require serial troponins given the onset of symptoms. I will reassess. Reassessment 2:04 PM patient appears very comfortable and stable. First troponin is undetectably low. Second troponin is pending ED observation order has been placed. CT scan performed I personally interpreted I do not see evidence of an aortic dissection nor pulmonary embolism. Awaiting second troponin care will be transitioned to Dr. Moises Caldwell pending second troponin and final disposition. Critical Care Critical Care Time Critical Care Time: No
[2024-01-02 12:54] LABS: Troponin I < 0.01 ng/ml (0.00-0.034)
[2024-01-02] MEDS: ASPIRIN 81MG CHEWABLE TABLET 324 MG PO (12:55)
[2024-01-02] MEDS: LACTATED RINGERS 1000ML 1,000 ML 999 ML IV (12:55)
[2024-01-02] MEDS: MORPHINE 4MG/ML SYRINGE 4 MG IV (12:55)
[2024-01-02] MEDS: ONDANSETRON 4MG/2ML VIAL 4 MG IV (12:55)
--- NOTE | 2024-01-02 13:02 | PC.NURSE ---
Rounded on pt. No needs voiced at this time. Family at BS and call light within reach.
[2024-01-02 13:07] LABS: HCG Qualitative, Serum Negative (Negative)
--- NOTE | 2024-01-02 13:38 | PC.NURSE ---
Pt gone to RAD via wheelchair
--- NOTE | 2024-01-02 13:49 | PC.NURSE ---
Pt returned from RAD
--- NOTE | 2024-01-02 13:51 | PC.NURSE ---
PT RETURNED FROM CT
[2024-01-02] MEDS: 0.9 % SODIUM CHLORIDE 50 ML VIAL 40 ML IV (13:52)
[2024-01-02] MEDS: SODIUM CHLORIDE 0.9% 10ML SYR (RAD ONLY) 10 ML IV (13:52)
[2024-01-02] MEDS: SODIUM CHLORIDE 0.9% 10ML FLUSH SYRINGE 10 ML IV (13:52)
--- NOTE | 2024-01-02 13:58 | PC.NURSE ---
DR VILLANUEVA AT BEDSIDE TO UPDATE PT AND FAMILY
--- NOTE | 2024-01-02 14:24 | PC.NURSE ---
Rounded on pt. No needs voiced at this time. Call light remains within reach.
--- NOTE | 2024-01-02 15:08 | PC.NURSE ---
REPEAT TROP SENT
--- NOTE | 2024-01-02 15:12 | PC.NURSE ---
PT ambulatory to bathroom and back to bed. Call light within reach.
[2024-01-02 15:52] LABS: Troponin I < 0.01 ng/ml (0.00-0.034)
== END 2024-01-02 16:36 | disposition home or self-care (01) ==
PROVIDERS: Emergency Provider Student in an Organized Health Care Education/Training Program; PCP Family Medicine
DX: R07.9 Chest pain, unspecified (principal); E87.1 Hypo-osmolality and hyponatremia; R79.89 Other specified abnormal findings of blood chemistry; F17.210 Nicotine dependence, cigarettes, uncomplicated; E78.5 Hyperlipidemia, unspecified; I10 Essential (primary) hypertension
CPT/HCPCS: 71046; 71275; 80053; 84484; 84703; 85025; 93005; 96361; 96374; 96375; 99285; J2270; J2405; J7120

== ENCOUNTER 2024-02-05 10:16 | Outpatient (CLI) | payer BC, SELFPAY | END 2024-02-05 23:59 | disposition home or self-care (01) | LOC: LAB.DROPOF 02-06 10:16 | PROVIDERS: PCP Student in an Organized Health Care Education/Training Program; Visit Provider Student in an Organized Health Care Education/Training Program | DX: J02.9 Acute pharyngitis, unspecified (principal) | CPT/HCPCS: 87070; 87635 ==

== ENCOUNTER 2024-03-05 11:14 | Outpatient (CLI) | payer BC, SELFPAY ==
[2024-03-05 18:38] LABS: Adenovirus,PCR Not Detected (NotDetected); Bordetella Pertussis Not Detected (NotDetected); Chlamydophila Pneumoniae, PCR Not Detected (NotDetected); Coronavirus 19, PCR Not Detected (NotDetected); Coronavirus 229E Not Detected (NotDetected); Coronavirus NL63 Not Detected (NotDetected); Coronavirus OC43 Not Detected (NotDetected); Coronovirus HKU1,PCR Not Detected (NotDetected); Human Metapneumovirus Not Detected (NotDetected); Influenza A, PCR Not Detected (NotDetected); Influenza AH1, 2009 Not Detected (NotDetected); Influenza AH1, PCR Not Detected (NotDetected); Influenza AH3,PCR Not Detected (NotDetected); Influenza B, PCR Not Detected (NotDetected); Mycoplasma Pneumoniae, PCR Not Detected (NotDetected); Parainfluenza 1, PCR Not Detected (NotDetected); Parainfluenza 2, PCR Not Detected (NotDetected); Parainfluenza 3, PCR Not Detected (NotDetected); Parainfluenza 4, PCR Not Detected (NotDetected); Respiratory Syncytial Virus Not Detected (NotDetected)
[2024-03-05 22:29] LABS: Rhinovirus/Enterovirus Detected (NotDetected)
== END 2024-03-05 23:59 | disposition home or self-care (01) ==
LOC: LAB.DROPOF 03-06 11:14
PROVIDERS: PCP Nurse Practitioner Family; Visit Provider Nurse Practitioner Family
DX: R05.9 Cough, unspecified (principal)
CPT/HCPCS: 87581; 87632; 87635; 87798

== ENCOUNTER 2024-03-25 11:03 | Observation (INO) | payer BC, SELFPAY ==
[2024-03-25] VITALS (25 sets, daily range): BP systolic 94–138; BP diastolic 55–82; PULSE 57–90; RESP 14–20; TEMP 36.6–37.1; O2SAT 95–100; BMI 34.1; BMI 35.9
--- NOTE | 2024-03-25 11:01 | ECG_ITS ---
APPROVED REPORT Exam: Resting ECG HR:79 bpm ECG Measurements Heart Rate 79 AXES MA 152 P 59 QRSd 80 QRS 61 QT 359 T 59 QTc 394 Conclusion Sinus rhythm Electronically signed by : YENNI BERNARDO, 03/26/2024 07:15:45
--- NOTE | 2024-03-25 11:10 | XR_ITS ---
FINAL REPORT CLINICAL HISTORY: Chest pain to L neck COMPARISON: 01/02/2024 FINDINGS: The heart size is normal. The mediastinum is normal. There is no focal infiltrate or edema. There are no pleural effusions. There is no pneumothorax. There is no osseous abnormality. IMPRESSION: No acute cardiopulmonary process Reviewed, Interpreted and Dictated by Ion Murphy MD Transcribed by Nubia Campos Authenticated and [facility]
[2024-03-25 11:16] LABS: Basophils # 0.1 K/mm3 (0-0.2); Eosinophils # 0.3 K/mm3 (0.0-0.4); Eosinophils % 4.2 % (0.1-12.0); Hematocrit 43.4 % (37.0-47.0); Hemoglobin 13.8 g/dL (12.2-16.2); Lymphocytes # 1.7 K/mm3 (0.7-4.5); Lymphocytes % 21.6 % (10-50); Mean Corpuscular HGB Conc 31.7 g/dL (31.8-35.4); Mean Corpuscular Hemoglobin 31.2 pg (27.0-31.2); Mean Corpuscular Volume 98.3 fl (81-99); Mean Platelet Volume 7.6 fl (7.4-10.4); Monocytes # 0.5 K/mm3 (0.1-1.0); Monocytes % 6.2 % (1.7-9.3); Neutrophils # 5.4 K/mm3 (1.8-7.8); Platelet Count 295 K/mm3 (142-424); Red Blood Count 4.42 M/mm3 (4.20-5.40); Red Cell Distribution Width 13.7 % (11.5-17.5)
[2024-03-25 11:20] LABS: Albumin Level 4.5 g/dl (3.5-5.0); Chloride 107 mmol/L (98-107); Potassium 3.9 mmoL/L (3.5-5.1); Sodium 138 mmol/L (136-145)
[2024-03-25 11:22] LABS: Blood Urea Nitrogen 7 mg/dl (7-17); Creatinine Clearance Estimated 147 mL/min (50-200); Estimated Glomerular Filt Rate 90 ml/min (>60); GFR (African American) 109 ML/MIN (>60)
[2024-03-25 11:23] LABS: Alanine Aminotransferase 42 U/L (12-78); Albumin/Globulin Ratio 1.5 (1.1-1.8); Alkaline Phosphatase 86 U/L (38-126); Anion Gap 9.9 mEq/L (5-15); Aspartate Amino Transferase 39 U/L (14-36); Bilirubin,Total 0.5 mg/dl (0.2-1.3); Carbon Dioxide 25 mmol/L (22.0-30.0); Globulin 3.1 g/dL (1.3-3.2); Glucose 89 mg/dl (74-100); Lipase 127 U/L (23-300); Total Protein,Serum 7.6 g/dl (6.3-8.2)
[2024-03-25] MEDS: ASPIRIN 81MG CHEWABLE TABLET 324 MG PO (11:26)
[2024-03-25 11:36] LABS: Troponin I < 0.01 ng/ml (0.00-0.034)
[2024-03-25 12:05] LABS: HIV (1&2) Antibody Rapid NONREACTIVE (NONREACTIVE)
--- NOTE | 2024-03-25 12:11 | HMH.EDCP ---
Discharge Plan Disposition Patient Disposition: Admitted Clinical Impressions Clinical Impression: Chest pain Discharge ED Provider: Gabriel Olguin General Chief Complaint: Chest Pain Stated Complaint: Chest pain Time Seen by Provider: 03/25/24 11:10 Mode of Arrival: Ambulatory Source of Information: Patient Limitations: No Limitations Description of Symptoms (Recalled from ER Triage Doc. by RN): chest pain radiating up her neck. History of Present Illness HPI narrative: Please note that above description of symptoms, in this electronic medical record under categorization of recalled from ER triage doctor by RN are reflective of an initial nursing assessment, however, is not reflective of my full history and physical exam that was personally taken and clarified. Consequentially, this preceding description of symptoms, which may include the patient's categorized chief complaint in the EMR, do not reflect my personal clinical impression, and the ultimate description of history of present illness and patient stated complaints should be deferred to this section of the note. Unless stated otherwise or congruent with this section of the note, additional signs, symptoms, or incongruence should be interpreted as inaccurate with my clinical impression. Related Data Home Medications ?Medication ?Instructions ?Recorded ?Confirmed trazodone 50 mg tablet 50 mg PO HS 12/18/22 03/25/24 gabapentin 400 mg capsule 400 mg PO BID 04/05/23 03/25/24 diltiazem HCl 180 mg 180 mg PO DAILY 04/08/23 03/25/24 capsule,extended release 24 hr, controlled (DILT-XR) duloxetine 30 mg capsule,delayed 90 mg PO DAILY 03/05/24 03/25/24 release cariprazine 4.5 mg capsule 3 mg PO DAILY 03/25/24 03/25/24 (Vraylar) nadolol 80 mg tablet 80 mg PO DAILY 03/25/24 03/25/24 nitrofurantoin 100 cap PO BID 03/25/24 03/25/24 monohydrate/macrocrystals 100 mg capsule omeprazole 40 mg capsule,delayed 40 mg PO BID 03/25/24 03/25/24 release rosuvastatin 10 mg tablet 10 mg PO DAILY 03/25/24 03/25/24 valsartan 80 mg tablet 80 mg PO DAILY 03/25/24 03/25/24 Previous Rx's ?Medication ?Instructions ?Recorded tirzepatide (weight loss) 7.5 7.5 mg (0.5 mL) SQ WEEKLY #2.5 mL 02/25/24 mg/0.5 mL subcutaneous pen injector (Zepbound) Allergies Allergy/AdvReac Type Severity Reaction Status Date / Time alprazolam [From Xanax] Allergy Severe Swelling Verified 03/05/24 15:08 of Lip/Tongue/Throat levofloxacin [From LEVAQUIN] Allergy Unknown SWELLING Verified 03/05/24 15:08 [facility] Disclaimer: The information contained in this section may have been updated after the patient was seen, as this information can be updated by other users. Medical History AMBER (obstructive sleep apnea) Abnormal stress test Typical angina Tobacco abuse Dyspnea Chest pain Decreased libido without sexual dysfunction Obesity (BMI 35.0-39.9 without comorbidity) Depression Anxiety Amenorrhea Family history of breast cancer in first degree relative delivery delivered Jaw dislocation surgery X7 DVT (deep venous thrombosis) History of TIA (transient ischemic attack) Surgical History H/O dilation and curettage X3 History of appendectomy History of colon surgery 75% of colon removed, colon stopped working Family History Other Alcoholism Asthma Cancer Diabetes FHx: mental illness Heart attack Hyperlipidemia Hypertension Kidney disease Stroke Social History (Updated 03/25/24 @ 17:32 by Miguel Hawley RN) Smoking Status: Never smoker alcohol intake: never substance use type: denies use current occupational status: employed Travel in the last 8 weeks: Inside the [place] household members: spouse and children housing: house number of children: 1 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 current occupational exposures/hazards: No caffeine: No ROS Obtained: Yes All systems reviewed & no additional complaints except as documented Physical Exam General General appearance: alert and in no apparent distress Neck Neck exam: Present trachea midline Chest Chest inspection: Present normal inspection and symmetric chest wall rise Respiratory Respiratory exam: Present normal lung sounds bilaterally; Absent respiratory distress, wheezes, stridor, accessory muscle use or prolonged expiratory phase Cardiovascular Cardiovascular exam: Present regular rate, normal rhythm and other (Pulses equal and symmetric in upper and lower extremities) Extremities Exam Extremities exam: Absent edema Neurological Exam Neurological exam: Present alert, oriented X3 and CN II-XII intact Skin Skin exam: Present warm and dry; Absent cyanosis, diaphoresis or pallor HEART Score HEART Score HEART Score assessment performed?: Yes History (anamnesis): Highly suspicious ECG: Normal Age: 45-65 years Risk factors: 3 or more risk factors Troponin: </= normal limit HEART Score: 5 Critical Care Critical Care Time Critical Care Time: Yes (cardiac) Attestation: On 03/25/24, the high probability of a clinically significant, sudden or life threatening deterioration of the following system(s) required my full and direct attention, intervention and personal management. The time I documented below is in addition to time spent performing reported procedures but includes the following listed in this critical care notation. Total Time Total Critical Care Time: 35 Medical Decision Making Medical Records Medical records reviewed: Yes I reviewed the patient's medical records. Elver Inquiry Pt receiving controlled substance: No Elver was queried for this patient: No Vital Signs Vital Signs: 03/25/24 11:04 03/25/24 11:30 03/25/24 12:00 Temperature 98 F Temperature Source Oral Pulse Rate 89 80 Pulse Rate [Right] 90 Respiratory Rate 18 Blood Pressure Blood Pressure [Right Arm] 138/82 Blood Pressure Mean Blood Pressure Mean [Right Arm] 100 02 Sat by Pulse Oximetry 97 97 97 Oxygen Delivery Method Room Air Room Air 03/25/24 12:30 03/25/24 13:00 03/25/24 13:30 Temperature Temperature Source Pulse Rate 84 73 78 Pulse Rate [Right] Respiratory Rate Blood Pressure Blood Pressure [Right Arm] Blood Pressure Mean Blood Pressure Mean [Right Arm] 02 Sat by Pulse Oximetry 97 96 96 Oxygen Delivery Method Room Air Room Air Room Air 03/25/24 14:22 03/25/24 14:30 03/25/24 15:00 Temperature Temperature Source Pulse Rate 85 85 81 Pulse Rate [Right] Respiratory Rate Blood Pressure 110/68 110/71 112/75 Blood Pressure [Right Arm] Blood Pressure Mean 82 82 86 Blood Pressure Mean [Right Arm] 02 Sat by Pulse Oximetry 99 99 98 Oxygen Delivery Method Room Air Room Air Room Air Lab Data Labs: Lab Results 03/25/24 11:07: WBC 8.0, RBC 4.42, Hgb 13.8, Hct 43.4, MCV 98.3, MCH 31.2, MCHC 31.7 L, RDW 13.7, Plt Count 295, MPV 7.6, Neut % (Auto) 67.0, Lymph % (Auto) 21.6, [place] % (Auto) 6.2, Eos % (Auto) 4.2, Baso % (Auto) 1.0, Neut # (Auto) 5.4, Lymph # (Auto) 1.7, [place] # (Auto) 0.5, Eos # (Auto) 0.3, Baso # (Auto) 0.1, D-Dimer 0.28, Sodium 138, Potassium 3.9, Chloride 107, Carbon Dioxide 25, Anion Gap 9.9, BUN 7, Creatinine 0.70, Estimated Creat Clear 147, Estimated GFR 90, Est GFR ( Amer) 109, Glucose 89, Hemoglobin A1c 5.7, Calcium 9.0, Total Bilirubin 0.5, AST 39 H, ALT 42, Alkaline Phosphatase 86, Troponin I < 0.01, Total Protein 7.6, Albumin 4.5, Globulin 3.1, Albumin/Globulin Ratio 1.5, Lipase 127, Serum HCG, Qual Negative 03/25/24 11:22: HIV 1&2 Antibody Rapid Nonreactive 03/25/24 13:46: Troponin I < 0.01 03/25/24 11:07 03/25/24 11:07 Response Orders (Tests/Meds): ED MEDICATIONS Generic Name Dose Route Start Last Admin Trade Name Freq PRN Reason Stop Dose Admin Gabapentin 400 mg 03/25/24 21:30 03/25/24 21:54 Gabapentin 400mg Capsule PO 04/24/24 21:29 400 mg BID LIDA Administration Sodium Chloride 1,000 mls @ 25 mls/hr 03/25/24 16:51 03/25/24 16:54 Sod Chloride 0.9% 500ml Bag IV 03/26/24 15:18 Not Given .Q25H LIDA Irbesartan 75 mg 03/25/24 21:30 03/25/24 22:18 Irbesartan 75mg Tablet PO 04/24/24 21:29 Not Given HS LIDA Nadolol 80 mg 03/25/24 21:30 03/25/24 22:18 Nadolol 20mg Tablet PO 04/24/24 21:29 Not Given HS LIDA Nitrofurantoin Macrocrystals 100 mg 03/25/24 21:30 03/25/24 21:54 Nitrofurantoin 100mg Capsule PO 04/04/24 21:29 100 mg BID LIDA Administration Nitroglycerin 0.4 mg 03/25/24 16:51 Nitroglycerin 0.4mg Sl Tablet SL 04/24/24 13:43 Q5MINP PRN Chest Pain Non-Formulary Medication 1 each 03/26/24 21:00 Patient's Own Home Medication PO 04/25/24 20:59 HS LIDA Pantoprazole Sodium 40 mg 03/25/24 21:30 03/25/24 21:55 Pantoprazole 40mg Tablet PO 04/24/24 21:29 40 mg BID LIDA Administration Sodium Chloride 8 ml 03/25/24 16:51 Sodium Chloride 0.9% 10ml Vial IV 04/24/24 12:12 NEEDED PRN dilute pepcid Trazodone HCl 50 mg 03/25/24 21:30 03/25/24 21:54 Trazodone 50mg Tablet PO 04/24/24 21:29 50 mg HS LIDA Administration Discontinued Medications Generic Name Dose Route Start Last Admin Trade Name Freq PRN Reason Stop Dose Admin Aspirin 324 mg 03/25/24 11:10 03/25/24 11:26 Aspirin 81mg Chewable Tablet PO 03/25/24 11:11 324 mg ONCE ONE Administration Belladonna Alkaloids 60 ml 03/25/24 12:13 03/25/24 12:25 Belladonna Alkaloids 60 Ml Ml PO 03/25/24 12:14 60 ml ONCE ONE Administration Diphenhydramine HCl 50 mg 03/25/24 15:18 03/25/24 16:58 Diphenhydramine 50mg/Ml Vial IV 03/25/24 15:19 Not Given ONCE ONE Diphenhydramine HCl 50 mg 03/25/24 16:51 03/25/24 16:54 Diphenhydramine 50mg/Ml Vial IV 03/25/24 16:52 Not Given ONCE ONE Famotidine 20 mg 03/25/24 12:13 03/25/24 12:25 Famotidine 20mg/2ml Vial IV 03/25/24 12:14 20 mg ONCE ONE Administration Fentanyl Citrate 50 mcg 03/25/24 15:18 03/25/24 16:02 Fentanyl 100mcg/2ml Vial IV 03/26/24 03:18 50 mcg Q3MINP PRN Administration Moderate to Severe Pain (4-10) Fentanyl Citrate 25 mcg 03/25/24 15:18 Fentanyl 250mcg/5ml Vial IV 03/26/24 03:18 Q3MINP PRN Moderate to Severe Pain (4-10) Fentanyl Citrate 50 mcg 03/25/24 15:18 Fentanyl 250mcg/5ml Vial IV 03/26/24 03:18 Q3MINP PRN Moderate to Severe Pain (4-10) Fentanyl Citrate 25 mcg 03/25/24 15:18 Fentanyl 100mcg/2ml Vial IV 03/26/24 03:18 Q3MINP PRN Moderate to Severe Pain (4-10) Fentanyl Citrate 25 mcg 03/25/24 16:51 Fentanyl 100mcg/2ml Vial IV 03/26/24 03:18 Q3MINP PRN Moderate to Severe Pain (4-10) Fentanyl Citrate 50 mcg 03/25/24 16:51 Fentanyl 100mcg/2ml Vial IV 03/26/24 03:18 Q3MINP PRN Moderate to Severe Pain (4-10) Fentanyl Citrate 25 mcg 03/25/24 16:51 Fentanyl 250mcg/5ml Vial IV 03/26/24 03:18 Q3MINP PRN Moderate to Severe Pain (4-10) Fentanyl Citrate 50 mcg 03/25/24 16:51 Fentanyl 250mcg/5ml Vial IV 03/26/24 03:18 Q3MINP PRN Moderate to Severe Pain (4-10) Flumazenil 0.2 mg 03/25/24 15:18 Flumazenil 0.1mg/Ml 5ml Vial IV 03/26/24 03:18 NEEDED PRN Sedation Flumazenil 0.2 mg 03/25/24 16:51 Flumazenil 0.1mg/Ml 5ml Vial IV 03/26/24 03:18 NEEDED PRN Sedation Heparin Sodium (Porcine) 10,000 unit 03/25/24 15:18 03/25/24 15:46 Heparin 1,000 Units/Ml 10ml Vial (Cement Kiln Operator) IV 03/25/24 19:18 5,000 unit NEEDED PRN Administration Emergency Box Director Broadcast Heparin Sodium (Porcine) 10,000 unit 03/25/24 16:51 Heparin 1,000 Units/Ml 10ml Vial (Cement Kiln Operator) IV 03/25/24 19:18 NEEDED PRN Emergency Box Director Broadcast Heparin Sodium/Sodium Chloride 3,000 unit 03/25/24 15:18 03/25/24 15:46 Heparin 1,000 Units/500ml Ns (Cement Kiln Operator) IV 03/25/24 15:19 3,000 unit ONCE ONE Administration Hydralazine HCl 20 mg 03/25/24 15:18 Hydralazine 20mg/Ml Vial IV 03/25/24 19:18 ONCE PRN sbp>160 Hydralazine HCl 20 mg 03/25/24 16:51 Hydralazine 20mg/Ml Vial IV 03/25/24 19:18 ONCE PRN sbp>160 Adenosine 180 mg/ Sodium 90 mls @ 502.124 mls/hr 03/25/24 15:18 Chloride IV 03/25/24 19:18 ONCE PRN fractional flow reserve 180 MCG/KG/MIN Adenosine 90 mg/ Sodium 90 mls @ 1,004.249 mls/hr 03/25/24 15:18 Chloride IV 03/25/24 19:18 ONCE PRN fractional flow reserve 180 MCG/KG/MIN Sodium Chloride 1,000 mls @ 25 mls/hr 03/25/24 15:30 03/25/24 15:46 Sod Chloride 0.9% 500ml Bag IV 03/26/24 15:18 25 mls/hr .Q25H LIDA Administration Adenosine 90 mg/ Sodium 90 mls @ 1,004.249 mls/hr 03/25/24 16:51 Chloride IV 03/25/24 19:18 ONCE PRN fractional flow reserve 180 MCG/KG/MIN Adenosine 180 mg/ Sodium 90 mls @ 502.124 mls/hr 03/25/24 16:51 Chloride IV 03/25/24 19:18 ONCE PRN fractional flow reserve 180 MCG/KG/MIN Iopamidol 50 ml 03/25/24 16:12 03/25/24 16:12 Iopamidol-370 (76%);100ml Bottle IV 03/25/24 16:13 50 ml ONCE ONE Administration Labetalol HCl 20 mg 03/25/24 15:18 Labetalol 20mg/4ml Syringe IV 03/25/24 19:18 ONCE PRN sbp>160 Labetalol HCl 20 mg 03/25/24 16:51 Labetalol 20mg/4ml Syringe IV 03/25/24 19:18 ONCE PRN sbp>160 Lidocaine HCl 20 ml 03/25/24 15:18 03/25/24 15:46 Lidocaine 1% 10ml Mdv IJ 03/25/24 15:19 10 ml ONCE ONE Administration Lidocaine HCl 20 ml 03/25/24 15:18 03/25/24 19:51 Lidocaine 1% 5ml Pf Vial IJ 03/25/24 15:19 Not Given ONCE ONE Lidocaine HCl 20 ml 03/25/24 16:51 03/25/24 16:54 Lidocaine 1% 5ml Pf Vial IJ 03/25/24 16:52 Not Given ONCE ONE Midazolam HCl 1 mg 03/25/24 15:18 Midazolam 2mg/2ml Vial IV 03/26/24 03:18 Q3MINP PRN Sedation Midazolam HCl 1 mg 03/25/24 15:18 Midazolam Hcl 1mg/1ml 5ml Vial IV 03/26/24 03:18 Q3MINP PRN Sedation Midazolam HCl 1 mg 03/25/24 16:51 Midazolam 2mg/2ml Vial IV 03/26/24 03:18 Q3MINP PRN Sedation Midazolam HCl 1 mg 03/25/24 16:51 Midazolam Hcl 1mg/1ml 5ml Vial IV 03/26/24 03:18 Q3MINP PRN Sedation Naloxone HCl 0.4 mg 03/25/24 15:18 Naloxone 0.4mg/Ml Vial IV 03/26/24 03:18 Q5MINP PRN Decreased Respirations Naloxone HCl 0.4 mg 03/25/24 16:51 Naloxone 0.4mg/Ml Vial IV 03/26/24 03:18 Q5MINP PRN Decreased Respirations Nitroglycerin 0.4 mg 03/25/24 13:44 Nitroglycerin 0.4mg Sl Tablet SL 04/24/24 13:43 Q5MINP PRN Chest Pain Nitroglycerin 800 mcg 03/25/24 15:18 03/25/24 15:46 Nitroglycerin 800mcg/8ml Syr (Cement Kiln Operator) IA 03/25/24 19:18 800 mcg NEEDED PRN Administration Emergency Box Director Broadcast Nitroglycerin 800 mcg 03/25/24 16:51 Nitroglycerin 800mcg/8ml Syr (Cement Kiln Operator) IA 03/25/24 19:18 NEEDED PRN Emergency Box Director Broadcast Propofol 60 mg 03/25/24 16:02 03/25/24 16:03 Propofol 10mg/Ml 20ml Vial IV 03/25/24 16:03 60 mg ONCE ONE Administration Protamine Sulfate 50 mg 03/25/24 15:18 Protamine Sulfate 50mg/5ml Vial (Cement Kiln Operator) IV 03/25/24 19:18 ONCE PRN act>200 Protamine Sulfate 50 mg 03/25/24 16:51 Protamine Sulfate 50mg/5ml Vial (Cement Kiln Operator) IV 03/25/24 19:18 ONCE PRN act>200 Sodium Chloride 8 ml 03/25/24 12:13 Sodium Chloride 0.9% 10ml Vial IV 04/24/24 12:12 NEEDED PRN dilute pepcid Verapamil HCl 2.5 mg 03/25/24 15:18 03/25/24 15:46 Verapamil 2.5mg/Ml 2ml Vial IV 03/25/24 15:19 2.5 mg ONCE ONE Administration ORDERS Category Date Time Status CXR --portable [XR chest portable] Stat Exams 03/25/24 11:10 Completed CBC w/Auto Diff [Complete Blood Count Auto Diff] Stat Lab 03/25/24 11:07 Completed CMP [Comprehensive Metabolic Panel] Stat Lab 03/25/24 11:07 Completed D-Dimer Stat Lab 03/25/24 11:07 Completed HIV (1&2) Antibody Rapid Stat Lab 03/25/24 11:22 Completed Hemoglobin A1C Stat Lab 03/25/24 11:07 Completed Hep C Ab with Reflex to RNA Stat Lab 03/25/24 11:22 Received Lipase Stat Lab 03/25/24 11:07 Completed Serum [HCG Qualitative, Serum] Stat Lab 03/25/24 11:07 Completed Trop I [Troponin I] Stat Lab 03/25/24 11:07 Completed Troponin I Q3H Lab 03/25/24 13:46 Completed Troponin I Q3H Lab 03/25/24 17:57 Completed MDM Narrative Medical Decision Narrative: 48-year-old female history of hypertension, hyperlipidemia, obesity presenting with chest pain. Patient states that she was just at work doing nothing in particular, nothing exertional when she had right-sided chest pain that radiated to her right shoulder into her right shoulder blade. Has never had this before. Associated with diaphoresis and lightheadedness. No syncope. No nausea or vomiting, no shortness of breath. Is never had anything like this in the past and this feels different than hot flashes being perimenopausal. History was obtained via conversation with patient. On arrival, patient hemodynamically stable, alert, oriented x4, appropriate, GCS 15, moving all extremities spontaneously, pupils equal and reactive to light. Full physical exam performed and significant for very well-appearing female no acute distress. Cardiac exam without murmurs gallops or rubs, pulses equal and symmetric in upper and lower extremities without lower extremity edema. Abdomen soft, nontender, nondistended. Lungs are clear to auscultation bilaterally anterior and posterior. Differential includes microvascular coronary artery disease, CHF, ACS, NJ, coronary artery dissection, pneumothorax, PE, dissection, pericarditis, myocarditis, pneumothorax, aortic aneurysm, pneumonia, bronchitis, among others. Patient was given 324 mg aspirin for symptomatic management and correction of underlying abnormalities. Patient placed on continuous cardiac monitoring and continuous pulse ox with initial blood pressure 138/82, heart rate 90, saturation 97% on room air. Independent interpretation of EKG shows sinus rhythm 79 beats a minute no ST or T wave changes concern for acute ischemia. VT, QRS, QT intervals 152, 80, 394 respectively. Normal axis. Workup independently interpreted and significant for nonactionable troponin, not ABC or chemistry. Dimer negative. On independent interpretation of imaging, nonactionable cardiopulmonary findings. See radiology read for full review of final results. Heart score 5. Patient was placed in observation beginning at 11 AM in order to rule out evolving NJ with delta troponins, give meds and reassess and determine need for admission versus home-going. The patient was provided cardiac exams, monitoring while awaiting results. Independent interpretation of results demonstrated flat delta troponin. On reevaluation, patient still having substernal chest pain going into her right shoulder. At this time, I feel patient is appropriate for admission for unstable angina. Because patient high risk for clinical decompensation, deemed appropriate for inpatient admission. Results were relayed to patient who voiced understanding and patient was agreeable to inpatient admission and management. Cardiology was contacted given negative LFTs, persistent symptoms, discussed catheterization lab out of concern for unstable angina without myocardial infarction. Ultimately, patient to be brought to catheterization lab and admitted. Patient was admitted to the hospital for further definitive management. [employer] disclaimer Much of this encounter note is an electronic mixer dry food products spoken language to printed text. Electronic mixer [employer] food products of the spoken language may permit errors. Although I have reviewed the note, some errors may still exist.
[2024-03-25 12:23] LABS: D-Dimer 0.28 ug/mL (0.0-0.5)
[2024-03-25] MEDS: BELLADONNA ALKALOIDS 60 ML ML PO (12:25)
[2024-03-25] MEDS: FAMOTIDINE 20MG/2ML VIAL 20 MG IV (12:25)
[2024-03-25 14:19] LABS: Troponin I < 0.01 ng/ml (0.00-0.034)
--- NOTE | 2024-03-25 14:29 | HMH.PHAINT1 ---
Pharmacy Intervention Comments: MEDICATION RECONCILIATION COMPLETED ON PATIENT USING EXTERNAL FILL HISTORY FROM PHARMACY. -SYLVIA CHAVARRIA, ARVINDD
--- NOTE | 2024-03-25 15:19 | IR_ITS ---
APPROVED REPORT Patient Location: Emergent [employer] Specialist: GIGI Foster RT (R) PROCEDURES Left heart catheterization Left ventriculogram Selective coronary angiogram INDICATION Unstable angina/acute coronary syndrome Informed consent was obtained prior to the procedure. COMPLICATIONS None Estimated Blood Loss: Less than 10 mls TECHNIQUE One percent lidocaine used to anesthetize the right anterior aspect of the wrist. The right radial artery was accessed via the Seldinger technique. A 6 [place]ian sheath was placed in the right radial artery. 2.5 mg of Verapamil, 800 mcg of nitroglycerin, 1mg Lidocaine and 5000 U Heparin were given through the arterial sheath. The papa catheter was also used to perform left heart catheterization, left ventriculogram and selective coronary angiogram. At the end of the procedure the sheath was removed good hemostasis was achieved using Traclet band, patient was transferred to the postop holding area in stable condition. ANGIOGRAPHIC RESULTS The left main artery Normal The left anterior descending artery Normal The circumflex artery Dominant normal The right coronary artery Nondominant with proximal smooth 10% concentric stenosis The CANCHOLA ventriculogram reveals Normal 65% The left ventricular end-diastolic pressure 15 mmHg IMPRESSION Mild nonflow limiting disease in the small nondominant right coronary Normal ejection fraction Borderline elevated LVEDP PLAN 1. Risk factor modification 2. Valuation of noncardiac symptoms Electronically signed by : Sp Persaud MD 03/25/2024 16:04:54
[2024-03-25 15:30] LABS: Hemoglobin A1C 5.7 % (4.0-6.0)
[2024-03-25 15:31] LABS: HCG Qualitative, Serum Negative (Negative)
[2024-03-25] MEDS: HEPARIN 1,000 UNITS/ML 10ML VIAL (CATH LAB) 10000 UNIT IV (15:46)
[2024-03-25] MEDS: 0.9 % SODIUM CHLORIDE 500 ML 25 ML IV (15:46)
[2024-03-25] MEDS: LIDOCAINE 1% 10ML MDV 20 ML IJ (15:46)
[2024-03-25] MEDS: VERAPAMIL 2.5MG/ML 2ML VIAL 2.5 MG IV (15:46)
[2024-03-25] MEDS: NITROGLYCERIN 800MCG/8ML SYR (CATH LAB) 800 MCG IA (15:46)
[2024-03-25] MEDS: HEPARIN 1,000 UNITS/500ML NS (CATH LAB) 3000 UNIT IV (15:46)
[2024-03-25] MEDS: FENTANYL 100MCG/2ML VIAL 50 MCG IV ×2 (15:51→16:02)
[2024-03-25] MEDS: PROPOFOL 10MG/ML 20ML VIAL 60 MG IV (16:03)
[2024-03-25] MEDS: IOPAMIDOL-370 (76%);100ML BOTTLE 50 ML IV (16:12)
--- NOTE | 2024-03-25 16:38 | PC.NURSE ---
arrived by abidaer from clinical laboratory manager
[2024-03-25 19:03] LABS: Troponin I < 0.01 ng/ml (0.00-0.034)
[2024-03-25] MEDS: NITROFURANTOIN 100MG CAPSULE 100 MG PO (21:54)
[2024-03-25] MEDS: GABAPENTIN 400MG CAPSULE 400 MG PO (21:54)
[2024-03-25] MEDS: TRAZODONE 50MG TABLET 50 MG PO (21:54)
[2024-03-25] MEDS: PANTOPRAZOLE 40MG TABLET 40 MG PO (21:55)
--- NOTE | 2024-03-25 22:18 | PC.NURSE ---
Nadolol and irbesartan held due to soft BP, patient is agreeable to not taking at this time.
[2024-03-26] VITALS: BP 112/65; PULSE 70; PULSE 72; RESP 16; TEMP 36.7; O2SAT 95
[2024-03-26 04:00] VITALS: BP 112/59; PULSE 80; PULSE 82; RESP 16; TEMP 36.5; O2SAT 97; BMI 19.3
--- NOTE | 2024-03-26 06:08 | PC.NURSE ---
Alert and oriented. No complaints from patient throughout the night. Patient has rested. Radialband off this shift, dressing applied, CDI. Ambulated to the restroom with standby assist. Call light in reach.
[2024-03-26 07:36] VITALS: BP 117/69; PULSE 84; RESP 17; TEMP 36.6; O2SAT 98
[2024-03-26 08:00] VITALS: PULSE 75
[2024-03-26 08:21] LABS: HCV Ab Non Reactive (Non Reactive)
[2024-03-26] MEDS: NITROFURANTOIN 100MG CAPSULE 100 MG PO (08:22)
[2024-03-26] MEDS: GABAPENTIN 400MG CAPSULE 400 MG PO (08:22)
[2024-03-26] MEDS: PANTOPRAZOLE 40MG TABLET 40 MG PO (08:22)
--- NOTE | 2024-03-26 08:35 | EXP.HPDC ---
General Admission date:: 03/25/24 Discharge date: 03/26/24 *Admission Date: 03/25/24 *Chief complaint: chest/abdominal pain *History of present illness: Ms. Guillen is a 48 yo female who presented to the ER yesterday with chest pain radiating to the right shoulder and up her neck. She had blood in her urine and was felt to have a UTI one week ago. She was seen by Dr. Connors and started on macrobid. Her urine culture was positive for klebsiella and it was sensitive to the macrobid. She states she then began having vaginal bleeding and has not bled in over 3 years. Her stomach was generally uncomfortable. Yesterday morning she woke up with pain in her RUQ and epigastric area that radiated into the chest and right shoulder. She was evaluated in the ER and taken to the cath lab radiology technician. Her coronaries were normal. [facility] Disclaimer: The information contained in this section may have been updated after the patient was seen, as this information can be updated by other users. Medical History AMBER (obstructive sleep apnea) Abnormal stress test Typical angina Tobacco abuse Dyspnea Chest pain Decreased libido without sexual dysfunction Obesity (BMI 35.0-39.9 without comorbidity) Depression Anxiety Amenorrhea Family history of breast cancer in first degree relative delivery delivered Jaw dislocation DVT (deep venous thrombosis) History of TIA (transient ischemic attack) Surgical History H/O dilation and curettage History of appendectomy History of colon surgery Family History Diabetes Alcoholism Hyperlipidemia Kidney disease Heart attack FHx: mental illness Cancer Hypertension Stroke Asthma Social History Smoking Status: Never smoker alcohol intake: never substance use type: denies use current occupational status: employed Travel in the last 8 weeks: [place] the [place] household members: spouse and children housing: house number of children: 1 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 current occupational exposures/hazards: No caffeine: No Review of Systems Constitutional Constitutional: Denies body ache(s), Reports excessive sweating, Reports fatigue, Denies fever(s), Denies headache(s) and Reports weakness Eyes Eyes: Denies blurry vision and Denies diplopia ENT Ears, Nose, Mouth, and Throat: Denies headache(s), Denies nasal congestion, Denies sore throat and Reports vertigo *Cardiovascular Cardiovascular: Reports chest pain, Reports dyspnea and Denies leg edema *Respiratory Respiratory: Denies cough and Reports dyspnea *Gastrointestinal Gastrointestinal: Reports abdominal pain, Denies loose stools, Reports nausea and Denies vomiting *Genitourinary Genitourinary: Reports hematuria, Reports pelvic pain and Reports other (vaginal bleeding) *Musculoskeletal Musculoskeletal: Denies arthralgias, Denies muscle weakness and Denies myalgias *Neurologic Neurologic: Denies headache(s), Reports vertigo and Reports weakness Endocrine Endocrine: Reports excessive sweating and Reports fatigue Exam Data for Last 24 hours Vital signs and Labs for Last 24 Hours: Temp Pulse Resp BP Pulse Ox O2 Del Method 97.8 F 84 17 117/69 98 Room Air 03/26/24 07:36 03/26/24 07:36 03/26/24 07:36 03/26/24 07:36 03/26/24 07:36 03/26/24 07:36 Laboratory Results - last 24 hr 03/25/24 11:07: WBC 8.0, RBC 4.42, Hgb 13.8, Hct 43.4, MCV 98.3, MCH 31.2, MCHC 31.7 L, RDW 13.7, Plt Count 295, MPV 7.6, Neut % (Auto) 67.0, Lymph % (Auto) 21.6, Lanier % (Auto) 6.2, Eos % (Auto) 4.2, Baso % (Auto) 1.0, Neut # (Auto) 5.4, Lymph # (Auto) 1.7, Lanier # (Auto) 0.5, Eos # (Auto) 0.3, Baso # (Auto) 0.1, D-Dimer 0.28, Sodium 138, Potassium 3.9, Chloride 107, Carbon Dioxide 25, Anion Gap 9.9, BUN 7, Creatinine 0.70, Estimated Creat Clear 147, Estimated GFR 90, Est GFR ( Amer) 109, Glucose 89, Hemoglobin A1c 5.7, Calcium 9.0, Total Bilirubin 0.5, AST 39 H, ALT 42, Alkaline Phosphatase 86, Troponin I < 0.01, Total Protein 7.6, Albumin 4.5, Globulin 3.1, Albumin/Globulin Ratio 1.5, Lipase 127, Serum HCG, Qual Negative 03/25/24 11:22: Hepatitis C Antibody Non reactive, HIV 1&2 Antibody Rapid Nonreactive 03/25/24 13:46: Troponin I < 0.01 03/25/24 17:57: Troponin I < 0.01 I & O for Last 24 hours: Intake & Output 03/23/24 03/24/24 03/25/24 03/26/24 11:59 11:59 11:59 11:59 Intake Total 1210 / 1210 Output Total 0 / 0 Balance 1210 / 1210 Weight 205 lb 116 lb 4.8 oz Constitutional Constitutional: no acute distress *Routine HEENT Exam Head: Present normocephalic and atraumatic Eye: Present EOMI and PERRL ENT: Present mucous membranes moist *Routine Neck Exam Neck: Present supple and full ROM *Routine Respiratory Exam Respiratory: Present CTA bilaterally *Routine Cardiovascular Exam Cardiovascular: Present RRR *Routine Abdominal Exam Abdominal: Present soft and tenderness (ttp in the entire abdomen but worse in the RUQ and epigastric area) *Routine Rectal Exam Rectal:: deferred *Routine Genitalia Exam Genitalia:: deferred *Routine Extremities Exam Extremities: Absent cyanosis, clubbing or edema *Routine Skin Exam Skin: Present intact; Absent erythema *Routine Neurological Exam Neurological: Present alert and oriented X3 Meds Home Medications and Allergies Home Medications ?Medication ?Instructions ?Recorded ?Confirmed ?Type trazodone 50 mg tablet 50 mg PO HS 12/18/22 03/25/24 History gabapentin 400 mg capsule 400 mg PO BID 04/05/23 03/25/24 History diltiazem HCl 180 mg 180 mg PO DAILY 04/08/23 03/25/24 History capsule,extended release 24 hr, controlled (DILT-XR) tirzepatide (weight loss) 7.5 7.5 mg (0.5 mL) SQ WEEKLY #2.5 mL 02/25/24 03/25/24 Rx mg/0.5 mL subcutaneous pen injector (Zepbound) duloxetine 30 mg capsule,delayed 90 mg PO DAILY 03/05/24 03/25/24 History release cariprazine 4.5 mg capsule 3 mg PO DAILY 03/25/24 03/25/24 History (Vraylar) nadolol 80 mg tablet 80 mg PO DAILY 03/25/24 03/25/24 History nitrofurantoin 100 cap PO BID 03/25/24 03/25/24 History monohydrate/macrocrystals 100 mg capsule omeprazole 40 mg capsule,delayed 40 mg PO BID 03/25/24 03/25/24 History release rosuvastatin 10 mg tablet 10 mg PO DAILY 03/25/24 03/25/24 History valsartan 80 mg tablet 80 mg PO DAILY 03/25/24 03/25/24 History New Prescriptions to Start Prescriptions: Allergies Allergy/AdvReac Type Severity Reaction Status Date / Time alprazolam [From Xanax] Allergy Severe Swelling Verified 03/05/24 15:08 of Lip/Tongue/Throat levofloxacin [From LEVAQUIN] Allergy Unknown SWELLING Verified 03/05/24 15:08 Hospital Course Hospital Course Hospital Course: The patient's heart cath was normal. She will need outpatient evaluation for her hematuria and new onset of vaginal bleeding. Will also likely need a gallbladder workup. She can be discharged today. Results Data Completed and Pending Labs on day of discharge: Labs from last 24 hours 03/25/24 03/25/24 03/25/24 17:57 13:46 11:22 WBC RBC Hgb Hct MCV MCH MCHC RDW Plt Count MPV Neut % (Auto) Lymph % (Auto) Lanier % (Auto) Eos % (Auto) Baso % (Auto) Neut # (Auto) Lymph # (Auto) Lanier # (Auto) Eos # (Auto) Baso # (Auto) D-Dimer Sodium Potassium Chloride Carbon Dioxide Anion Gap BUN Creatinine Estimated Creat Clear Estimated GFR Est GFR ( Amer) Glucose Hemoglobin A1c Calcium Total Bilirubin AST ALT Alkaline Phosphatase Troponin I < 0.01 < 0.01 Total Protein Albumin Globulin Albumin/Globulin Ratio Lipase Serum HCG, Qual Hepatitis C Antibody Non reactive HIV 1&2 Antibody Rapid Nonreactive 03/25/24 11:07 WBC 8.0 RBC 4.42 Hgb 13.8 Hct 43.4 MCV 98.3 MCH 31.2 MCHC 31.7 L RDW 13.7 Plt Count 295 MPV 7.6 Neut % (Auto) 67.0 Lymph % (Auto) 21.6 Lanier % (Auto) 6.2 Eos % (Auto) 4.2 Baso % (Auto) 1.0 Neut # (Auto) 5.4 Lymph # (Auto) 1.7 Lanier # (Auto) 0.5 Eos # (Auto) 0.3 Baso # (Auto) 0.1 D-Dimer 0.28 Sodium 138 Potassium 3.9 Chloride 107 Carbon Dioxide 25 Anion Gap 9.9 BUN 7 Creatinine 0.70 Estimated Creat Clear 147 Estimated GFR 90 Est GFR ( Amer) 109 Glucose 89 Hemoglobin A1c 5.7 Calcium 9.0 Total Bilirubin 0.5 AST 39 H ALT 42 Alkaline Phosphatase 86 Troponin I < 0.01 Total Protein 7.6 Albumin 4.5 Globulin 3.1 Albumin/Globulin Ratio 1.5 Lipase 127 Serum HCG, Qual Negative Hepatitis C Antibody HIV 1&2 Antibody Rapid Impressions Impressions: CXR - normal Cardiac Cath IMPRESSION Mild nonflow limiting disease in the small nondominant right coronary Normal ejection fraction Borderline elevated LVEDP PLAN 1. Risk factor modification 2. Valuation of noncardiac symptoms DS: Diagnosis Discharge Diagnosis (1) Chest pain: Status: Acute Code(s): R07.9 - Chest pain, unspecified (2) Abdominal pain: Status: Acute Code(s): R10.9 - Unspecified abdominal pain (3) Vaginal bleeding: Status: Acute Code(s): N93.9 - Abnormal uterine and vaginal bleeding, unspecified (4) Hematuria: Status: Acute Code(s): R31.9 - Hematuria, unspecified (5) AMBER (obstructive sleep apnea): Status: Acute Code(s): G47.33 - Obstructive sleep apnea (adult) (pediatric) (6) Hyperlipidemia: Status: Acute Code(s): E78.5 - Hyperlipidemia, unspecified (7) Depression: Status: Acute Code(s): F32.A - Depression, unspecified (8) Anxiety: Status: Acute Code(s): F41.9 - Anxiety disorder, unspecified (9) Hypertension: Status: Chronic Code(s): I10 - Essential (primary) hypertension Qualifiers: Hypertension type: essential hypertension Qualified Code(s): I10 - Essential (primary) hypertension (10) Asthma: Status: Chronic Code(s): J45.909 - Unspecified asthma, uncomplicated (11) Family history of heart disease: Status: Chronic Code(s): Z82.49 - Family history of ischemic heart disease and other diseases of the circulatory system Discharge Plan Disposition Patient Disposition: Home, Self-Care Condition: Fair Follow up Plan Follow up with: Newton Connors MD [Primary Care Provider] - 04/03/24 10:15 am Sp Persaud MD [Staff Physician] - 04/07/24 10:30 am Prescriptions/Medication Reconciliation: Continued trazodone 50 mg tablet 50 mg PO HS gabapentin 400 mg capsule 400 mg PO BID duloxetine 30 mg capsule,delayed release(DR/EC) 90 mg PO DAILY Zepbound 7.5 mg/0.5 mL pen injector 7.5 mg SQ WEEKLY Qty: 2.5 2RF diltiazem HCl [DILT-XR] 180 mg capsule,ext.rel 24h degradable 180 mg PO DAILY valsartan 80 mg tablet 80 mg PO DAILY rosuvastatin 10 mg tablet 10 mg PO DAILY Vraylar 4.5 mg capsule 3 mg PO DAILY nadolol 80 mg tablet 80 mg PO DAILY omeprazole 40 mg capsule,delayed release(DR/EC) 40 mg PO BID nitrofurantoin monohyd/m-cryst 100 mg capsule 100 cap PO BID Problem Reconciliation Problems Reviewed?: Yes Patient Discharge Instructions ACTIVITY: Continue current activity DIET: continue same diet Patient Instructions: DI for Cardiac Catheterization, DI for Surgical Site Infection Print Language: Khmer Providers Primary Care Provider: Newton Connors Admit Provider: Ashok Lang Attending Provider: Ashok Lang
--- NOTE | 2024-03-27 14:46 | CARE MANAGER ---
Contacted patient related to hospital discharge. She reports her arm is sore from the heart cath, but otherwise she feels fine. She is aware of follow up appointments and denies any questions or concerns. ALVARADO Watson
== END 2024-03-26 10:12 | disposition home or self-care (01) ==
LOC: ER 15:01 → CATHLAB 15:32 → 2ND 16:21
PROVIDERS: Internal Medicine; Admitting Provider Family Medicine; Emergency Provider Emergency Medicine; PCP Family Medicine; Visit Provider Family Medicine
DX: R07.9 Chest pain, unspecified (principal); R31.9 Hematuria, unspecified; R10.9 Unspecified abdominal pain; N93.9 Abnormal uterine and vaginal bleeding, unspecified; G47.33 Obstructive sleep apnea (adult) (pediatric); E78.5 Hyperlipidemia, unspecified; F32.A Depression, unspecified; F41.9 Anxiety disorder, unspecified; I10 Essential (primary) hypertension; Z82.49 Family history of ischemic heart disease and other diseases of the circulatory system; J45.909 Unspecified asthma, uncomplicated; Z79.899 Other long term (current) drug therapy
CPT/HCPCS: 71045; 80053; 83036; 83690; 84484; 84703; 85025; 85378; 86803; 87389; 93005; 93458; 99152; 99291; C1725; C1769; G0378; J1644; J3010; Q9967; S0028

== ENCOUNTER 2024-04-12 18:52 | Emergency (ER) | payer BC, SELFPAY ==
--- NOTE | 2024-04-12 18:56 | XR_ITS ---
PROCEDURE INFORMATION: Exam: XR Left Hand Exam date and time: 04/12/2024 6:51 PM Age: 48 years old Clinical indication: Pain; Hand; Left TECHNIQUE: Imaging protocol: Radiologic exam of the left hand. Views: 3 or more views. COMPARISON: No relevant prior studies available. FINDINGS: Bones/joints: No acute fracture. No dislocation. Soft tissues: Unremarkable. IMPRESSION: No fracture. If pain persists, suggest splinting and follow up radiographs in 7-10 days.
--- NOTE | 2024-04-12 19:08 | EXP.UTC ---
Discharge Plan Disposition Patient Disposition: Home, Self-Care Condition: Good Prescriptions Prescriptions: New ibuprofen 800 mg tablet 800 mg PO TID PRN (Reason: pain) Qty: 30 0RF No Action trazodone 50 mg tablet 50 mg PO HS gabapentin 400 mg capsule 400 mg PO BID duloxetine 30 mg capsule,delayed release(DR/EC) 90 mg PO DAILY rosuvastatin 10 mg tablet See Rx Instructions .ROUTE .COMPLEX Qty: 30 11RF Dose Instruction: Take 1 tablet by mouth once daily Rx Instructions: Take 1 tablet by mouth once daily Zepbound 5 mg/0.5 mL pen injector See Rx Instructions .ROUTE .COMPLEX Qty: 4 0RF Dose Instruction: INJECT 1 SYRINGE SUBCUTANEOUSLY ONCE A WEEK Rx Instructions: INJECT 1 SYRINGE SUBCUTANEOUSLY ONCE A WEEK diltiazem HCl [DILT-XR] 180 mg capsule,ext.rel 24h degradable 180 mg PO DAILY valsartan 80 mg tablet 80 mg PO DAILY Vraylar 4.5 mg capsule 3 mg PO DAILY nadolol 80 mg tablet 80 mg PO DAILY omeprazole 40 mg capsule,delayed release(DR/EC) 40 mg PO BID nitrofurantoin monohyd/m-cryst 100 mg capsule 100 cap PO BID Referrals Follow up/Referrals: Newton Connors MD [Primary Care Provider] - See instructions Activity Restrictions/Add. Instructions Additional Instructions/Restrictions: Make an appointment with Dr. Richard garduno [phone], for a follow up appointment. Take Ibuprofen as directed with Tylenol for breakthrough pain. Rest, ice, compression and elevation of the left hand. Call back in am for x-ray results. Clinical Impressions Clinical Impression: Left hand pain, Finger pain, left Instructions Patient Instructions: How To Perform RICE (Rest, Ice, Compress, Elevate), DI for Hand Pain Print Language Print Language: Citizen [place] Discharge ED Provider: Christa Lund [facility] HPI General Stated complaint: AO 04/12/24 1830 left hand injury Time Seen by Provider: 04/12/24 19:08 History of Present Illness Provider Complaint: Pt reports that she grabbed the collar of her husky with her left pointer finger and the dog twisted around. She states that there was an audible pop and she immediately had searing pain at the joint of the finger. She states that she can't stand to move her finger. Related Data Home Medications ?Medication ?Instructions ?Recorded ?Confirmed trazodone 50 mg tablet 50 mg PO HS 12/18/22 04/07/24 gabapentin 400 mg capsule 400 mg PO BID 04/05/23 04/07/24 diltiazem HCl 180 mg 180 mg PO DAILY 04/08/23 04/07/24 capsule,extended release 24 hr, controlled (DILT-XR) duloxetine 30 mg capsule,delayed 90 mg PO DAILY 03/05/24 04/07/24 release cariprazine 4.5 mg capsule 3 mg PO DAILY 03/25/24 04/07/24 (Vraylar) nadolol 80 mg tablet 80 mg PO DAILY 03/25/24 04/07/24 nitrofurantoin 100 cap PO BID 03/25/24 04/07/24 monohydrate/macrocrystals 100 mg capsule omeprazole 40 mg capsule,delayed 40 mg PO BID 03/25/24 04/07/24 release valsartan 80 mg tablet 80 mg PO DAILY 03/25/24 04/07/24 Previous Rx's ?Medication ?Instructions ?Recorded rosuvastatin 10 mg tablet See Rx Instructions .Route 04/07/24 .COMPLEX #30 tabs tirzepatide (weight loss) 5 mg/0.5 See Rx Instructions .Route 04/10/24 mL subcutaneous pen injector .COMPLEX #4 mL (Zepbound) ibuprofen 800 mg tablet 800 mg PO TID PRN pain #30 tabs 04/12/24 Allergies Allergy/AdvReac Type Severity Reaction Status Date / Time alprazolam [From Xanax] Allergy Severe Swelling Verified 04/07/24 10:26 of Lip/Tongue/Throat levofloxacin [From LEVAQUIN] Allergy Unknown SWELLING Verified 04/07/24 10:26 [facility] Disclaimer: The information contained in this section may have been updated after the patient was seen, as this information can be updated by other users. Medical History History of snoring Nonepileptic episode Hyperlipidemia Chondromalacia, right knee Family history of heart disease Asthma Hypertension AMBER (obstructive sleep apnea) Abnormal stress test Typical angina Tobacco abuse Dyspnea Decreased libido without sexual dysfunction Obesity (BMI 35.0-39.9 without comorbidity) Depression Anxiety Amenorrhea Family history of breast cancer in first degree relative delivery delivered Jaw dislocation surgery X7 DVT (deep venous thrombosis) History of TIA (transient ischemic attack) Surgical History H/O dilation and curettage X3 History of appendectomy History of colon surgery 75% of colon removed, colon stopped working Family History Other Alcoholism Asthma Cancer Diabetes FHx: mental illness Heart attack Hyperlipidemia Hypertension Kidney disease Stroke Social History Smoking Status: Never smoker alcohol intake: never substance use type: denies use current occupational status: employed Travel in the last 8 weeks: [place] the [place] household members: spouse and children housing: house number of children: 1 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 current occupational exposures/hazards: No caffeine: No ROS Obtained: Yes All systems reviewed & no additional complaints except as documented Constitutional Constitutional: Reports system reviewed and no additional complaints, except as documented Eyes Eyes: Reports system reviewed and no additional complaints, except as documented ENT Ears, Nose, Mouth, and Throat: Reports system reviewed and no additional complaints, except as documented Cardiovascular Cardiovascular: Reports system reviewed and no additional complaints, except as documented Respiratory Respiratory: Reports system reviewed and no additional complaints, except as documented Gastrointestinal Gastrointestingal: Reports system reviewed and no additional complaints, except as documented Genitourinary Female Genitourinary: Reports system reviewed and no additional complaints, except as documented Musculoskeletal Musculoskeletal: Reports system reviewed and no additional complaints, except as documented, Reports arthralgias, Reports joint stiffness, Reports joint swelling, Reports limited range of motion, Reports radiating pain into limb, Reports stiffness and Reports small joint pain in the hands Integumentary/Breasts Skin/Breast: Reports system reviewed and no additional complaints, except as documented Neurologic Neurologic: Reports system reviewed and no additional complaints, except as documented Endocrine Endocrine: Reports system reviewed and no additional complaints, except as documented Hematologic/Lymphatic Henatologic/Lymphatic: Reports system reviewed and no additional complaints, except as documented Allergic/Immunologic Allergic/Immunologic: Reports system reviewed and no additional complaints, except as documented Physical Exam General General appearance: alert and in no apparent distress Head Head exam: atraumatic and normocephalic Eye Eye exam: Present normal appearance ENT ENT exam: Present normal exam and normal oropharynx Neck Neck exam: Present normal inspection Chest Chest inspection: Present normal inspection Respiratory Respiratory exam: Present normal lung sounds bilaterally Cardiovascular Cardiovascular exam: Present regular rate, normal rhythm and normal heart sounds Abdominal Exam Abdominal exam: Present soft Extremities Exam Extremities exam: Present tenderness and normal capillary refill Expanded Upper Extremity Exam Left: Shoulder exam: Present normal inspection Arm exam: Present normal inspection Elbow exam: Present normal inspection Forearm/Wrist exam: Present normal inspection Hand exam: Present tenderness and swelling Hand L/R back image: 1. tenderness and swelling Neuromotor exam: Normal wrist extension Neurosensory exam: Normal radial nerve and ulnar nerve Vascular exam: Normal capillary refill Comment: pt unable to bend pointer finger due to pain Back Exam Back exam: Present normal inspection Neurological Exam Neurological exam: Present alert and oriented X3 Psychiatric Psychiatric exam: Present normal affect and normal mood Skin Skin exam: Present warm, dry and intact Lymphatic Lymphatic Findings: no adenopathy Medical Decision Making Medical Records Screening: Per USPSTF and CDC recommendations, given the prevalence of disease in our region, it is our hospital?s policy to screen for HIV and viral Hepatitis for all patients aged 18 and over and those with ongoing risk factors. El[place] Inquiry Pt receiving controlled substance: No [place] was queried for this patient: No Orders (Tests/Meds): ORDERS Category Date Time Status Hand XR left minimum 3 views [XR hand LT min 3V] Stat Exams 04/12/24 18:56 Taken
[2024-04-12 19:09] VITALS: BP 127/75; PULSE 92; RESP 20; TEMP 36.6; O2SAT 98; BMI 34.2
[2024-04-12 19:57] VITALS: BP 127/75; PULSE 91; RESP 20; TEMP 36.6
== END 2024-04-12 20:00 | disposition home or self-care (01) ==
PROVIDERS: Emergency Provider Nurse Practitioner Family; PCP Family Medicine
DX: M79.642 Pain in left hand (principal)
CPT/HCPCS: 73130; 99213; G0381

== ENCOUNTER 2024-04-18 07:46 | Outpatient (CLI) | payer BC, SELFPAY ==
--- NOTE | 2024-04-18 07:49 | US_ITS ---
FINAL REPORT CLINICAL HISTORY: RUQ PAIN FINDINGS: Sonographic images of the right upper quadrant were obtained. The pancreas is partially obscured. There is increased echogenicity in the liver consistent with fatty infiltration. The gallbladder appears normal without evidence of gallstones.There is no evidence of biliary ductal dilatation.The common duct measures 4mm. Limited images of the right kidney are unremarkable. IMPRESSION: Fatty liver. Reviewed, Interpreted and Dictated by Stefano Tijerina III, MD Transcribed by Tiana Silva Authenticated and [facility]
== END 2024-04-18 23:59 | disposition home or self-care (01) ==
LOC: RAD 07:47
PROVIDERS: PCP Family Medicine; Visit Provider Family Medicine
DX: R10.11 Right upper quadrant pain (principal)
CPT/HCPCS: 76705

== ENCOUNTER 2024-04-24 08:44 | Outpatient (CLI) | payer BC, SELFPAY ==
--- NOTE | 2024-04-24 08:48 | XR_ITS ---
FINAL REPORT CLINICAL HISTORY: F/U LT HAND PAIN FINDINGS: LEFT HAND Three views demonstrate no acute fracture or dislocation. The visualized joint spaces are normally aligned. The soft tissues are unremarkable. IMPRESSION: No acute process. Reviewed, Interpreted and Dictated by Ion Murphy MD Transcribed by Dulce Colbert Authenticated and [facility]
== END 2024-04-24 23:59 | disposition home or self-care (01) ==
LOC: RAD 08:46
PROVIDERS: PCP Family Medicine; Visit Provider Physician Assistant Surgical
DX: M79.642 Pain in left hand (principal)
CPT/HCPCS: 73130

== ENCOUNTER 2024-05-06 09:55 | Outpatient (CLI) | payer BC, SELFPAY ==
--- NOTE | 2024-05-06 10:01 | NM_ITS ---
FINAL REPORT CLINICAL HISTORY: 1.9 RUQ PAIN 10:05AM 5.34 MCI TC CHOLETEC 1.9 MCG CCK NAUSEA WITH CCK COMPARISON: None FINDINGS: Sequential anterior projection images of the abdomen were obtained after the intravenous injection of 5.34 mCi technetium 99m Choletec. There is normal uptake of radiotracer by the liver. The bile ducts are visualized by 5 minutes. Gallbladder activity is seen by 5 minutes. Bowel activity is not noted by 60 minutes. After 1 hour, 1.9 ?g of CCK was injected intravenously for calculation of gallbladder ejection fraction. There is prompt emptying of the common bile duct after administration of CCK. The gallbladder ejection fraction is 93%, which is within normal limits. IMPRESSION: No evidence of cystic duct or bile duct obstruction. Normal gallbladder ejection fraction of 93%. Reviewed, Interpreted and Dictated by Stefano Tijerina III, MD Transcribed by Korin Finch Authenticated and [facility]
[2024-05-06] MEDS: SODIUM CHLORIDE 0.9% 10ML SYR (RAD ONLY) 10 ML IV (10:05)
[2024-05-06] MEDS: SINCALIDE 1.9 MCG in 0.9 % SODIUM CHLORIDE 50 ML 100 MCG IV (11:05)
[2024-05-06] MEDS: ISOTOPE CHOLETECH;1 DOSE (UP TO 15 MCI) IV (11:57)
== END 2024-05-06 23:59 | disposition home or self-care (01) ==
LOC: RAD 09:56
PROVIDERS: PCP Family Medicine; Visit Provider Family Medicine
DX: K76.0 Fatty (change of) liver, not elsewhere classified (principal)
CPT/HCPCS: 78227; A9537; J2805

== ENCOUNTER 2024-06-16 14:14 | Emergency (ER) | payer BC, SELFPAY ==
[2024-06-16 14:15] VITALS: BP 142/87; PULSE 87; RESP 16; TEMP 36.8; O2SAT 98; BMI 34.2
--- NOTE | 2024-06-16 14:17 | ECG_ITS ---
APPROVED REPORT Exam: Resting ECG HR:115 bpm ECG Measurements Heart Rate 115 AXES MS 156 P 63 QRSd 85 QRS 65 QT 335 T 65 QTc 403 Conclusion SINUS TACHYCARDIA NONSPECIFIC T-WAVE ABNORMALITY ABNORMAL RHYTHM ECG UNCONFIRMED REPORT Electronically signed by : Vignesh Russell, 06/16/2024 14:54:59
--- NOTE | 2024-06-16 14:22 | XR_ITS ---
PROCEDURE INFORMATION: Exam: XR Chest Exam date and time: 06/16/2024 2:23 PM Age: 48 years old Clinical indication: Dyspnea; Additional info: SOA TECHNIQUE: Imaging protocol: Radiologic exam of the chest. Views: 1 view. COMPARISON: CR XR CHEST PORTABLE 06/16/2024 2:23 PM FINDINGS: Lungs: Unremarkable. No consolidation. Pleural spaces: No pleural effusion. No pneumothorax. Heart/Mediastinum: No significant cardiac silhouette enlargement. Bones/joints: Unremarkable. IMPRESSION: No acute findings.
--- NOTE | 2024-06-16 14:25 | ED_ITS ---
Discharge Plan Disposition Patient Disposition: Home, Self-Care Condition: Good Prescriptions Prescriptions: New potassium chloride 20 mEq tablet extended release 20 meq PO DAILY Qty: 14 0RF No Action trazodone 50 mg tablet 50 mg PO HS duloxetine 30 mg capsule,delayed release(DR/EC) 90 mg PO DAILY furosemide 20 mg tablet 20 mg PO DAILY gabapentin 600 mg tablet 600 mg PO BID Patient Comments: TAKE 1 TABLET BY MOUTH TWICE DAILY rosuvastatin 10 mg tablet See Rx Instructions .ROUTE .COMPLEX Qty: 30 11RF Dose Instruction: Take 1 tablet by mouth once daily Rx Instructions: Take 1 tablet by mouth once daily Zepbound 7.5 mg/0.5 mL pen injector 7.5 mg SQ WEEKLY 30 Days Qty: 2.5 2RF diltiazem HCl [DILT-XR] 180 mg capsule,ext.rel 24h degradable 180 mg PO DAILY valsartan 80 mg tablet 80 mg PO DAILY Vraylar 4.5 mg capsule 3 mg PO DAILY nadolol 80 mg tablet 80 mg PO DAILY omeprazole 40 mg capsule,delayed release(DR/EC) 40 mg PO BID ibuprofen 800 mg tablet 800 mg PO TID PRN (Reason: pain) Qty: 30 0RF Referrals Follow up/Referrals: Provider,Referral, MD [Referring] - See instructions Activity Restrictions/Add. Instructions Additional Instructions/Restrictions: Please follow-up with your family doctor regarding your potassium in the next week, please take potassium supplementation as prescribed until follow-up, return to the emergency department with any chest pain shortness of breath, feeling faint, passing out episodes or seizure-like activity. Clinical Impressions Clinical Impression: Hypokalemia, Pre-syncope Instructions Patient Instructions: DI for Syncope in Adults (Fainting), DI for Hypokalemia, DI for Seizure (Not Epilepsy/Seizure Disorder) Print Language Print Language: Occitan Discharge ED Provider: Gabriel Olguin General Adult HPI <MERCY Lozano - Last Filed: 06/16/24 16:41> General Chief complaint: Seizure Stated complaint: Syncope Time Seen by Provider: 06/16/24 14:21 Mode of Arrival: EMS Source of Information: Patient and EMS Limitations: No Limitations History of Present Illness HPI narrative: 48-year-old female presents to the emergency department via EMS for what sounds presyncopal versus seizure-like activity, patient works at [employer], she states that she bent down , felt lightheaded, she states that her vision went black , and she almost fell, she was called by her coworkers, no real witnessed seizure-like activity, patient does have history of nonepileptic type seizures has seen neurology for this, he has not had an episode like this for quite some time, she is not on any anticonvulsants/antiepileptics at home. She also admits to a headache currently, and admits to chest tightness and tingling , that has been waxing and waning for the past several days. She denies any shortness of breath admits to nausea, denies vomiting, abdominal pain, no urinary type symptomatology, no lightheadedness or dizziness currently. Patient denies any true LOC denies striking head. Past medical history consistent with obesity, AMBER, hypertension hyperlipidemia, Louie/depression, coronary artery disease, GERD, current everyday smoker denies any alcohol or drug use initial triage vitals notable for tachycardia Related Data Home Medications ?Medication ?Instructions ?Recorded ?Confirmed trazodone 50 mg tablet 50 mg PO HS 12/18/22 05/19/24 diltiazem HCl 180 mg 180 mg PO DAILY 04/08/23 05/19/24 capsule,extended release 24 hr, controlled (DILT-XR) duloxetine 30 mg capsule,delayed 90 mg PO DAILY 03/05/24 05/19/24 release cariprazine 4.5 mg capsule 3 mg PO DAILY 03/25/24 05/19/24 (Vraylar) nadolol 80 mg tablet 80 mg PO DAILY 03/25/24 05/19/24 omeprazole 40 mg capsule,delayed 40 mg PO BID 03/25/24 05/19/24 release valsartan 80 mg tablet 80 mg PO DAILY 03/25/24 05/19/24 furosemide 20 mg tablet 20 mg PO DAILY 05/15/24 05/19/24 gabapentin 600 mg tablet 600 mg PO BID 05/19/24 05/19/24 Previous Rx's ?Medication ?Instructions ?Recorded rosuvastatin 10 mg tablet See Rx Instructions .Route 04/07/24 .COMPLEX #30 tabs ibuprofen 800 mg tablet 800 mg PO TID PRN pain #30 tabs 04/12/24 tirzepatide (weight loss) 7.5 7.5 mg (0.5 mL) SQ WEEKLY 30 days 05/26/24 mg/0.5 mL subcutaneous pen #2.5 mL injector (Zepbound) potassium chloride 20 mEq 20 meq PO DAILY #14 tabs 06/16/24 tablet,extended release Allergies Allergy/AdvReac Type Severity Reaction Status Date / Time alprazolam (From Xanax) Allergy Severe Swelling Verified 05/19/24 09:38 of Lip/Tongue/Throat levofloxacin (From LEVAQUIN) Allergy Unknown SWELLING Verified 05/19/24 09:38 [facility] <MERCY Lozano - Last Filed: 06/16/24 16:41> [facility] Disclaimer: The information contained in this section may have been updated after the patient was seen, as this information can be updated by other users. Medical History (Updated 06/16/24 @ 16:41 by MERCY Lozano) AMBER (obstructive sleep apnea) Hyperlipidemia Hypertension CAD (coronary artery disease) History of snoring Nonepileptic episode Chondromalacia, right knee Family history of heart disease Asthma Abnormal stress test Typical angina Tobacco abuse Dyspnea Decreased libido without sexual dysfunction Obesity (BMI 35.0-39.9 without comorbidity) Depression Anxiety Amenorrhea Family history of breast cancer in first degree relative delivery delivered Jaw dislocation DVT (deep venous thrombosis) History of TIA (transient ischemic attack) Surgical History History of mandibular surgery H/O dilation and curettage History of appendectomy History of colon surgery Family History Other Alcoholism Asthma Cancer Diabetes FHx: mental illness Heart attack Hyperlipidemia Hypertension Kidney disease Stroke Social History Smoking Status: Current every day smoker tobacco type: cigarettes packs per day: 1 years smoked: 20 how long ago did patient quit smokin yr alcohol intake: never substance use type: denies use current occupational status: employed Travel in the last 8 weeks: None household members: spouse and children housing: house number of children: 1 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 current occupational exposures/hazards: No caffeine: No Other Medical History Have you received the Flu Vaccine for this season: No Have you received the Pneumonia Vaccine: No <MERCY Lozano - Last Filed: 06/16/24 16:41> ROS Obtained: Yes All systems reviewed & no additional complaints except as documented Physical Exam <MERCY Lozano - Last Filed: 06/16/24 16:41> General General appearance: alert and in no apparent distress Head Head exam: atraumatic and normocephalic Eye Eye exam: Present PERRL and EOMI ENT ENT exam: Present mucous membranes moist Neck Neck exam: Present normal inspection Chest Chest inspection: Present normal inspection and symmetric chest wall rise Respiratory Respiratory exam: Present normal lung sounds bilaterally; Absent respiratory distress Cardiovascular Cardiovascular exam: Present regular rate and normal rhythm Abdominal Exam Abdominal exam: Present soft; Absent tenderness Extremities Exam Extremities exam: Present normal inspection Neurological Exam Neurological exam: Present alert and oriented X3 Psychiatric Psychiatric exam: Present normal affect Skin Skin exam: Present warm and dry Medical Decision Making <MERCY Lozano - Last Filed: 06/16/24 16:41> Medical Records Medical records reviewed: Yes I reviewed the patient's medical records. Screening: Per USPSTF and CDC recommendations, given the prevalence of disease in our region, it is our hospital?s policy to screen for HIV and viral Hepatitis for all patients aged 18 and over and those with ongoing risk factors. Elver Inquiry Pt receiving controlled substance: No Elver was queried for this patient: No Vital Signs: 06/16/24 14:15 06/16/24 15:00 06/16/24 15:30 Temperature 98.2 F Temperature Source Oral Pulse Rate 105 H 98 H Pulse Rate [Left Radial] 87 Respiratory Rate 16 19 18 Blood Pressure 129/89 138/85 Blood Pressure [Right Arm] 142/87 H Blood Pressure Mean 101 Blood Pressure Mean [Right Arm] 105 02 Sat by Pulse Oximetry 98 96 98 Oxygen Delivery Method Room Air Room Air 06/16/24 16:00 06/16/24 16:53 Temperature 98.2 F Temperature Source Pulse Rate 95 H 100 H Pulse Rate [Left Radial] Respiratory Rate 20 20 Blood Pressure 127/103 H 138/86 Blood Pressure [Right Arm] Blood Pressure Mean 111 Blood Pressure Mean [Right Arm] 02 Sat by Pulse Oximetry 97 Oxygen Delivery Method Room Air Lab Data Lab Results 06/16/24 14:20: WBC 8.0, RBC 4.44, Hgb 13.4, Hct 40.6, MCV 91.4, MCH 30.1, MCHC 32.9, RDW 13.7, Plt Count 304, MPV 7.9, Neut % (Auto) 63.6, Lymph % (Auto) 26.9, [place] % (Auto) 5.2, Eos % (Auto) 3.1, Baso % (Auto) 1.1, Neut # (Auto) 5.1, Lymph # (Auto) 2.1, [place] # (Auto) 0.4, Eos # (Auto) 0.3, Baso # (Auto) 0.1, PT 10.3, INR 0.91, Sodium 138, Potassium 2.9 L*, Chloride 105, Carbon Dioxide 25, Anion Gap 10.9, BUN 3 L, Creatinine 0.70, Estimated Creat Clear 148, Estimated GFR 90, Est GFR ( Amer) 109, Glucose 128 H, Calcium 9.3, Magnesium 2.0, Total Bilirubin 0.4, AST 30, ALT 28, Alkaline Phosphatase 112, Troponin I < 0.01, NT-Pro-B Natriuret Pep 21.5, Total Protein 7.2, Albumin 4.2, Globulin 3.0, Albumin/Globulin Ratio 1.4 06/16/24 14:20 06/16/24 14:20 Orders (Tests/Meds): ED MEDICATIONS Discontinued Medications Generic Name Dose Route Start Last Admin Trade Name Freq PRN Reason Stop Dose Admin Ketorolac Tromethamine 15 mg 06/16/24 14:22 06/16/24 14:54 Ketorolac 30mg/Ml Vial IV 06/16/24 14:23 15 mg ONCE ONE Administration Ondansetron HCl 4 mg 06/16/24 14:22 06/16/24 14:54 Ondansetron 4mg/2ml Vial IV 06/16/24 14:23 4 mg ONCE ONE Administration Potassium Chloride 60 meq 06/16/24 15:24 06/16/24 15:30 Potassium Chloride 20meq Tab PO 06/16/24 15:25 60 meq ONCE ONE Administration ORDERS Category Date Time Status CT head/brain wo con Stat Cat Scan 06/16/24 14:25 Completed XR chest portable Stat Exams 06/16/24 14:22 Completed Complete Blood Count Auto Diff Stat Lab 06/16/24 14:20 Completed Comprehensive Metabolic Panel Stat Lab 06/16/24 14:20 Completed Magnesium Stat Lab 06/16/24 14:20 Completed NT Pro Brain Natriuretic Pep. Stat Lab 06/16/24 14:20 Completed PT INR [Prothrombin Time INR] Stat Lab 06/16/24 14:20 Completed Troponin I Stat Lab 06/16/24 14:20 Completed Medical Decision Narrative: 48-year-old female presents emergency department for seizure activity versus presyncopal episode, differential diagnose include but not limited to anxiety type reaction, panic attack, vasovagal syncope, cardiogenic syncope, acute dehydration, psychogenic seizures, situational syncope, cardiac arrhythmia, electrolyte disturbance. Discussed patient case with attending physician Dr. Russell and Dr. Olguin Will obtain basic laboratory studies, magnesium level chest x-ray CT head, EKG troponin, proBNP and coagulation studies for further evaluation/characterization will give 4 mg IV Zofran and 15 mg IV Toradol for pain and nausea, will initiate seizure precautions. CBC unremarkable Coagulation studies unremarkable Hypokalemia 2.9 otherwise unremarkable CMP, troponin and proBNP within normal limits. Will replace with 60 mEq p.o. potassium chloride. Reviewed the patient's chest x-ray along the corresponding radiologic report, there are no acute findings Reviewed the patient's CT head without contrast along with the corresponding radiologic report no acute intracranial abnormality. I discussed the results with the patient at the bedside, patient's symptomatology is improved, no seizure-like activity here in the Emergency Department, patient denies any lightheadedness, headache is improved, patient will follow-up with primary care provider as directed, will give 40 mill equivalents p.o. potassium until follow-up. Patient and family voiced understanding of the current treatment plan/discharge plan, strict ED return precaution discussed. <Gabriel Olguin MD - Last Filed: 06/16/24 19:53> Vital Signs: 06/16/24 14:15 06/16/24 15:00 06/16/24 15:30 Temperature 98.2 F Temperature Source Oral Pulse Rate 105 H 98 H Pulse Rate [Left Radial] 87 Respiratory Rate 16 19 18 Blood Pressure 129/89 138/85 Blood Pressure [Right Arm] 142/87 H Blood Pressure Mean 101 Blood Pressure Mean [Right Arm] 105 02 Sat by Pulse Oximetry 98 96 98 Oxygen Delivery Method Room Air Room Air 06/16/24 16:00 06/16/24 16:53 Temperature 98.2 F Temperature Source Pulse Rate 95 H 100 H Pulse Rate [Left Radial] Respiratory Rate 20 20 Blood Pressure 127/103 H 138/86 Blood Pressure [Right Arm] Blood Pressure Mean 111 Blood Pressure Mean [Right Arm] 02 Sat by Pulse Oximetry 97 Oxygen Delivery Method Room Air Lab Data Lab Results 06/16/24 14:20: WBC 8.0, RBC 4.44, Hgb 13.4, Hct 40.6, MCV 91.4, MCH 30.1, MCHC 32.9, RDW 13.7, Plt Count 304, MPV 7.9, Neut % (Auto) 63.6, Lymph % (Auto) 26.9, [place] % (Auto) 5.2, Eos % (Auto) 3.1, Baso % (Auto) 1.1, Neut # (Auto) 5.1, Lymph # (Auto) 2.1, [place] # (Auto) 0.4, Eos # (Auto) 0.3, Baso # (Auto) 0.1, PT 10.3, INR 0.91, Sodium 138, Potassium 2.9 L*, Chloride 105, Carbon Dioxide 25, Anion Gap 10.9, BUN 3 L, Creatinine 0.70, Estimated Creat Clear 148, Estimated GFR 90, Est GFR ( Amer) 109, Glucose 128 H, Calcium 9.3, Magnesium 2.0, Total Bilirubin 0.4, AST 30, ALT 28, Alkaline Phosphatase 112, Troponin I < 0.01, NT-Pro-B Natriuret Pep 21.5, Total Protein 7.2, Albumin 4.2, Globulin 3.0, Albumin/Globulin Ratio 1.4 Orders (Tests/Meds): ED MEDICATIONS Discontinued Medications Generic Name Dose Route Start Last Admin Trade Name Freq PRN Reason Stop Dose Admin Ketorolac Tromethamine 15 mg 06/16/24 14:22 06/16/24 14:54 Ketorolac 30mg/Ml Vial IV 06/16/24 14:23 15 mg ONCE ONE Administration Ondansetron HCl 4 mg 06/16/24 14:22 06/16/24 14:54 Ondansetron 4mg/2ml Vial IV 06/16/24 14:23 4 mg ONCE ONE Administration Potassium Chloride 60 meq 06/16/24 15:24 06/16/24 15:30 Potassium Chloride 20meq Tab PO 06/16/24 15:25 60 meq ONCE ONE Administration ORDERS Category Date Time Status CT head/brain wo con Stat Cat Scan 06/16/24 14:25 Completed XR chest portable Stat Exams 06/16/24 14:22 Completed Complete Blood Count Auto Diff Stat Lab 06/16/24 14:20 Completed Comprehensive Metabolic Panel Stat Lab 06/16/24 14:20 Completed Magnesium Stat Lab 06/16/24 14:20 Completed NT Pro Brain Natriuretic Pep. Stat Lab 06/16/24 14:20 Completed PT INR [Prothrombin Time INR] Stat Lab 06/16/24 14:20 Completed Troponin I Stat Lab 06/16/24 14:20 Completed Medical Decision Narrative: 48-year-old female presents emergency department for seizure activity versus presyncopal episode, differential diagnose include but not limited to anxiety type reaction, panic attack, vasovagal syncope, cardiogenic syncope, acute dehydration, psychogenic seizures, situational syncope, cardiac arrhythmia, electrolyte disturbance. Discussed patient case with attending physician Dr. Russell and Dr. Olguin Will obtain basic laboratory studies, magnesium level chest x-ray CT head, EKG troponin, proBNP and coagulation studies for further evaluation/characterization will give 4 mg IV Zofran and 15 mg IV Toradol for pain and nausea, will initiate seizure precautions. CBC unremarkable Coagulation studies unremarkable Hypokalemia 2.9 otherwise unremarkable CMP, troponin and proBNP within normal limits. Will replace with 60 mEq p.o. potassium chloride. Reviewed the patient's chest x-ray along the corresponding radiologic report, there are no acute findings Reviewed the patient's CT head without contrast along with the corresponding radiologic report no acute intracranial abnormality. I discussed the results with the patient at the bedside, patient's symptomatology is improved, no seizure-like activity here in the Emergency Department, patient denies any lightheadedness, headache is improved, patient will follow-up with primary care provider as directed, will give 40 mill equivalents p.o. potassium until follow-up. Patient and family voiced understanding of the current treatment plan/discharge plan, strict ED return precaution discussed. I was consulted by the JIM, and we discussed the complexity of the problems being addressed. I approved the treatment and management plan for this patient's care in the Emergency Department, thus performing a substantive portion of the medical decision making. Gabriel Olguin MD Critical Care <MERCY Lozano - Last Filed: 06/16/24 16:41> Critical Care Time Critical Care Time: No
--- NOTE | 2024-06-16 14:25 | CT_ITS ---
PROCEDURE INFORMATION: Exam: CT Head Without Contrast Exam date and time: 06/16/2024 2:37 PM Age: 48 years old Clinical indication: Other: Seizure-like activity, presyncopal episode TECHNIQUE: Imaging protocol: Computed tomography of the head without contrast. Radiation optimization: All CT scans at this facility use at least one of these dose optimization techniques: automated exposure control; mA and/or kV adjustment per patient size (includes targeted exams where dose is matched to clinical indication); or iterative reconstruction. COMPARISON: CT SOFT TISSUE NECK W CON 08/05/2020 11:40 AM FINDINGS: Brain: No acute intracranial hemorrhage, cerebral edema, or midline shift. Cerebral ventricles: No hydrocephalus. Paranasal sinuses: There is no acute sinusitis. Mastoid air cells: Visualized mastoid air cells are well aerated. Orbital cavities: The visualized orbits appear unremarkable. Bones: Unremarkable. No acute fracture. Soft tissues: Unremarkable. IMPRESSION: No acute intracranial abnormality.
[2024-06-16 14:41] LABS: Basophils # 0.1 K/mm3 (0-0.2); Basophils % 1.1 % (0.1-2.0); Eosinophils # 0.3 K/mm3 (0.0-0.4); Eosinophils % 3.1 % (0.1-12.0); Hematocrit 40.6 % (37.0-47.0); Hemoglobin 13.4 g/dL (12.2-16.2); Lymphocytes # 2.1 K/mm3 (0.7-4.5); Lymphocytes % 26.9 % (10-50); Mean Corpuscular HGB Conc 32.9 g/dL (31.8-35.4); Mean Corpuscular Hemoglobin 30.1 pg (27.0-31.2); Mean Corpuscular Volume 91.4 fl (81-99); Mean Platelet Volume 7.9 fl (7.4-10.4); Monocytes # 0.4 K/mm3 (0.1-1.0); Monocytes % 5.2 % (1.7-9.3); Neutrophils # 5.1 K/mm3 (1.8-7.8); Neutrophils % 63.6 % (37.0-80.0); Platelet Count 304 K/mm3 (142-424); Red Blood Count 4.44 M/mm3 (4.20-5.40); Red Cell Distribution Width 13.7 % (11.5-17.5)
[2024-06-16 14:50] LABS: Albumin Level 4.2 g/dl (3.5-5.0); Chloride 105 mmol/L (98-107); INR 0.91 (0.9-1.1); Prothrombin Time 10.3 seconds (10.1-12.5); Sodium 138 mmol/L (136-145)
[2024-06-16 14:53] LABS: Alanine Aminotransferase 28 U/L (12-78); Albumin/Globulin Ratio 1.4 (1.1-1.8); Alkaline Phosphatase 112 U/L (38-126); Anion Gap 10.9 mEq/L (5-15); Aspartate Amino Transferase 30 U/L (14-36); Bilirubin,Total 0.4 mg/dl (0.2-1.3); Blood Urea Nitrogen 3 mg/dl (7-17); Carbon Dioxide 25 mmol/L (22.0-30.0); Creatinine Clearance Estimated 148 mL/min (50-200); Estimated Glomerular Filt Rate 90 ml/min (>60); GFR (African American) 109 ML/MIN (>60); Total Protein,Serum 7.2 g/dl (6.3-8.2)
[2024-06-16 14:54] LABS: Calcium 9.3 mg/dl (8.4-10.2); Glucose 128 mg/dl (74-100)
[2024-06-16] MEDS: KETOROLAC 30MG/ML VIAL 15 MG IV (14:54)
[2024-06-16] MEDS: ONDANSETRON 4MG/2ML VIAL 4 MG IV (14:54)
--- NOTE | 2024-06-16 14:56 | PC.NURSE ---
K+ 2.9, PT NAME AND R/V. NOTIFIED
[2024-06-16 14:57] LABS: Potassium 2.9 mmoL/L (3.5-5.1)
[2024-06-16 15:00] VITALS: BP 129/89; PULSE 105; RESP 19; O2SAT 96
[2024-06-16 15:03] LABS: NT Pro Brain Natriuretic Pep. 21.5 pg/mL (0-125)
[2024-06-16 15:30] VITALS: BP 138/85; PULSE 98; RESP 18; O2SAT 98
[2024-06-16] MEDS: POTASSIUM CHLORIDE 20MEQ TAB 60 MEQ PO (15:30)
[2024-06-16 15:32] LABS: Troponin I < 0.01 ng/ml (0.00-0.034)
[2024-06-16 16:00] VITALS: BP 127/103; PULSE 95; RESP 20; O2SAT 97
[2024-06-16 16:53] VITALS: BP 138/86; PULSE 100; RESP 20; TEMP 36.8; O2SAT 99
== END 2024-06-16 16:57 | disposition home or self-care (01) ==
PROVIDERS: Physician Assistant; Emergency Provider Emergency Medicine; PCP Family Medicine
DX: E87.6 Hypokalemia (principal); R55 Syncope and collapse; R42 Dizziness and giddiness; R51.9 Headache, unspecified; R07.89 Other chest pain
CPT/HCPCS: 70450; 71045; 80053; 83735; 83880; 84484; 85025; 85610; 93005; 96374; 96375; 99284; J1885; J2405

== ENCOUNTER 2024-07-23 17:10 | Emergency (ER) | payer BC, SELFPAY ==
[2024-07-23] VITALS (7 sets, daily range): BP systolic 121–158; BP diastolic 68–93; PULSE 81–103; RESP 14–19; TEMP 36.6–36.8; O2SAT 97–100; BMI 33.6
--- NOTE | 2024-07-23 17:15 | PC.NURSE ---
critical K 3.0 given to
--- NOTE | 2024-07-23 17:18 | PC.NURSE ---
DR JACKSON AT BEDSIDE
--- NOTE | 2024-07-23 17:25 | CT_ITS ---
PROCEDURE INFORMATION: Exam: CTA Chest With Contrast Exam date and time: 07/23/2024 6:38 PM Age: 48 years old Clinical indication: Pain; Other: Chest; Additional info: Chest/back pain, htn/tachy TECHNIQUE: Imaging protocol: Computed tomographic angiography of the chest with contrast. Exam focused on the arteries. 3D rendering (Not supervised by radiologist): MIP and/or 3D reconstructed images were created by the technologist. Radiation optimization: All CT scans at this facility use at least one of these dose optimization techniques: automated exposure control; mA and/or kV adjustment per patient size (includes targeted exams where dose is matched to clinical indication); or iterative reconstruction. Contrast material: ISOVUE; Contrast volume: 70 ml; Contrast route: INTRAVENOUS (IV); COMPARISON: CT ANGIO CHEST 01/02/2024 1:46 PM FINDINGS: Pulmonary arteries: Normal. No pulmonary emboli. Aorta: Unremarkable. No aortic aneurysm. No aortic dissection. Lungs: Mild dependent atelectasis. No consolidation. No masses. Few small calcified granulomas Pleural spaces: Unremarkable. No pneumothorax. No pleural effusion. Heart: Unremarkable. No cardiomegaly. No pericardial effusion. Lymph nodes: Unremarkable. No enlarged lymph nodes. Liver: Hepatomegaly and hepatic steatosis. Kidneys: Chronic mild right pelvicaliectasis. Bones/joints: Degenerative changes. No acute fracture. Soft tissues: Unremarkable. IMPRESSION: No pulmonary artery embolism.
--- NOTE | 2024-07-23 17:25 | CT_ITS ---
PROCEDURE INFORMATION: Exam: CT Head Without Contrast Exam date and time: 07/23/2024 6:32 PM Age: 48 years old Clinical indication: Other: Headache; Additional info: R headache, sudden onset TECHNIQUE: Imaging protocol: Computed tomography of the head without contrast. Radiation optimization: All CT scans at this facility use at least one of these dose optimization techniques: automated exposure control; mA and/or kV adjustment per patient size (includes targeted exams where dose is matched to clinical indication); or iterative reconstruction. COMPARISON: CT HEAD/BRAIN WO CON 07/23/2024 6:32 PM FINDINGS: Brain: Normal. No hemorrhage. Unremarkable white matter. No mass effect. Cerebral ventricles: No ventriculomegaly. Paranasal sinuses: Visualized sinuses are unremarkable. No fluid levels. Mastoid air cells: Visualized mastoid air cells are well aerated. Bones: Unremarkable. No acute fracture. Soft tissues: Unremarkable. IMPRESSION: No acute intracranial abnormality.
--- NOTE | 2024-07-23 17:25 | CT_ITS ---
PROCEDURE INFORMATION: Exam: CTA Neck With Contrast Exam date and time: 07/23/2024 6:34 PM Age: 48 years old Clinical indication: Headache; Additional info: R headache, sudden onset TECHNIQUE: Imaging protocol: Computed tomographic angiography of the neck with contrast. Exam focused on the cervical segments of the vasculature. 3D rendering (Not supervised by radiologist): MIP and/or 3D reconstructed images were created by the technologist. Radiation optimization: All CT scans at this facility use at least one of these dose optimization techniques: automated exposure control; mA and/or kV adjustment per patient size (includes targeted exams where dose is matched to clinical indication); or iterative reconstruction. Contrast material: ISOVUE; Contrast volume: 80 ml; Contrast route: INTRAVENOUS (IV); COMPARISON: CT SOFT TISSUE NECK W CON 08/05/2020 11:40 AM FINDINGS: Right common carotid artery: No stenosis. No dissection or occlusion. Right internal carotid artery: No stenosis of the extracranial segment. No dissection or occlusion. Right external carotid artery: No occlusion or stenosis of the origin. Left common carotid artery: No stenosis. No dissection or occlusion. Left internal carotid artery: No stenosis of the extracranial segment. No dissection or occlusion. Left external carotid artery: No occlusion or stenosis of the origin. Right vertebral artery: No stenosis. No dissection or occlusion. Left vertebral artery: No stenosis. No dissection or occlusion. Soft tissues: Normal. No significant soft tissue swelling. Bones/joints: No acute fracture. IMPRESSION: No stenosis or occlusion. REFERENCES: NASCET CRITERIA. The degree of stenosis in the cervical segment of the internal carotid artery is based on NASCET criteria. Normal is no stenosis. Mild is less than 50% stenosis. Moderate is 50-69% stenosis. Severe is 70% to 99% stenosis. Total occlusion is no detectable patent lumen.
--- NOTE | 2024-07-23 17:25 | CT_ITS ---
PROCEDURE INFORMATION: Exam: CTA Head With Contrast, Arteriography Exam date and time: 07/23/2024 6:34 PM Age: 48 years old Clinical indication: Headache; Additional info: R headache, sudden onset TECHNIQUE: Imaging protocol: Computed tomographic angiography of the head with contrast. Exam focused on the arteries. 3D rendering (Not supervised by radiologist): MIP and/or 3D reconstructed images were created by the technologist. Radiation optimization: All CT scans at this facility use at least one of these dose optimization techniques: automated exposure control; mA and/or kV adjustment per patient size (includes targeted exams where dose is matched to clinical indication); or iterative reconstruction. Contrast material: ISOVUE; Contrast volume: 80 ml; Contrast route: INTRAVENOUS (IV); COMPARISON: CT ANGIO HEAD 07/23/2024 6:34 PM FINDINGS: ANTERIOR CIRCULATION: Right internal carotid artery: Intracranial segment is patent with no significant stenosis. No aneurysm. Right middle cerebral artery: No occlusion or significant stenosis. No aneurysm. Right anterior cerebral artery: No occlusion or significant stenosis. No aneurysm. Left internal carotid artery: Intracranial segment is patent with no significant stenosis. No aneurysm. Left middle cerebral artery: No occlusion or significant stenosis. No aneurysm. Left anterior cerebral artery: No occlusion or significant stenosis. No aneurysm. POSTERIOR CIRCULATION: Right vertebral artery: No occlusion or significant stenosis. No aneurysm. Left vertebral artery: No occlusion or significant stenosis. No aneurysm. Basilar artery: No occlusion or significant stenosis. No aneurysm. Right posterior cerebral artery: No occlusion or significant stenosis. No aneurysm. Left posterior cerebral artery: No occlusion or significant stenosis. No aneurysm. Brain: No definite mass, mass effect, or midline shift. Cerebral ventricles: No ventriculomegaly. Bones/joints: Unremarkable. No acute fracture. Soft tissues: Unremarkable. IMPRESSION: No large vessel stenosis or occlusion.
--- NOTE | 2024-07-23 17:28 | ED_ITS ---
Discharge Plan Disposition Patient Disposition: Home, Self-Care Condition: Good Prescriptions Prescriptions: No Action trazodone 50 mg tablet 50 mg PO HS duloxetine 30 mg capsule,delayed release(DR/EC) 90 mg PO DAILY furosemide 20 mg tablet 20 mg PO DAILY gabapentin 600 mg tablet 600 mg PO BID Patient Comments: TAKE 1 TABLET BY MOUTH TWICE DAILY rosuvastatin 10 mg tablet See Rx Instructions .ROUTE .COMPLEX Qty: 30 11RF Dose Instruction: Take 1 tablet by mouth once daily Rx Instructions: Take 1 tablet by mouth once daily Zepbound 7.5 mg/0.5 mL pen injector 7.5 mg SQ WEEKLY 30 Days Qty: 2.5 2RF nadolol 80 mg tablet See Rx Instructions .ROUTE .COMPLEX Qty: 90 1RF Dose Instruction: Take 1 tablet by mouth once daily for blood pressure Rx Instructions: Take 1 tablet by mouth once daily for blood pressure diltiazem HCl [DILT-XR] 180 mg capsule,ext.rel 24h degradable 180 mg PO DAILY valsartan 80 mg tablet 80 mg PO DAILY Vraylar 4.5 mg capsule 3 mg PO DAILY omeprazole 40 mg capsule,delayed release(DR/EC) 40 mg PO BID potassium chloride 20 mEq tablet extended release 20 meq PO DAILY Qty: 14 0RF ibuprofen 800 mg tablet 800 mg PO TID PRN (Reason: pain) Qty: 30 0RF Referrals Follow up/Referrals: Newton Connors MD [Primary Care Provider] - See instructions Activity Restrictions/Add. Instructions Additional Instructions/Restrictions: You were evaluated in the emergency department today. Please keep cardiology follow-up tomorrow. Return for new or worsening symptoms. Clinical Impressions Clinical Impression: Hypokalemia, Hypertension Stand Alone Forms Stand Alone Forms: Work/School Release Instructions Patient Instructions: DI for High Blood Pressure, DI for Hypokalemia Print Language Print Language: Honduran Discharge ED Provider: Neela De Jesus General Adult HPI General Chief complaint: Recheck/Abnormal Lab/Rx Stated complaint: STROKE LIKE SYMPTOMS Time Seen by Provider: 07/23/24 17:14 History of Present Illness HPI narrative: This patient is a 48-year-old female with a history of hypertension, hyperlipidemia, CAD, AMBER, anxiety, GERD, and obesity presenting to the emergency department for evaluation with concern for multiple complaints. Patient states that she has not been feeling right all day. She notes that she just feels like something is off and does not have the energy to do very much. She notes her blood pressure and heart rate have been high all day. She works at [employer] and has been keeping an eye on her blood pressure and heart rate throughout the day. She notes her blood pressure has been in the 150s and heart rate has been in the 100s despite lack of physical activity. She notes this has been sending her into a panic and making her very anxious. She states that it feels like there is fuzziness around her mouth on both sides. She notes she called her motor vehicle licence examiner to arrange an appointment tomorrow to see what is going on, however she developed a sudden right-sided headache prior to arrival. It is improved, but initially was severe and felt like someone did hit her in the side of the head. No vision changes, extremity numbness/tingling/weakness, discoordination, or other concerns noted. She notes a prior history of migraines but states she has not had 1 since she got an ear piercing for migraines years ago. Related Data Home Medications ?Medication ?Instructions ?Recorded ?Confirmed trazodone 50 mg tablet 50 mg PO HS 12/18/22 05/19/24 diltiazem HCl 180 mg 180 mg PO DAILY 04/08/23 05/19/24 capsule,extended release 24 hr, controlled (DILT-XR) duloxetine 30 mg capsule,delayed 90 mg PO DAILY 03/05/24 05/19/24 release cariprazine 4.5 mg capsule 3 mg PO DAILY 03/25/24 05/19/24 (Vraylar) omeprazole 40 mg capsule,delayed 40 mg PO BID 03/25/24 05/19/24 release valsartan 80 mg tablet 80 mg PO DAILY 03/25/24 05/19/24 furosemide 20 mg tablet 20 mg PO DAILY 05/15/24 05/19/24 gabapentin 600 mg tablet 600 mg PO BID 05/19/24 05/19/24 Previous Rx's ?Medication ?Instructions ?Recorded rosuvastatin 10 mg tablet See Rx Instructions .Route 04/07/24 .COMPLEX #30 tabs ibuprofen 800 mg tablet 800 mg PO TID PRN pain #30 tabs 04/12/24 tirzepatide (weight loss) 7.5 7.5 mg (0.5 mL) SQ WEEKLY 30 days 05/26/24 mg/0.5 mL subcutaneous pen #2.5 mL injector (Zepbound) potassium chloride 20 mEq 20 meq PO DAILY #14 tabs 06/16/24 tablet,extended release nadolol 80 mg tablet See Rx Instructions .Route 07/16/24 .COMPLEX #90 tabs Allergies Allergy/AdvReac Type Severity Reaction Status Date / Time alprazolam (From Xanax) Allergy Severe Swelling Verified 07/23/24 17:42 of Lip/Tongue/Throat levofloxacin (From LEVAQUIN) Allergy Unknown SWELLING Verified 07/23/24 17:42 [facility] Disclaimer: The information contained in this section may have been updated after the patient was seen, as this information can be updated by other users. Medical History AMBER (obstructive sleep apnea) Hyperlipidemia Hypertension CAD (coronary artery disease) History of snoring Nonepileptic episode Chondromalacia, right knee Family history of heart disease Asthma Abnormal stress test Typical angina Tobacco abuse Dyspnea Decreased libido without sexual dysfunction Obesity (BMI 35.0-39.9 without comorbidity) Depression Anxiety Amenorrhea Family history of breast cancer in first degree relative delivery delivered Jaw dislocation DVT (deep venous thrombosis) History of TIA (transient ischemic attack) Surgical History History of mandibular surgery H/O dilation and curettage History of appendectomy History of colon surgery Family History Other Alcoholism Asthma Cancer Diabetes FHx: mental illness Heart attack Hyperlipidemia Hypertension Kidney disease Stroke Social History Smoking Status: Never smoker years smoked: 20 how long ago did patient quit smokin yr alcohol intake: never substance use type: denies use current occupational status: employed Travel in the last 8 weeks: None household members: spouse and children housing: house number of children: 1 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 current occupational exposures/hazards: No caffeine: No Have you lived/traveled outside [place] in past 30 days?: No Contact w/someone who lives/traveled outside US past 30 days?: No Exposure to someone with infectious disease in past 14 days?: No Do you have a fever (greater than 100.4 F or 38 C)?: No Have you tested positive for COVID-19: No Exposed to someone with COVID-19 in past 14 days?: No Do you have a sore throat?: No Do you have a cough?: No Do you have any weakness?: No Do you have any diarrhea?: No Are you experiencing any unusual bleeding?: No Do you have any muscle aches/pain?: No Do you have any abdominal pain?: No Are you experiencing loss of taste or smell?: No Other Medical History Have you received the Flu Vaccine for this season: No Have you received the Pneumonia Vaccine: No ROS Obtained: Yes All systems reviewed & no additional complaints except as documented Physical Exam General General appearance: alert, in no apparent distress and anxious Head Head exam: atraumatic and normocephalic Eye Eye exam: Present normal appearance, PERRL and EOMI ENT ENT exam: Present normal exam, normal oropharynx, mucous membranes moist and normal external ear exam Neck Neck exam: Present normal inspection, full ROM and trachea midline; Absent tenderness Chest Chest inspection: Present normal inspection and symmetric chest wall rise; Absent tenderness Respiratory Respiratory exam: Present normal lung sounds bilaterally; Absent respiratory distress, wheezes, stridor or accessory muscle use Cardiovascular Cardiovascular exam: Present regular rate and normal rhythm Abdominal Exam Abdominal exam: Present soft; Absent distention, tenderness or guarding Extremities Exam Extremities exam: Present normal inspection, full ROM and normal capillary refill; Absent tenderness or edema Back Exam Back exam: Present normal inspection and full ROM; Absent tenderness Neurological Exam Neurological exam: Present alert, oriented X3, CN II-XII intact and normal gait; Absent motor sensory deficit Psychiatric Psychiatric exam: Present anxious Skin Skin exam: Present warm and dry Medical Decision Making Medical Records Medical records reviewed: Yes I reviewed the patient's medical records. Screening: Per USPSTF and CDC recommendations, given the prevalence of disease in our region, it is our hospital?s policy to screen for HIV and viral Hepatitis for all patients aged 18 and over and those with ongoing risk factors. [place] Inquiry Pt receiving controlled substance: No Vital Signs: 07/23/24 17:10 07/23/24 17:40 07/23/24 17:45 Temperature 98.2 F Temperature Source Oral Pulse Rate 94 H Pulse Rate [Left] 103 H 103 H Respiratory Rate 16 19 Blood Pressure 141/84 H Blood Pressure [Right Arm] 157/93 H 157/93 H Blood Pressure Mean [Right Arm] 114 114 Blood Pressure Source [Right Arm] Automatic Cuff Blood Pressure Position [Right Arm] Sitting 02 Sat by Pulse Oximetry 100 98 Oxygen Delivery Method Room Air Room Air 07/23/24 18:00 07/23/24 19:00 07/23/24 19:30 Temperature Temperature Source Pulse Rate 90 91 H 81 Pulse Rate [Left] Respiratory Rate 14 18 16 Blood Pressure 121/68 154/87 H 158/90 H Blood Pressure [Right Arm] Blood Pressure Mean [Right Arm] Blood Pressure Source [Right Arm] Blood Pressure Position [Right Arm] 02 Sat by Pulse Oximetry 97 100 99 Oxygen Delivery Method Room Air 07/23/24 20:06 Temperature 97.8 F Temperature Source Oral Pulse Rate 82 Pulse Rate [Left] Respiratory Rate 18 Blood Pressure 152/92 H Blood Pressure [Right Arm] Blood Pressure Mean [Right Arm] Blood Pressure Source [Right Arm] Blood Pressure Position [Right Arm] 02 Sat by Pulse Oximetry Oxygen Delivery Method Room Air Lab Data Lab results reviewed: Yes I reviewed the patient's lab results. Lab Results 07/23/24 17:18: WBC 8.6, RBC 4.46, Hgb 13.3, Hct 39.9, MCV 89.5, MCH 29.8, MCHC 33.3, RDW 12.7, Plt Count 302, MPV 10.5 H, Neut % (Auto) 63.8, Lymph % (Auto) 26.5, [place] % (Auto) 5.0, Eos % (Auto) 3.6, Baso % (Auto) 0.9, Neut # (Auto) 5.5, Lymph # (Auto) 2.3, [place] # (Auto) 0.4, Eos # (Auto) 0.3, Baso # (Auto) 0.1, Sodium 139, Potassium 3.0 L, Chloride 102, Carbon Dioxide 25, Anion Gap 15.0, BUN 7, Creatinine 0.80, Estimated Creat Clear 127, Estimated GFR 77, Est GFR ( Amer) 93, Glucose 95, Calcium 9.5, Magnesium 1.8, Total Bilirubin 0.3, AST 36, ALT 34, Alkaline Phosphatase 105, Troponin I < 0.01, Total Protein 7.7, Albumin 4.6, Globulin 3.1, Albumin/Globulin Ratio 1.5, TSH 3.89, Thyroxine (T4) 12.2 H, Serum HCG, Qual Negative 07/23/24 18:09: SARS-CoV-2 (PCR) Not detected, Influenza Type A (PCR) Not detected, Influenza Type B (PCR) Not detected, RSV (PCR) Not detected, Rhinovirus (PCR) Not detected 07/23/24 18:30: Urine Color Yellow, Urine Appearance Clear, Urine pH 6.0, Ur Specific [place] 1.010, Urine Protein Negative, Urine Glucose (UA) Negative, Urine Ketones Negative, Urine Blood Negative, Urine Nitrate Negative, Urine Bilirubin Negative, Urine Urobilinogen 0.2, Ur Leukocyte Esterase 1+ A, Urine RBC 5-10, Urine WBC 20-50, Ur Squamous Epith Cells Tntc, Urine Bacteria 4+ 07/23/24 17:18 07/23/24 17:18 Orders (Tests/Meds): ED MEDICATIONS Discontinued Medications Generic Name Dose Route Start Last Admin Trade Name Freq PRN Reason Stop Dose Admin Lactated Ringer's 500 mls @ 999 mls/hr 07/23/24 17:54 07/23/24 18:08 Lactated Ringer's 500ml IV 07/23/24 18:24 999 mls/hr .Q31M ONE Administration Potassium Chloride/Water 100 mls @ 100 mls/hr 07/23/24 17:54 07/23/24 18:08 Potassium Chloride 10meq/100ml Ivpb IV 07/23/24 18:53 100 mls/hr ONCE ONE Administration Iopamidol 150 ml 07/23/24 18:46 07/23/24 18:48 Iopamidol-370 (76%);100ml Bottle IV 07/23/24 18:47 150 ml ONCE ONE Administration Potassium Chloride 60 meq 07/23/24 17:54 07/23/24 18:08 Potassium Chloride 20meq Tab PO 07/23/24 17:55 60 meq ONCE ONE Administration Sodium Chloride 50 ml 07/23/24 18:46 07/23/24 18:48 0.9 % Sodium Chloride 50 Ml Vial IV 07/23/24 18:47 50 ml ONCE ONE Administration Sodium Chloride 30 ml 07/23/24 18:47 07/23/24 18:48 0.9 % Sodium Chloride 50 Ml Vial IV 07/23/24 18:48 30 ml ONCE ONE Administration ORDERS Category Date Time Status CT angio chest PE protocol Stat Cat Scan 07/23/24 17:[address] angio head Stat Cat Scan 07/23/24 17:[address] angio neck Stat Cat Scan 07/23/24 17:[address] head/brain wo con Stat Cat Scan 07/23/24 17:25 Completed Complete Blood Count Auto Diff Stat Lab 07/23/24 17:18 Completed Comprehensive Metabolic Panel Stat Lab 07/23/24 17:18 Completed MAG [Magnesium] Stat Lab 07/23/24 17:18 Completed Mini Respiratory Panel Stat Lab 07/23/24 18:09 Completed Serum [HCG Qualitative, Serum] Stat Lab 07/23/24 17:18 Completed T4 (Thyroxine) Stat Lab 07/23/24 17:18 Completed TSH [Thyroid Stimulating Hormone] Stat Lab 07/23/24 17:18 Completed Trop I [Troponin I] Stat Lab 07/23/24 17:18 Completed UA [Urinalysis and Microscopic] Stat Lab 07/23/24 18:30 Completed Urine Culture Stat Micro 07/23/24 18:30 Received ECG Data Tracing #1: I reviewed this ECG and interpreted as documented below: Normal sinus rhythm with a ventricular rate of 92 bpm. Nonspecific T wave abnormality with no acute STEMI. Normal axis and intervals ECG initial impression date: 07/23/24 ECG initial impression time: 17:39 Medical Decision Narrative: In summary, this patient is a 48-year-old female presenting to the Emergency Department for evaluation of headache, not feeling right all day, high blood pressure and high heart rate readings. Differential diagnoses considered include but are not limited to anxiety, hypertensive urgency, hypertensive emergency, migraine, tension headache, viral syndrome, CVA, intracranial hemorrhage. Ruling out the most morbid conditions drove assessment. It should be noted patient's history includes hypertension, hyperlipidemia, CAD, obesity which may or may not be at goal therapy. This complicates all aspects of care by increasing patient's risk for morbidity. I reviewed patient's past medical records and noted previous evaluations for various complaints such as anxiety, chest pain. Patient has been found to have hypokalemia in the past. She underwent cardiac catheterization in March which found mild nonflow limiting disease with normal EF and borderline elevated left ventricular end-diastolic pressure. On exam, the patient is anxious appearing but is alert, pleasant, conversational. NIH stroke scale is 0, as she is completely neurologically intact. Symptoms also do not fit typical stroke with her just not feeling well and suddenly have a headache on the right side. She does have a history of migraines though she has not had one in a long time. Exam is not concerning for temporal arteritis as a cause of her headache. Workup included lab evaluation to evaluate for metabolic/cardiac causes of her symptoms as well as CT head, CT angiogram head and neck, and CT angiogram of the chest given the hypertension and tachycardia. I independently interpreted CT scans prior to the radiologist read and noted no obvious acute space-occupying intracranial lesion, no obvious aortic dissection or PE. Please see their read for final interpretation. Labs were obtained that demonstrated hypokalemia, for which oral replacement was ordered. Otherwise, labs are reassuring with negative troponin, reassuring CBC and chemistry. On reassessment, patient sitting upright in no distress, remains neurologically intact. Blood pressure still slightly elevated with systolics in the 150s, however not emergently concerning at this time. Heart rate is normal in the 80s. Overall, workup is reassuring and I feel we have excluded acute life- threatening pathology as a cause of her symptoms and I feel that she is appropriate for discharge home with close follow-up with primary care. She arranged a cardiology appointment tomorrow actually. Strict return precautions were given and she was discharged after all questions were answered Critical Care Critical Care Time Critical Care Time: No
[2024-07-23 17:33] LABS: Basophils # 0.1 K/mm3 (0-0.2); Basophils % 0.9 % (0.1-2.0); Eosinophils # 0.3 K/mm3 (0.0-0.4); Eosinophils % 3.6 % (0.1-12.0); Hematocrit 39.9 % (37.0-47.0); Hemoglobin 13.3 g/dL (12.2-16.2); Lymphocytes # 2.3 K/mm3 (0.7-4.5); Lymphocytes % 26.5 % (10-50); Mean Corpuscular HGB Conc 33.3 g/dL (31.8-35.4); Mean Corpuscular Hemoglobin 29.8 pg (27.0-31.2); Mean Corpuscular Volume 89.5 fl (81-99); Mean Platelet Volume 10.5 fl (7.4-10.4); Monocytes # 0.4 K/mm3 (0.1-1.0); Neutrophils # 5.5 K/mm3 (1.8-7.8); Neutrophils % 63.8 % (37.0-80.0); Platelet Count 302 K/mm3 (142-424); Red Blood Count 4.46 M/mm3 (4.20-5.40); Red Cell Distribution Width 12.7 % (11.5-17.5); White Blood Count 8.6 K/mm3 (4.8-10.8)
--- NOTE | 2024-07-23 17:34 | ECG_ITS ---
APPROVED REPORT Exam: Resting ECG HR:92 bpm ECG Measurements Heart Rate 92 AXES MN 159 P 64 QRSd 81 QRS 62 QT 357 T 60 QTc 406 Conclusion SINUS RHYTHM NONSPECIFIC T-WAVE ABNORMALITY Electronically signed by : NATHAN JACKSON, 07/24/2024 00:05:54
[2024-07-23 17:47] LABS: Alanine Aminotransferase 34 U/L (12-78); Albumin Level 4.6 g/dl (3.5-5.0); Albumin/Globulin Ratio 1.5 (1.1-1.8); Alkaline Phosphatase 105 U/L (38-126); Aspartate Amino Transferase 36 U/L (14-36); Bilirubin,Total 0.3 mg/dl (0.2-1.3); Blood Urea Nitrogen 7 mg/dl (7-17); Calcium 9.5 mg/dl (8.4-10.2); Carbon Dioxide 25 mmol/L (22.0-30.0); Chloride 102 mmol/L (98-107); Creatinine Clearance Estimated 127 mL/min (50-200); Estimated Glomerular Filt Rate 77 ml/min (>60); GFR (African American) 93 ML/MIN (>60); Globulin 3.1 g/dL (1.3-3.2); Glucose 95 mg/dl (74-100); Magnesium 1.8 mg/dl (1.6-2.3); Sodium 139 mmol/L (136-145); Total Protein,Serum 7.7 g/dl (6.3-8.2)
[2024-07-23 17:59] LABS: HCG Qualitative, Serum Negative (Negative)
[2024-07-23 18:04] LABS: T4 (Thyroxine) 12.2 ug/dl (5.53-11.0); Troponin I < 0.01 ng/ml (0.00-0.034)
[2024-07-23] MEDS: RINGERS SOLUTION,LACTATED 500 ML 999 ML IV (18:08)
[2024-07-23] MEDS: POTASSIUM CHLORIDE 20MEQ TAB 60 MEQ PO (18:08)
[2024-07-23] MEDS: KCl 10mEq/100ml 100 ML 100 MEQ IV (18:08)
[2024-07-23 18:13] LABS: Coronavirus 19, PCR Not Detected (NotDetected); Human Rhinovirus Not Detected (NotDetected); Influenza A, PCR Not Detected (NotDetected); Influenza B, PCR Not Detected (NotDetected); Respiratory Syncytial Virus Not Detected (NotDetected)
[2024-07-23 18:18] LABS: Thyroid Stimulating Hormone 3.89 uIU/mL (0.465-4.68)
[2024-07-23 18:41] LABS: Microscopic, Urine URINE MICROSCOPIC (MICROSCOPIC)
[2024-07-23 18:45] LABS: Appearance,Urine CLEAR (Clear); Bilirubin,Urine Negative (Negative); Blood, Urine Negative (Negative); Color,Urine YELLOW (Yellow); Glucose,Urine (UA) Negative (Negative); Ketones,Urine Negative (Negative); Leukocyte Esterase,Urine 1+ (Negative); Nitrate,Urine Negative (Negative); Protein,Urine Negative (Negative); Urobilinogen,Urine 0.2 EU/dl (0.2)
[2024-07-23] MEDS: 0.9 % SODIUM CHLORIDE 50 ML VIAL 30 ML IV (18:48)
[2024-07-23] MEDS: 0.9 % SODIUM CHLORIDE 50 ML VIAL IV (18:48)
[2024-07-23] MEDS: IOPAMIDOL-370 (76%);100ML BOTTLE 150 ML IV (18:48)
[2024-07-23 19:07] LABS: Squamous Epithelial Cell,Urine TNTC #/hpf (0-5); WBC,Urine 20-50 #/hpf (0-3)
[2024-07-23 19:08] LABS: Bacteria,Urine 4+ /lpf
--- NOTE | 2024-07-23 19:47 | PC.NURSE ---
rounded on pt. pt voices no needs. k+ infusion completed. MD De Jesus made aware.
== END 2024-07-23 20:12 | disposition home or self-care (01) ==
PROVIDERS: Emergency Provider Emergency Medicine; PCP Family Medicine
DX: E87.6 Hypokalemia (principal); I10 Essential (primary) hypertension; R51.9 Headache, unspecified; R53.83 Other fatigue
CPT/HCPCS: 70450; 70496; 70498; 71275; 80053; 81001; 83735; 84436; 84443; 84484; 84703; 85025; 87086; 87631; 93005; 96361; 96365; 99285; J3480; J7120; Q9967

== ENCOUNTER 2024-07-25 07:38 | Outpatient (CLI) | payer BC, SELFPAY | END 2024-07-25 23:59 | disposition home or self-care (01) | LOC: LAB 07:39 | PROVIDERS: PCP Family Medicine; Visit Provider Physician Assistant | DX: I25.10 Atherosclerotic heart disease of native coronary artery without angina pectoris (principal); I10 Essential (primary) hypertension; E87.6 Hypokalemia; E78.5 Hyperlipidemia, unspecified; Z68.35 Body mass index [BMI] 35.0-35.9, adult | CPT/HCPCS: 36415; 82384; 82533; 83835 ==

== ENCOUNTER 2024-07-27 09:29 | Outpatient (CLI) | payer BC, SELFPAY | END 2024-07-27 23:59 | disposition home or self-care (01) | LOC: LAB.DROPOF 09:30 | PROVIDERS: PCP Family Medicine; Visit Provider Physician Assistant | DX: E87.6 Hypokalemia (principal); I10 Essential (primary) hypertension; E78.5 Hyperlipidemia, unspecified; I25.10 Atherosclerotic heart disease of native coronary artery without angina pectoris; Z68.35 Body mass index [BMI] 35.0-35.9, adult | CPT/HCPCS: 82384; 84585 ==

== ENCOUNTER 2024-07-28 09:15 | Outpatient (CLI) | payer BC, SELFPAY ==
[2024-07-29 09:55] LABS: Sodium, Urine <20 mmol/L (Not Estab.); Sodium, Urine <28 mmol/24 hr (39-258)
[2024-07-31 01:07] LABS: Cortisol,F,ug/24hr,U 8 ug/24 hr (6-42); Cortisol,F,ug/L,U 6 ug/L (Undefined)
[2024-07-31 09:09] LABS: Potassium, Urine 10.5; Potassium, Urine 24 Hr 15
[2024-08-04 10:15] LABS: Metanephrine, U,24hr 55 ug/24 hr (36-209); Metanephrine, Ur 39 ug/L (Undefined); Normetanephr.,U,24h 80 ug/24 hr (131-612); Normetanephrine, Ur 57 ug/L (Undefined)
== END 2024-07-28 23:59 | disposition home or self-care (01) ==
LOC: LAB 09:15
PROVIDERS: PCP Family Medicine; Visit Provider Physician Assistant
DX: I10 Essential (primary) hypertension (principal); E87.6 Hypokalemia; E78.5 Hyperlipidemia, unspecified; I25.10 Atherosclerotic heart disease of native coronary artery without angina pectoris; Z68.35 Body mass index [BMI] 35.0-35.9, adult
CPT/HCPCS: 82530; 83835; 84133; 84300

== ENCOUNTER 2024-08-14 13:42 | Outpatient (CLI) | payer BC, SELFPAY ==
--- NOTE | 2024-08-14 13:42 | CT_ITS ---
FINAL REPORT TECHNIQUE: After the administration of intravenous contrast, axial images were obtained through the abdomen and pelvis by computed tomography. The study was performed with techniques to keep radiation dose as low as reasonably achievable, (ALARA). Individual dose reduction techniques using automated exposure control or adjustment of mA and/or kV according to the patient's size were employed. CLINICAL HISTORY: severe RUQ /RLQ abd pain/constipation FINDINGS: Abdomen: The lung bases are clear. There is mild fatty infiltration of the liver. The gallbladder is partially contracted. The spleen, pancreas, adrenal glands, and kidneys are unremarkable. There is a small fat containing hernia at the level of the umbilicus which is stable compared to the prior study. The aorta is normal in caliber. There is no free fluid or adenopathy. Pelvis: The appendix is not identified. There are postoperative changes from prior rectosigmoid anastomosis which are stable. The urinary bladder is unremarkable. The uterus is anteverted. Small cysts or follicles are seen in the ovaries. There is no free fluid or adenopathy. IMPRESSION: Small ovarian cysts or follicles. Reviewed, Interpreted and Dictated by Ion Murphy MD Transcribed by Joslyn Nguyễn Authenticated and [facility]
[2024-08-14] MEDS: IOPAMIDOL-370 (76%);100ML BOTTLE 75 ML IV (13:59)
[2024-08-14] MEDS: SODIUM CHLORIDE 0.9% 10ML SYR (RAD ONLY) 10 ML IV (13:59)
== END 2024-08-14 23:59 | disposition home or self-care (01) ==
PROVIDERS: PCP Family Medicine; Visit Provider Nurse Practitioner Family
DX: R10.31 Right lower quadrant pain (principal)
CPT/HCPCS: 74177; Q9967

== ENCOUNTER 2024-08-18 11:00 | Outpatient (CLI) | payer BC, SELFPAY ==
[2024-08-18 15:10] LABS: Microscopic,Cath URINE MICROSCOPIC (MICROSCOPIC)
[2024-08-18 15:31] LABS: Appearance,Urine/Cath CLEAR (Clear); Bilirubin,Cath Negative (Negative); Blood, Urine/Cath Negative (Negative); Color,Urine/Cath YELLOW (Yellow); Glucose,Urine/Cath (UA) Negative (Negative); Ketones,Urine/Cath Negative (Negative); Leukocyte Esterase,Cath Negative (Negative); Nitrate,Cath Negative (Negative); Protein,Urine/Cath Negative (Negative); Urobilinogen,Cath 0.2 EU/dl (0.2)
[2024-08-18 16:42] LABS: Bacteria,Urine/Cath TRACE /lpf
== END 2024-08-18 23:59 | disposition home or self-care (01) ==
LOC: LAB.DROPOF 08-19 10:29
PROVIDERS: PCP Urology; Visit Provider Urology
DX: R10.9 Unspecified abdominal pain (principal); N34.2 Other urethritis; R31.9 Hematuria, unspecified
CPT/HCPCS: 81001; 87086

== ENCOUNTER 2024-09-15 15:08 | Emergency (ER) | payer BC, SELFPAY ==
[2024-09-15] VITALS (14 sets, daily range): BP systolic 124–160; BP diastolic 82–93; PULSE 87–125; RESP 12–22; TEMP 36.8; O2SAT 96–100; BMI 35.9
--- NOTE | 2024-09-15 15:09 | ECG_ITS ---
APPROVED REPORT Exam: Resting ECG HR:104 bpm ECG Measurements Heart Rate 104 AXES SC 128 P 46 QRSd 77 QRS 55 QT 341 T 50 QTc 401 Conclusion SINUS TACHYCARDIA No acute ST changes Electronically signed by : NATHAN JACKSON, 09/15/2024 23:46:33
--- NOTE | 2024-09-15 15:25 | CA_ITS ---
FINAL REPORT TECHNIQUE: Ultrasound images of the deep venous system were obtained from the left groin to the calf veins. CLINICAL HISTORY: SWELLING LLE X SEVERAL DAYS,NKI,HX OF DVT IN THE PAST COMPARISON: None FINDINGS: The deep venous system is normally compressible. Normal flow is identified. IMPRESSION: No evidence of left lower extremity DVT. Reviewed, Interpreted and Dictated by Ion Murphy MD Transcribed by Joslyn Nguyễn Authenticated and [facility]
--- NOTE | 2024-09-15 15:25 | CT_ITS ---
PROCEDURE INFORMATION: Exam: CTA Chest With Contrast Exam date and time: 09/15/2024 3:30 PM Age: 48 years old Clinical indication: Other: Syncope; Sternal or substernal pain; Additional info: Syncope, chest pain, palpitations TECHNIQUE: Imaging protocol: Computed tomographic angiography of the chest with contrast. Exam focused on the arteries. 3D rendering (Not supervised by radiologist): MIP and/or 3D reconstructed images were created by the technologist. Radiation optimization: All CT scans at this facility use at least one of these dose optimization techniques: automated exposure control; mA and/or kV adjustment per patient size (includes targeted exams where dose is matched to clinical indication); or iterative reconstruction. Contrast material: ISOVUE 370; Contrast volume: 70 ml; Contrast route: INTRAVENOUS (IV); COMPARISON: CT ANGIO CHEST PE PROTOCOL 07/23/2024 6:38 PM FINDINGS: Pulmonary arteries: Left lower lobar calcified granuloma. 0.2 cm left apical noncalcified nodule. 0.4 cm probable right minor intra fissural lymph node. Aorta: Unremarkable. No aortic aneurysm. No aortic dissection. Lungs: Unremarkable. No consolidation. No masses. Pleural spaces: Unremarkable. No pneumothorax. No pleural effusion. Heart: Unremarkable. No cardiomegaly. No pericardial effusion. Lymph nodes: Unremarkable. No enlarged lymph nodes. Liver: Fatty liver infiltration. Bones/joints: Unremarkable. No acute fracture. Soft tissues: Unremarkable. IMPRESSION: 1. No central or segmental pulmonary arterial embolism identified. 2. Left apical nodule. 3. Fatty liver infiltration. 4. Fatty liver infiltration. [employer] society recommendation for pulmonary nodule follow-up: Single solid nodule <6 mm (<100 mm3) Low-risk patients: no routine follow-up required High-risk patients: optional CT at 12 months
--- NOTE | 2024-09-15 15:25 | CT_ITS ---
PROCEDURE INFORMATION: Exam: CT Head Without Contrast Exam date and time: 09/15/2024 3:23 PM Age: 48 years old Clinical indication: Pain; Syncope and collapse; Headache; Additional info: Headache, syncope TECHNIQUE: Imaging protocol: Computed tomography of the head without contrast. Radiation optimization: All CT scans at this facility use at least one of these dose optimization techniques: automated exposure control; mA and/or kV adjustment per patient size (includes targeted exams where dose is matched to clinical indication); or iterative reconstruction. COMPARISON: CT ANGIO HEAD 07/23/2024 6:34 PM FINDINGS: Brain: No extra-axial fluid collections. No midline shift. There is no evidence of uncal or subfalcine herniation. Plasencia-white matter differentiation is preserved. There is no evidence of intracranial hemorrhage. Cerebral ventricles: The ventricular system is normal in size and distribution. Paranasal sinuses: Paranasal sinuses are clear. Mastoid air cells: The mastoid sinuses are clear. Orbital cavities: The orbits are normal. Bones: No acute skeletal abnormality or aggressive osseous lesion. Soft tissues: No acute soft tissue findings. IMPRESSION: No acute intracranial pathology.
--- NOTE | 2024-09-15 15:25 | CT_ITS ---
PROCEDURE INFORMATION: Exam: CTA Head With Contrast, Arteriography Exam date and time: 09/15/2024 3:28 PM Age: 48 years old Clinical indication: Pain; Syncope and collapse; Headache; Additional info: Headache, syncope TECHNIQUE: Imaging protocol: Computed tomographic angiography of the head with contrast. Exam focused on the arteries. 3D rendering (Not supervised by radiologist): MIP and/or 3D reconstructed images were created by the technologist. Radiation optimization: All CT scans at this facility use at least one of these dose optimization techniques: automated exposure control; mA and/or kV adjustment per patient size (includes targeted exams where dose is matched to clinical indication); or iterative reconstruction. Contrast material: ISOVUE 370; Contrast volume: 80 ml; Contrast route: INTRAVENOUS (IV); COMPARISON: CT ANGIO HEAD 07/23/2024 6:34 PM FINDINGS: ANTERIOR CIRCULATION: Right internal carotid artery: The right internal carotid artery shows no evidence of significant stenosis. Right middle cerebral artery: Right middle cerebral artery is patent and without stenosis or occlusion. Right anterior cerebral artery: Right anterior cerebral artery is patent and without stenosis or occlusion. Left internal carotid artery: The left internal carotid artery shows no evidence of significant stenosis. Left middle cerebral artery: Left middle cerebral artery is patent and without stenosis or occlusion. Left anterior cerebral artery: Left anterior cerebral artery is patent and without stenosis or occlusion. POSTERIOR CIRCULATION: Right vertebral artery: Right vertebral artery is patent and without stenosis or occlusion. Left vertebral artery: Left vertebral artery is patent and without stenosis or occlusion. Basilar artery: Basilar artery is patent and without stenosis or occlusion. Right posterior cerebral artery: Right posterior cerebral artery is patent and without stenosis or occlusion. Left posterior cerebral artery: Left posterior cerebral artery is patent and without stenosis or occlusion. Brain: No definite mass, mass effect, or midline shift. Cerebral ventricles: No ventriculomegaly. Bones/joints: Unremarkable. No acute fracture. Soft tissues: Unremarkable. IMPRESSION: No large vessel stenosis or occlusion.
--- NOTE | 2024-09-15 15:25 | CT_ITS ---
PROCEDURE INFORMATION: Exam: CTA Neck With Contrast Exam date and time: 09/15/2024 3:28 PM Age: 48 years old Clinical indication: Pain; Headache; Additional info: Headache, syncope TECHNIQUE: Imaging protocol: Computed tomographic angiography of the neck with contrast. Exam focused on the cervical segments of the vasculature. 3D rendering (Not supervised by radiologist): MIP and/or 3D reconstructed images were created by the technologist. Radiation optimization: All CT scans at this facility use at least one of these dose optimization techniques: automated exposure control; mA and/or kV adjustment per patient size (includes targeted exams where dose is matched to clinical indication); or iterative reconstruction. Contrast material: ISOVUE 370; Contrast volume: 80 ml; Contrast route: INTRAVENOUS (IV); COMPARISON: CT ANGIO NECK 07/23/2024 6:34 PM FINDINGS: Right common carotid artery: No stenosis. No dissection or occlusion. Right internal carotid artery: No stenosis of the extracranial segment. No dissection or occlusion. Right external carotid artery: No occlusion or stenosis of the origin. Left common carotid artery: No stenosis. No dissection or occlusion. Left internal carotid artery: No stenosis of the extracranial segment. No dissection or occlusion. Left external carotid artery: No occlusion or stenosis of the origin. Right vertebral artery: No stenosis. No dissection or occlusion. Left vertebral artery: No stenosis. No dissection or occlusion. Soft tissues: Normal. No significant soft tissue swelling. Bones/joints: No acute fracture. IMPRESSION: No stenosis or occlusion. REFERENCES: NASCET CRITERIA. The degree of stenosis in the cervical segment of the internal carotid artery is based on NASCET criteria. Normal is no stenosis. Mild is less than 50% stenosis. Moderate is 50-69% stenosis. Severe is 70% to 99% stenosis. Total occlusion is no detectable patent lumen.
[2024-09-15 15:35] LABS: Basophils % 0.5 % (0.1-2.0); Eosinophils # 0.2 K/mm3 (0.0-0.4); Eosinophils % 2.1 % (0.1-12.0); Hematocrit 37.2 % (37.0-47.0); Hemoglobin 12.4 g/dL (12.2-16.2); Lymphocytes # 2.4 K/mm3 (0.7-4.5); Lymphocytes % 27.9 % (10-50); Mean Corpuscular HGB Conc 33.3 g/dL (31.8-35.4); Mean Corpuscular Hemoglobin 29.6 pg (27.0-31.2); Mean Corpuscular Volume 88.8 fl (81-99); Mean Platelet Volume 10.1 fl (7.4-10.4); Monocytes # 0.6 K/mm3 (0.1-1.0); Monocytes % 6.6 % (1.7-9.3); Neutrophils # 5.3 K/mm3 (1.8-7.8); Neutrophils % 62.5 % (37.0-80.0); Platelet Count 319 K/mm3 (142-424); Red Blood Count 4.19 M/mm3 (4.20-5.40); Red Cell Distribution Width 13.3 % (11.5-17.5); White Blood Count 8.5 K/mm3 (4.8-10.8)
[2024-09-15 15:38] LABS: Chloride 103 mmol/L (98-107)
[2024-09-15 15:39] LABS: Albumin Level 4.4 g/dl (3.5-5.0); Potassium 3.6 mmoL/L (3.5-5.1); Sodium 136 mmol/L (136-145)
[2024-09-15 15:41] LABS: Blood Urea Nitrogen 7 mg/dl (7-17); Creatinine Clearance Estimated 155 mL/min (50-200); Estimated Glomerular Filt Rate 90 ml/min (>60); GFR (African American) 109 ML/MIN (>60)
[2024-09-15 15:42] LABS: Alanine Aminotransferase 26 U/L (12-78); Albumin/Globulin Ratio 1.5 (1.1-1.8); Alkaline Phosphatase 113 U/L (38-126); Anion Gap 8.6 mEq/L (5-15); Aspartate Amino Transferase 30 U/L (14-36); Bilirubin,Total 0.3 mg/dl (0.2-1.3); Carbon Dioxide 28 mmol/L (22.0-30.0); Globulin 2.9 g/dL (1.3-3.2); Glucose 95 mg/dl (74-100); Total Protein,Serum 7.3 g/dl (6.3-8.2)
[2024-09-15 15:48] LABS: C-Reactive Protein 2.3 mg/L (0-4)
[2024-09-15 15:55] LABS: NT Pro Brain Natriuretic Pep. 25.8 pg/mL (0-125)
[2024-09-15 15:58] LABS: Troponin I < 0.01 ng/ml (0.00-0.034)
[2024-09-15 16:00] LABS: HCG Qualitative, Serum Negative (Negative)
[2024-09-15 16:05] LABS: Activated Partial Thrombo Time 24.1 seconds (22.8-30.6); INR 0.89 (0.9-1.1); Prothrombin Time 10.1 seconds (10.1-12.5)
[2024-09-15 16:15] LABS: Thyroid Stimulating Hormone 3.36 uIU/mL (0.465-4.68)
[2024-09-15] MEDS: 0.9 % SODIUM CHLORIDE 50 ML VIAL IV ×2 (16:27→16:31)
[2024-09-15] MEDS: SODIUM CHLORIDE 0.9% 10ML SYR (RAD ONLY) 10 ML IV (16:28)
[2024-09-15] MEDS: IOPAMIDOL-370 (76%);100ML BOTTLE 80 ML IV ×2 (16:28→16:31)
[2024-09-15 16:44] LABS: Erythrocyte Sedimentation Rate 17 mm/hr (0-20)
[2024-09-15] MEDS: LACTATED RINGERS 1000ML 1,000 ML 999 ML IV (17:39)
[2024-09-15 18:19] LABS: Troponin I < 0.01 ng/ml (0.00-0.034)
--- NOTE | 2024-09-15 18:33 | PC.NURSE ---
SUNDAY IN RESPIRATORY NOTIFIED OF HOLTER MONITOR FOR PT
--- NOTE | 2024-09-15 19:06 | PC.NURSE ---
SUNDAY FROM [facility] HOLTER MONTIOR AT THIS TIME
--- NOTE | 2024-09-15 20:47 | [facility].EDCP ---
Discharge Plan Disposition Patient Disposition: Home, Self-Care Condition: Good Prescriptions Prescriptions: No Action trazodone 50 mg tablet 50 mg PO HS duloxetine 30 mg capsule,delayed release(DR/EC) 90 mg PO DAILY gabapentin 400 mg capsule 400 mg PO BID potassium chloride 10 mEq capsule, extended release 10 meq PO DAILY Patient Comments: TAKE 1 CAPSULE BY MOUTH ONCE DAILY WITH FOOD cyanocobalamin (vitamin B-12) 2,500 mcg tablet 2,500 mcg PO DAILY nadolol 80 mg tablet 80 mg PO BID Qty: 60 4RF diltiazem HCl [DILT-XR] 180 mg capsule,ext.rel 24h degradable 180 mg PO DAILY valsartan 80 mg tablet 80 mg PO DAILY Vraylar 4.5 mg capsule 3 mg PO DAILY omeprazole 40 mg capsule,delayed release(DR/EC) 40 mg PO BID Referrals Follow up/Referrals: Newton Connors MD [Primary Care Provider] - See instructions Activity Restrictions/Add. Instructions Additional Instructions/Restrictions: You were evaluated in the emergency department today. Please wear your Holter monitor for 30 days as instructed by cardiology. Call their office to let them know about evaluation today. Follow-up closely with your primary care provider as well as cardiology. Return to the emergency department right away for new or worsening symptoms. You have an incidental finding of a lung nodule. Please follow-up closely primary care provider for monitoring of this. Clinical Impressions Clinical Impression: Syncope, Chest pain, Palpitations, Orthostasis, Lung nodule Stand Alone Forms Stand Alone Forms: Work/School Release Instructions Patient Instructions: DI for Syncope in Adults (Fainting), DI for Atypical Chest Pain, DI for Palpitations Print Language Print Language: Belarusian Discharge ED Provider: Neela De Jesus [facility] General Chief Complaint: Chest Pain Stated Complaint: Rapid Response from Cardiology Time Seen by Provider: 09/15/24 15:17 Mode of Arrival: Wheelchair Source of Information: Patient Description of Symptoms (Recalled from ER Triage Doc. by RN): pt brought in via stretcher from cardiology clinic, jose called on pt at 1459 because she passed out and her eyes were fluttering per cardiology staff, unknown how long, pt states she has been having substernal chest pain, sob, dizziness, head throbbing, bilateral leg swelling, feeling clammy, and feeling like a knot is in her throat for the last 2 days, had just seen alix daly in cardiology where they sent her for a heart monitor, bloodwork, and told her to double up on her nadolol, pt states she has had 2 heart caths in the past with no stents placed, she has also had an echo and stress done a few years ago, glucose was 92 on arrival to er, states the chest pain feels like someone is frogging her and reports it intermittent and sharp rating it 2/10 currently History of Present Illness HPI narrative: This patient is a 48-year-old female presenting to the emergency department after a rapid response was called in cardiology clinic. Patient was seen cardiology because she has been having several days of palpitations, shortness of breath, lightheadedness, presyncope, feeling a knot in her throat, and just feeling unwell. She notes that when she stands up, she feels a throbbing in her head but it goes away after a period of standing up. She notes that her heart rate has been as high as 160 at home. With these episodes she states she was standing in line to check out after being evaluated in cardiology clinic, and she felt very lightheaded like she was going to pass out. She notes that she was sat down in his chair next and she knows that she is waking up in the chair after a syncopal episode. She did not fall to the ground. Patient currently complains of chest pain that feels like someone is frogging her in the chest. No visual disturbance, numbness, tingling, unilateral weakness, or other concerns. Related Data Home Medications ?Medication ?Instructions ?Recorded ?Confirmed trazodone 50 mg tablet 50 mg PO HS 12/18/22 09/15/24 diltiazem HCl 180 mg 180 mg PO DAILY 04/08/23 09/15/24 capsule,extended release 24 hr, controlled (DILT-XR) duloxetine 30 mg capsule,delayed 90 mg PO DAILY 03/05/24 09/15/24 release cariprazine 4.5 mg capsule 3 mg PO DAILY 03/25/24 09/15/24 (Vraylar) omeprazole 40 mg capsule,delayed 40 mg PO BID 03/25/24 09/15/24 release valsartan 80 mg tablet 80 mg PO DAILY 03/25/24 09/15/24 gabapentin 400 mg capsule 400 mg PO BID 07/24/24 09/15/24 potassium chloride 10 mEq 10 meq PO DAILY 08/18/24 09/15/24 capsule,extended release cyanocobalamin (vitamin B-12) 2,500 mcg PO DAILY 09/15/24 09/15/24 2,500 mcg tablet Previous Rx's ?Medication ?Instructions ?Recorded nadolol 80 mg tablet 80 mg PO BID #60 tabs 09/15/24 Allergies Allergy/AdvReac Type Severity Reaction Status Date / Time alprazolam (From Xanax) Allergy Severe Swelling Verified 09/15/24 15:35 of Lip/Tongue/Throat levofloxacin (From LEVAQUIN) Allergy Unknown SWELLING Verified 09/15/24 15:35 PFSH PENDING SALE TO [facility] Disclaimer: The information contained in this section may have been updated after the patient was seen, as this information can be updated by other users. Medical History Seizure-like activity Syncope SOB (shortness of breath) on exertion Adrenal insufficiency Right upper quadrant abdominal pain AMBER (obstructive sleep apnea) Hyperlipidemia Hypertension CAD (coronary artery disease) History of snoring Nonepileptic episode Chondromalacia, right knee Family history of heart disease Asthma Abnormal stress test Typical angina Tobacco abuse Dyspnea Decreased libido without sexual dysfunction Obesity (BMI 35.0-39.9 without comorbidity) Depression Anxiety Amenorrhea Family history of breast cancer in first degree relative delivery delivered Jaw dislocation DVT (deep venous thrombosis) History of TIA (transient ischemic attack) Surgical History History of mandibular surgery H/O dilation and curettage History of appendectomy History of colon surgery Family History Other Alcoholism Asthma Cancer Diabetes FHx: mental illness Heart attack Hyperlipidemia Hypertension Kidney disease Stroke Social History Smoking Status: Never smoker years smoked: 20 how long ago did patient quit smokin yr alcohol intake: never substance use type: denies use current occupational status: employed Travel in the last 8 weeks: None household members: spouse and children housing: house number of children: 1 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 current occupational exposures/hazards: No caffeine: No Have you lived/traveled outside [place] in past 30 days?: No Contact w/someone who lives/traveled outside US past 30 days?: No Exposure to someone with infectious disease in past 14 days?: No Do you have a fever (greater than 100.4 F or 38 C)?: No Have you tested positive for COVID-19: No Exposed to someone with COVID-19 in past 14 days?: No Do you have a sore throat?: No Do you have a cough?: No Do you have any weakness?: No Do you have any diarrhea?: No Are you experiencing any unusual bleeding?: No Do you have any muscle aches/pain?: No Do you have any abdominal pain?: No Are you experiencing loss of taste or smell?: No Other Medical History Have you received the Flu Vaccine for this season: No Have you received the Pneumonia Vaccine: No ROS Obtained: Yes All systems reviewed & no additional complaints except as documented Physical Exam General General appearance: alert, in no apparent distress and anxious Head Head exam: atraumatic and normocephalic Eye Eye exam: Present normal appearance, PERRL and EOMI ENT ENT exam: Present normal exam, normal oropharynx, mucous membranes moist and normal external ear exam Neck Neck exam: Present normal inspection, full ROM and trachea midline; Absent tenderness Chest Chest inspection: Present normal inspection and symmetric chest wall rise; Absent tenderness Respiratory Respiratory exam: Present normal lung sounds bilaterally; Absent respiratory distress, wheezes, stridor or accessory muscle use Cardiovascular Cardiovascular exam: Present normal rhythm and tachycardia Abdominal Exam Abdominal exam: Present soft; Absent distention, tenderness or guarding Extremities Exam Extremities exam: Present normal inspection, full ROM and normal capillary refill; Absent tenderness or edema Back Exam Back exam: Present normal inspection and full ROM; Absent tenderness Neurological Exam Neurological exam: Present alert, oriented X3, CN II-XII intact and normal gait; Absent motor sensory deficit Psychiatric Psychiatric exam: Present normal affect and normal mood Skin Skin exam: Present warm and dry HEART Score HEART Score HEART Score assessment performed?: Yes History (anamnesis): Slightly suspicious ECG: Normal Age: 45-65 years Risk factors: Atherosclerosis history Troponin: </= normal limit HEART Score: 3 Critical Care Critical Care Time Critical Care Time: No Medical Decision Making Elver Inquiry Pt receiving controlled substance: No Vital Signs Vital Signs: 09/15/24 15:12 09/15/24 15:13 09/15/24 15:14 Temperature Temperature Source Pulse Rate 101 H 102 H 115 H Pulse Rate [Left Radial] Pulse Rate [Orthostatic Lying Left Radial] Pulse Rate [Orthostatic Sitting Left Radial] Pulse Rate [Orthostatic Standing Left Radial] Respiratory Rate 12 15 17 Blood Pressure 127/82 137/89 124/93 H Blood Pressure [Orthostatic Lying Right Arm] Blood Pressure [Orthostatic Sitting Right Arm] Blood Pressure [Orthostatic Standing Right Arm] Blood Pressure [Right Arm] Blood Pressure Mean Blood Pressure Mean [Right Arm] Blood Pressure Source Blood Pressure Source [Right Arm] Blood Pressure Position Blood Pressure Position [Right Arm] 02 Sat by Pulse Oximetry 99 99 99 Oxygen Delivery Method Room Air Room Air Room Air 09/15/24 15:18 09/15/24 15:26 09/15/24 15:30 Temperature 98.2 F Temperature Source Oral Pulse Rate 107 H 105 H Pulse Rate [Left Radial] 107 H Pulse Rate [Orthostatic Lying Left Radial] Pulse Rate [Orthostatic Sitting Left Radial] Pulse Rate [Orthostatic Standing Left Radial] Respiratory Rate 20 18 Blood Pressure 125/85 Blood Pressure [Orthostatic Lying Right Arm] Blood Pressure [Orthostatic Sitting Right Arm] Blood Pressure [Orthostatic Standing Right Arm] Blood Pressure [Right Arm] 131/85 Blood Pressure Mean Blood Pressure Mean [Right Arm] 100 Blood Pressure Source Blood Pressure Source [Right Arm] Automatic Cuff Blood Pressure Position Blood Pressure Position [Right Arm] Sitting 02 Sat by Pulse Oximetry 100 96 Oxygen Delivery Method Room Air Room Air 09/15/24 15:34 09/15/24 16:01 09/15/24 16:40 Temperature Temperature Source Pulse Rate 105 H 102 H Pulse Rate [Left Radial] Pulse Rate [Orthostatic Lying Left Radial] 101 H Pulse Rate [Orthostatic Sitting Left Radial] 107 H Pulse Rate [Orthostatic Standing Left Radial] 125 H Respiratory Rate 22 18 Blood Pressure 133/84 140/84 Blood Pressure [Orthostatic Lying Right Arm] 127/82 Blood Pressure [Orthostatic Sitting Right Arm] 137/89 Blood Pressure [Orthostatic Standing Right Arm] 124/93 H Blood Pressure [Right Arm] Blood Pressure Mean 100 Blood Pressure Mean [Right Arm] Blood Pressure Source Blood Pressure Source [Right Arm] Blood Pressure Position Blood Pressure Position [Right Arm] 02 Sat by Pulse Oximetry 99 100 Oxygen Delivery Method Room Air 09/15/24 17:00 09/15/24 17:30 09/15/24 18:00 Temperature Temperature Source Pulse Rate 98 H 90 106 H Pulse Rate [Left Radial] Pulse Rate [Orthostatic Lying Left Radial] Pulse Rate [Orthostatic Sitting Left Radial] Pulse Rate [Orthostatic Standing Left Radial] Respiratory Rate 22 14 22 Blood Pressure 140/91 H 141/89 H 133/88 Blood Pressure [Orthostatic Lying Right Arm] Blood Pressure [Orthostatic Sitting Right Arm] Blood Pressure [Orthostatic Standing Right Arm] Blood Pressure [Right Arm] Blood Pressure Mean 107 109 102 Blood Pressure Mean [Right Arm] Blood Pressure Source Blood Pressure Source [Right Arm] Blood Pressure Position Blood Pressure Position [Right Arm] 02 Sat by Pulse Oximetry 98 97 97 Oxygen Delivery Method 09/15/24 18:30 09/15/24 19:18 Temperature 98.3 F Temperature Source Oral Pulse Rate 99 H 87 Pulse Rate [Left Radial] Pulse Rate [Orthostatic Lying Left Radial] Pulse Rate [Orthostatic Sitting Left Radial] Pulse Rate [Orthostatic Standing Left Radial] Respiratory Rate 20 16 Blood Pressure 155/87 H 160/90 H Blood Pressure [Orthostatic Lying Right Arm] Blood Pressure [Orthostatic Sitting Right Arm] Blood Pressure [Orthostatic Standing Right Arm] Blood Pressure [Right Arm] Blood Pressure Mean 104 Blood Pressure Mean [Right Arm] Blood Pressure Source Automatic Cuff Blood Pressure Source [Right Arm] Blood Pressure Position Sitting Blood Pressure Position [Right Arm] 02 Sat by Pulse Oximetry 98 Oxygen Delivery Method Room Air Lab Data Labs: Lab Results 09/15/24 15:10: WBC 8.5, RBC 4.19 L, Hgb 12.4, Hct 37.2, MCV 88.8, MCH 29.6, MCHC 33.3, RDW 13.3, Plt Count 319, MPV 10.1, Neut % (Auto) 62.5, Lymph % (Auto) 27.9, [place] % (Auto) 6.6, Eos % (Auto) 2.1, Baso % (Auto) 0.5, Neut # (Auto) 5.3, Lymph # (Auto) 2.4, [place] # (Auto) 0.6, Eos # (Auto) 0.2, Baso # (Auto) 0.0, ESR 17, PT 10.1, INR 0.89 L, APTT 24.1, Sodium 136, Potassium 3.6, Chloride 103, Carbon Dioxide 28, Anion Gap 8.6, BUN 7, Creatinine 0.70, Estimated Creat Clear 155, Estimated GFR 90, Est GFR ( Amer) 109, Glucose 95, Calcium 9.0, Total Bilirubin 0.3, AST 30, ALT 26, Alkaline Phosphatase 113, Troponin I < 0.01, C-Reactive Protein 2.3, NT-Pro-B Natriuret Pep 25.8, Total Protein 7.3, Albumin 4.4, Globulin 2.9, Albumin/Globulin Ratio 1.5, TSH 3.36, Thyroxine (T4) 10.0, Serum HCG, Qual Negative 09/15/24 17:43: Troponin I < 0.01 09/15/24 15:10 09/15/24 15:10 Response Orders (Tests/Meds): ED MEDICATIONS Discontinued Medications Generic Name Dose Route Start Last Admin Trade Name Freq PRN Reason Stop Dose Admin Lactated Ringer's 1,000 mls @ 999 mls/hr 09/15/24 17:37 09/15/24 17:39 Lactated Ringer's 1000 Ml Bag IV 09/15/24 18:37 999 mls/hr .Q1H1M ONE Administration Iopamidol 80 ml 09/15/24 16:26 09/15/24 16:28 Iopamidol-370 (76%);100ml Bottle IV 09/15/24 16:27 80 ml ONCE ONE Administration Iopamidol 80 ml 09/15/24 16:29 09/15/24 16:31 Iopamidol-370 (76%);100ml Bottle IV 09/15/24 16:30 80 ml ONCE ONE Administration Sodium Chloride 50 ml 09/15/24 16:26 09/15/24 16:27 0.9 % Sodium Chloride 50 Ml Vial IV 09/15/24 16:27 50 ml ONCE ONE Administration Sodium Chloride 10 ml 09/15/24 16:26 09/15/24 16:28 Sodium Chloride 0.9% 10ml Syr (Rad Only) IV 10/15/24 16:25 10 ml NEEDED PRN Administration Maintain IV Site Sodium Chloride 50 ml 09/15/24 16:31 09/15/24 16:31 0.9 % Sodium Chloride 50 Ml Vial IV 09/15/24 16:32 50 ml ONCE ONE Administration ORDERS Category Date Time Status CT angio chest PE protocol Stat Cat Scan 09/15/24 15:[address] angio head Stat Cat Scan 09/15/24 15:[address] angio neck Stat Cat Scan 09/15/24 15:[address] head/brain wo con Stat Cat Scan 09/15/24 15:25 Completed BNP [NT Pro Brain Natriuretic Pep.] Stat Lab 09/15/24 15:10 Completed CRP [C-Reactive Protein] Stat Lab 09/15/24 15:10 Completed Complete Blood Count Auto Diff Stat Lab 09/15/24 15:10 Completed Comprehensive Metabolic Panel Stat Lab 09/15/24 15:10 Completed ESR [Erythrocyte Sedimentation Rate] Stat Lab 09/15/24 15:10 Completed PT INR [Prothrombin Time INR] Stat Lab 09/15/24 15:10 Completed PTT [Activated Partial Thrombo Time] Stat Lab 09/15/24 15:10 Completed Serum [HCG Qualitative, Serum] Stat Lab 09/15/24 15:10 Completed T4 (Thyroxine) Stat Lab 09/15/24 15:10 Completed TSH [Thyroid Stimulating Hormone] Stat Lab 09/15/24 15:10 Completed Trop I [Troponin I] Stat Lab 09/15/24 15:10 Completed Troponin I Q3H Lab 09/15/24 17:43 Completed CA venous doppler LE LT Stat Y 09/15/24 15:25 Completed ECG holter initial pfn Routine Y 09/15/24 18:58 Completed ECG Data Tracing #1: Attestation: I reviewed this ECG and interpreted as documented below: ECG Narrative: Sinus tachycardia with a ventricular rate of [address] changes concerning for ischemia. Normal intervals ECG initial impression date: 09/15/24 ECG initial impression time: 15:10 MDM Narrative Medical Decision Narrative: In summary, this patient is a 48-year-old female presenting to the Emergency Department for evaluation of chest pain, syncope, palpitations, lightheadedness, headaches. Differential diagnoses considered include but are not limited to dysrhythmia, PE, cerebral vascular abnormality, ACS, viral syndrome, dehydration, electrolyte derangements. Ruling out the most morbid conditions drove assessment. It should be noted patient's history includes obesity, prior history of DVT that was provoked, hypertension, hyperlipidemia, AMBER, CAD which may or may not be at goal therapy. This complicates all aspects of care by increasing patient's risk for morbidity. I reviewed patient's past medical records and noted patient in cardiology clinic today for similar symptoms prior to her syncopal episode, notes like they were planning to do labs including D-dimer on an outpatient basis. They were also given the patient a 30-day Holter monitor. On exam, the patient is lying in bed in no acute distress. She is neurologically intact with reassuring cardiopulmonary exam. She is mildly tachycardic but otherwise vitals are reassuring on cardiac telemetry. Orthostatic vital signs demonstrated tachycardia and symptoms when standing. Workup included lab evaluation to evaluate for infectious, metabolic, cardiac derangements including troponin. Given her headaches, syncopal episode, and her chest pain and palpitations, I decided to obtain CT head without contrast, CT angiogram head and neck, and CTA PE protocol. Patient was given a bolus of IV fluids. I independently interpreted CT scans prior to the radiologist read and noted no PE, no large vessel occlusion, no intracranial hemorrhage. Please see their read for final interpretation. Labs were obtained that demonstrated reassuring CBC with no significant leukocytosis or anemia, reassuring chemistry with negative troponins x 2. On reassessment, patient had good improvement. She remains neurologically intact with normal vitals on cardiac telemetry. Cardiopulmonary exam is benign. She was initially mildly tachycardic but heart rate improved after administration of IV fluids. Ultimately, I feel we have excluded acute life-threatening pathology as a cause of her symptoms and she is appropriate for discharge home with close follow-up with cardiology and primary care. She was given a 30-day Holter monitor here as instructed by cardiology. She was given very strict return precautions and was discharged after all questions were answered.
== END 2024-09-15 19:19 | disposition home or self-care (01) ==
PROVIDERS: Emergency Provider Emergency Medicine; PCP Family Medicine
DX: I95.1 Orthostatic hypotension (principal); R91.1 Solitary pulmonary nodule; R00.2 Palpitations; R07.9 Chest pain, unspecified; R06.02 Shortness of breath; R42 Dizziness and giddiness; R51.9 Headache, unspecified
CPT/HCPCS: 70450; 70496; 70498; 71275; 80053; 83880; 84436; 84443; 84484; 84703; 85025; 85610; 85651; 85730; 86140; 93005; 93225; 93227; 93971; 96360; 99285; J7120; Q9967

== ENCOUNTER 2024-09-18 10:27 | Outpatient (CLI) | payer BC, SELFPAY | END 2024-09-18 23:59 | disposition home or self-care (01) | LOC: RT 10:29 | PROVIDERS: PCP Family Medicine; Visit Provider Nurse Practitioner Family | DX: R00.0 Tachycardia, unspecified (principal); R07.9 Chest pain, unspecified | CPT/HCPCS: 93270; 93272 ==

== ENCOUNTER 2024-09-26 11:48 | Outpatient (CLI) | payer BC, SELFPAY ==
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
== END 2024-09-26 23:59 | disposition home or self-care (01) ==
LOC: RT 11:49
PROVIDERS: PCP Physician Assistant; Visit Provider Physician Assistant
DX: Z86.718 Personal history of other venous thrombosis and embolism (principal)
CPT/HCPCS: 93971

== ENCOUNTER 2024-11-19 07:41 | Outpatient (CLI) | payer BC, SELFPAY ==
--- NOTE | 2024-11-19 | CA_ITS ---
APPROVED REPORT Exam: Pharmacologic Technologist: Heydi Castillo Ht: 5 ft 5 in Wt: 224 lbs BSA: 2.08 m2 Medical History Medications: cariprazine, vitamin B-12, diltiazem HCI ER, duloxetine, gabapentin, nadolol, omeprazole, potassium chloride ER, trazodone. Stress Test Details Test: Exercise stress converted to pharmacologic stress due to failure to obtain a diagnostic stress test. Reason for pharmacologic stress test: changed from exercise stress test due to inability to reach target heart rate. HR Resting HR: 78 bpm Max Heart Rate (APMHR): 174 bpm Max HR Achieved: 98 bpm Target HR (85% APMHR): 148 bpm % of APMHR: 56 Recovery HR: 81 bpm BP Resting BP: 136.0/77.0 mmHg Max BP: 154.0/97.0 mmHg Recovery BP: 145.0/90.0 mmHg ECG Resting ECG: SR. No ischemia Stress ECG Conclusion Symptoms: SOA. Chest heaviness. -very brief. Arrhythmias/Ectopy: Lexiscan. ST-T Changes: Conclusion: This was converted from GXT due to CP, SOA. Electronically signed by : Kathi Yepez MD 11/19/2024 23:57:08
--- OUTSIDE RECORDS SUMMARY | 2024-11-19 07:44 | XMS_ITS | Data Portability ---
Author Organization [place] - Americo ortiz MD, Main Office Address [address], [facility] [address] [place] [address] Care Team Providers Care Cad Intern Name Role Phone EDINSON CARDONA Primary Care Provider Assessment No assessment recorded. Plan of Treatment Reminders Order Date Submit Date Provider Last Modified By Organization Details Last Modified Time Details Appointments None record ed. Lab None record ed. Referral None record ed. Procedures None record ed. Surgeries None record ed. Imaging None record ed. Medication Orders None record ed. Patient TargetsNo targets recorded. Patient Instructions Encounter Date Encounter Id Patient Instructions Last Modified By Organization Details Last Modified Time 02/21/2023 [id number] Numbness and Tingling: Care Instructions Not available 02/21/2023 14:59:17 Reason for Referral None Reported. Results Created Date Observation Date Name Description Value Unit Range Abnormal Flag Note LastModifiedBy Organization Detail LastModifiedTime 02/22/20 23 02/21/2023 elect romyo gram + nerve condu ction study No observ ation record ed. BAR[facility] Not Available 2022 15:03:55 Result Notes None recorded. Problems No Known Problems Procedures Surgical History Date Name Laterality Status Provider Name and Address Organization Details Recorded Time 02/21/2023 NCV/EMG completed Fadi Varghese MD 02/21/2023 14:59:05 Imaging Results Imaging Date Name Status LastModified by Organization Details LastModified Time 02/21/2023 electromyogram + nerve conduction study completed [facility] Information not available 02/21/2023 15:03:55 Procedure Notes None recorded. Medical Equipment None Reported. Allergies No known drug allergies Medications Name Sig Start Date Stop Date Status Note LastModified by Organization Details LastModified Time cyclobenzapr ine 10 mg tablet TAKE 1 TABLET BY MOUTH THREE TIMES DAILY active Not Available Not Available Not Available methocarbamo l 500 mg tablet active Not Available Not Available Not Available venlafaxine ER 75 mg capsule,exte nded release 24 hr TAKE 1 CAPSULE BY MOUTH ONCE DAILY active Not Available Not Available No t Available doxycycline hyclate 100 mg capsule TAKE 1 CAPSULE BY MOUTH TWICE DAILY FOR 10 DAYS active Not Available Not Available No t Available nadolol 80 mg tablet TAKE 1 TABLET BY MOUTH ONCE DAILY active Not Available Not Available No t Available trazodone 50 mg tablet TAKE 1 TABLET BY MOUTH ONCE DAILY AT BEDTIME active Not Available Not Available No t Available azithromycin 250 mg tablet TAKE 2 TABLETS BY MOUTH ON DAY 1, AND THEN TAKE 1 TABLET BY MOUTH ONCE A DAY ON DAY 2 THROUGH DAY 5 active Not Available Not Available No t Available levetiraceta m 500 mg tablet active Not Available Not Available Not Available valacyclovir 1 gram tablet TAKE 1 TABLET BY MOUTH THREE TIMES DAILY FOR 7 DAYS active Not Available Not Available N ot Available hydrocodone 5 mg-acetamino phen 325 mg tablet active Not Available Not Available Not Available meloxicam 15 mg tablet TAKE 1 TABLET BY MOUTH ONCE DAILY active Not Available Not Available No t Available sumatriptan 25 mg tablet TAKE ONE TABLET BY MOUTH AT ONSET OF MIGRAINE. IF SYMPTOMS PERSIST, A SECOND DOSE MAY BE TAKEN IN 2 HOURS. DO NOT EXCEED 4 TABLETS IN A 24 HOUR PERIOD, UNLESS OTHERWISE INSTRUCTED BY YOUR PHYSICIAN active Not Available Not Available No t Available venlafaxine ER 150 mg capsule,exte nded release 24 hr TAKE 1 CAPSULE BY MOUTH ONCE DAILY active Not Available Not Available No t Available omeprazole 40 mg capsule,mac yed release TAKE 1 CAPSULE BY MOUTH ONCE DAILY active Not Available Not Available No t Available methocarbamo l 750 mg tablet TAKE 1 TABLET BY MOUTH 4 TIMES DAILY FOR 10 DAYS active Not Available Not Available Not Available benzonatate 100 mg capsule TAKE 1 CAPSULE BY MOUTH TWICE DAILY NEEDED FOR COUGH active Not Available Not Available No t Available indomethacin 25 mg capsule TAKE 1 CAPSULE BY MOUTH 4 TIMES DAILY NEEDED FOR PAIN active Not Available Not Available No t Available gabapentin 300 mg capsule TAKE 1 CAPSULE BY MOUTH TWICE DAILY active Not Available Not Available No t Available ibuprofen 600 mg tablet active Not Available Not Available Not Available methylpredni solone 4 mg tablets in a dose pack TAKE BY MOUTH DIRECTED ON INSIDE OF PACKAGE active Not Available Not Available No t Available ondansetron 4 mg disintegrati ng tablet DISSOLVE 1 TABLET IN MOUTH EVERY 8 HOURS active Not Available Not Available No t Available DILT-XR 180 mg capsule, extended release TAKE 1 CAPSULE BY MOUTH ONCE DAILY active Not Available Not Available No t Available venlafaxine ER 150 mg tablet,exten ded release 24 hr TAKE 1 TABLET BY MOUTH ONCE DAILY active Not Available Not Available No t Available Vraylar 3 mg capsule TAKE 1 CAPSULE BY MOUTH ONCE DAILY active Not Available Not Available No t Available Vitals None Recorded Social History None recorded. Functional Status None recorded. Mental Status None recorded. Family History Nothing Reported. Medical History No medical history recorded. Gynecological HistoryNo gynecological history recorded. Obstetrics History GPAL:G 0 P 0 0 0 0 Past Encounters Encounter ID Performer Location Encounter Start Date Encounter Closed Date Diagnosis/Indication Diagnosis SNOMED-CT Code Diagnosis ICD10 Code Diagnosis Note [id number] Americo Varghese MD Main Office [address] [facility], [facility] [address] [place] [address] 02/21/2023 14:19:27 02/21/2023 15:00:11 Paresthesia 76783129 R20.2 Normal left arm and leg. Health Concerns Section Related Observation LastModified by Organization Detai ls LastModified Time None Recorded Concern Status LastModified by Organization Details LastModified Time None Recorded Advance Directives Directive None Recorded Payers Encounter Date Sequence Insurance Name Policy Number Policy Braga Covered Member ID Braga Member ID Guarantor Name 02/21/2023 1 [employer]: [place] [employer] [place] [id number] Hilda Hedges [id number] Hilda Guillen OBGyn Episode No OBEpisode recorded.
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
--- NOTE | 2024-11-19 08:00 | NM_ITS ---
APPROVED REPORT Exam: Nuclear Stress Test Indication: cp..soa..fatigue Patient Location: Outpatient Stress Tech: Heydi Van HI Tech:Eulalia Caban, ARRT, RT (R)(N) Ht: 5 ft 5 in Wt: 220 lbs Bra Size: c HR: 78 bpm BP: 136/77 mmHg BSA: 2.06 m2 TID: 1.18 BMI: 36.6 History: cp..soa..fatigue Procedure: Patient received 0.4 mg of intravenous Lexiscan, resting heart rate 78 bpm, resting blood pressure 136/77 mmHg, with Lexiscan maximum heart rate achieved was 98 bpm which is 85 % of the maximum predicted heart rate and blood pressure was 154/97 mmHg. With Lexiscan, patient denied any complaint of chest pain. Cardiac Stress and Resting SPECT Images: Cardiac Stress and Resting SPECT images were obtained using technetium 99m Myoview 28.0 mCi stress and 10.12 mCi at rest. Imaging demonstrates significant soft tissue overlap with the cardiac borders. This may affect the diagnostic interpretation of the study findings. Resting and stress imaging in supine and prone positions demonstrate no evidence of fixed or reversible perfusion defects. Gated imaging demonstrates normal global and regional LV systolic function. LVEF is calculated at 61%. Conclusion: No evidence of fixed or reversible perfusion defects. Gated imaging demonstrates normal global and regional LV systolic function. LVEF is calculated at 61%. Electronically signed by : Kathi Yepez MD 11/19/2024 23:50:03
--- NOTE | 2024-11-19 10:30 | CA_ITS ---
APPROVED REPORT EXAM: Comprehensive 2D, Doppler, and color-flow Echocardiogram Package Winder: Kaylee Beltre RT(R) Ht: 5 ft 5 in Wt: 224lbs BSA: 2.08 BP: 142/85 mmHg Indications: CP, SOB, fatigue, HTN, HLD, abn EKG 2D Dimensions LA Volume 22.90 mL LA Volume Index 11.01 mL/m2 (M/F) 16-34 EF AP4 55.20 % GL Strain -18.0 % M-Mode Dimensions RVDd 2.68 cm (0.9-2.6) LA Diam 3.95 cm (1.9-4.0) LVDd 3.80 cm (3.5-5.7) LVDs 2.82 cm (3.5-5.7) IVSd 0.72 cm (0.6-1.1) PWd 0.72 cm (0.6-1.1) EF (Teich) 51.50% FS 25.80% EDV (Teich) 62.00 mL ESV (Teich) 30.10 mL LV Diastology E Decel Time 180 (160-240 msec) E/A Ratio 1.2 Mitral Valve MV E Max Asim. 97.0 (40-130 cm/s) MV A Velocity 79.0 (40-130 cm/s) E/A Ratio 1.22 MV PHT 53.0 ms Left Ventricle The left ventricle is normal size. The left ventricular systolic function is normal. The left ventricular ejection fraction is within the normal range. There is normal left ventricular wall thickness. There is normal LV segmental wall motion. The left ventricular diastolic function is normal. LVEF is 55%. Right Ventricle The right ventricle is normal size. The right ventricular systolic function is normal. Atria The left atrium size is normal. The right atrium size is normal. There is no Doppler evidence of interatrial shunt. Aortic Valve Aortic valve opens well. There is no aortic valvular stenosis. No aortic regurgitation is present. Mitral Valve The mitral valve is normal in structure. No evidence of mitral valve stenosis. Trace mitral regurgitation. Tricuspid Valve Tricuspid valve is grossly normal in structure and function. Trace tricuspid regurgitation. There is insufficient TR jet to estimate RVSP. Pulmonic Valve The pulmonary valve is normal in structure. Trace pulmonic regurgitation. Great Vessels The aortic root is normal in size. IVC is normal in size and collapses >50% with inspiration. Pericardium There is no pericardial effusion. Other Information Study Quality: Fair Conclusion Normal biventricular systolic function. No significant valvular stenosis or regurgitation. Electronically signed by : Kathi Yepez MD 11/26/2024 23:56:25
[2024-11-19] MEDS: REGADENOSON 0.4MG/5ML SYRINGE 0.4 MG IV (10:43)
[2024-11-19] MEDS: ISOTOPE MYOVIEW (PER STUDY) 1 DOSE IV (10:43)
[2024-11-19] MEDS: SODIUM CHLORIDE 0.9% 10ML SYR (RAD ONLY) 10 ML IV ×2 (10:43)
== END 2024-11-19 23:59 | disposition home or self-care (01) ==
LOC: RAD 07:42
PROVIDERS: PCP Family Medicine; Visit Provider Physician Assistant
DX: R00.2 Palpitations (principal); R06.02 Shortness of breath; R55 Syncope and collapse; R00.0 Tachycardia, unspecified; I25.10 Atherosclerotic heart disease of native coronary artery without angina pectoris
CPT/HCPCS: 78452; 93017; 93018; 93306; A9502; J2785

== ENCOUNTER 2024-12-08 18:16 | Emergency (ER) | payer BC, SELFPAY ==
--- OUTSIDE RECORDS SUMMARY | 2024-12-08 18:25 | XMS_ITS | Data Portability ---
Author Organization M[facility] - Americo ortiz MD, Main Office Address [address], [facility] [address] [place] [address] Care Team Providers Care Configuration Developer Name Role Phone EDINSON CARDONA Primary Care Provider [phone] Assessment No assessment recorded. Plan of Treatment [...] By Organization Details Last Modified Time 02/21/2023 [id number] Numbness and Tingling: Care Instructions [email or web address] Not available 02/21/2023 14:59:17 Reason for Referral [...] Fadi Varghese MD 02/21/2023 14:59:05 Imaging Results None recorded. Procedure Notes None [...] SNOMED-CT Code Diagnosis ICD10 Code Diagnosis Note [id number] Americo Varghese MD Main Office [address] [facility], [facility] [address] [place] [address] 02/21/2023 14:19:27 02/21/2023 15:00:11 Paresthesia 96386937 R20.2 Normal left arm and leg. Health Concerns Section Related Observation LastModified by Organization Detai ls LastModified Time None Recorded Concern Status LastModified by Organization Details LastModified Time None Recorded Advance Directives Directive None Recorded Payers Encounter Date Sequence Insurance Name Policy Number Policy Braga Covered Member ID Braga Member ID Guarantor Name 02/21/2023 1 [employer] [id number] Hilda Hedges [id number] Hilda Guillen OBGyn Episode No OBEpisode recorded.
--- OUTSIDE RECORDS SUMMARY | 2024-12-08 18:25 | XMS_ITS | Data Portability ---
Author Organization [facility] GOMEZ Skinner MIL[place] CLOSED Address [address] [facility] [address] [place] [address] Care Team Providers Care Fitting Room Associate Name Role Phone EDINSON CONNORS Primary Care Provider [phone] Assessment Encounter Date Assessment Date Assessment LastModified [...] another followup. cc: Dr. Connors in [place] [facility]-51 Not available 06/21/2018 13:33:36 08/02/2018 [...] By Organization Details Last Modified Time 06/21/2018 [id number] We had discussed at some length the [...] tissue. KLAUS Not available 06/21/2018 13:33:37 08/02/2018 [id number] She is making good progress in getting rid of some of the other problems. Now, I think we can localize more to the subacromial area. We will go ahead and do an injection to this area to get rid of the last little bit of tendinitis in this area and then start her on some strengthening exercises. API-51 Not available 08/02/2018 10:45:11 09/16/2018 [id number] rotator cuff injury: care instructions Not available [...] months. API-51 Not available 09/16/2018 09:24:21 05/29/2019 [id number] rotator cuff injury: care instructions Not available [...] Tendon Sheath/Ligamen t completed Phoenix MANN MD [address] [place] [address], [phone], [facility] 09/16/2018 09:02:57 9 Injection Tendon Sheath/Ligamen t completed Phoenix MANN MD [address] [place] [address], [phone], [facility] 08/02/2018 09:04:39 Oral Surgery completed [facility] 06/21/2018 09:06:45 Abdominal Surgery completed [facility] 06/21/2018 09:07:18 Imaging Results None recorded. Procedure Notes None recorded. Medical Equipment None Reported. Allergies Allergen ID Allergen Name Allergen Category Reaction Reaction Severity Criticality Documentation Date Start Date Code Code System Note Provider Name and Address Organization Details Recorded Time [id number] Levaquin medicatio n respirato ry distress Not available Not available 06/21/2018 05759 2 RxNorm Moni Anne [facility] 8 09:03:45 601778 cyclobenz aprine medicatio n itching Not available Not available 09/16/2018 31915 RxNorm Moni Anne [facility] 9 08:44:00 Medications Name Sig Start Date [...] Updated DateTime 08/02/2018 165.1 cm 30.8 kg/m2 91327.59 g 132 mm[Hg] 82 mm[Hg] [facility] 9 08:35:52 Date Recorded Body height Body mass index (BMI) Body weight Systolic blood pressure Diastolic blood pressure Provider Name and Address Organization Details Last Updated DateTime 09/16/2018 165.1 cm 30.8 kg/m2 87145.59 g 130 mm[Hg] 82 mm[Hg] [facility] 9 08:43:22 Date Recorded Body height Body mass index (BMI) Body weight Systolic blood pressure Diastolic blood pressure Provider Name and Address Organization Details Last Updated DateTime 05/29/2019 165.1 cm 34.1 kg/m2 34277.44 g 128 mm[Hg] 78 mm[Hg] [facility] 9 14:34:12 Date Recorded Body height Body mass index (BMI) Body weight Systolic blood pressure Diastolic blood pressure Provider Name and Address Organization Details Last Updated DateTime 06/21/2018 165.1 cm 31.1 kg/m2 79497.77 g 136 mm[Hg] 84 mm[Hg] Moni Anne [facility] 8 09:03:18 Social History Question Answer Notes LastModified by Organizat ion Details LastModified Time Tobacco Smoking Status Former Smoker smoked 20yrs Moni Anne [facility] 06/21/2018 09:06:12 What Was The Date Of Your Most Recent Tobacco Screening? 09/16/2018 Information not available 08/26/2019 Sex: Unknown Functional Status None recorded. Mental Status None recorded. Family History Nothing Reported. Medical History Condition Response COPD N Pneumonia Y Arthritis N Blood Clot Y Cancer N Stroke N Kidney Disease N Heart Conditions N Migraines Y Bleeding Disorder N Tuberculosis N Asthma N Anxiety/Depression Y Thyroid Disease N Hernia N Anesthesia Complications Y Blood Thinners N High Cholesterol N Liver Disease N Allergies/Hayfever N Neurological Problems N Diabetes N Seizures/Epilepsy Y Sleep Apnea N Hypertension Y Osteoporosis N Gynecological HistoryNo gynecological history recorded. Obstetrics History GPAL:G 0 P 0 0 0 0 Past Encounters Encounter ID Performer Location Encounter Start Date Encounter Closed Date Diagnosis/Indication Diagnosis SNOMED-CT Code Diagnosis ICD10 Code Diagnosis Note [id number] Phoenix MANN MD [facility] [address] [place] [address] 06/21/2018 08:50:10 06/21/2018 09:48:16 Adhesive capsulitis of right shoulder 1471948831 79605 M75.01 [id number] Phoenix MANN MD [facility] [address] [place] [address] 08/02/2018 08:24:59 08/02/2018 11:18:24 Pain of shoulder region 89203222 M25.882 [id number] Phoenix MANN MD [facility] [address] [place] [address] 09/16/2018 08:34:47 09/16/2018 09:23:07 Impingement syndrome of shoulder region 472743990 M75.41 [id number] Phoenix MANN MD [facility] [address] [place] [address] 05/29/2019 14:03:57 06/06/2019 12:40:13 Impingement syndrome of shoulder region 957033295 M75.41 Health Concerns Section Related Observation LastModified by Organization Detai ls LastModified Time None Recorded Concern Status LastModified by Organization Details LastModified Time None Recorded Advance Directives Directive None Recorded Payers Insurance Date Sequence Insurance Name Policy Number Policy Braga Covered Member ID Braga Member ID Guarantor Name 06/06/2019 1 [employer] [id number] Zeke Guillen [id number] Hilda Guillen Notes Date Note Type [...] shoulder level. She came for further evaluation[place], [address], [facility] 06/26/2018 13:13:59 08/02/2018 text/html She continues to improve. She has much less soreness in her pectoralis and in her shoulder. She has improved in her range of motion and does not have the same amount of weakness. Her pain has dropped as well. [place], [address], [facility] 08/02/2018 12:12:05 09/16/2018 text/html Since last [...] forward flexion and difficulty sleeping at nighttime. MD Geraldo [place] [place], [address], [facility] 09/23/2018 07:56:13 05/29/2019 text/html She was told tequila t she may have further injury, and therefore, she had an MRI, and she came for further evaluation. Phoenix MANN MD [address] [place], [address], [facility] 06/02/2019 16:20:20 OBGyn Episode No OBEpisode recorded.
[2024-12-08 18:29] VITALS: BP 141/80; PULSE 117; RESP 16; TEMP 36.8; O2SAT 98; BMI 36.6
--- NOTE | 2024-12-08 18:33 | XR_ITS ---
PROCEDURE INFORMATION: Exam: XR Chest Exam date and time: 12/08/2024 6:41 PM Age: 49 years old Clinical indication: Shortness of breath; Additional info: Short of breath TECHNIQUE: Imaging protocol: Radiologic exam of the chest. Views: 1 view. COMPARISON: CT ANGIO CHEST PE PROTOCOL 09/15/2024 3:30 PM FINDINGS: Lungs: Unremarkable. No consolidation. Pleural spaces: Unremarkable. No pleural effusion. No pneumothorax. Heart/Mediastinum: Unremarkable. No cardiomegaly. Bones/joints: Unremarkable. IMPRESSION: No acute findings.
[2024-12-08 18:39] VITALS: BP 141/80; PULSE 117; RESP 16; TEMP 36.8; O2SAT 98
[2024-12-08 18:41] LABS: Basophils # 0.1 K/mm3 (0-0.2); Basophils % 0.6 % (0.1-2.0); Eosinophils # 0.3 Kmm3 (0.0-0.4); Eosinophils % 2.4 % (0.1-12.0); Hematocrit 36.4 % (37.0-47.0); Hemoglobin 12.1 g/dL (12.2-16.2); Immature Granulocytes # 0.05 10^3uL; Immature Granulocytes % 0.5 %; Lymphocytes # 2.9 K/mm3 (0.7-4.5); Mean Corpuscular HGB Conc 33.2 g/dL (31.8-35.4); Mean Corpuscular Hemoglobin 28.8 pg (27.0-31.2); Mean Corpuscular Volume 86.7 fl (81-99); Mean Platelet Volume 9.9 fl (7.4-10.4); Monocytes # 0.7 K/mm3 (0.1-1.0); Monocytes % 5.9 % (1.7-9.3); Neutrophils # 7.1 K/mm3 (1.8-7.8); Neutrophils % 64.6 % (37.0-80.0); Nucleated Red Blood Cells # 0 10^3/uL; Nucleated Red Blood Cells % 0 %; Platelet Count 323 K/mm3 (142-424); Red Cell Distribution Width 13.9 % (11.5-17.5); Red Cell Distribution Width-SD 44.1 fL
--- NOTE | 2024-12-08 18:47 | HMH.EDGENADL ---
Discharge Plan Disposition Patient Disposition: Home, Self-Care Condition: Good Prescriptions Prescriptions: New prednisone 20 mg tablet 20 mg PO TID Qty: 90 0RF acyclovir 400 mg tablet 400 mg PO Q4H 7 Days Qty: 42 0RF Rx Instructions: while awake; give 5 doses in 24 hours No Action trazodone 50 mg tablet 50 mg PO HS duloxetine 30 mg capsule,delayed release(DR/EC) 90 mg PO DAILY potassium chloride 10 mEq capsule, extended release 10 meq PO DAILY Patient Comments: TAKE 1 CAPSULE BY MOUTH ONCE DAILY WITH FOOD cyanocobalamin (vitamin B-12) 2,500 mcg tablet 2,500 mcg PO DAILY nadolol 80 mg tablet 80 mg PO BID Qty: 60 4RF budesonide-formoterol 160-4.5 mcg/actuation HFA aerosol inhaler 1 puff inhalation QID PRN (Reason: shortness of breath or wheezing) 90 Days Qty: 10.2 3RF albuterol sulfate 90 mcg/actuation HFA aerosol inhaler inhalation Patient Comments: INHALE 1 PUFF BY MOUTH EVERY 4 HOURS NEEDED gabapentin 600 mg tablet 600 mg PO BID Patient Comments: TAKE 1 TABLET BY MOUTH TWICE DAILY diltiazem HCl [DILT-XR] 180 mg capsule,ext.rel 24h degradable 180 mg PO BID 90 Days Qty: 180 2RF Vraylar 4.5 mg capsule 3 mg PO DAILY omeprazole 40 mg capsule,delayed release(DR/EC) 40 mg PO BID Referrals Follow up/Referrals: Newton Cononrs MD [Primary Care Provider, Medical] - See instructions Activity Restrictions/Add. Instructions Additional Instructions/Restrictions: Please follow-up with your PCP for any problems or concerns. Return to the emergency department with any other emergent concerns. Clinical Impressions Clinical Impression: Meadows's palsy Instructions Patient Instructions: Meadows Palsy Print Language Print Language: Arabic Discharge ED Provider: Baljinder Villanueva General Adult HPI <Astrid Phelps (ED), TRAVELING INVENTORY ASSOCIATE - Last Filed: 12/08/24 19:08> General Chief complaint: Neuro Symptoms/Deficit Stated complaint: Left side face drawing,sent from [facility],R/O stroke Time Seen by Provider: 12/08/24 18:23 Mode of Arrival: Ambulatory Source of Information: Patient Description of Symptoms (Recalled from ER Triage Doc. by RN): pt presents to the ED with left sided weakness, tingling, heavyness, and drooling. pt reports that she has a history of meadows's palsy and last time she had it was 2 to 3 years ago. pt unaware of triggers. pt does report recent stress over the past couple of weeks. pt states she has pain behind the left ear. notified to pts bedside and diagnosed the pt with meadows's palsy. History of Present Illness HPI narrative: This is a 49-year-old female who presents to the ED today for complaint of facial weakness, tingling heaviness and drooling. She tells me that this feels like Meadows's palsy. She has had Meadows's palsy twice in the past. The last time was 2-1/2 to 3 years ago. This started today group home through the day. She tells me that she believes stress is one of her triggers. She does have pain behind her left ear as well. Patient has no weakness in her arms or her legs. No other symptoms. Related Data Home Medications ?Medication ?Instructions ?Recorded ?Confirmed trazodone 50 mg tablet 50 mg PO HS 12/18/22 11/27/24 duloxetine 30 mg capsule,delayed 90 mg PO DAILY 03/05/24 11/27/24 release cariprazine 4.5 mg capsule 3 mg PO DAILY 03/25/24 11/27/24 (Vraylar) omeprazole 40 mg capsule,delayed 40 mg PO BID 03/25/24 11/27/24 release potassium chloride 10 mEq 10 meq PO DAILY 08/18/24 11/27/24 capsule,extended release cyanocobalamin (vitamin B-12) 2,500 mcg PO DAILY 09/15/24 11/27/24 2,500 mcg tablet gabapentin 600 mg tablet 600 mg PO BID 10/28/24 11/27/24 albuterol sulfate 90 mcg/actuation inhalation 11/27/24 11/27/24 aerosol inhaler Previous Rx's ?Medication ?Instructions ?Recorded nadolol 80 mg tablet 80 mg PO BID #60 tabs 09/15/24 diltiazem HCl 180 mg 180 mg PO BID 90 days #180 caps 10/16/24 capsule,extended release 24 hr, controlled (DILT-XR) budesonide-formoterol HFA 160 1 puff inhalation QID PRN 04/22/25 mcg-4.5 mcg/actuation aerosol shortness of breath or wheezing 90 inhaler days #10.2 grams acyclovir 400 mg tablet 400 mg PO Q4H 7 days #42 tabs 12/08/24 prednisone 20 mg tablet 20 mg PO TID #90 tabs 12/08/24 Allergies Allergy/AdvReac Type Severity Reaction Status Date / Time alprazolam (From Xanax) Allergy Severe Swelling Verified 11/27/24 10:29 of Lip/Tongue/Throat levofloxacin (From LEVAQUIN) Allergy Unknown SWELLING Verified 11/27/24 10:29 PFS <Astrid Phelps (ED), TRAVELING INVENTORY ASSOCIATE - Last Filed: 12/08/24 19:08> [facility] Disclaimer: The information contained in this section may have been updated after the patient was seen, as this information can be updated by other users. Medical History Asthma Eosinophilia Seizure-like activity Syncope SOB (shortness of breath) on exertion Adrenal insufficiency Right upper quadrant abdominal pain AMBER (obstructive sleep apnea) Hyperlipidemia Hypertension Currently normotensive CAD (coronary artery disease) History of snoring Nonepileptic episode Chondromalacia, right knee Family history of heart disease Abnormal stress test Typical angina Tobacco abuse Dyspnea Decreased libido without sexual dysfunction Obesity (BMI 35.0-39.9 without comorbidity) Depression Anxiety Amenorrhea Family history of breast cancer in first degree relative delivery delivered Jaw dislocation surgery X7 DVT (deep venous thrombosis) History of TIA (transient ischemic attack) Surgical History History of mandibular surgery H/O dilation and curettage X3 History of appendectomy History of colon surgery 75% of colon removed, colon stopped working Family History Other Alcoholism Asthma Cancer Diabetes FHx: mental illness Heart attack Hyperlipidemia Hypertension Kidney disease Stroke Social History Smoking Status: Current every day smoker tobacco type: cigarettes packs per day: 1 years smoked: 20 how long ago did patient quit smokin yr alcohol intake: never substance use type: denies use current occupational status: employed Travel in the last 8 weeks?: None household members: spouse and children housing: house number of children: 1 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 current occupational exposures/hazards: No caffeine: No Have you lived/traveled outside US in past 30 days?: No Contact w/someone who lives/traveled outside US past 30 days?: No Exposure to someone with infectious disease in past 14 days?: No Do you have a fever (greater than 100.4 F or 38 C)?: No Have you tested positive for COVID-19?: No Exposed to someone with COVID-19 in past 14 days?: No Do you have a sore throat?: No Do you have a cough?: No Do you have any weakness?: No Do you have any diarrhea?: No Are you experiencing any unusual bleeding?: No Do you have any muscle aches/pain?: No Do you have any abdominal pain?: No Are you experiencing loss of taste or smell?: No Other Medical History Have you received the Flu Vaccine for this season: No Have you received the Pneumonia Vaccine: No <Astrid Phelps (ED), TRAVELING INVENTORY ASSOCIATE - Last Filed: 12/08/24 19:08> ROS Obtained: Yes Systems reviewed as appropriate & no additional complaints except as documented Constitutional Constitutional: Reports as per HPI Physical Exam <Astrid Phelps (ED), TRAVELING INVENTORY ASSOCIATE - Last Filed: 12/08/24 19:08> General General appearance: alert Head Head exam: other (Meadows's palsy on the left) Eye Eye exam: Present PERRL and conjunctival redness (Eye dryness) ENT ENT exam: Present normal oropharynx and mucous membranes moist Neck Neck exam: Present full ROM and trachea midline Respiratory Respiratory exam: Present normal lung sounds bilaterally Cardiovascular Cardiovascular exam: Present regular rate, normal rhythm, normal heart sounds, +S1 and +S2 Abdominal Exam Abdominal exam: Present soft and normal bowel sounds Extremities Exam Extremities exam: Present normal inspection, full ROM and normal capillary refill Back Exam Back exam: Present normal inspection Neurological Exam Neurological exam: Present alert, oriented X3 and normal gait Skin Skin exam: Present warm, dry and intact <Baljinder Villanueva MD - Last Filed: 12/08/24 23:40> Head Head exam: other (Left-sided facial nerve palsy consistent with Meadows's palsy, involving forehead) Medical Decision Making <Astrid Phelps (ED), TRAVELING INVENTORY ASSOCIATE - Last Filed: 12/08/24 19:08> Medical Records Screening: Per USPSTF and CDC recommendations, given the prevalence of disease in our region, it is our hospital?s policy to screen for HIV and viral Hepatitis for all patients aged 18 and over and those with ongoing risk factors. Elver Inquiry Pt receiving controlled substance: No Elver was queried for this patient: No Vital Signs: 12/08/24 18:29 12/08/24 18:39 12/08/24 19:19 Temperature 98.3 F 98.3 F 98.9 F Temperature Source Oral Oral Oral Pulse Rate 117 H 100 H Pulse Rate [Right] 117 H Respiratory Rate 16 16 16 Blood Pressure 141/80 H 126/70 Blood Pressure [Right Arm] 141/80 H Blood Pressure Mean [Right Arm] 100 Blood Pressure Source Automatic Cuff Automatic Cuff Blood Pressure Source [Right Arm] Automatic Cuff Blood Pressure Position Supine Supine Blood Pressure Position [Right Arm] Supine 02 Sat by Pulse Oximetry 98 98 Oxygen Delivery Method Room Air Room Air Room Air Lab Data Lab Results 12/08/24 18:29: WBC 11.0 H, RBC 4.20, Hgb 12.1 L, Hct 36.4 L, MCV 86.7, MCH 28.8, MCHC 33.2, RDW 13.9, Plt Count 323, MPV 9.9, Neut % (Auto) 64.6, Lymph % (Auto) 26.0, [place] % (Auto) 5.9, Eos % (Auto) 2.4, Baso % (Auto) 0.6, Neut # (Auto) 7.1, Lymph # (Auto) 2.9, [place] # (Auto) 0.7, Eos # (Auto) 0.3, Baso # (Auto) 0.1, ESR 15, Sodium 138, Potassium 3.6, Chloride 105, Carbon Dioxide 24, Anion Gap 12.6, BUN 7, Creatinine 0.80, Estimated Creat Clear 137, Estimated GFR 77, Est GFR ( Amer) 93, Glucose 99, Calcium 8.8, Magnesium 1.9, Total Bilirubin 0.3, AST 27, ALT 25, Alkaline Phosphatase 121, C-Reactive Protein 3.7, Total Protein 7.3, Albumin 4.2, Globulin 3.1, Albumin/Globulin Ratio 1.4, Lipase 173 12/08/24 18:29 12/08/24 18:29 Orders (Tests/Meds): ED MEDICATIONS Discontinued Medications Generic Name Dose Route Start Last Admin Trade Name Scoutq PRN Reason Stop Dose Admin Acyclovir 400 mg 12/08/24 18:41 12/08/24 19:14 Acyclovir 400mg Tab PO 12/08/24 18:42 400 mg ONCE ONE Administration Prednisone 60 mg 12/08/24 18:41 12/08/24 19:14 Prednisone 20mg Tab PO 12/08/24 18:42 60 mg ONCE ONE Administration ORDERS Category Date Time Status Chest XR -- portable [XR chest portable] Stat Exams 12/08/24 18:33 Completed CBC [Complete Blood Count Auto Diff] Stat Lab 12/08/24 18:29 Completed CRP [C-Reactive Protein] Stat Lab 12/08/24 18:29 Completed Comprehensive Metabolic Panel Stat Lab 12/08/24 18:29 Completed ESR [Erythrocyte Sedimentation Rate] Stat Lab 12/08/24 18:29 Completed Lipase Stat Lab 12/08/24 18:29 Completed Magnesium Stat Lab 12/08/24 18:29 Completed Medical Decision Narrative: patient is a 49-year-old female presenting to the emergency department for evaluation of Meadows's palsy. She says group home through the day she started having numbness to the left side of her face. She has had 2 other episodes in the past. Patient is hemodynamically stable and nontoxic-appearing upon arrival, afebrile. Differential diagnosis includes Meadows's palsy versus stroke. Workup will be conducted with labs. Initial inventions include steroid and antiviral. I did consider imaging but talk to Dr. Mcmahon about this and since she has only facial involvement and has had history of Meadows's palsy in the past and she states that it feels the same as it has in the past. I chose to forego head scan. Patient has muscle weakness on the left side of the face. Will leave patient with Dr. Mcmahon as I have ordered prednisone and antiviral. All labs were normal. Patient will be discharged home. <Baljinder Villanueva MD - Last Filed: 12/08/24 23:40> Vital Signs: 12/08/24 18:29 12/08/24 18:39 12/08/24 19:19 Temperature 98.3 F 98.3 F 98.9 F Temperature Source Oral Oral Oral Pulse Rate 117 H 100 H Pulse Rate [Right] 117 H Respiratory Rate 16 16 16 Blood Pressure 141/80 H 126/70 Blood Pressure [Right Arm] 141/80 H Blood Pressure Mean [Right Arm] 100 Blood Pressure Source Automatic Cuff Automatic Cuff Blood Pressure Source [Right Arm] Automatic Cuff Blood Pressure Position Supine Supine Blood Pressure Position [Right Arm] Supine 02 Sat by Pulse Oximetry 98 98 Oxygen Delivery Method Room Air Room Air Room Air Lab Data Lab Results 12/08/24 18:29: WBC 11.0 H, RBC 4.20, Hgb 12.1 L, Hct 36.4 L, MCV 86.7, MCH 28.8, MCHC 33.2, RDW 13.9, Plt Count 323, MPV 9.9, Neut % (Auto) 64.6, Lymph % (Auto) 26.0, [place] % (Auto) 5.9, Eos % (Auto) 2.4, Baso % (Auto) 0.6, Neut # (Auto) 7.1, Lymph # (Auto) 2.9, [place] # (Auto) 0.7, Eos # (Auto) 0.3, Baso # (Auto) 0.1, ESR 15, Sodium 138, Potassium 3.6, Chloride 105, Carbon Dioxide 24, Anion Gap 12.6, BUN 7, Creatinine 0.80, Estimated Creat Clear 137, Estimated GFR 77, Est GFR ( Amer) 93, Glucose 99, Calcium 8.8, Magnesium 1.9, Total Bilirubin 0.3, AST 27, ALT 25, Alkaline Phosphatase 121, C-Reactive Protein 3.7, Total Protein 7.3, Albumin 4.2, Globulin 3.1, Albumin/Globulin Ratio 1.4, Lipase 173 Orders (Tests/Meds): ED MEDICATIONS Discontinued Medications Generic Name Dose Route Start Last Admin Trade Name Freq PRN Reason Stop Dose Admin Acyclovir 400 mg 12/08/24 18:41 12/08/24 19:14 Acyclovir 400mg Tab PO 12/08/24 18:42 400 mg ONCE ONE Administration Prednisone 60 mg 12/08/24 18:41 12/08/24 19:14 Prednisone 20mg Tab PO 12/08/24 18:42 60 mg ONCE ONE Administration ORDERS Category Date Time Status Chest XR -- portable [XR chest portable] Stat Exams 12/08/24 18:33 Completed CBC [Complete Blood Count Auto Diff] Stat Lab 12/08/24 18:29 Completed CRP [C-Reactive Protein] Stat Lab 12/08/24 18:29 Completed Comprehensive Metabolic Panel Stat Lab 12/08/24 18:29 Completed ESR [Erythrocyte Sedimentation Rate] Stat Lab 12/08/24 18:29 Completed Lipase Stat Lab 12/08/24 18:29 Completed Magnesium Stat Lab 12/08/24 18:29 Completed Medical Decision Narrative: patient is a 49-year-old female presenting to the emergency department for evaluation of Meadows's palsy. She says group home through the day she started having numbness to the left side of her face. She has had 2 other episodes in the past. Patient is hemodynamically stable and nontoxic-appearing upon arrival, afebrile. Clinical exam is consistent with Meadows's palsy. Workup will be conducted with labs. Initial inventions include steroid and antiviral. I did consider imaging but talk to Dr. Mcmahon about this and since she has only facial involvement and has had history of Meadows's palsy in the past and she states that it feels the same as it has in the past. I chose to forego head scan. Patient has muscle weakness on the left side of the face. Will leave patient with Dr. Mcmahon as I have ordered prednisone and antiviral. All labs were normal. Patient will be discharged home. I was consulted by the JIM, and we discussed the complexity of the problems being addressed.I approved the treatment and management plan for this patient?s care in the Emergency Department, thus performing a substantive portion of the medical decision making.Signed, Baljinder Villanueva MD MBA Critical Care <Astrid Phelps (ED), TRAVELING INVENTORY ASSOCIATE - Last Filed: 12/08/24 19:08> Critical Care Time Critical Care Time: No
[2024-12-08 18:57] LABS: Alanine Aminotransferase 25 U/L (12-78); Albumin Level 4.2 g/dl (3.5-5.0); Albumin/Globulin Ratio 1.4 (1.1-1.8); Alkaline Phosphatase 121 U/L (38-126); Anion Gap 12.6 mEq/L (5-15); Aspartate Amino Transferase 27 U/L (14-36); Bilirubin,Total 0.3 mg/dl (0.2-1.3); Blood Urea Nitrogen 7 mg/dl (7-17); Calcium 8.8 mg/dl (8.4-10.2); Carbon Dioxide 24 mmol/L (22.0-30.0); Chloride 105 mmol/L (98-107); Creatinine Clearance Estimated 137 mL/min (50-200); Estimated Glomerular Filt Rate 77 ml/min (>60); GFR (African American) 93 ML/MIN (>60); Globulin 3.1 g/dL (1.3-3.2); Glucose 99 mg/dl (74-100); Lipase 173 U/L (23-300); Magnesium 1.9 mg/dl (1.6-2.3); Potassium 3.6 mmoL/L (3.5-5.1); Sodium 138 mmol/L (136-145); Total Protein,Serum 7.3 g/dl (6.3-8.2)
[2024-12-08 19:02] LABS: C-Reactive Protein 3.7 mg/L (0-4); Erythrocyte Sedimentation Rate 15 mm/hr (0-20)
[2024-12-08] MEDS: ACYCLOVIR 400MG TAB 400 MG PO (19:14)
[2024-12-08] MEDS: predniSONE 20MG TAB 60 MG PO (19:14)
[2024-12-08 19:19] VITALS: BP 126/70; PULSE 100; RESP 16; TEMP 37.2; O2SAT 98
== END 2024-12-08 19:21 | disposition home or self-care (01) ==
PROVIDERS: Nurse Practitioner; Emergency Provider Emergency Medicine; PCP Family Medicine
DX: G51.0 Bell's palsy (principal)
CPT/HCPCS: 71045; 80053; 83690; 83735; 85025; 85651; 86140; 99283

== ENCOUNTER 2025-01-02 13:57 | Outpatient (CLI) | payer BC, SELFPAY ==
--- OUTSIDE RECORDS SUMMARY | 2024-11-12 05:45 | XMS_ITS ---
Author Organization [facility] Address [address] [place] Velaz[place] [id number] Care Team Providers Care Retail Account Specialist Name Role Phone Willis Connors Primary Care Provider Lanny Dyer [phone] Allergies Allergen (clinical drug ingredient) Drug/Non Drug Allergy documented on EMR Reaction Allergy Type Onset Date Status Cyclobenzaprine HCl hives Drug Allergy Active Levaquin Unknown Drug Allergy Active Results Component Value Reference Range Notes Glycohemoglobin A1c (in hous e) Reviewed date:11/20/2024 10:50:17 AM Interpretation:5.9% Performing Lab: Notes/Report: 5.9% glycohemoglobin 5.9% 5 - 6.5 % P-Vitamin B12 Reviewed date:11/20/2024 10:50:17 AM Interpretation: Normal Performing Lab: Notes/Report: Test performed by [facility] [address] [place] [address] , [place] [address] Bassem Perea MD, Change Management Director CLIA: [id number] Vitamin B12 809 018-4142 pg/mL P-Comprehensive Metabolic Pa lissette (CMP) Reviewed date:11/20/2024 10:50:17 AM Interpretation:CO2 21, Glu 109, Alk Phos 131 Performing Lab: Notes/Report: Test performed by [facility] [address] [place] [address] [address], [address], [place] [address] Bassem Perea MD, Change Management Director CLIA: [id number] Sodium 139 135-145 mmol/L Potassium 4.1 3.5-5.3 [...] Omeprazole 40 MG Take 1 capsule by [facility] twice daily; Duration: 90 Active DULoxetine HCl [...] HCl 50 MG TAKE 1 TABLET BY [facility] ONCE DAILY AT BEDTIME; Duration: 90 days Active Vraylar 4.5 MG 1 capsule Orally Onc e a day; Duration: 90 days Active Gabapentin 600 MG 1 tablet Orally Two times a day; Duration: 30 days 09/24/2024 Active Metaxalone 800 MG 1 tablet Orally Thre e times a day, prn 09/03/2024 Active Dilt-XR 180 MG Take 1 capsule by [facility] once daily; Duration: 90 days Active Nadolol [...] Problem Status W/U Status Risk Notes Problem Moderate persistent asthma without complication (J45.40) Active confirmed Vital Signs Blood pressure systolic 130 mm Hg 11/13/19 25 Blood pressure diastolic 76 mm Hg 025 Heart Rate 102 /min 11/12/2024 Height 66 in 11/12/2024 Weight 228 lbs 11/12/2024 BMI 36.8 kg/m2 11/12/2024 Encounters Encounter Location Date Provider Diagnosis [facility] [address] [facility] [address] [place] [id number] 11/12/2024 Lanny Dyer Elevated glucose R73 .09 [...] with Dr. Broderick, Reason: Provider Name:Janell Briggs , 01/23/2025 08:00:00 AM, [address], [address], [place], [phone], Progress Notes * ANGELICAAnthony RiveraDayB:1975 (49 yo F)Acc No.[id number]:11/12/2024 Progress Notes Patient: Hilda GEORGE Provider: MERCY Edmonds :1975 A ge:48 Y S ex:Female Date:11/12/2024 Address:[address], [id number] Pcp:Willis Connors Subjective: * Chief Complaints: * [...] 05/2022. * Hospitalization/Major Diagno stic Procedure: [facility], [facility]-chest pain 05/16/2012, [facility]-rash on left arm 09/29/2012, [facility]-seizures n , [facility] - pleurisy 08/31/2017, [facility] - fatigued, weak, dehydrated 09/04/2017, [facility]-precordial chest pain 12/28-, [facility]-sinus tachycardia 02/13/2019, [facility] ER- Passed out 11/06/2020, [facility] - Seizures 05/18/2023, [facility] - Seizure 10/23/2023, [facility] - Chest Pain 03/25/2024, [facility] - Near Syncope 06/16/2024. * Family History: F ather: alive, hypertension. M other: alive, breast cancer. P aternal Grand Father: . P aternal Grand Mother: . M aternal Grand Father: . M aternal Grand Mother: . 1 son(s) - healthy. . * Social History: C URRENT TOBACCO USE A re you a: f ormer smoker stopped 09/2016. C affeine: yes, frequency: [...] Temp: 97.5, BP: 130/76, HR: 102, Nurse: laura, Ht: 66, BMI:36.8. * Examination: G eneral [...] AM)?Normal* Value Reference Range V itamin B12 642 415-2418 - pg/mL * Nathalie Graham 11/20/2024 10: 50:05 AM > See phone encounter * Procedure Codes: 8 3036 GLYCATED HEMOGLOBIN TEST, Modifiers: QW , 3044F HG A1C LEVEL LT 7.0%, 3075F SYST BP GE 130 - 139MM HG, 3078F DIAST BP < 80 MM HG * Follow Up: m ole removal with Dr. Broderick * Images: Billing Information: * Visit Code: 76147 Office Visit, Est Pt., Level 4. * Procedure Codes: 76971 GLYCATED HEMOGLOBIN TEST. Modifiers: QW 3044F HG A1C LEVEL LT 7.0%. 3075F SYST BP GE 130 - 139MM HG. 3078F DIAST BP < 80 MM HG. * Electronic signature of MERCY Black on 01/02/2025 at 01:59 PM EDT Sign off status: Pending * Provider: MERCY Edmonds Date: 0 11/12/2024 Generated for Rain martínez/Carol/Conoritting on: 0 01/02/2025 01:59 PM EDT History and Physical Notes * [...]
--- OUTSIDE RECORDS SUMMARY | 2024-11-27 09:15 | XMS_ITS ---
[facility] Address [address] [facility] [address] [place] [id number] Care Team Providers Care Plant Propagator Name Role Phone Willis Connors Primary Care Provider Lanny Dyer Unavailable [phone] Allergies Allergen (clinical drug ingredient) Drug/Non Drug Allergy documented on EMR Reaction Allergy Type Onset Date Status cyclobenzaprine Cyclobenzaprine HCl hives Drug Allergy Active Levaquin Unknown Drug Allergy Active REASON FOR VISIT tick bite Medications Medication SIG (Take, Route, Frequency, Duration) Notes Start Date End Date Status Potassium Chloride ER 10 MEQ 1 capsule with food Orally Once a day; Duration: 30 day(s) 08/01/2024 Active Metaxalone 800 MG 1 tablet Orally Thre e times a day, prn 09/03/2024 Active Omeprazole 40 MG Take 1 capsule by mo [facility] twice daily; Duration: 90 Active DULoxetine HCl 30 MG TAKE 3 CAPSULES BY MOUTH ONCE DAILY; Duration: 30 days Active Albuterol Sulfate HFA 108 (90 Base) MCG/ACT 1 puff as needed Inhalation every 4 hrs, prn 11/12/2024 Active traZODone HCl 50 MG TAKE 1 TABLET BY KAREN ONCE DAILY AT BEDTIME; Duration: 90 days Active Nadolol 80 MG 1 tab(s) orally Two times a day Active Valsartan 80 MG 1 tablet Orally Once a day; Duration: 30 day(s) Active Gabapentin 600 MG 1 tablet in the am a nd 1.5 tab at night Orally Two times a day 09/24/2024 Active Dilt-XR 180 MG Take 1 capsule by mo ut once daily; Duration: 90 days Active Doxycycline Monohydrate 100 MG 1 capsule Orally Two times a day; Duration: 10 days 11/27/2024 Active Breyna 80-4.5 MCG/ACT as directed Inhalation Active Vraylar 4.5 MG 1 capsule Orally Onc e a day; Duration: 90 days Active Social History Tobacco Use: Social History Observation Description Date Details (start date - stop date) Former Smoker NA - NA CURRENT TOBACCO USE: Question Answer Notes Are you a: former smoker stopped 09/2016 Vital Signs Blood pressure systolic 126 mm Hg 11/28/19 25 Blood pressure diastolic 70 mm Hg 025 Heart Rate 100 /min 11/27/2024 Height 66 in 11/27/2024 Weight 231.8 lbs 11/27/2024 BMI 37.41 kg/m2 11/27/2024 Encounters Encounter Location Date Provider Diagnosis [facility] [address] [place] [id number] 11/27/2024 Lanny Dyer Infected tick bite, initial encounter W57.XXXA and Polyneuropathy associated with underlying disease G63 Assessments Encounter Date Diagnosis (ICD Code) Assessment Notes Treatment Notes Treatment Clinical Notes Section Notes 11/27/2024 Infected tick bite, initial encounter (ICD-10 - W57.XXXA) 11/27/2024 Polyneuropathy associated with underlying disease (ICD-10 - G63) Discussed with Dr. Connors. Will increase nightly dose to 1.5 tablets. Plan Of Treatment Medication Medication Name Sig Start Date Stop Date Notes Gabapentin 600 MG 1 tablet in the am a nd 1.5 tab at night Orally Two times a day 09/24/2024 Doxycycline Monohydrate 100 MG 1 capsule Orally Two times a day; Duration: 10 days 11/27/2024 Treatment Notes Assessment Notes Polyneuropathy associated wi th underlying disease Discussed with Dr. Connors. Will increase nightly dose to 1.5 tablets. Next Appt Details Follow Up: prn, Reason: Provider Name:Janell Briggs er, 01/23/2025 08:00:00 AM, [address], [address], [place], [id number], Progress Notes * Chip ANDREWS:1975 (49 yo F)Acc No.[id number]:11/27/2024 Progress Notes Patient: Hilda GEORGE Provider: MERCY Edmonds :1975 A ge:48 Y S ex:Female Date:11/27/2024 Address:[address], [place], [id number] Pcp:Willis Connors Subjective: * Chief Complaints: * 1 . Tick bite. * HPI: D ermatology: 48 year old female presents with c/o h/o insect bite P t sts she is here today for a tick bite on the rt side of her neck, and sts it is very sore . H PI: c/o Patient is here today for P t would like to increase her nightly gabapentin dose. * ROS: D ERMATOLOGY: no R erwin. n o H allan. G ASTROENTEROLOGY: no N ausea. n o V omiting. n o D iarrhea.? U ROLOGY: no D ifficulty urinating. n [...] [facility]: [facility], [facility] ER-chest pain 05/16/2012, [facility]-rash on left arm 09/29/2012, [facility]-seizures n , [facility] ER - pleurisy 08/31/2017, [facility] ER - fatigued, weak, dehydrated 09/04/2017, [facility]-precordial chest pain 12/28-, [facility]-sinus tachycardia 02/13/2019, [facility] ER- Passed out 11/06/2020, [facility] - Seizures 05/18/2023, [facility] ER - Seizure 10/23/2023, [facility] - Chest Pain 03/25/2024, [facility] ER - Near Syncope 06/16/2024. * [...] capsule by mouth once daily , Taking traZODone HCl 50 MG Tablet [...] 1 capsule by mouth twice daily , Taking Albuterol Sulfate HFA 108 (90 Base) MCG/ACT Aerosol Solution 1 puff as needed Inhalation every 4 hrs, prn , Taking Vraylar 4.5 MG Capsule 1 capsule Orally Once a day , Medication List reviewed and reconciled with the patient * Allergies: L evaquin, Cyclobenzaprine HCl: hives. Objective: * Vitals: W t: 231.8, Temp: 97.7, BP: 126/70, HR: 100, Nurse: spencer, Ht: 66, BMI:37.41. * Examination: G eneral Examination: General Appearance: N AD. N michael: r ight side of neck with a bite luis a with minimal surrounding erythema. C hest: n ormal shape and expansion.?Heart: R SR. L ungs: c lear to auscultation. Assessment: * Assessment: 1. I nfected tick bite, initial encounter - W57.XXXA (Primary) 2 . P olyneuropathy associated with underlying disease - G63 Plan: * Treatment: 2. P olyneuropathy associated with underlying disease Increase Gabapentin Tablet, 600 MG, 1 tablet in the am and 1.5 tab at night, Orally, Two times a day. Notes: Discussed with Dr. Connors. Will increase nightly dose to 1.5 tablets. * Follow Up: p rn * Images: Billing Information: * Visit Code: 33703 Office Visit, Est Pt., Level 3. * Procedure Codes: * Electronic signature of MERCY Black on 01/02/2025 at 02:00 PM EDT Sign off status: Pending * Provider: MERCY Edmonds Date: 0 11/27/2024 Generated for Rain martínez/Carol/eTransmitting on: 0 01/02/2025 02:00 PM EDT History and Physical Notes * HPI (History of Present Illness) Category Sub-Category Detail Notes Category Not es Dermatology h/o insect bite Pt sts she is he re today for a tick bite on the rt side of her neck, and sts it is very sore HPI Patient is here today for Pt wou ld like to increase her nightly gabapentin dose Examination Category Sub-Category Detail Notes Category Not es General Examination Heart: RSR Lungs: clear to auscultatio n General Appearance: NAD Neck: right side of neck w ith a bite luis a with minimal surrounding erythema Chest: normal shape and exp ansion
--- OUTSIDE RECORDS SUMMARY | 2025-01-01 12:15 | XMS_ITS ---
[facility] Address [address] [facility] [address] [place] [id number] Care Team Providers Care Fish Butcher Name Role Phone Willis Connors Primary Care Provider [phone] Allergies Allergen (clinical drug ingredient) Drug/Non Drug Allergy documented on EMR Reaction Allergy Type Onset Date Status cyclobenzaprine Cyclobenzaprine HCl hives Drug Allergy Active Levaquin Unknown Drug Allergy Active REASON FOR VISIT ER Follow Up Medications [...] Dilt-XR 180 MG Take 1 capsule by [facility] once daily; Duration: 90 days Active Potassium Chloride ER 10 MEQ 1 capsule with food Orally Once a day; Duration: 30 day(s) 08/01/2024 Active Omeprazole 40 MG Take 1 capsule by [facility] twice daily; Duration: 90 Active Metaxalone 800 MG 1 tablet Orally Thre e times a day, prn 09/03/2024 Active Social History Tobacco Use: Social History Observation Description Date Details (start date - stop date) Former Smoker NA - NA CURRENT TOBACCO USE: Question Answer Notes Are you a: former smoker stopped 09/2016 Vital Signs Blood pressure systolic 124 mm Hg 01/02/20 25 Blood pressure diastolic 70 mm Hg 025 Heart Rate 100 /min 01/01/2025 Height 66 in 01/01/2025 Weight 236 lbs 01/01/2025 BMI 38.09 kg/m2 01/01/2025 Encounters Encounter Location Date Provider Diagnosis [facility] [address] [facility] [address] [facility] [address] [place] [id number] 01/01/2025 Willis Connors Clavicle pain M89.8X 1 and Meadows's [...] Meadows's palsy Finish course of delvis roids Pending Test Test Name Order Date X ray : clavicle, right 01/01/2025 Next Appt Details Follow Up: prn, Reason: Provider Name:Janell Briggs er, 01/23/2025 08:00:00 AM, [address] [facility] [address] [facility], [address], [place], [phone], Progress Notes * Chip ANDREWS:1975 (49 yo F)Acc No.[id number]:01/01/2025 Progress Notes Patient: Anthony GEORGEsha Provider: Willis Connors M.D. :1975 A ge:49 Y S ex:Female Date:01/01/2025 Address:[address], [place], [id number] Subjective: * Chief Complaints: * 1 . ER Follow Up. * HPI: H PI: Patient is here today for f joshualow up on visit to ER for [place] Palsy. She has completed the antiviral treatment [...] Procedure: [facility], [facility] ER-chest pain 05/16/2012, [facility]-rash on left arm 09/29/2012, [facility]-seizures n , [facility] ER - pleurisy 08/31/2017, [facility] ER - fatigued, weak, dehydrated 09/04/2017, [facility]-precordial chest pain 12/28-, [facility]-sinus tachycardia 02/13/2019, [facility] ER- Passed out 11/06/2020, [facility] - Seizures 05/18/2023, [facility] ER - Seizure 10/23/2023, [facility] - Chest Pain 03/25/2024, [facility] ER - Near Syncope 06/16/2024. * [...] Temp: 97.9, BP: 124/70, HR: 100, Nurse: WMG/PE, Ht: 66, BMI:38.09. * Examination: G eneral [...] I maging: X ray : clavicle, right * Follow Up: p rn * Images: Billing Information: * Visit Code: 61698 Office Visit, Est Pt., Level 4. * Procedure Codes: * Electronic signature of Willis Connors MD on 01/02/2025 at 01:59 PM EDT Sign off status: Pending * Provider: Willis Connors M.D. Date: 0 01/01/2025 Generated for Rain martínez/Carol/Albertoransmitting on: 0 01/02/2025 01:59 PM EDT History and Physical Notes * HPI (History of Present Illness) Category Sub-Category Detail Notes Category Not es HPI Patient is here today for follow up on visit to ER for [place] Palsy. She has completed the antiviral treatment [...]
--- OUTSIDE RECORDS SUMMARY | 2025-01-02 13:59 | XMS_ITS | Data Portability ---
Author Organization [facility] Address [address] [facility] [address] [place] [address] Care Team Providers Care Graphics Manager Name Role Phone EDINSON CONNORS Primary Care Provider Assessment Encounter Date Assessment Date Assessment LastModified [...] another followup. cc: Dr. Connors in [place] [facility] Not available 06/21/2018 13:33:36 08/02/2018 08/02/2018 We discussed at some length the progressions, which will need to be of range of motion up to 90 degrees and continue working on strength. She will do this and return to see me in another 6 weeks for another followup. KLAUS Not available 08/02/2018 10:45:09 09/16/2018 09/16/2018 She [...] By Organization Details Last Modified Time 06/21/2018 [id number] We had discussed at some length the [...] tissue. [facility] Not available 06/21/2018 13:33:37 08/02/2018 1968001 She is making good progress in getting rid of some of the other problems. Now, I think we can localize more to the subacromial area. We will go ahead and do an injection to this area to get rid of the last little bit of tendinitis in this area and then start her on some strengthening exercises. API-51 Not available 08/02/2018 10:45:11 09/16/2018 [id number] rotator cuff injury: care instructions Not available [...] months. API-51 Not available 09/16/2018 09:24:21 05/29/2019 9705254 rotator cuff injury: care instructions Not available [...] Tendon Sheath/Ligamen t completed Phoenix MANN MD [address] [place] [address], [phone], [facility] 09/16/2018 09:02:57 9 Injection Tendon Sheath/Ligamen t completed Phoenix MANN MD [address] [place] [address], [phone], [facility] 08/02/2018 09:04:39 Oral Surgery completed [facility] 06/21/2018 09:06:45 Abdominal Surgery completed [facility] 06/21/2018 09:07:18 Imaging Results None recorded. Procedure Notes None recorded. Medical Equipment None Reported. Allergies Allergen ID Allergen Name Allergen Category Reaction Reaction Severity Criticality Documentation Date Start Date Code Code System Note Provider Name and Address Organization Details Recorded Time 961404 Levaquin medicatio n respirato ry distress Not available Not available 06/21/2018 38459 2 RxNorm Moni Anne [facility] 8 09:03:45 111227 cyclobenz aprine medicatio n itching Not available Not available 09/16/2018 08782 RxNorm Moni [facility] 9 08:44:00 Medications Name Sig Start Date [...] Updated DateTime 08/02/2018 165.1 cm 30.8 kg/m2 72178.59 g 132 mm[Hg] 82 mm[Hg] Moni [facility] 9 08:35:52 Date Recorded Body height Body mass index (BMI) Body weight Systolic blood pressure Diastolic blood pressure Provider Name and Address Organization Details Last Updated DateTime 09/16/2018 165.1 cm 30.8 kg/m2 38807.59 g 130 mm[Hg] 82 mm[Hg] [facility] 9 08:43:22 Date Recorded Body height Body mass index (BMI) Body weight Systolic blood pressure Diastolic blood pressure Provider Name and Address Organization Details Last Updated DateTime 05/29/2019 165.1 cm 34.1 kg/m2 49706.44 g 128 mm[Hg] 78 mm[Hg] [facility] 9 14:34:12 Date Recorded Body height Body mass index (BMI) Body weight Systolic blood pressure Diastolic blood pressure Provider Name and Address Organization Details Last Updated DateTime 06/21/2018 165.1 cm 31.1 kg/m2 42549.77 g 136 mm[Hg] 84 mm[Hg] Moni [facility] 8 09:03:18 Social History Question Answer Notes LastModified by Organizat ion Details LastModified Time Tobacco Smoking Status Former Smoker smoked 20yrs Moni Anne [facility] 06/21/2018 09:06:12 What Was The Date Of [...] SNOMED-CT Code Diagnosis ICD10 Code Diagnosis Note [id number] Phoenix MANN MD [facility] [address] [place] [phone] 06/21/2018 08:50:10 06/21/2018 09:48:16 Adhesive capsulitis of right shoulder 3406996094 76232 M75.01 [id number] Phoenix MANN MD [facility] [address] [place] [address] 08/02/2018 08:24:59 08/02/2018 11:18:24 Pain of shoulder region 21992965 M25.417 [id number] Phoenix AMNN MD [facility] [address] [place] [phone] 09/16/2018 08:34:47 09/16/2018 09:23:07 Impingement syndrome of shoulder region 116566993 M75.41 [id number] Phoenix MANN MD [facility] [address] [place] [address] 05/29/2019 14:03:57 06/06/2019 12:40:13 Impingement syndrome of shoulder region 456108783 M75.41 Health Concerns Section Related Observation LastModified by Organization Detai ls LastModified Time None Recorded Concern Status LastModified by Organization Details LastModified Time None Recorded Advance Directives Directive None Recorded Payers Insurance Date Sequence Insurance Name Policy Number Policy Braga Covered Member ID Braga Member ID Guarantor Name 06/06/2019 1 [employer] [id number] Zeke Guillen [id number] Hilda Guillen Notes Date Note Type [...] came for further evaluation. Phoenix MANN MD [facility] [place], [address], [facility] 06/26/2018 13:13:59 08/02/2018 text/html She continues to improve. She has much less soreness in her pectoralis and in her shoulder. She has improved in her range of motion and does not have the same amount of weakness. Her pain has dropped as well. Phoenix MANN MD [address] [place], [address], [facility] 08/02/2018 12:12:05 09/16/2018 text/html Since last [...] at nighttime. Phoenix MANN MD [address] [place], [address], [facility] 09/23/2018 07:56:13 05/29/2019 text/html She was told tequila t she may have further injury, and therefore, she had an MRI, and she came for further evaluation. Phoenix MANN MD [address] [place], [address], [facility] 06/02/2019 16:20:20 OBGyn Episode No OBEpisode recorded.
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
--- OUTSIDE RECORDS SUMMARY | 2025-01-02 14:00 | XMS_ITS | Clinical Summary ---
Author Organization Healthcare Address [address] [place] [address] Care Team Providers Care Graduate Civil Engineer Name Role Phone Unavailable Primary Care Provider Unavailabl e Medications methocarbamol (Robaxin) 500 MG tablet Take 1 tablet (500 mg total) by mouth 4 (four) times a day for 10 days. 40 tablet 06/28/2022 Active Social History Tobacco Use Types Packs/Day Years Used Date Smoking Tobacco: Never Assessed Comments Unknown Sex and Gender Information Value Date Recorded Sex Assigned at Not on file Legal Sex Female 8:07 PM EDT Gender Identity Not on file Sexual Orientation Not on file Last Filed Vital Signs Vital Sign Reading Time Taken Comments Blood Pressure 136/77 06/07/2022 4:03 PM EST Pulse 77 06/07/2022 4:03 PM EST Temperature - - Respiratory Rate 17 05/03/2022 9:59 AM EDT Oxygen Saturation - - Inhaled Oxygen Concentration - - Weight 93.2 kg (205 lb 7.5 oz) 05/03/2022 9:59 A M EDT Height 165.1 cm (5' 5 ) 05/03/2022 9:59 AM EDT Body Mass Index 34.19 05/03/2022 9:59 AM EDT Plan of Treatment Health Maintenance Due Date Last Done Comments Dental Prophylaxis 1977 Dental X-Ray: Bitewings 1977 [facility]-Depression Screening 1977 [facility]-HIV Screening 1977 [facility]-Hepatitis C Screening 1977 [facility]-Infant/Child/Adol SDOH Screenings 1977 [facility]- SDOH Screenings 11/30/1995 [facility]-Adult SDOH Screenings 11/30/1995 [facility]-Hepatitis B Vaccines (1 of 3 - 19+ 3-dose series) 1996 [facility]-Pap Smear 1998 [facility]-Cervical Cancer Screening 11/30/2007 [facility]-HPV/Cotest 11/30/2007 Dental Oral Exam 09/27/2022 03/29/2022 CT Colonography 2022 Colonoscopy 2022 FIT-DNA 2022 FIT 2022 FOBT 2022 Sigmoidoscopy 2022 [facility]-Colorectal Cancer Screening 2022 [id number] Vaccine ( - season) 2024 05/10/2021, 04/19/2021 [facility]-Influenza Vaccine (Seaso n Ended) 2025 07/14/2021 Dental X-Ray: Full Mouth 03/30/2025 03/29/2022 [facility]-Zoster Vaccines (1 of 2) 11/30/2027 [facility]-DTaP,Tdap,and Td Vaccine s (2 - Td or Tdap) 07/14/2031 07/14/2021 [facility]-Obesity Intervention Completed 022, 06/07/2022, 05/03/2022 HPV Vaccines Aged Out No longer eligi ble based on patient's age to complete this topic [facility]-HIB Vaccines Aged Out No longer e ligible based on patient's age to complete this topic [facility]-Hepatitis A Vaccines Aged Out No longer eligible based on patient's age to complete this topic [facility]-IPV Vaccines Aged Out No longer e ligible based on patient's age to complete this topic [facility]-Pneumococcal Vaccine: Pediatrics (0 to 5 Years) and At-Risk Patients (6 to 49 Years) Aged Out No longer eligible b ased on patient's age to complete this topic [facility]-Rotavirus Vaccines Aged Out No lo nger eligible based on patient's age to complete this topic Procedures Procedure Name Priority Date/Time Associated Diagnosis Comments PANORAMIC RADIOGRAPHIC IMAGE Routine 03/29/2022 2:45 PM EDT TMJ (temporomandibular joint disorder) COMPREHENSIVE ORAL EVALUATION - NEW OR ESTABLISHED PATIENT Routine 03/29/2022 2:45 PM EDT TMJ (temporomandibular joint disorder) from Last 3 Months or Most Recently Relevant to Health Maintenance Insurance ANTH
--- OUTSIDE RECORDS SUMMARY | 2025-01-02 14:00 | XMS_ITS | Data Portability ---
Author Organization [facility]ARY - Americo ortiz MD, Main Office Address [address], [facility] [address] [place] [address] Care Team Providers Care Caustics Loader Name Role Phone EDINSON CARDONA Primary Care [...] By Organization Details Last Modified Time 02/21/2023 [id number] Numbness and Tingling: Care Instructions Not available [...] SNOMED-CT Code Diagnosis ICD10 Code Diagnosis Note [id number] Americo Varghese MD Main Office [address] [facility], [facility] [address] [place] [address] 02/21/2023 14:19:27 02/21/2023 15:00:11 Paresthesia 98157248 R20.2 Normal left arm and leg. Health Concerns Section Related Observation LastModified by Organization Detai ls LastModified Time None Recorded Concern Status LastModified by Organization Details LastModified Time None Recorded Advance Directives Directive None Recorded Payers Insurance Date Sequence Insurance Name Policy Number Policy Braga Covered Member ID Braga Member ID Guarantor Name 02/21/2023 1 [place] [id number] Hilda Hedges [id number] Hilda Guillen OBGyn Episode No OBEpisode recorded.
--- OUTSIDE RECORDS SUMMARY | 2025-01-02 14:00 | XMS_ITS | Encounter Summary ---
Author Organization Healthcare Address [address] [place] [address] Care Team Providers Care Audit Reviewer Name Role Phone None, None Primary Care Provider [phone] Encounter Details Date Type Department Care Team (Late st Contact Info) Description 05/07/2020 Orders Only External Location [address] [place] [address] Provider, External Social History Tobacco Use Types Packs/Day Years Used Date Smoking Tobacco: Never Assessed Comments Unknown Sex and Gender Information Value Date Recorded Sex Assigned at Not on file Legal Sex Female 8:07 PM EDT Gender Identity Not on file Sexual Orientation Not on file documented as of this encounter Plan of Treatment Not on file documented as of this encounter Procedures Procedure Name Priority Date/Time Associated Diagnosis Comments CT ANGIO CHEST 05/07/2020 4:19 PM EDT documented in this encounter Results * CT Angio Chest (05/07/2020 4:19 PM EDT) Anatomical Region Laterality Modality Chest Computed Tomogra phy 05/07/2020 4:19 PM EDT us External Provider IMG CT PROCEDURES Final Result documented in this encounter Visit Diagnoses Not on filedocumented in this encounter Care Teams Audit Reviewer Relationship Specialty Start Date End Date None, None [address], [place] [id number] PCP - General NONE FOUND 01/01/23 01/31/24 documented as of this encounter
--- NOTE | 2025-01-02 14:01 | XR_ITS ---
FINAL REPORT CLINICAL HISTORY: PAIN AND INJURY states medial right clavicle pain FINDINGS: RIGHT CLAVICLE TWO VIEW FINDINGS: Two views show no evidence of an acute, displaced fracture or dislocation of the visualized bony architecture. The joint spaces appear normal. IMPRESSION: Unremarkable exam. Authenticated and ERN
== END 2025-01-02 23:59 | disposition home or self-care (01) ==
LOC: LAB 13:58 → RAD 13:59
PROVIDERS: PCP Family Medicine; Visit Provider Family Medicine
DX: T14.90XA Injury, unspecified, initial encounter (principal); M89.8X1 Other specified disorders of bone, shoulder
CPT/HCPCS: 73000

== ENCOUNTER 2025-01-06 14:59 | Emergency (ER) | payer BC, SELFPAY ==
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
--- OUTSIDE RECORDS SUMMARY | 2024-11-27 09:15 | XMS_ITS ---
[facility] Address [address] [facility] [address] [id number] Care Team Providers Care Deputy Editor In Chief Name Role Phone Willis Connors Primary Care Provider Lanny Dyer Unavailable [phone] Allergies Allergen (clinical drug ingredient) Drug/Non Drug [...] 40 MG Take 1 capsule by mo [facility] twice daily; Duration: 90 Active DULoxetine [...] 11/27/2024 Encounters Encounter Location Date Provider Diagnosis [facility] [address] [place] [id number] 11/27/2024 Lanny Dyer Infected tick bite, initial [...] [address], [place], [id number], Progress Notes * Chip ANDREWS:1975 (49 yo F)Acc No.[id number]:11/27/2024 Progress Notes Patient: Hilda GEORGE Provider: MERCY Edmonds :1975 A ge:48 Y S ex:Female Date:11/27/2024 Address:[address], [place], [place] Pcp:Willis Connors Subjective: * Chief Complaints: * [...] Procedure[facility], [facility] ER-chest pain 05/16/2012, [facility]-rash on left arm 09/29/2012, [facility]-seizures n , [facility] ER - pleurisy 08/31/2017, [facility] ER - fatigued, weak, dehydrated 09/04/2017, [facility]-precordial chest pain 12/28-, [facility]-sinus tachycardia 02/13/2019, [facility] ER- Passed out 11/06/2020, [facility] - Seizures 05/18/2023, [facility] ER - Seizure 10/23/2023, [facility] - Chest Pain 03/25/2024, [facility] ER - Near Syncope 06/16/2024. * [...] * Images: Billing Information: * Visit Code: 91692 Office Visit, Est Pt., Level 3. * Procedure Codes: * Electronic signature of MERCY Black on 01/06/2025 at 03:17 PM EDT Sign off status: Pending * Provider: MERCY Edmonds Date: 11/27/2024 Generated for Rain martínez/Carol/eTransmitting on: 0 01/06/2025 03:17 PM EDT History and Physical [...]
--- OUTSIDE RECORDS SUMMARY | 2025-01-01 12:15 | XMS_ITS ---
Author Organization [facility] Address [address] [facility] [address] [place] [id number] Care Team Providers Care Electron Beam Operator Name Role Phone Willis Connors Primary Care Provider [phone] Allergies Allergen (clinical drug ingredient) Drug/Non Drug Allergy documented on EMR Reaction Allergy Type Onset Date Status cyclobenzaprine Cyclobenzaprine HCl hives Drug Allergy Active Levaquin Unknown Drug Allergy Active Results Component Value Reference Range Notes X ray : clavicle, right Reviewed date:01/05/2025 09:12:49 PM Interpretation:unremarkable Performing Lab: Notes/Report: unremarkable REASON FOR VISIT ER Follow Up Medications Medication SIG (Take, Route, Frequency, Duration) Notes Start Date End Date Status Nadolol 80 MG 1 tab(s) orally Two times a day Active Indomethacin 25 MG 1 capsule with food or milk Orally Twice a day prn pain 01/01/2025 Active Valsartan 80 MG 1 tablet Orally Once a day; Duration: 30 day(s) Active traZODone HCl 50 MG 1 tablet at bedtime as needed Orally Once a day; Duration: 90 days Active Breyna 80-4.5 MCG/ACT as directed Inhalation Active DULoxetine HCl 30 MG TAKE 3 CAPSULES BY MOUTH ONCE DAILY; Duration: 30 days Active Albuterol Sulfate HFA 108 (90 Base) MCG/ACT 1 puff as needed Inhalation every 4 hrs, prn 11/12/2024 Active Vraylar 4.5 MG 1 capsule Orally Onc e a day; Duration: 90 days Active Gabapentin 600 MG 1 tablet in the am a nd 1.5 tab at night Orally Two times a day; Duration: 30 days 12/17/2024 Active predniSONE 20 MG 1 tab Orally twice a day; Duration: 10 days 12/23/2024 Active Dilt-XR 180 MG Take 1 capsule by mo ut once daily; Duration: 90 days Active Potassium Chloride ER 10 MEQ 1 capsule with food Orally Once a day; Duration: 30 day(s) 08/01/2024 Active Omeprazole 40 MG Take 1 capsule by mo uth twice daily; Duration: 90 Active Metaxalone 800 MG 1 tablet Orally Thre e times a day, prn 09/03/2024 Active Social History Tobacco Use: Social History Observation Description Date Details (start date - stop date) Former Smoker NA - NA CURRENT TOBACCO USE: Question Answer Notes Are you a: former smoker stopped 09/2016 Vital Signs Weight 236 lbs 01/01/2025 Blood pressure systolic 124 mm Hg 01/02/20 25 Blood pressure diastolic 70 mm Hg 025 Heart Rate 100 /min 01/01/2025 Height 66 in 01/01/2025 BMI 38.09 kg/m2 01/01/2025 Encounters Encounter Location Date Provider Diagnosis [facility] [address] [facility] [address] [facility] [address] [place] [id number] 01/01/2025 R Omid Connors Clavicle pain M89.8X 1 and 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 Assessments Encounter Date Diagnosis (ICD Code) Assessment Notes Treatment Notes Treatment Clinical Notes Section Notes 01/01/2025 Clavicle pain (ICD-10 - M89.8X1) 01/01/2025 Meadows's palsy (ICD-10 - G51.0) Finish course of steroids Plan Of Treatment Medication Medication Name Sig Start Date Stop Date Notes Indomethacin 25 MG 1 capsule with food or milk Orally Twice a day prn pain 01/01/2025 Treatment Notes Assessment Notes Meadows's palsy Finish course of delvis roids Next Appt Details Follow Up: prn, Reason: Provider Name:Janell Briggs er, 01/23/2025 08:00:00 AM, [address] [facility] [address] [facility], [address], [place], [id number], Progress Notes * Chip ANDREWS:1975 (49 yo F)Acc No.[id number]:01/01/2025 Progress Notes Patient: Hilda GEORGE Provider: Willis Connors M.D. :1975 A ge:49 Y S ex:Female Date:01/01/2025 Address:[address], [id number] Subjective: * Chief Complaints: * 1 . ER Follow Up. * HPI: H PI: Patient is here today for f joshualow up on visit to ER for [place] Palsy. She has completed the antiviral treatment and is on a tapering schedule for the prednisone. She reports her symptoms have resolved.. S houlder/Upper arm: Pt c/o issues with the right clavicle. Pt sts that when she lays down on her right side, she feels that it protrudes and restricts her airway. She has noticed this over the past 2 weeks. There has been no history of trauma. * ROS: D ERMATOLOGY: no R erwin. [...] [facility], [facility] ER-chest pain 05/16/2012, [facility]-rash on left arm 09/29/2012, [facility]-seizures n , [facility] ER - pleurisy 08/31/2017, [facility] ER - fatigued, weak, dehydrated 09/04/2017, [facility]-precordial chest pain 12/28-, [facility]-sinus tachycardia 02/13/2019, [facility] ER- Pass[facility] out [facility]06/2020, [facility], [facility] ER - Seizure 10/23/2023, [facility] - Chest Pain 03/25/2024, [facility] ER - Near Syncope 06/16/2024. * [...] capsule by mouth once daily , Taking Potassium Chloride ER 10 MEQ Capsule Extended Release 1 capsule with food Orally Once a day , Taking Metaxalone 800 MG Tablet 1 tablet Orally Three times a day, prn , Taking Omeprazole 40 MG Capsule Delayed Release Take 1 capsule by mouth twice daily , Taking Albuterol Sulfate HFA 108 (90 Base) MCG/ACT Aerosol Solution 1 puff as needed Inhalation every 4 hrs, prn , Taking DULoxetine HCl 30 MG Capsule Delayed Release Particles TAKE 3 CAPSULES BY MOUTH ONCE DAILY , Taking Gabapentin 600 MG Tablet 1 tablet in the am and 1.5 tab at night Orally Two times a day , Taking Vraylar 4.5 MG Capsule 1 capsule Orally Once a day , Taking predniSONE 20 MG Tablet 1 tab Orally twice a day , Taking traZODone HCl 50 MG Tablet 1 tablet at bedtime as needed Orally Once a day , Medication List reviewed and reconciled with the patient * Allergies: L evaquin, Cyclobenzaprine HCl: hives. Objective: * Vitals: W t: 236, Temp: 97.9, BP: 124/70, HR: 100, Nurse: CAMILLE/DANTE, Ht: 66, BMI:38.09. * Examination: G eneral Examination: General Appearance: N AD. C hest: R ight clavicle shows no obvious deformity or swelling. There is tenderness to palpation over the sternoclavicular joint and mid clavicle.. N eurologic Exam: B ell's palsy has resolved. ? Assessment: * Assessment: 1. B ell's palsy - G51.0 (Primary) 2 . C lavicle pain - M89.8X1 ? Plan: * Treatment: 2. C lavicle pain Start Indomethacin Capsule, 25 MG, 1 capsule with food or milk, Orally, Twice a day prn pain, 10.? * Imaging: * I maging: X ray : clavicle, right (Performed Date - 01/02/2025) u nremarkable * Follow Up: p rn * Images: Billing Information: * Visit Code: 58127 Office Visit, Est Pt., Level 4. * Procedure Codes: * Electronic signature of Willis Connors MD on 01/06/2025 at 03:16 PM EDT Sign off status: Pending * Provider: Willis Connors M.D. Date: 0 01/01/2025 Generated for Rain martínez/Carol/Josep on: 01/06/2025 03:16 PM EDT History and Physical Notes * HPI (History of Present Illness) Category Sub-Category Detail Notes Category Not es HPI Patient is here today for follow up on visit to ER for [place] Palsy. She has completed the antiviral treatment and is on a tapering schedule for the prednisone. She reports her symptoms have resolved. Examination Category Sub-Category Detail Notes Category Not es General Examination General Appearance: NAD Neurologic Exam: Meadows's palsy has res olved Chest: Right clavicle shows no obvious deformity or swelling. There is tenderness to palpation over the sternoclavicular joint and mid clavicle.
--- NOTE | 2025-01-06 15:01 | ECG_ITS ---
APPROVED REPORT Exam: Resting ECG HR:116 bpm ECG Measurements Heart Rate 116 AXES [place] 157 P 61 QRSd 78 QRS 74 QT 341 T 68 QTc 410 Conclusion SINUS TACHYCARDIA NONSPECIFIC ST & T-WAVE ABNORMALITY no STEMI Electronically signed by : NATHAN JACKSON, 01/08/2025 20:50:50
[2025-01-06 15:04] VITALS: BP 135/78; PULSE 128; RESP 26; TEMP 36.6; O2SAT 99; BMI 39.4
--- NOTE | 2025-01-06 15:07 | XR_ITS ---
PROCEDURE INFORMATION: Exam: XR Chest Exam date and time: 01/06/2025 4:23 PM Age: 49 years old Clinical indication: Sternal or substernal pain; Additional info: Chest pain TECHNIQUE: Imaging protocol: Radiologic exam of the chest. Views: 2 views. COMPARISON: CR XR CHEST PORTABLE 12/08/2024 6:41 PM FINDINGS: Lungs: The lungs appear clear. No focal areas of consolidation. Pleural spaces: No pleural effusions. Negative for pneumothorax. Heart/Mediastinum: Cardiac silhouette and pulmonary vasculature are within range of normal. Bones/joints: There is no evidence of acute fracture. There is mild accentuation of thoracic kyphosis. IMPRESSION: Negative for an acute cardiopulmonary abnormality.
--- NOTE | 2025-01-06 15:15 | ED_ITS ---
<Statement entered by Neela De Jesus DO - 01/06/25 23:30> I was consulted by the JIM, and we discussed the complexity of the problems being addressed. I approved the treatment and management plan for this patient's care in the emergency department, thus performing a substantive portion of the medical decision making. Troponins negative, no blood clot on CT PE. Neela De Jesus DO Discharge Plan Disposition Patient Disposition: Home, Self-Care Condition: Good Prescriptions Prescriptions: New amoxicillin-pot clavulanate 875-125 mg tablet 1 tab PO Q8H Qty: 30 0RF potassium chloride [K-Tab] 20 mEq tablet extended release 20 meq PO BID 5 Days Qty: 10 0RF No Action trazodone 50 mg tablet 50 mg PO HS duloxetine 30 mg capsule,delayed release(DR/EC) 90 mg PO DAILY potassium chloride 10 mEq capsule, extended release 10 meq PO DAILY Patient Comments: TAKE 1 CAPSULE BY MOUTH ONCE DAILY WITH FOOD cyanocobalamin (vitamin B-12) 2,500 mcg tablet 2,500 mcg PO DAILY nadolol 80 mg tablet 80 mg PO BID Qty: 60 4RF budesonide-formoterol 160-4.5 mcg/actuation HFA aerosol inhaler 1 puff inhalation QID PRN (Reason: shortness of breath or wheezing) 90 Days Qty: 10.2 3RF albuterol sulfate 90 mcg/actuation HFA aerosol inhaler inhalation Patient Comments: INHALE 1 PUFF BY MOUTH EVERY 4 HOURS NEEDED gabapentin 600 mg tablet 600 mg PO BID Patient Comments: TAKE 1 TABLET BY MOUTH TWICE DAILY diltiazem HCl [DILT-XR] 180 mg capsule,ext.rel 24h degradable 180 mg PO BID 90 Days Qty: 180 2RF Vraylar 4.5 mg capsule 3 mg PO DAILY omeprazole 40 mg capsule,delayed release(DR/EC) 40 mg PO BID prednisone 20 mg tablet 20 mg PO TID Qty: 90 0RF acyclovir 400 mg tablet 400 mg PO Q4H 7 Days Qty: 42 0RF Rx Instructions: while awake; give 5 doses in 24 hours Referrals Follow up/Referrals: Provider,Referral, [Primary Care Provider, Medical] - See instructions Jerome Johnson MD [Physician, Pulmonology] - See instructions Activity Restrictions/Add. Instructions Additional Instructions/Restrictions: You were evaluated in the emergency department today. Your CT scan shows a suspicious lesion in the right upper part of your lung as well as multiple lung nodules. We recommend close follow-up with PCP as well as pulmonology for this. Clinical Impressions Clinical Impression: Lung nodule Instructions Patient Instructions: DI for Pulmonary Nodule Print Language Print Language: Welsh Discharge ED Provider: Neela De Jesus HPI General Chief Complaint: Chest Pain Stated Complaint: Chest Pain Time Seen by Provider: 01/06/25 15:12 Mode of Arrival: Ambulatory Source of Information: Patient Description of Symptoms (Recalled from ER Triage Doc. by RN): chest painl. started 30 minutes ago. hx of SD. elevated HR History of Present Illness HPI narrative: 49-year-old female presents to the ED today for complaint of chest pain that comes and goes. She says it started 30 minutes prior to arrival. She says the pain gets so bad that it causes her to be short of breath. She says that she also has pain so bad that it causes nausea but she has no vomiting. 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 Related Data Home Medications ?Medication ?Instructions ?Recorded ?Confirmed trazodone 50 mg tablet 50 mg PO HS 12/18/22 5 duloxetine 30 mg capsule,delayed 90 mg PO DAILY 11/27/24 release cariprazine 4.5 mg capsule 3 mg PO DAILY 03/25/2411/07 (Vraylar) omeprazole 40 mg capsule,delayed 40 mg PO BID 03/25/24 11/27/24 release potassium chloride 10 mEq 10 meq PO DAILY 08/18/24 capsule,extended release cyanocobalamin (vitamin B-12) 2,500 mcg PO DAILY 09/1511/27/24 2,500 mcg tablet gabapentin 600 mg tablet 600 mg PO BID 10/28/2411/27 albuterol sulfate 90 mcg/actuation inhalation 11/27/24 11/27/24 aerosol inhaler Previous Rx's ?Medication ?Instructions ?Recorded nadolol 80 mg tablet 80 mg PO BID #60 tabs diltiazem HCl 180 mg 180 mg PO BID 90 days #180 c aps 10/16/24 capsule,extended release 24 hr, controlled (DILT-XR) budesonide-formoterol HFA 160 1 puff inhalation QID NE N 10/28/24 mcg-4.5 mcg/actuation aerosol shortness of breath or w heezing 90 inhaler days #10.2 grams acyclovir 400 mg tablet 400 mg PO Q4H 7 days #42 tab s 12/08/24 prednisone 20 mg tablet 20 mg PO TID #90 tabs amoxicillin 875 mg-potassium 1 tab PO Q8H #30 tabs 08/02 clavulanate 125 mg tablet potassium chloride 20 mEq 20 meq PO BID 5 days #10 tab s 01/06/25 tablet,extended release (K-Tab) Allergies Allergy/AdvReac Type Severity Reaction Status Date / Time alprazolam (From Xanax) Allergy Severe Swelling Verified 11/27/24 10:29 of Lip/Tongue/Throat levofloxacin (From LEVAQUIN) Allergy Unknown SWELLING Verified 11/27/24 10:29 PFS PFS Disclaimer: The information contained in this section may have been updated after the patient was seen, as this information can be updated by other users. Medical History Asthma Eosinophilia Seizure-like activity Syncope SOB (shortness of breath) on exertion Adrenal insufficiency Right upper quadrant abdominal pain AMBER (obstructive sleep apnea) Hyperlipidemia Hypertension Currently normotensive CAD (coronary artery disease) History of snoring Nonepileptic episode Chondromalacia, right knee Family history of heart disease Abnormal stress test Typical angina Tobacco abuse Dyspnea Decreased libido without sexual dysfunction Obesity (BMI 35.0-39.9 without comorbidity) Depression Anxiety Amenorrhea Family history of breast cancer in first degree relative delivery delivered Jaw dislocation surgery X7 DVT (deep venous thrombosis) History of TIA (transient ischemic attack) Surgical History History of mandibular surgery H/O dilation and curettage X3 History of appendectomy History of colon surgery 75% of colon removed, colon stopped working Family History Other Alcoholism Asthma Cancer Diabetes FHx: mental illness Heart attack Hyperlipidemia Hypertension Kidney disease Stroke Social History Smoking Status: Current every day smoker tobacco type: cigarettes packs per day: 1 years smoked: 20 how long ago did patient quit smokin yr alcohol intake: never substance use type: denies use current occupational status: employed Travel in the last 8 weeks?: None household members: spouse and children housing: house number of children: 1 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 current occupational exposures/hazards: No caffeine: No Have you lived/traveled outside US in past 30 days?: No Contact w/someone who lives/traveled outside US past 30 days?: No Exposure to someone with infectious disease in past 14 days?: No Do you have a fever (greater than 100.4 F or 38 C)?: No Have you tested positive for COVID-19?: No Exposed to someone with COVID-19 in past 14 days?: No Do you have a sore throat?: No Do you have a cough?: No Do you have any weakness?: No Do you have any diarrhea?: No Are you experiencing any unusual bleeding?: No Do you have any muscle aches/pain?: No Do you have any abdominal pain?: No Are you experiencing loss of taste or smell?: No Other Medical History Have you received the Flu Vaccine for this season: No Have you received the Pneumonia Vaccine: No ROS Obtained: Yes Systems reviewed as appropriate & no additional complaints except as documented Constitutional Constitutional: Reports as per HPI Physical Exam General General appearance: alert and in distress Head Head exam: normocephalic Eye Eye exam: Present normal appearance, PERRL and EOMI ENT ENT exam: Present normal oropharynx and mucous membranes moist Neck Neck exam: Present full ROM and trachea midline Chest Chest inspection: Present normal inspection Respiratory Respiratory exam: Present normal lung sounds bilaterally Cardiovascular Cardiovascular exam: Present regular rate, normal rhythm, normal heart sounds, +S1 and +S2 Abdominal Exam Abdominal exam: Present soft and normal bowel sounds Extremities Exam Extremities exam: Present normal inspection, full ROM and normal capillary refill Neurological Exam Neurological exam: Present alert, oriented X3 and normal gait Skin Skin exam: Present warm, dry and intact HEART Score HEART Score HEART Score assessment performed?: Yes History (anamnesis): Slightly suspicious ECG: Normal Age: 45-65 years Risk factors: 3 or more risk factors Troponin: </= normal limit HEART Score: 3 Critical Care Critical Care Time Critical Care Time: No Medical Decision Making Medical Records Medical records reviewed: Yes I reviewed the patient's medical records. Elver Inquiry Pt receiving controlled substance: No Elver was queried for this patient: No Vital Signs Vital Signs: 01/06/25 15:04 01/06/25 17:15 01/06/25 18:17 Temperature 97.9 F Temperature Source Oral Pulse Rate Pulse Rate [Right] 128 H Respiratory Rate 26 H 20 25 H Blood Pressure 116/68 Blood Pressure [Right Arm] 135/78 Blood Pressure Mean [Right Arm] 97 02 Sat by Pulse Oximetry 99 01/06/25 18:51 Temperature 98.2 F Temperature Source Pulse Rate 89 Pulse Rate [Right] Respiratory Rate 22 Blood Pressure 118/74 Blood Pressure [Right Arm] Blood Pressure Mean [Right Arm] 02 Sat by Pulse Oximetry Lab Data Labs: Lab Results 01/06/25 15:13: WBC 8.6, RBC 4.21, Hgb 11.8 L, Hct 36.5 L, MCV 86.7, MCH 28.0, MCHC 32.3, RDW 14.6, Plt Count 282, MPV 9.6, Neut % (Auto) 66.6, Lymph % (Auto) 25.1, [facility] [facility] % (Auto) 5.1, Eos % (Auto) 2.3, Baso % (Auto) 0.3, Neut # (Auto) 5.7, Lymph # (Auto) 2.2, [facility] # (Auto) 0.4, Eos # (Auto) 0.2, Baso # (Auto) 0.0, D- Dimer 0.57 H, Sodium 138, Potassium 3.0 L, Chloride 103, Carbon Dioxide 23, Anion Gap 15.0, BUN 4 L, Creatinine 0.70, Estimated Creat Clear 164, Estimated GFR 90, Est GFR ( Amer) 109, Glucose 189 H, Calcium 8.9, Magnesium 1.9, Total Bilirubin 0.2, AST 30, ALT 32, Alkaline Phosphatase 116, Troponin I < 0.01, Total Protein 6.8, Albumin 4.0, Globulin 2.8, Albumin/Globulin Ratio 1.4 01/06/25 16:19: Urine HCG, Qual Negative 01/06/25 17:50: Troponin I < 0.01 01/06/25 15:13 01/06/25 15:13 Response Orders (Tests/Meds): ED MEDICATIONS Discontinued Medications Generic Name Dose Route Start Last Admin Trade Name Freq PRN Reason Stop Dose Admin Famotidine 20 mg 01/06/25 15:15 01/06/25 15:56 Famotidine 20mg/2ml Vial IV 01/06/25 15:16 20 mg ONCE ONE Administration Iopamidol 70 ml 01/06/25 16:39 01/06/25 16:40 Iopamidol-370 (76%);100ml Bottle IV 01/06/25 16:40 70 ml ONCE ONE Administration Morphine Sulfate 2 mg 01/06/25 15:15 01/06/25 15:56 Morphine 2mg/Ml Syringe IV 01/06/25 15:16 2 mg ONCE ONE Administration Ondansetron HCl 4 mg 01/06/25 15:15 01/06/25 15:56 Ondansetron 4mg/2ml Vial IV 01/06/25 15:16 4 mg ONCE ONE Administration Potassium Chloride 60 meq 01/06/25 15:40 01/06/25 15:56 Potassium Chloride 20meq Tab PO 01/06/25 15:41 60 meq ONCE ONE Administration Sodium Chloride 8 ml 01/06/25 15:15 01/06/25 15:56 Sodium Chloride 0.9% 10ml Vial IV 02/05/25 15:14 8 ml NEEDED PRN Administration dilute pepcid Sodium Chloride 50 ml 01/06/25 16:39 01/06/25 16:40 0.9 % Sodium Chloride 50 Ml Vial IV 01/06/25 16:40 50 ml ONCE ONE Administration Sodium Chloride 10 ml 01/06/25 16:39 01/06/25 16:40 Sodium Chloride 0.9% 10ml Syr (Rad Only) IV 01/06/25 16:40 10 ml ONCE ONE Administration ORDERS Category Date Time Status CTA Chest [CT angio chest PE protocol] Stat Cat Scan 01/06/25 16:15 Completed Chest XR 2 view (NOT portable) [XR chest 2V] Stat Exams 01/06/25 15:07 Completed Complete Blood Count Auto Diff Stat Lab 01/06/25 15:13 Completed Comprehensive Metabolic Panel Stat Lab 01/06/25 15:13 Completed D-Dimer Stat Lab 01/06/25 15:13 Completed Magnesium Stat Lab 01/06/25 15:13 Completed Trop I [Troponin I] Stat Lab 01/06/25 15:13 Completed Troponin I Q3H Lab 01/06/25 17:50 Completed Urine , HCG Qual. Stat Lab 01/06/25 16:19 Completed MDM Narrative Medical Decision Narrative: patient is a 49-year-old female presenting to the emergency department for evaluation of chest pain that comes and goes and started 30 minutes prior to arrival she says the pain causes shortness of air. Patient is hemodynamically stable, however is slightly tachypneic and tachycardic on arrival but this resolves during the stay in the ED and nontoxic-appearing upon arrival, afebrile. Differential diagnosis includes pneumonia, COPD exacerbation, CAD, ACS, among others. Workup will be conducted with hematologic labs, specific imaging. Initial inventions include crystalloid bolus, analgesics. Initial workup reviewed by me shows a normal white count, hypokalemia with a potassium of 3, I did replace this with 60 mill equivalents of potassium. CT scan shows multiple pulmonary nodules. Patient states that she is seen pulmonology for this in the past and said that they are not growing so he does not want to do anything. She and I discussed following back up with him for these. Radiology recommends following up doing a CT scan again in 3 to 6 months. Patient does follow-up with pulmonology this month. She does have a groundglass opacity that we are going to treat as infectious with an antibiotic outpatient. Patient is good with this plan. Patient is safe for discharge home. I did discuss this plan with Dr. De Jesus
--- OUTSIDE RECORDS SUMMARY | 2025-01-06 15:16 | XMS_ITS | Data Portability ---
Author Organization MARY GOMEZ Skinner [facility]OS[facility] Address [address] [place] [address] Care Team Providers Care Bevel Mill Operator Name Role Phone EDINSON CONNORS Primary Care [...] another followup. cc: Dr. Connors in [place] [facility] Not available 06/21/2018 13:33:36 08/02/2018 08/02/2018 We [...] By Organization Details Last Modified Time 06/21/2018 [id number] We had discussed at some length the [...] tissue. KLAUS Not available 06/21/2018 13:33:37 08/02/2018 [id number] She is making good progress in getting rid of some of the other problems. Now, I think we can localize more to the subacromial area. We will go ahead and do an injection to this area to get rid of the last little bit of tendinitis in this area and then start her on some strengthening exercises. [email or web address] Not available 08/02/2018 10:45:11 09/16/2018 8000561 rotator cuff injury: care instructions Not available [...] months. API-51 Not available 09/16/2018 09:24:21 05/29/2019 [id number] rotator cuff injury: care instructions Not available [...] Tendon Sheath/Ligamen t completed Phoenix MANN MD [address] [place] [address], [phone], [facility] 09/16/2018 09:02:57 9 Injection Tendon Sheath/Ligamen t completed Phoenix MANN MD [address] [place] [address], [phone], [facility] 08/02/2018 09:04:39 Oral Surgery completed [facility] 06/21/2018 09:06:45 Abdominal Surgery completed [facility] 06/21/2018 09:07:18 Imaging Results None recorded. Procedure Notes None recorded. Medical Equipment None Reported. Allergies Allergen ID Allergen Name Allergen Category Reaction Reaction Severity Criticality Documentation Date Start Date Code Code System Note Provider Name and Address Organization Details Recorded Time 183977 Levaquin medicatio n respirato ry distress Not available Not available 06/21/2018 65493 2 RxNorm Moni Anne [facility] 8 09:03:45 968279 cyclobenz aprine medicatio n itching Not available Not available 09/16/2018 71558 RxNorm Moni Anne [facility] 9 08:44:00 Medications Name Sig Start [...] Updated DateTime 08/02/2018 165.1 cm 30.8 kg/m2 29782.59 g 132 mm[Hg] 82 mm[Hg] Moni [facility] 9 08:35:52 Date Recorded Body height Body mass index (BMI) Body weight Systolic blood pressure Diastolic blood pressure Provider Name and Address Organization Details Last Updated DateTime 09/16/2018 165.1 cm 30.8 kg/m2 74425.59 g 130 mm[Hg] 82 mm[Hg] [facility] 9 08:43:22 Date Recorded Body height Body mass index (BMI) Body weight Systolic blood pressure Diastolic blood pressure Provider Name and Address Organization Details Last Updated DateTime 05/29/2019 165.1 cm 34.1 kg/m2 74706.44 g 128 mm[Hg] 78 mm[Hg] [facility] 9 14:34:12 Date Recorded Body height Body mass index (BMI) Body weight Systolic blood pressure Diastolic blood pressure Provider Name and Address Organization Details Last Updated DateTime 06/21/2018 165.1 cm 31.1 kg/m2 01129.77 g 136 mm[Hg] 84 mm[Hg] Moni Anne [facility] 8 09:03:18 Social History Question Answer Notes LastModified by Organizat ion Details LastModified Time Tobacco Smoking Status Former Smoker smoked 20yrs Moni Anne [facility] 06/21/2018 09:06:12 What Was The Date [...] SNOMED-CT Code Diagnosis ICD10 Code Diagnosis Note [id number] Phoenix MANN MD [facility] [address] [place] [address] 06/21/2018 08:50:10 06/21/2018 09:48:16 Adhesive capsulitis of right shoulder 9410820148 55881 M75.01 [id number] Phoenix MANN MD [facility] [address] [place] [address] 08/02/2018 08:24:59 08/02/2018 11:18:24 Pain of shoulder region 18911881 M25.049 [id number] Phoenix MANN MD [facility] [address] [place] [address] 09/16/2018 08:34:47 09/16/2018 09:23:07 Impingement syndrome of shoulder region 580835272 M75.41 [id number] Phoenix MANN MD [facility] [address] [place] [address] 05/29/2019 14:03:57 06/06/2019 12:40:13 Impingement syndrome of shoulder region 260814234 M75.41 Health Concerns Section Related Observation LastModified by Organization Detai ls LastModified Time None Recorded Concern Status LastModified by Organization Details LastModified Time None Recorded Advance Directives Directive None Recorded Payers Insurance Date Sequence Insurance Name Policy Number Policy Braga Covered Member ID Braga Member ID Guarantor Name 06/06/2019 1 [employer] [id number] Zeke Guillen [id number] Hilda Guillen Notes Date Note Type [...] came for further evaluation. Phoenix MANN MD [facility] [place], [address], [facility] 06/26/2018 13:13:59 08/02/2018 text/html She continues to improve. She has much less soreness in her pectoralis and in her shoulder. She has improved in her range of motion and does not have the same amount of weakness. Her pain has dropped as well. Phoenix MANN MD [address] [place], [address], [facility] 08/02/2018 12:12:05 09/16/2018 text/html Since last being [...] at nighttime. Phoenix MANN MD [address] [place], [address], [facility] 09/23/2018 07:56:13 05/29/2019 text/html She was told tequila t she may have further injury, and therefore, she had an MRI, and she came for further evaluation. Phoenix MANN MD [address] [place], [address], [facility] 06/02/2019 16:20:20 OBGyn Episode No OBEpisode recorded.
--- OUTSIDE RECORDS SUMMARY | 2025-01-06 15:17 | XMS_ITS | Clinical Summary ---
Author Organization Healthcare Address [address] [address] Care Team Providers Care Real Estate Lawyer Name Role Phone Unavailable Primary Care Provider [...] 2022 Sigmoidoscopy 2022 [facility]-Colorectal Cancer Screening 2022 [id number]-[id number] Vaccine ( - season) 2024 05/10/2021, 04/19/2021 [...]
--- OUTSIDE RECORDS SUMMARY | 2025-01-06 15:17 | XMS_ITS | Encounter Summary ---
Author Organization Healthcare Address [address] [place] [address] Care Team Providers Care Utility Sales And Service Manager Name Role Phone None, None Primary Care Provider [phone] Encounter Details Date Type Department Care Team (Late st Contact Info) Description 05/07/2020 Orders Only External Location [address] [place] [address] Provider, External Social History Tobacco Use Types [...] on filedocumented in this encounter Care Teams Utility Sales And Service Manager Relationship Specialty Start Date End Date None, None [address], [place] [id number] PCP - General NONE FOUND 01/01/23 01/31/24 documented as of this encounter
--- OUTSIDE RECORDS SUMMARY | 2025-01-06 15:17 | XMS_ITS | Data Portability ---
Author Organization MARY - Americo ortiz MD, Main Office Address [address], [facility] [address] [place] [address] Care Team Providers Care Detention Deputy Name Role Phone EDINSON CARDONA Primary Care [...] By Organization Details Last Modified Time 02/21/2023 [id number] Numbness and Tingling: Care Instructions [email or web address] Not available 02/21/2023 14:59:17 Reason for Referral [...] SNOMED-CT Code Diagnosis ICD10 Code Diagnosis Note [id number] Americo Varghese MD Main Office [address] [facility], [facility] [address] [place] [address] 02/21/2023 14:19:27 02/21/2023 15:00:11 Paresthesia [id number] R20.2 Normal left arm and leg. Health Concerns Section Related Observation LastModified by Organization Detai ls LastModified Time None Recorded Concern Status LastModified by Organization Details LastModified Time None Recorded Advance Directives Directive None Recorded Payers Insurance Date Sequence Insurance Name Policy Number Policy Braga Covered Member ID Braga Member ID Guarantor Name 02/21/2023 1 [place] [id number] Hilda Hedges [id number] Hilda Guillen OBGyn Episode No OBEpisode recorded.
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
[2025-01-06 15:19] LABS: Hematocrit 36.5 % (37.0-47.0); Hemoglobin 11.8 g/dL (12.2-16.2); Immature Granulocytes % 0.6 %; Mean Corpuscular HGB Conc 32.3 g/dL (31.8-35.4); Mean Corpuscular Hemoglobin 28.0 pg (27.0-31.2); Mean Corpuscular Volume 86.7 fl (81-99); Nucleated Red Blood Cells % 0 %; Platelet Count 282 K/mm3 (142-424); Red Blood Count 4.21 M/mm3 (4.20-5.40); Red Cell Distribution Width-SD 46.5 fL; White Blood Count 8.6 K/mm3 (4.8-10.8)
[2025-01-06 15:35] LABS: Albumin Level 4.0 g/dl (3.5-5.0); Chloride 103 mmol/L (98-107)
[2025-01-06 15:36] LABS: Sodium 138 mmol/L (136-145)
[2025-01-06 15:37] LABS: Potassium 3.0 mmoL/L (3.5-5.1)
[2025-01-06 15:38] LABS: Alanine Aminotransferase 32 U/L (12-78); Anion Gap 15.0 mEq/L (5-15); Aspartate Amino Transferase 30 U/L (14-36); Bilirubin,Total 0.2 mg/dl (0.2-1.3); Blood Urea Nitrogen 4 mg/dl (7-17); Carbon Dioxide 23 mmol/L (22.0-30.0); Creatinine Clearance Estimated 164 mL/min (50-200); Creatinine,Serum 0.70 mg/dl (0.52-1.04); Estimated Glomerular Filt Rate 90 ml/min (>60); GFR (African American) 109 ML/MIN (>60)
[2025-01-06 15:39] LABS: Albumin/Globulin Ratio 1.4 (1.1-1.8); Alkaline Phosphatase 116 U/L (38-126); Calcium 8.9 mg/dl (8.4-10.2); Globulin 2.8 g/dL (1.3-3.2); Glucose 189 mg/dl (74-100); Total Protein,Serum 6.8 g/dl (6.3-8.2)
[2025-01-06 15:40] LABS: Magnesium 1.9 mg/dl (1.6-2.3)
[2025-01-06 15:54] LABS: D-Dimer 0.57 ug/mL (0.0-0.5)
[2025-01-06 15:55] LABS: Troponin I < 0.01 ng/ml (0.00-0.034)
[2025-01-06] MEDS: MORPHINE 2MG/ML SYRINGE 2 MG IV (15:56)
[2025-01-06] MEDS: FAMOTIDINE 20MG/2ML VIAL 20 MG IV (15:56)
[2025-01-06] MEDS: SODIUM CHLORIDE 0.9% 10ML VIAL 8 ML IV (15:56)
[2025-01-06] MEDS: ONDANSETRON 4MG/2ML VIAL 4 MG IV (15:56)
[2025-01-06] MEDS: POTASSIUM CHLORIDE 20MEQ TAB 60 MEQ PO (15:56)
--- NOTE | 2025-01-06 16:15 | CT_ITS ---
PROCEDURE INFORMATION: Exam: CTA Chest With Contrast Exam date and time: 01/06/2025 4:39 PM Age: 49 years old Clinical indication: Other: Elevated dimer TECHNIQUE: Imaging protocol: Computed tomographic angiography of the chest with contrast. Exam focused on the arteries. 3D rendering (Not supervised by radiologist): MIP and/or 3D reconstructed images were created by the technologist. Radiation optimization: All CT scans at this facility use at least one of these dose optimization techniques: automated exposure control; mA and/or kV adjustment per patient size (includes targeted exams where dose is matched to clinical indication); or iterative reconstruction. Contrast material: ISO 370; Contrast volume: 70 ml; Contrast route: INTRAVENOUS (IV); COMPARISON: CT ANGIO CHEST PE PROTOCOL 09/15/2024 3:30 PM FINDINGS: Pulmonary arteries: There is heterogeneous contrast attenuation of visualized pulmonary arteries, more pronounced in the subsegmental vessels and likely related to contrast bolus. This limits the detection of pulmonary emboli in the small and peripheral pulmonary arterial branches. As seen, no large or central pulmonary emboli. Aorta: There is no evidence of an aortic aneurysm. There is no evidence of aortic dissection, leak, rupture, or other acute vascular pathology. Thyroid: The visualized thyroid gland is normal. Lungs: There is a ground-glass nodular opacity in the right upper lobe measuring approximately 8.5 mm. There is a 6.4 mm nodule in the subpleural right middle lobe seen on series 1002, image 31. There is another subpleural nodule slightly more posteriorly in this region measuring approximately 9.5 mm. Minor linear markings in the lingula suggest parenchymal scarring or atelectasis. There is a 4 mm nodule in the left upper lobe seen on series 5, image 50. There is a subpleural 4.3 mm nodule in the superomedial left upper lobe. There is a 2.7 mm nodule in the left upper lobe seen on series 1001, image 59. There are few additional small nodules in the lungs bilaterally, none measuring larger than 6 mm. There are punctate pulmonary parenchymal calcifications consistent with remote granulomatous organism exposure. No focal areas of consolidation. Pleural spaces: There are no pleural effusions. No pneumothorax. Heart: The heart is not enlarged. There is no evidence of pericardial fluid collections. Lymph nodes: There is no evidence of pathologic adenopathy. Liver: There is diffuse decrease in hepatic/liver parenchymal density involving the visualized portions of the liver consistent with fatty infiltration. Spleen: An accessory splenule is present. Stomach: The visualized intra-abdominal structures are normal. Bones/joints: The thoracic spine demonstrates mild degenerative changes at multiple levels. There is prominent accentuation of thoracic kyphosis. Soft tissues: Unremarkable. IMPRESSION: 1. Heterogeneous contrast attenuation of visualized pulmonary arteries limits the detection of pulmonary emboli in the small and peripheral pulmonary arterial branches. As seen, no large or central pulmonary emboli. 2. Several pulmonary nodules bilaterally, largest measuring 9.5 mm. For patients at low risk (minimal or absent history of smoking and of other known risk factors), recommend CT Chest at 3-6 months, then consider CT Chest at 18-24 months. For patients at high risk (history of smoking or of other known risk factors), recommend CT Chest at 3-6 months, then CT Chest at 18-24 months. (Reference: Jennifer) 3. 8.5 mm nonspecific ground-glass opacity in the right upper lobe. Recommend CT Chest at 6-12 months to confirm persistence of the nodule, then CT Chest at 3 years and 5 years. (Reference: Jennifer) 4. Fatty hepatic infiltration. REFERENCES: 1. Isihon H, et al. Guidelines for Management of Incidental Pulmonary Nodules Detected on CT Images: From the Fleischner Society 2017. Radiology. 2017;284(1):228-243. 2. MacMahon H, et al. Guidelines for Management of Incidental Pulmonary Nodules Detected on CT Images: From the Fleischner Society 2017. Radiology. 2017;284(1):228-243.
[2025-01-06 16:28] LABS: Urine Pregnancy, HCG Qual. Negative (Negative)
[2025-01-06] MEDS: 0.9 % SODIUM CHLORIDE 50 ML VIAL IV (16:40)
[2025-01-06] MEDS: IOPAMIDOL-370 (76%);100ML BOTTLE 70 ML IV (16:40)
[2025-01-06] MEDS: SODIUM CHLORIDE 0.9% 10ML SYR (RAD ONLY) 10 ML IV (16:40)
[2025-01-06 17:15] VITALS: RESP 20
[2025-01-06 18:17] VITALS: BP 116/68; RESP 25
[2025-01-06 18:25] LABS: Troponin I < 0.01 ng/ml (0.00-0.034)
--- NOTE | 2025-01-06 18:50 | PC.NURSE ---
verified wRachel Phelps to change amoxicillin dose to BID for 10 days. pt's pharmacy called and made aware of frequency change.
[2025-01-06 18:51] VITALS: BP 118/74; PULSE 89; RESP 22; TEMP 36.8; O2SAT 98
--- NOTE | 2025-01-08 10:43 | PC.NURSE ---
Pharmacy called, stated that patient was having a reaction to antibiotic, asked that she be switched to a different one. Spoke with MD, patient switched to Doxycycline 100 mg PO BID x 5 days.
== END 2025-01-06 18:56 | disposition home or self-care (01) ==
PROVIDERS: Nurse Practitioner; Student in an Organized Health Care Education/Training Program; Emergency Provider Emergency Medicine
DX: R91.1 Solitary pulmonary nodule (principal); R07.9 Chest pain, unspecified; E87.6 Hypokalemia; R06.02 Shortness of breath; R11.0 Nausea; F17.210 Nicotine dependence, cigarettes, uncomplicated
CPT/HCPCS: 71046; 71275; 80053; 81025; 83735; 84484; 85025; 85378; 93005; 96374; 96375; 99285; J2270; J2405; Q9967

== ENCOUNTER 2025-01-23 09:48 | Outpatient (CLI) | payer BC, SELFPAY ==
--- OUTSIDE RECORDS SUMMARY | 2024-11-27 09:15 | XMS_ITS ---
[facility] Address [address] [facility] [address] [place] [id number] Care Team Providers Care Machine Cloth Trimmer Name Role Phone Willis Connors Primary Care Provider Lanny Dyer Unavailable [phone] Allergies Allergen (clinical drug ingredient) Drug/Non Drug [...] 40 MG Take 1 capsule by mo [facility] twice daily; Duration: 90 Active DULoxetine HCl [...] a: former smoker stopped 09/2016 Vital Signs Weight 231.8 lbs 11/27/2024 Blood pressure systolic 126 mm Hg 11/28/19 25 Blood pressure diastolic 70 mm Hg 025 Heart Rate 100 /min 11/27/2024 Height 66 in 11/27/2024 BMI 37.41 kg/m2 11/27/2024 Encounters Encounter Location Date Provider Diagnosis [facility] [address] [place], [place] [id number] 11/27/2024 Lanny Dyer Infected tick bite, initial [...] Next Appt Details Follow Up: prn, Reason: Progress Notes * Rafael ANDREWSB:1975 (49 yo F)Acc No.[id number]:11/27/2024 Progress Notes Patient: Hilda GEORGE Provider: MERCY Edmonds :1975 A ge:48 Y S ex:Female Date:11/27/2024 Address:[address], [place], [place] Pcp:Willis Connors Subjective: * Chief Complaints: * [...] [facility], [facility] ER-chest pain 05/16/2012, [facility]-rash on left arm 09/29/2012, [facility]-seizures n , [facility] ER - pleurisy 08/31/2017, [facility] ER - fatigued, weak, dehydrated 09/04/2017, [facility]-precordial chest pain 12/28-, [facility]-sinus tachycardia 02/13/2019, [facility] ER- Passed out 11/06/2020, [facility] - Seizures 05/18/2023, [facility] ER - Seizure 10/23/2023, [facility] - Chest Pain 03/25/2024, [facility] ER - Near Syncope 06/16/2024. * Family [...] * Images: Billing Information: * Visit Code: 96158 Office Visit, Est Pt., Level 3. * Procedure Codes: * Electronic signature of MERCY Black on 01/23/2025 at 09:56 AM EDT Sign off status: Pending * Provider: MERCY Edmonds Date: 0 11/27/2024 Generated for Rain martínez/Carol/eTransmitting on: 0 01/23/2025 09:56 AM EDT History and Physical Notes * HPI [...]
--- OUTSIDE RECORDS SUMMARY | 2025-01-01 12:15 | XMS_ITS ---
Author Organization [facility] Address [address] [facility] [address] [place] [id number] Care Team Providers Care Buying Agent Name Role Phone Willis Connors Primary Care Provider Allergies Allergen (clinical drug ingredient) Drug/Non Drug [...] 40 MG Take 1 capsule by mo ut twice daily; Duration: 90 Active Metaxalone 800 [...] 01/01/2025 Encounters Encounter Location Date Provider Diagnosis [facility] [address] [facility] [address] [phone] 01/01/2025 Willis Connors Clavicle pain M89.8X 1 [...] Notes * Rafael ANDREWSB:1975 (49 yo F)Acc No.[id number]:01/01/2025 Progress Notes Patient: Hilda GEORGE Provider: Willis Connors M.D. :1975 A ge:49 Y S ex:Female Date:01/01/2025 Address:[address], [place], [id number] Subjective: * Chief Complaints: * 1 . ER Follow Up. * HPI: H PI: Patient is here today for thania og up on visit to ER for [place] Palsy. She has completed the antiviral treatment [...] Procedure: [facility], [facility] ER-chest pain 05/16/2012, [facility]-rash on left arm 09/29/2012, [facility]-seizures n , [facility] ER - pleurisy 08/31/2017, [facility] ER - fatigued, weak, dehydrated 09/04/2017, [facility]-precordial chest pain 12/28-, [facility]-sinus tachycardia 02/13/2019, [facility] ER- Passed out 11/06/2020, [facility] - Seizures 05/18/2023, [facility] ER - Seizure 10/23/2023, [facility] - Chest Pain 03/25/2024, [facility] ER - Near Syncope 06/16/2024. * Family [...] (Performed Date - 01/02/2025) u nremarkable * Procedure Codes: 1 036F TOBACCO NON-USER, G8783 BP SCR PRFRM RCMDD DEFIND SCR INTVL, G8752 MOST RECENT SYSTOLIC BP < 140MM HG, G8754 MOST RECENT DIASTOLIC BP < 90MM HG * Follow Up: p rn * Images: Billing Information: * Visit Code: 87749 Office Visit, Est Pt., Level 4. * Procedure Codes: 1036F TOBACCO NON-USER. G8783 BP SCR PRFRM RCMDD DEFIND SCR INTVL. G8752 MOST RECENT SYSTOLIC BP < 140MM HG. G8754 MOST RECENT DIASTOLIC BP < 90MM HG. * Electronic signature of Willis Connors MD on 01/23/2025 at 09:55 AM EDT Sign off status: Pending * Provider: Willis Connors M.D. Date: 0 01/01/2025 Generated for Kellii mauricio/Carol/eTransmitting on: 0 01/23/2025 09:55 AM EDT History and Physical Notes * HPI (History of Present Illness) Category Sub-Category Detail Notes Category Not es HPI Patient is here today for follow up on visit to ER for [place] Palsy. She has completed the antiviral treatment [...]
--- OUTSIDE RECORDS SUMMARY | 2025-01-23 09:55 | XMS_ITS | Data Portability ---
Author Organization [facility] Address [address] [facility] [address] [place] [address] Care Team Providers Care Nurse General Duty Name Role Phone EDINSON CONNORS Primary Care [...] another followup. cc: Dr. Connors in [place] [facility] Not available 06/21/2018 13:33:36 08/02/2018 [...] By Organization Details Last Modified Time 06/21/2018 [id number] We had discussed at some length the [...] tissue. KLAUS Not available 06/21/2018 13:33:37 08/02/2018 [id number] She is making good progress in getting rid of some of the other problems. Now, I think we can localize more to the subacromial area. We will go ahead and do an injection to this area to get rid of the last little bit of tendinitis in this area and then start her on some strengthening exercises. API-51 Not available 08/02/2018 10:45:11 09/16/2018 [id number] rotator cuff injury: care instructions Not available [...] months. API-51 Not available 09/16/2018 09:24:21 05/29/2019 [id number] rotator cuff injury: care instructions Not available [...] Tendon Sheath/Ligamen t completed Phoenix MANN MD [address] [place] [address], [phone], [facility] 09/16/2018 09:02:57 9 Injection Tendon Sheath/Ligamen t completed Phoenix MANN MD [address] [place] [address], [phone], [facility] 08/02/2018 09:04:39 Oral Surgery completed [facility] 06/21/2018 09:06:45 Abdominal Surgery completed [facility] 06/21/2018 09:07:18 Imaging Results None recorded. Procedure Notes None recorded. Medical Equipment None Reported. Allergies Allergen ID Allergen Name Allergen Category Reaction Reaction Severity Criticality Documentation Date Start Date Code Code System Note Provider Name and Address Organization Details Recorded Time 306014 Levaquin medicatio n respirato ry distress Not available Not available 06/21/2018 14259 2 RxNorm Moni [facility] 8 09:03:45 536388 cyclobenz aprine medicatio n itching Not available Not available 09/16/2018 84472 RxNorm Moni [facility] 9 08:44:00 Medications Name Sig Start [...] Body mass index (BMI) Body weight Systolic And Diastolic Provider Name and Address Organization Details Last Updated DateTime 08/02/2018 165.1 cm 30.8 kg/m2 04280.59 g 132/82 mm[Hg] [facility] 08/02/2018 08:35:52 Date Recorded Body height Body mass index (BMI) Body weight Systolic And Diastolic Provider Name and Address Organization Details Last Updated DateTime 09/16/2018 165.1 cm 30.8 kg/m2 21403.59 g 130/82 mm[Hg] [facility] 09/16/2018 08:43:22 Date Recorded Body height Body mass index (BMI) Body weight Systolic And Diastolic Provider Name and Address Organization Details Last Updated DateTime 05/29/2019 165.1 cm 34.1 kg/m2 15961.44 g 128/78 mm[Hg] [facility] 05/29/2019 14:34:12 Date Recorded Body height Body mass index (BMI) Body weight Systolic And Diastolic Provider Name and Address Organization Details Last Updated DateTime 06/21/2018 165.1 cm 31.1 kg/m2 16788.77 g 136/84 mm[Hg] Moni Anne [facility] 06/21/2018 09:03:18 Social History Question Answer Notes LastModified by Organizat ion Details LastModified Time Tobacco Smoking Status Former Smoker smoked 20yrs [facility] 06/21/2018 09:06:12 What Was The Date Of Your Most Recent Tobacco Screening? 09/16/2018 [id number] Information not available 08/26/2019 Sex: Unknown Functional [...] SNOMED-CT Code Diagnosis ICD10 Code Diagnosis Note [id number] Phoenix MANN MD [facility] [address] [place] [address] 06/21/2018 08:50:10 06/21/2018 09:48:16 Adhesive capsulitis of right shoulder [id number] 66639 M75.01 [id number] Phoenix MANN MD [facility] [address] [place] [address] 08/02/2018 08:24:59 08/02/2018 11:18:24 Pain of shoulder region 03324131 M25.954 [id number] Phoenix MANN MD [facility] [address] [address] 09/16/2018 08:34:47 09/16/2018 09:23:07 Impingement syndrome of shoulder region 894837898 M75.41 [id number] Phoenix MANN MD [facility] [address] [place] [address] 05/29/2019 14:03:57 06/06/2019 12:40:13 Impingement syndrome of shoulder region [id number] M75.41 Health Concerns Section Related Observation LastModified by Organization Detai ls LastModified Time None Recorded Concern Status LastModified by Organization Details LastModified Time None Recorded Advance Directives Directive None Recorded Payers Insurance Date Sequence Insurance Name Policy Number Policy Braga Covered Member ID Braga Member ID Guarantor Name 06/06/2019 1 [employer] [id number] Zeke Young Andrewbrooks [id number] Hilda Young Wilmer Notes Date Note Type Note Provider Name [...] She came for further evaluation[place], [address], [facility] 06/26/2018 13:13:59 08/02/2018 text/html She continues to improve. She has much less soreness in her pectoralis and in her shoulder. She has improved in her range of motion and does not have the same amount of weakness. Her pain has dropped as well[place], [address], [facility] 08/02/2018 12:12:05 09/16/2018 text/html Since last being [...] difficulty sleeping at nighttime. Phoenix MANN MD [address] [place] [address], [phone], [facility] 09/23/2018 07:56:13 05/29/2019 text/html She was told tequila t she may have further injury, and therefore, she had an MRI, and she came for further evaluation. Phoenix MANN MD [address] [place] [address], [phone], [facility] 06/02/2019 16:20:20 OBGyn Episode No OBEpisode recorded.
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
--- OUTSIDE RECORDS SUMMARY | 2025-01-23 09:56 | XMS_ITS | Data Portability ---
Author Organization [facility] - Americo ortiz MD, Main Office Address [address], [facility] [address] [place] [address] Care Team Providers Care Honing Machine Set Up Operator Tool Name Role Phone EDINSON CARDONA Primary Care Provider [phone] Assessment No assessment recorded. Plan of Treatment [...] By Organization Details Last Modified Time 02/21/2023 [id number] Numbness and Tingling: Care Instructions Not available [...] SNOMED-CT Code Diagnosis ICD10 Code Diagnosis Note [id number] Americo Varghese MD Main Office [address] [facility], [facility] [address] [place] [address] 02/21/2023 14:19:27 02/21/2023 15:00:11 Paresthesia 99805179 R20.2 Normal left arm and leg. Health Concerns Section Related Observation LastModified by Organization Detai ls LastModified Time None Recorded Concern Status LastModified by Organization Details LastModified Time None Recorded Advance Directives Directive None Recorded Payers Insurance Date Sequence Insurance Name Policy Number Policy Braga Covered Member ID Braga Member ID Guarantor Name 02/21/2023 1 [place] [id number] Hilda Hedges [id number] Hilda Guillen OBGyn Episode No OBEpisode recorded.
--- OUTSIDE RECORDS SUMMARY | 2025-01-23 09:56 | XMS_ITS | Clinical Summary ---
Author Organization [facility] Address [address] [place] [address] Care Team Providers Care Junior Web Developer Name Role Phone Newton Connors MD Primary Care Provider Allergies Active Allergy Reactions Criticality Noted Date Comments Levofloxacin Anaphylaxis High 04/20/2020 Medications omeprazole (priLOSEC) 40 MG capsule Take 1 capsule by mouth 2 (Two) Times a Day. 0 Active Vraylar 3 MG capsule capsule 1 capsule Daily. 0 Active nadolol (CORGARD) 80 MG tablet Take 1 tablet by mouth Daily. Active dilTIAZem XR (DILACOR XR) 180 MG 24 hr capsule Take 1 capsule by mouth Daily. 30 capsule 11 0 Active traZODone (DESYREL) 50 MG tablet Take 1 tablet by mouth every night at bedtime. 2 Active meloxicam (MOBIC) 15 MG tablet Take 1 tablet by mouth Daily. Active DULoxetine (CYMBALTA) 60 MG capsule Take 90 mg by mouth Daily. Active furosemide (LASIX) 20 MG tablet Take 1 tablet by mouth Daily. Active gabapentin (NEURONTIN) 400 MG capsule Take 1 capsule by mouth 2 (Two) Times a Day. Active rosuvastatin (CRESTOR) 10 MG tablet Take 1 tablet by mouth Daily. Active valsartan (DIOVAN) 80 MG tabletIndications :Essential hypertension Take 1 tablet by mouth Daily. 90 tablet 3 4 Active potassium chloride (MICRO-K) 10 MEQ CR capsule Take 1 capsule by mouth Daily. 5 Active Active Problems Problem Noted Date Diagnosed Date Low serum cortisol level 09/30/2024 Assessment & Plan (09/30/2024 8:38 AM EDT): She had low serum cortisol on labs done 2 months ago. It appears this was after taking dexamethasone the night before. If so, this would be an appropriate response. Check serum cortisol again today. The 24 hour urine cortisol was normal. These tests have ruled out Alia's syndrome. Hypokalemia 09/30/2024 Assessment & Plan (09/30/2024 8:31 AM EDT): She had hypokalemia on labs 2 months ago. Check judy/renin ratio today. Psychogenic nonepileptic seizure 05/19/2023 Vasovagal syncope 11/09/2020 Essential hypertension 07/13/2020 Tachycardia, paroxysmal 04/22/2020 Resolved Problems Problem Noted Date Diagnosed Date Resolved Date Seizure 05/18/2023 05/19/2023 Immunizations Immunization Administration Dates Next Due Fluzone (or Fluarix & Flulaval for VFC) >6mos Family History Medical History Relation Name Comments Alcohol abuse Brother Hypertension Brother Cirrhosis Father nonalcholic Diabetes Father Hypertension Father Liver disease Father Heart disease Maternal Grandfather Colon cancer Maternal Grandmother Breast cancer Mother Heart disease Mother Kidney disease Mother Heart disease Paternal Grandfather Heart attack Paternal Grandmother Heart disease Paternal Grandmother Relation Name Status Comments Brother Alive Father Alive Maternal Grandfather Maternal Grandmother Mother Alive Paternal Grandfather Paternal Grandmother Social History Tobacco Use Types Packs/Day Years Used Date Smoking Tobacco: Former Cigarettes 1 4 2 013 - 2016 Smokeless Tobacco: Never Tobacco Cessation:Counseling Given: Not Answered Alcohol Use Standard Drinks/Week Comments Not Currently 0 (1 standard drink = 0.6 oz pur e alcohol) AUDIT-C Answer Date Recorded Q1: How often do you have a drink containing alcohol? Never 05/18/2023 Q2: How many drinks containi ng alcohol do you have on a typical day when you are drinking? Patient does not drink Q3: How often do you have si x or more drinks on one occasion? Never 05/18/2023 Abuse Screen Answer Date Recorded Feels Unsafe at Home or Work/School no 01/04/2024 Feels Threatened by Someone no 12/08 Does Anyone Try to Keep You From Having Contact with Others or Doing Things Outside Your Home? no 01/04/2024 Physical Signs of Abuse Present no 01/04/2024 Housing Stability Answer Date Recorded Current Living Arrangements home 05/09 Potentially Unsafe Housing Conditions Not on soo e 05/18/2023 Disabilities Answer Date Recorded Difficulty Concentrating, Remembering or Making Decisions no 05/18/2023 Difficulty Managing Errands Independently no 05/18/2023 Comments No Sex and Gender Information Value Date Recorded Sex Assigned at Not on file Legal Sex Female 11:41 AM EDT Gender Identity Not on file Sexual Orientation Not on file Last Filed Vital Signs Vital Sign Reading Time Taken Comments Blood Pressure 108/62 09/30/2024 8:08 AM EDT Pulse 66 09/30/2024 8:08 AM EDT Temperature 36.3 C (97.3 F) 01/08/2024 1:42 PM EDT Respiratory Rate 18 01/08/2024 1:42 PM EDT Oxygen Saturation 97% 09/30/2024 8:08 AM EDT Inhaled Oxygen Concentration - - Weight 101 kg (222 lb) 09/30/2024 8:08 AM EDT Height 165.1 cm (5' 5 ) 09/30/2024 8:08 AM EDT Body Mass Index 36.94 09/30/2024 8:08 AM EDT Plan of Treatment Health Maintenance Due Date Last Done Comments Annual Gynecologic Pelvic an d Breast Exam 1977 Pneumococcal Vaccine 0-49 (1 of 2 - PCV) 1996 PAP SMEAR 1998 MAMMOGRAM 2017 ANNUAL PHYSICAL 04/20/2020 HEPATITIS C SCREENING 04/20/2020 PT PLAN OF CARE 03/10/2021 COLOGUARD 2022 COLON CANCER SCREENING 5 YEA R SIGMOIDOSCOPY 2022 COLONOSCOPY 2022 COLORECTAL CANCER SCREENING 2022 CT COLONOGRAPHY 2022 FECAL OCCULT BLOOD TEST 2022 FIT Testing (1 year) 2022 COVID-19 Vaccine () 03/09/202408/2020, 04/19/2021 INFLUENZA VACCINE 04/08/2025 04/02/2024, , 07/14/2021 TDAP/TD VACCINES (2 - Td or Tdap) 07/14/2031 022 Insurance [facility] PPO Advance Directives * CPR (Attempt to Resuscitate) (Latest Code Status on File) Date Activated Date Inactivated Comments 05/18/2023 4:09 PM 05/19/2023 4:50 PM Question Answer Comments Code Status (Patient has no pulse and is not breathing): CPR (Attempt to Resuscitate) Medical Interventions (Patie nt has pulse or is breathing): Full Support Care Teams Junior Web Developer Relationship Specialty Start Date End Date Newton Connors MD [address] [facility] [address] [place] [id number] PCP - General Family Medicine 04/20/20
--- OUTSIDE RECORDS SUMMARY | 2025-01-23 09:56 | XMS_ITS | Clinical Summary ---
Author Organization Healthcare Address [address] [place] [address] Care Team Providers Care Digester Capper Name Role Phone Unavailable Primary Care Provider [...] 2022 Sigmoidoscopy 2022 [facility]-Colorectal Cancer Screening 2022 [id number] Vaccine ( - season) 2024 05/10/2021, 04/19/2021 [facility]-Influenza Vaccine (#1) 2025 07/14/2021 Dental X-Ray: Full Mouth 03/30/2025 [...] Most Recently Relevant to Health Maintenance Insurance [facility]
--- OUTSIDE RECORDS SUMMARY | 2025-01-23 09:56 | XMS_ITS | Encounter Summary ---
Author Organization [facility] Address [address] [place] [address] Care Team Providers Care Product Development Scientist Name Role Phone None, None Primary Care Provider [phone] Encounter Details Date Type Department Care Team (Late st Contact Info) Description 05/07/2020 Orders Only External Location [address] [place] [address] Provider, External Social History Tobacco Use Types [...] on filedocumented in this encounter Care Teams Product Development Scientist Relationship Specialty Start Date End Date None, None [address], [place] [address] PCP - General NONE FOUND 01/01/23 01/31/24 documented as of this encounter
[2025-01-23] MEDS: ALBUTEROL 0.083% 2.5 MG/3 ML NEB IH (10:57)
== END 2025-01-23 23:59 | disposition home or self-care (01) ==
LOC: RT 09:48
PROVIDERS: PCP Family Medicine; Visit Provider Internal Medicine Pulmonary Disease
DX: R06.09 Other forms of dyspnea (principal); R06.02 Shortness of breath
CPT/HCPCS: 94060; 94618; 94726; 94729

== ENCOUNTER 2025-03-05 07:44 | Outpatient (CLI) | payer BC, SELFPAY ==
--- OUTSIDE RECORDS SUMMARY | 2025-01-23 04:00 | XMS_ITS ---
[facility] Address [address] [place] Velaz[place] [id number] Care Team Providers Care Geology Professor Name Role Phone Willis Connors Primary Care Provider [phone] Janell Smith [phone] Allergies Allergen (clinical drug ingredient) Drug/Non Drug [...] 2A, 07/09. (FLC,EJ3,sw30) Grossing services provided by [facility], [facility], d/b/a [address] [place], [address] Ovi Jean MD, Vehicle Operator. Microscopic Description: Microscopic examination is performed. Clinical [...] End of Report Technical services provided by [facility], [facility], d/b/a [address] , [place] [address] Ovi Jean MD, Vehicle Operator. Case reviewed and diagnosis rendered at [facility], [facility], d/b/a [address] , [place] [address] Ovi Jean MD, Vehicle Operator. CONFIDENTIAL REASON FOR VISIT mole removal Medications Medication SIG (Take, Route, Frequency, Duration) Notes Start Date End Date Status Breyna 80-4.5 MCG/ACT as directed Inhalation Active traZODone HCl 50 MG 1 tablet at bedtime as needed Orally Once a day; Duration: 90 days Active Omeprazole 40 MG Take 1 capsule by [facility] twice daily; Duration: 90 Active DULoxetine HCl [...] Dilt-XR 180 MG Take 1 capsule by [facility] once daily; Duration: 90 days Active Potassium [...] 01/23/2025 Encounters Encounter Location Date Provider Diagnosis [facility] [address] [facility] [address] [facility] [address] [place], [place] [id number] 01/23/2025 Janell Smith Neoplasm of [facility] n behavior D48.9 Assessments Encounter Date Diagnosis (ICD Code) Assessment Notes Treatment Notes Treatment Clinical Notes Section Notes 01/23/2025 Neoplasm of uncertain behavior (ICD-10 - D48.9) Plan Of Treatment Next Appt Details Follow Up: prn, Reason: Provider Name:Ashok delgadillo, 03/05/2025 10:15:00 AM, [address] [facility] [address] [facility], [address], [place], [place], [phone], Procedure Notes * Category Sub-Category Detail Notes [...] Notes * Nancy ANDREWSaDOB:1975 (49 yo F)Acc No.[id number]:01/23/2025 Progress Notes Patient: Hilda GEORGE Provider: Janell Smith M.D. :1975 A ge:49 Y S ex:Female Date:01/23/2025 Address:[address], [place], [id number] Pcp:Willis Connors Subjective: * Chief Complaints: * [...] [facility], [facility]-chest pain 05/16/2012, [facility]-rash on left arm 09/29/2012, [facility]-seizures n , [facility] ER - pleurisy 08/31/2017, [facility] ER - fatigued, weak, dehydrated 09/04/2017, [facility]-precordial chest pain 12/28-, [facility]-sinus tachycardia 02/13/2019, [facility] ER- Passed out 11/06/2020, [facility] - Seizures 05/18/2023, [facility] - Seizure 10/23/2023, [facility] - Chest Pain 03/25/2024, [facility] ER - Near Syncope 06/16/2024. * Family [...] TRUNK, ARMS, LEG 0.5 CM OR LESS, 30441 EXCISION BENIGN LESION, TRUNK, ARMS, LEG 0.5 CM OR LESS * Follow Up: p rn * Images: Billing Information: * Visit Code: * Procedure Codes: 37354 EXCISION BENIGN LESION, TRUNK, ARMS, LEG 0.5 CM OR LESS. 66164 EXCISION BENIGN LESION, TRUNK, ARMS, LEG 0.5 CM OR LESS. * Electronic signature of Janell Smith MD on 03/05/2025 at 07:48 AM EDT Sign off status: Pending * Provider: Janell Smith M.D. Date: 0 01/23/2025 Generated for Rain martínez/Carol/Josep on: 0 03/05/2025 07:48 AM EDT History and Physical Notes * HPI (History of Present Illness) Category Sub-Category Detail Notes Category Not es Dermatology skin lesion chest Examination Category Sub-Category Detail Notes Category Not es General Examination Heart: RSR General Appearance: NAD Skin: pigmented lesions le ft axilla and right upper chest, 3mm each
--- OUTSIDE RECORDS SUMMARY | 2025-02-05 06:00 | XMS_ITS ---
[facility] [address] [facility] [address] [place] [id number] Care Team Providers Care Counseling Specialist Name Role Phone Willis Connors Primary Care Provider Ashok Lang Unavailable [phone] Allergies Allergen (clinical drug ingredient) Drug/Non Drug Allergy documented on EMR Reaction Allergy Type Onset Date Status Cyclobenzaprine HCl hives Drug Allergy Active Levaquin Unknown Drug Allergy Active REASON FOR VISIT bad anxiety Medications Medication SIG (Take, Route, Frequency, Duration) Notes Start Date End Date Status Albuterol Sulfate HFA 108 (90 Base) MCG/ACT 1 puff as needed Inhalation every 4 hrs, prn 11/12/2024 Active Potassium Chloride ER 10 MEQ 1 capsule with food Orally Once a day; Duration: 30 day(s) 08/01/2024 Active Metaxalone 800 MG 1 tablet Orally Thre e times a day, prn 09/03/2024 Active Omeprazole 40 MG Take 1 capsule by [facility] twice daily; Duration: 90 Active traZODone HCl 50 MG 1 tablet at bedtime as needed Orally Once a day; Duration: 90 days Active Nadolol 80 MG 1 tab(s) orally Two times a day Active Vraylar 6 MG 1 capsule Orally Onc e a day; Duration: 90 days 02/05/2025 Active Dilt-XR 180 MG Take 1 capsule by [facility] once daily; Duration: 90 days Active Valsartan 80 MG 1 tablet Orally Once a day; Duration: 30 day(s) Active Gabapentin 600 MG 1.5 tab Orally Two t imes a day 12/17/2024 Active DULoxetine HCl 60 MG 2 capsules Orally O nce a day; Duration: 90 days 02/05/2025 Active Breyna 80-4.5 MCG/ACT as directed Inhalation Active Social History Tobacco Use: Social History Observation Description Date Details (start date - stop date) Former Smoker NA - NA CURRENT TOBACCO USE: Question Answer Notes Are you a: former smoker stopped 09/2016 Vital Signs Weight 243 lbs 02/05/2025 Blood pressure systolic 130 mm Hg 02/06/20 25 Blood pressure diastolic 76 mm Hg 025 Heart Rate 96 /min 02/05/2025 Height 66 in 02/05/2025 BMI 39.22 kg/m2 02/05/2025 Encounters Encounter Location Date Provider Diagnosis [facility] [address] [facility] [address] [facility] [address] [place] [id number] 02/05/2025 Ashok Lang Anxiety F41.9 ; Bipo lar 1 disorder F31.9 and Peripheral neuropathy G62.9 Assessments Encounter Date Diagnosis (ICD Code) Assessment Notes Treatment Notes Treatment Clinical Notes Section Notes 02/05/2025 Anxiety (ICD-10 - F41.9) 02/05/2025 Bipolar 1 disorder (ICD-10 - F31.9) 02/05/2025 Peripheral neuropathy (ICD-10 - G62.9) Plan Of Treatment Medication Medication Name Sig Start Date Stop Date Notes Vraylar 6 MG 1 capsule Orally Onc e a day; Duration: 90 days 02/05/2025 Gabapentin 600 MG 1.5 tab Orally Two times a day DULoxetine HCl 60 MG 2 capsules Orally O nce a day; Duration: 90 days 02/05/2025 DULoxetine HCl 30 MG TAKE 3 CAPSULES BY MOUTH ONCE DAILY Vraylar 4.5 MG 1 capsule Orally Once a day Next Appt Details Follow Up: 4 Weeks, Reason: Provider Name:Ashok delgadillo, 03/05/2025 10:15:00 AM, [address] [facility] [address] [facility], [address], [place], [id number], Progress Notes * Rafael ANDREWSB:1975 (49 yo F)Acc No.[id number]:02/05/2025 Progress Notes Patient: Renee Hilda REHMAN Provider: Shereen Lang M.D. :1975 A ge:49 Y S ex:Female Date:02/05/2025 Address[address], [id number] Pcp:Willis Connors Subjective: * Chief Complaints: * 1 . Bad anxiety. * HPI: P sychology: 49 year old female presents with c/o Anxiety P t states she feels like her anxiety is through the roof over the last month . Pt states her mind is constantly going and she feels like she has the zoomies . Pt states she is not sleeping at night due to bad dreams . Pt states she has had seizures at work and it is embarrassing . Pt states she feels like the whole world is crashing down on her right now. Pt is only getting 4-5 hours of sleep at night.? N eurology: c/o tingling/ numbness P t complains of worsening neuropathy in her feet. Pt states Gabapentin was increased and it does help at night but throughout the day the pain is bad. Pt states by the time she gets home from work she can barely walk . Pt states when she wakes up in the morning pain is unbearable . * ROS: D ERMATOLOGY: no R erwin. [...] [facility], [facility]-chest pain 05/16/2012, [facility]-rash on left arm 09/29/2012, [facility]-seizures n , [facility] - pleurisy 08/31/2017, [facility] ER - fatigued, weak, dehydrated 09/04/2017, [facility]-precordial chest pain 12/28-, [facility]-sinus tachycardia 02/13/2019, [facility]- Passed out 11/06/2020, [facility] - Seizures 05/18/2023, [facility] - Seizure 10/23/2023, [facility] - Chest Pain 03/25/2024, [facility] - Near Syncope 06/16/2024. [...] HCl: hives. Objective: * Vitals: W t: 243, Temp: 97.7, BP: 130/76, HR: 96, Nurse: munira, Ht: 66, BMI:39.22. * Examination: P sychology: General Appearance: N AD. G rooming : a dequate.?Eye contact : vandana medel. M ood : p leasant, tearful at times. Assessment: * Assessment: 1. A nxiety - F41.9 (Primary) 2 . B ipolar 1 disorder - F31.9 ?3. P eripheral neuropathy - G62.9 Plan: * Treatment: 2. B ipolar 1 disorder Stop Vraylar Capsule, 4.5 MG, 1 capsule, Orally, Once a day; S tart Vraylar Capsule, 6 MG, 1 capsule, Orally, Once a day, 90 days, 90 Capsule, Refills 0. 3. P eripheral neuropathy Increase Gabapentin Tablet, 600 MG, 1.5 tab, Orally, Two times a day. * Procedure Codes: 1 036F TOBACCO NON-USER, 3075F SYST BP GE 130 - 139MM HG, 3078F DIAST BP < 80 MM HG * Follow Up: 4 Weeks * Images: Billing Information: * Visit Code: 87333 Office Visit, Est Pt., Level 4. * Procedure Codes: 1036F TOBACCO NON-USER. 3075F SYST BP GE 130 - 139MM HG. 3078F DIAST BP < 80 MM HG. * Electronic signature of Alice Lang MD on 03/05/2025 at 07:49 AM EDT Sign off status: Pending * Provider: Shereen Lang M.D. Date: 0 02/05/2025 Generated for Rain martínez/Carol/Josep on: 03/05/2025 07:49 AM EDT History and Physical Notes * HPI (History of Present Illness) Category Sub-Category Detail Notes Category Not es Neurology tingling/ numbness Pt complains of worsening neuropathy in her feet. Pt states Gabapentin was increased and it does help at night but throughout the day the pain is bad. Pt states by the time she gets home from work she can barely walk . Pt states when she wakes up in the morning pain is unbearable Psychology Anxiety Pt states she fe els like her anxiety is through the roof over the last month . Pt states her mind is constantly going and she feels like she has the zoomies . Pt states she is not sleeping at night due to bad dreams . Pt states she has had seizures at work and it is embarrassing . Pt states she feels like the whole world is crashing down on her right now. Pt is only getting 4-5 hours of sleep at night Examination Category Sub-Category Detail Notes Category Not es Psychology General Appearance: NAD Grooming : adequate Eye contact : normal Mood : pleasant, tearful at times
--- NOTE | 2025-03-05 07:47 | MM_ITS ---
PROCEDURE INFORMATION: Exam: MG Bilateral Screening 3D Mammography Exam date and time: 03/05/2025 8:08 AM Age: 49 years old Clinical indication: Screening examination TECHNIQUE: Imaging protocol: Bilateral Screening tomosynthesis and 2D mammography including computer-aided detection (CAD) when performed. COMPARISON: 1. MG MM DIG MAMM DX UNILAT LT CAD 01/19/2023 1:49 PM 2. MG MM DIG SCREENING MAMM BI W/CAD 12/26/2022 3:44 PM FINDINGS: MAMMOGRAPHY: Breast composition: There are scattered areas of fibroglandular density. Mass: None. Architectural distortion: None. Calcifications: No suspicious calcifications. Asymmetric density: None. Skin thickening: None. Axillary adenopathy: None. IMPRESSION: No mammographic evidence of malignancy. Annual screening is recommended unless otherwise clinically indicated. ASSESSMENT: BI-RADS Category 1: Negative.
--- OUTSIDE RECORDS SUMMARY | 2025-03-05 07:49 | XMS_ITS | Clinical Summary ---
Author Organization [facility] Address [address] [place] [address] Care Team Providers Care Robotics Specialist Name Role Phone Unavailable Primary Care Provider [...] [facility]-HIV Screening 1975 [facility]-Hepatitis C Screening 1975 [facility]-/Child/Adol SDOH Screenings 1975 [facility]- SDOH Screenings 11/30/1995 [facility]-Adult SDOH Screenings 11/30/1995 [facility]-Hepatitis B Vaccines (1 of 3 - 19+ 3-dose series) 1996 [facility]-Pap Smear 1998 [facility]-Cervical Cancer Screening 11/30/2007 [facility]-HPV/Cotest 11/30/2007 Dental Oral Exam 09/27/2022 03/29/2022 CT Colonography 2022 Colonoscopy 2022 FIT-DNA 2022 FIT 2022 FOBT 2022 Sigmoidoscopy 2022 [facility]-Colorectal Cancer Screening 2022 [id number] Vaccine ( - season) 2024 05/10/2021, 04/19/2021 [...] Most Recently Relevant to Health Maintenance Insurance [facility]
--- OUTSIDE RECORDS SUMMARY | 2025-03-05 07:49 | XMS_ITS | Clinical Summary ---
Author Organization [facility] Address [address] [place] [address] Care Team Providers Care Small Business Representative Name Role Phone Newton Connors MD Primary [...] was normal. These tests have ruled out Thayer's syndrome. Hypokalemia 09/30/2024 Assessment & Plan (09/30/2024 [...] - Td or Tdap) 07/14/2031 022 Insurance [facility] PPO Advance Directives * CPR (Attempt to Resuscitate) (Latest Code Status on File) Date Activated Date Inactivated Comments 05/18/2023 4:09 PM 05/19/2023 4:50 PM Question Answer Comments Code Status (Patient has no pulse and is not breathing): CPR (Attempt to Resuscitate) Medical Interventions (Patie nt has pulse or is breathing): Full Support Care Teams Small Business Representative Relationship Specialty Start Date End Date Newton Connors MD [address] [facility] [address] [place] [id number] PCP - General Family Medicine 04/20/20
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
--- OUTSIDE RECORDS SUMMARY | 2025-03-05 07:49 | XMS_ITS | Encounter Summary ---
Author Organization Healthcare Address [address] [place] [address] Care Team Providers Care Certified Emergency Vehicle Technician Name Role Phone None, None Primary Care Provider [phone] Encounter Details Date Type Department Care Team (Late st Contact Info) Description 05/07/2020 Orders Only External Location [address] [place] [address] Provider, External Social History Tobacco Use Types [...] on filedocumented in this encounter Care Teams Certified Emergency Vehicle Technician Relationship Specialty Start Date End Date None, None [address], [place] [id number] PCP - General NONE FOUND 01/01/23 01/31/24 documented as of this encounter
== END 2025-03-05 23:59 | disposition home or self-care (01) ==
LOC: RAD 07:45
PROVIDERS: PCP Family Medicine; Visit Provider Family Medicine
DX: Z12.31 Encounter for screening mammogram for malignant neoplasm of breast (principal); R92.323 Mammographic fibroglandular density, bilateral breasts; Z80.3 Family history of malignant neoplasm of breast
CPT/HCPCS: 77063; 77067

== ENCOUNTER 2025-04-06 14:18 | Emergency (ER) | payer BC, SELFPAY ==
--- OUTSIDE RECORDS SUMMARY | 2025-01-23 04:00 | XMS_ITS ---
[facility] Organization [facility] Address [address] [place] Velazquez [id number] Care Team Providers Care Agronomy Advisor Name Role Phone Willis Connors Primary Care Provider Janell Smith [phone] Allergies Allergen (clinical drug ingredient) Drug/Non Drug Allergy documented on EMR Reaction Allergy Type Onset Date Status cyclobenzaprine Cyclobenzaprine HCl hives Drug Allergy Active Levaquin Unknown Drug Allergy Active Results Component Value Reference Range Notes P-Surgical Pathology Reviewed date:02/06/2025 10:49:40 AM Interpretation:Intradermal melanocytic nevus, present at deep edge of biopsy, no neoplasm Performing Lab: Notes/Report: Surgical Pathology View Report Patient Name: HILDA ANDREWS Age-Sex-: 49y F 1975 Procedure Date: 01/23/2025 Accession Date: 01/24/2025 Pt Acct#: Report Date: 01/30/2025 Location: OFFICE Physician(s): Ari Smith MD P A T H O L O G Y R E P O R T DIAGNOSIS: 1. Skin, right chest; biopsy: Intradermal melanocytic nevus, present at deep edge of biopsy. 2. Skin, left shoulder; biopsy: Intradermal melanocytic nevus, present at deep edge of biopsy. See comment. Comments: No malignant neoplasm is identified. Teresa Schuler MD electronically signed 01/30/2025 05:05 PM Gross Description: 1. Received in formalin labeled Hedges, Hilda and R upper chest is a white-abarca skin shave measuring 0.7 x 0.6 x 0.2 cm. Centrally on the skin surface is a white-abarca circular lesion measuring 0.6 x 0.5 cm. The lesion abuts the margin. The base is inked blue. The specimen is trisected and submitted entirely in cassette 1A, 09/06. 2. Received in formalin labeled Hedges, Hilda and L shoulder is a white-abarca hair-bearing skin shave measuring 0.5 x 0.5 x 0.3 cm. Eccentrically on the skin surface is a brown abarca macule measuring 0.3 x 0.3 cm. The lesion is 0.1 cm from the nearest margin. The base is inked blue. The specimen is bisected and submitted entirely in cassette 2A, 07/09. (FLC,EJ3,sw30) Grossing services provided by [facility], [facility], d/b/a [address] [place], [address] Ovi Jean MD, Tax Audit Manager. Microscopic Description: Microscopic examination is performed. 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 Right chest skin lesion 2. Left shoulder skin lesion Unless specified otherwise above, the quality of the H and E and any other stains performed is satisfactory, and any internal or external positive and negative controls react appropriately. End of Report Technical services provided by [facility], [facility], d/b/a [address] , [place] [address] Ovi Jean MD, Tax Audit Manager. Case reviewed and diagnosis rendered at [facility], [facility], d/b/a [address] , [place] [address] Ovi Jean MD, Tax Audit Manager. CONFIDENTIAL REASON FOR VISIT mole removal Medications Medication SIG (Take, Route, Frequency, Duration) Notes Start Date End Date Status Breyna 80-4.5 MCG/ACT as directed Inhalation Active traZODone HCl 50 MG 1 tablet at bedtime as needed Orally Once a day; Duration: 90 days Active Omeprazole 40 MG Take 1 capsule by [facility] twice daily; Duration: 90 Active DULoxetine HCl 30 MG TAKE 3 CAPSULES BY MOUTH ONCE DAILY; Duration: 30 Active Metaxalone 800 MG 1 tablet Orally Thre e times a day, prn 09/03/2024 Active Gabapentin 600 MG 1 tablet in the am a nd 1.5 tab at night Orally Two times a day; Duration: 30 days 12/17/2024 Active Albuterol Sulfate HFA 108 (90 Base) MCG/ACT 1 puff as needed Inhalation every 4 hrs, prn 11/12/2024 Active Vraylar 4.5 MG 1 capsule Orally Onc e a day; Duration: 90 days Active Nadolol 80 MG 1 tab(s) orally Two times a day Active Valsartan 80 MG 1 tablet Orally Once a day; Duration: 30 day(s) Active Dilt-XR 180 MG Take 1 capsule by [facility] once daily; Duration: 90 days Active Potassium Chloride ER 10 MEQ 1 capsule with food Orally Once a day; Duration: 30 day(s) 08/01/2024 Active Social History Tobacco Use: Social History Observation Description Date Details (start date - stop date) Former Smoker NA - NA CURRENT TOBACCO USE: Question Answer Notes Are you a: former smoker stopped 09/2016 Vital Signs Blood pressure systolic 130 mm Hg 01/24/20 25 Blood pressure diastolic 80 mm Hg 025 Heart Rate 115 /min 01/23/2025 Height 66 in 01/23/2025 Weight 239.0 lbs 01/23/2025 BMI 38.57 kg/m2 01/23/2025 Encounters Encounter Location Date Provider Diagnosis [facility] [address] [facility] [address] [place], [place] [id number] 01/23/2025 Janell Smith Neoplasm of [facility] n behavior D48.9 Assessments Encounter Date Diagnosis (ICD Code) Assessment Notes Treatment Notes Treatment Clinical Notes Section Notes 01/23/2025 Neoplasm of uncertain behavior (ICD-10 - D48.9) Plan Of Treatment Next Appt Details Follow Up: prn, Reason: Procedure Notes * Category Sub-Category Detail Notes Excision, skin lesion Consent: informed c onsent obtained Prep: Betadine Anesthesia: 1% lidocaine, local Incision type: DermaBlade used for shave excision of the lesions Hemostasis: electrocautery of th e bases Post-procedure: H2O2, Neosporin, ryne ssing applied, patient tolerated procedure well, instructed in wound care, Vinegar water wash bid, Vaseline, specimen(s) sent to pathology Progress Notes * Nancy ANDREWSaDOB:1975 (49 yo F)Acc No.[id number]:01/23/2025 Progress Notes Patient: Hilda GEORGE Provider: Janell Smith M.D. :1975 A ge:49 Y S ex:Female Date:01/23/2025 Address:[address], [place], [id number] Pcp:Willis Connors Subjective: * Chief Complaints: * 1 . Mole removal. * HPI: D ermatology: The pt is here today for minor surgery to remove moles from the right upper chest and left axilla. Pt states the left axilla lesion was irritated and bleeding but that has resolved. 49 year old female presents with c/o skin lesion c hest.? * ROS: C ARDIOLOGY: no C hest pain. n o S hortness of breath. ? G ASTROENTEROLOGY: no N ausea. n o [...] [facility], [facility]-chest pain 05/16/2012, [facility]-rash on left arm 09/29/2012, [facility]-seizures n , [facility] ER - pleurisy 08/31/2017, [facility] ER - fatigued, weak, dehydrated 09/04/2017, [facility]-precordial chest pain 12/28-, [facility]-sinus tachycardia 02/13/2019, [facility]- Passed out 11[facility]06/2020, [facility], [facility] - Seizure 10/23/2023, [facility] - Chest Pain 03/25/2024, [facility] ER - Near Syncope 06/16/2024. * [...] Three times a day, prn , Taking Albuterol Sulfate HFA 108 (90 Base) MCG/ACT Aerosol Solution 1 puff as needed Inhalation every 4 hrs, prn , Taking Gabapentin 600 MG Tablet 1 tablet in the am and 1.5 tab at night Orally Two times a day , Taking Vraylar 4.5 MG Capsule 1 capsule Orally Once a day , Taking traZODone HCl 50 MG Tablet 1 tablet at bedtime as needed Orally Once a day , Taking DULoxetine HCl 30 MG Capsule Delayed Release Particles TAKE 3 CAPSULES BY MOUTH ONCE DAILY , Taking Omeprazole 40 MG Capsule Delayed Release Take 1 capsule by mouth twice daily , Discontinued predniSONE 20 MG Tablet 1 tab Orally twice a day , Discontinued Indomethacin 25 MG Capsule 1 capsule with food or milk Orally Twice a day prn pain , Medication List reviewed and reconciled with the patient * Allergies: L evaquin, Cyclobenzaprine HCl: hives. Objective: * Vitals: W t: 239.0, Temp: 97.6, BP: 130/80, HR: 115, Nurse: KIM, Ht: 66, BMI:38.57. * Examination: G eneral Examination: General Appearance: N AD. H eart: R SR. S kin:?pigmented lesions left axilla and right upper chest, 3mm each. Assessment: * Assessment: 1. N eoplasm of uncertain behavior - D48.9 (Primary) Plan: * Treatment: Value Reference Range S urgical Pathology View Report - * Selma Spivey 02/06/2025 10:49 :34 AM EDT > See phone encounter * Procedures: E xcision, skin lesion: Consent: i nformed consent obtained. P rep: B etadine. A nesthesia: 1 % lidocaine, local. I ncision type: D ermaBlade used for shave excision of the lesions. H emostasis: e lectrocautery of the bases. P ost-procedure: H 2O2, Neosporin, dressing applied, patient tolerated procedure well, instructed in wound care, Vinegar water wash bid, Vaseline, specimen(s) sent to pathology. * Procedure Codes: 1 1400 EXCISION BENIGN LESION, TRUNK, ARMS, LEG 0.5 CM OR LESS, 97313 EXCISION BENIGN LESION, TRUNK, ARMS, LEG 0.5 CM OR LESS * Follow Up: p rn * Images: Billing Information: * Visit Code: * Procedure Codes: 28090 EXCISION BENIGN LESION, TRUNK, ARMS, LEG 0.5 CM OR LESS. 93442 EXCISION BENIGN LESION, TRUNK, ARMS, LEG 0.5 CM OR LESS. * Electronic signature of Janell Smith MD on 04/06/2025 at 02:29 PM EDT Sign off status: Pending * Provider: Janell Smith M.D. Date: 01/23/2025 Generated for Rain martínez/Carol/Conoritting on: 0 04/06/2025 02:29 PM EDT History and Physical Notes * HPI (History of Present Illness) Category Sub-Category Detail Notes Category Not es Dermatology skin lesion chest Examination Category Sub-Category Detail Notes Category Not es General Examination Heart: RSR General Appearance: NAD Skin: pigmented lesions le ft axilla and right upper chest, 3mm each
--- OUTSIDE RECORDS SUMMARY | 2025-02-05 06:00 | XMS_ITS ---
[facility] Address [address] [facility] [address] [place] [id number] Care Team Providers Care Resident Inspector Name Role Phone Willis Connors Primary Care Provider Ashok Lang Unavailable [phone] Allergies Allergen (clinical drug ingredient) Drug/Non Drug [...] Omeprazole 40 MG Take 1 capsule by [facility] twice daily; Duration: 90 Active traZODone HCl 50 MG 1 tablet at bedtime as needed Orally Once a day; Duration: 90 days Active Nadolol 80 MG 1 tab(s) orally Two times a day Active Vraylar 6 MG 1 capsule Orally Onc e a day; Duration: 90 days 02/05/2025 Active Dilt-XR 180 MG Take 1 capsule by [facility] once daily; Duration: 90 days Active [...] Signs Blood pressure systolic 130 mm Hg 02/06/20 25 Blood pressure diastolic 76 mm Hg 025 Heart Rate 96 /min 02/05/2025 Height 66 in 02/05/2025 Weight 243 lbs 02/05/2025 BMI 39.22 kg/m2 02/05/2025 Encounters Encounter Location Date Provider Diagnosis [facility] [address] [facility] [address] [place], [place] [id number] 02/05/2025 Ashok Lang Anxiety F41.9 ; Bipo [...] Appt Details Follow Up: 4 Weeks, Reason: Progress Notes * Rafael ANDREWSB:1975 (49 yo F)Acc No.[id number]:02/05/2025 Progress Notes Patient: Hilda GEORGE Provider: Shereen Lang M.D. :1975 A ge:49 Y S ex:Female Date:02/05/2025 Address:[address], [place], [id number] Pcp:Willis Connors Subjective: * Chief Complaints: * [...] Procedure[facility], [facility]-chest pain 05/16/2012, [facility]-rash on left arm 09/29/2012, [facility]-seizures n , [facility] - pleurisy 08/31/2017, [facility] - fatigued, weak, dehydrated 09/04/2017, [facility]-precordial chest pain 12/28-, [facility]-sinus tachycardia 02/13/2019, [facility]- Passed out 11/06/2020, [facility] - Seizures 05/18/2023, [facility] - Seizure 10/23/2023, [facility] - Chest Pain 03/25/2024, [facility] - Near Syncope 06/16/2024. * [...] Temp: 97.7, BP: 130/76, HR: 96, Nurse: kk, Ht: 66, BMI:39.22. * Examination: P sychology: General Appearance: N AD. G rooming : a dequate.?Eye contact : n alondramal. M ood : p leasant, tearful at [...] * Images: Billing Information: * Visit Code: 95437 Office Visit, Est Pt., Level 4. * Procedure Codes: 1036F TOBACCO NON-USER. 3075F SYST BP GE 130 - 139MM HG. 3078F DIAST BP < 80 MM HG. * Electronic signature of Alice Lang MD on 04/06/2025 at 02:30 PM EDT Sign off status: Pending * Provider: Shereen Lang M.D. Date: 02/05/2025 Generated for Rain martínez/Carol/Josep on: 0 04/06/2025 02:30 PM EDT History and Physical Notes * [...]
--- OUTSIDE RECORDS SUMMARY | 2025-03-05 06:15 | XMS_ITS ---
[facility] [address] [facility] [address] [place] [id number] Care Team Providers Care Dairy Feed Worker Name Role Phone Willis Connors Primary Care Provider Ashok Lang Unavailable [phone] Allergies Allergen (clinical drug ingredient) Drug/Non Drug Allergy documented on EMR Reaction Allergy Type Onset Date Status cyclobenzaprine Cyclobenzaprine HCl hives Drug Allergy Active Levaquin Unknown Drug Allergy Active REASON FOR VISIT 4 weeks Medications Medication SIG (Take, Route, Frequency, Duration) Notes Start Date End Date Status Albuterol Sulfate HFA 108 (90 Base) MCG/ACT 1 puff as needed Inhalation every 4 hrs, prn; Duration: 33 days Active Gabapentin 600 MG 1.5 tab Orally Two t imes a day; Duration: 30 days 02/13/2025 Active Omeprazole 40 MG Take 1 capsule by [facility] twice daily; Duration: 90 Active DULoxetine HCl 60 MG 2 capsules Orally O nce a day Active Rexulti 0.25 MG 1 tablet Orally Once a day Active Dilt-XR 180 MG Take 1 capsule by mo [facility] once daily; Duration: 90 days Active Metaxalone 800 MG 1 tablet Orally Thre e times a day, prn 09/03/2024 Active Prazosin HCl 1 MG 1 capsule at bedtime Orally Once a day Active Breyna 80-4.5 MCG/ACT as directed Inhalation Active Nadolol 80 MG 1 tab(s) orally Two times a day Active Social History Tobacco Use: Social History Observation Description Date Details (start date - stop date) Former Smoker NA - NA CURRENT TOBACCO USE: Question Answer Notes Are you a: former smoker stopped 09/2016 Vital Signs Blood pressure systolic 124 mm Hg 03/05/20 25 Blood pressure diastolic 76 mm Hg 025 Heart Rate 94 /min 03/05/2025 Height 66 in 03/05/2025 Weight 241 lbs 03/05/2025 BMI 38.89 kg/m2 03/05/2025 Encounters Encounter Location Date Provider Diagnosis [facility] [address] [place] [id number] 03/05/2025 Ashok Lang Anxiety F41.9 and Bipolar 1 disorder F31.9 Assessments Encounter Date Diagnosis (ICD Code) Assessment Notes Treatment Notes Treatment Clinical Notes Section Notes 03/05/2025 Anxiety (ICD-10 - F41.9) 03/05/2025 Bipolar 1 disorder (ICD-10 - F31.9) Patient to follow up with [facility] behavioral health clinic 03/05/2025 Other RTW date is 03/14/25. She will call next week with a progress report. Plan Of Treatment Medication Medication Name Sig Start Date Stop Date Notes DULoxetine HCl 60 MG 2 capsules Orally Once a day Rexulti 0.25 MG 1 tablet Orally Once a day Treatment Notes Assessment Notes Bipolar 1 disorder Patient to follow up with [facility] behavioral health clinic Other RTW date is 03/14/25. She will call next week with a progress report. Next Appt Details Follow Up: via phone to repo rt progress, Reason: Progress Notes * DARRYL RafaelB:1975 (49 yo F)Acc No.[id number]:03/05/2025 Progress Notes Patient: Hilda GEORGE Provider: Shereen Lang M.D. :1975 A ge:49 Y S ex:Female Date:03/05/2025 [address] [id number] Pcp:Willis Connors Subjective: * Chief Complaints: * 1 . 4 weeks. * HPI: P sychology: 49 year old female presents with c/o Anxiety P t. is here for 4 week follow up. Pt's Duloxetine increased to 60mg and Vraylar increased to 6mg on 02/05. Pt states she does not feel like she is improving and would like to see about taking another month off work to give her medicine time to work. Pt states she is unable to sit still leg is constantly shaking.? * ROS: D ERMATOLOGY: no R erwin. [...] 05/2022. * Hospitalization/Major Diagno stic Procedure: [place] - jaw reconstruction 1996, [facility] ER-chest pain 05/16/2012, [facility]-rash on left arm 09/29/2012, [facility]-seizures n , [facility] ER - pleurisy 08/31/2017, [facility] ER - fatigued, weak, dehydrated 09/04/2017, [facility]-precordial chest pain 12/28-, [facility]-sinus tachycardia 02/13/2019, [facility] ER- Passed out 11/06/2020, [facility] - Seizures 05/18/2023, [facility] ER - Seizure 10/23/2023, [facility] - Chest Pain 03/25/2024, [facility] ER - Near Syncope 06/16/2024. * Family History: F ather: alive, hypertension. M other: alive, breast cancer. P aternal Grand Father: . P aternal Grand Mother: . M aternal Grand Father: . M aternal Grand Mother: . 1 son(s) - healthy. . * Social History: C URRENT TOBACCO USE: No A re you a: f orly smoker stopped 09/2016. C affeine: yes, frequency: 8 cups a day. Home smoke detector use: yes. Marital Status: . Alcohol: Yes, occasional. * Medications: T aking Prazosin HCl 1 MG Capsule 1 capsule at bedtime Orally Once a day , Taking Rexulti 0.25 MG Tablet 1 tablet Orally Once a day , Taking Breyna 80-4.5 MCG/ACT Aerosol as directed Inhalation , Taking Nadolol 80 MG Tablet 1 tab(s) orally Two times a day , Taking Dilt-XR 180 MG Capsule Extended Release 24 Hour Take 1 capsule by mouth once daily , Taking Metaxalone 800 MG Tablet 1 tablet Orally Three times a day, prn , Taking Omeprazole 40 MG Capsule Delayed Release Take 1 capsule by mouth twice daily , Taking DULoxetine HCl 60 MG Capsule Delayed Release Particles 2 capsules Orally Once a day , Taking Albuterol Sulfate HFA 108 (90 Base) MCG/ACT Aerosol Solution 1 puff as needed Inhalation every 4 hrs, prn , Taking Gabapentin 600 MG Tablet 1.5 tab Orally Two times a day , Discontinued Valsartan 80 MG Tablet 1 tablet Orally Once a day , Discontinued Potassium Chloride ER 10 MEQ Capsule Extended Release 1 capsule with food Orally Once a day , Discontinued traZODone HCl 50 MG Tablet 1 tablet at bedtime as needed Orally Once a day , Discontinued Vraylar 6 MG Capsule 1 capsule Orally Once a day , Medication List reviewed and reconciled with the patient * Allergies: L evaquin, Cyclobenzaprine HCl: hives. Objective: * Vitals: W t: 241, Temp: 98.3, BP: 124/76, HR: 94, Nurse: GABRIEL, Ht: 66, BMI:38.89. * Examination: P sychology: General Appearance: N AD. G rooming : a dequate.?Eye contact : vandana medel. M ood : jaqueline isabel. Assessment: * Assessment: 1. A nxiety - F41.9 (Primary) 2 . B ipolar 1 disorder - F31.9 ? Plan: * Treatment: 2. B ipolar 1 disorder Continue Rexulti Tablet, 0.25 MG, 1 tablet, Orally, Once a day. Notes: Patient to follow up with [facility] behavioral health clinic 3. O thers Notes: RTW date is 03/14/25. She will call next week with a progress report. * Procedure Codes: 1 036F TOBACCO NON-USER, 3074F SYST BP LT 130 MM HG, 3078F DIAST BP < 80 MM HG * Follow Up: v ia phone to report progress * Images: Billing Information: * Visit Code: 00416 Office Visit, Est Pt., Level 3. * Procedure Codes: 1036F TOBACCO NON-USER. 3074F SYST BP LT 130 MM HG. 3078F DIAST BP < 80 MM HG. * Electronic signature of Alice Lang MD on 04/06/2025 at 02:30 PM EDT Sign off status: Pending * Provider: Shereen Lang M.D. Date: 0 03/05/2025 Generated for Rain martínez/Carol/Josep on: 0 04/06/2025 02:30 PM EDT History and Physical Notes * HPI (History of Present Illness) Category Sub-Category Detail Notes Category Not es Psychology Anxiety Pt. is here for 4 week follow up. Pt's Duloxetine increased to 60mg and Vraylar increased to 6mg on 02/05. Pt states she does not feel like she is improving and would like to see about taking another month off work to give her medicine time to work. Pt states she is unable to sit still leg is constantly shaking Examination Category Sub-Category Detail Notes Category Not es Psychology General Appearance: NAD Grooming : adequate Eye contact : normal Mood : pleasant
--- OUTSIDE RECORDS SUMMARY | 2025-03-17 10:15 | XMS_ITS ---
Author Organization [facility] Address [address] [facility] [address] [place] [id number] Care Team Providers Care Marketing Coordinator Name Role Phone Willis Connors Primary Care Provider Elizabeth Blackwood Unavailable [phone] Allergies Allergen (clinical drug ingredient) Drug/Non Drug Allergy documented on EMR Reaction Allergy Type Onset Date Status cyclobenzaprine Cyclobenzaprine HCl hives Drug Allergy Active Levaquin Unknown Drug Allergy Active Results Component Value Reference Range Notes Influenza Screen (in house) Reviewed date:03/17/2025 08:31:26 PM Interpretation:Negative Performing Lab: Notes/Report: Negative results Neg CBC Fingerstick (in house) Reviewed date:03/17/2025 08:31:11 PM Interpretation: Performing Lab: Notes/Report: wbc 7.8 3.5 - 10 lym 19.0% 15 - 50 mid 5.2% 2 - 15 gran 75.8% 35 - 80 rbc 4.53 3.5 - 5.5 hgb 13.1 11.5 - 16.5 hct 39.1 35 - 55 mcv 86.3 75 - 100 mch 29.0 25 - 35 mchc 33.6 31 - 38 plat 211 100 - 400 Covid test (in house) Reviewed date:03/17/2025 08:31:43 PM Interpretation:Positive Performing Lab: Notes/Report: Positive Result: Pos REASON FOR VISIT sinus drainage Medications Medication SIG (Take, Route, Frequency, Duration) Notes Start Date End Date Status Gabapentin 600 MG 1.5 tab Orally Two t imes a day; Duration: 30 days 02/13/2025 Active Rexulti 2 MG 1 tablet Orally Once a day Active Omeprazole 40 MG Take 1 capsule by [facility] twice daily; Duration: 90 Active Albuterol Sulfate HFA 108 (90 Base) MCG/ACT 1 puff as needed Inhalation every 4 hrs, prn Active DULoxetine HCl 60 MG 2 capsules Orally O nce a day Active Metaxalone 800 MG 1 tablet Orally Thre e times a day, prn 09/03/2024 Active Nadolol 80 MG 1 tab(s) orally Two times a day Active Dilt-XR 180 MG Take 1 capsule by [facility] once daily; Duration: 90 days Active Prazosin HCl 1 MG 1 capsule at bedtime Orally Once a day Active Breyna 80-4.5 MCG/ACT as directed Inhalation Active Social History Tobacco Use: Social History Observation Description Date Details (start date - stop date) Former Smoker NA - NA CURRENT TOBACCO USE: Question Answer Notes Are you a: former smoker stopped 09/2016 Vital Signs Blood pressure systolic 146 mm Hg 03/17/20 25 Blood pressure diastolic 70 mm Hg 025 Heart Rate 117 /min 03/17/2025 Height 66 in 03/17/2025 Weight 240.4 lbs 03/17/2025 BMI 38.8 kg/m2 03/17/2025 Encounters Encounter Location Date Provider Diagnosis [facility] [address] [facility] [address] [place] [id number] 03/17/2025 Elizabeth Blackwood Acute COVID-19 U07.1 and Bronchitis J40 Assessments Encounter Date Diagnosis (ICD Code) Assessment Notes Treatment Notes Treatment Clinical Notes Section Notes 03/17/2025 Acute COVID-19 (ICD-10 - U07.1) fluids, rest, supportive measures for fever/symptom relief; infectious precaution; declines Paxlovid 03/17/2025 Bronchitis (ICD-10 - J40) to use inhaler 3-4 times daily until cough is much improved; should not smoke Plan Of Treatment Medication Medication Name Sig Start Date Stop Date Notes Albuterol Sulfate HFA 108 (9 0 Base) MCG/ACT 1 puff as needed Inhalation every 4 hrs, prn Treatment Notes Assessment Notes Acute COVID-19 fluids, rest, suppor tive measures for fever/symptom relief; infectious precaution; declines Paxlovid Bronchitis to use inhaler 3-4 t imes daily until cough is much improved; should not smoke Next Appt Details Follow Up: prn, Reason: Progress Notes * Nancy ANDREWSaDOB:1975 (49 yo F)Acc No.[id number]:03/17/2025 Progress Notes Patient: Hilda GEORGE Provider: KEDAR Henderson :1975 A ge:49 Y S ex:Female Date:03/17/2025 Address:[address], [place], [id number] Pcp:Willis Connors Subjective: * Chief Complaints: * 1 . Sinus drainage. * HPI: E NT/respiratory: Pt states these symptoms stared 2 days ago and getting worse. Pt states it's worse at night. 49 year old female presents with c/o cough g reenish yellow sputum production. c/o nasal congestion a ll the time. c/o Fever w ith chills.? c/o ear pain l eft side. c/o rhinorrhea. c/o post nasal drainage. c/o smoking 1 1/2 PPD. c/o body aches aching all over . c/o ear stopped up b oth. Denies : sore throat. D enies : Chest Pain. D enies : Short of Breath. D enies : headache. D enies : chest congestion. D enies : dizziness.?Denies : ringing in ear. * ROS: D ERMATOLOGY: no R erwin. n o H allan. G ASTROENTEROLOGY: no N ausea. n o V omiting. n o D iarrhea.? U ROLOGY: no B lood in urine. n o F requent urination. ? * Medical History: A sthma, Irritable Bowel [...] [facility] ER-chest pain 05/16/2012, [facility] on left [facility]29[facility]2012[facility] ER - pleurisy 08/31/2017, [facility] ER - fatigued, weak, dehydrated 09/04/2017, [facility]-precordial chest pain 12/28-, [facility]-sinus tachycardia 02/13/2019, [facility] ER- Passed out 11/06/2020, [facility] - Seizures 05/18/2023, [facility] ER - Seizure 10/23/2023, [facility] - Chest Pain 03/25/2024, [facility] ER - Near Syncope 06/16/2024. * Family History: F ather: alive, hypertension. M other: alive, breast cancer. P aternal Grand Father: . P aternal Grand Mother: . M aternal Grand Father: . M aternal Grand Mother: . 1 son(s) - healthy. . * Social History: C URRENT TOBACCO USE: No A re you a: f ormer smoker stopped 09/2016. C affeine: yes, frequency: 8 cups a day. Home smoke detector use: yes. Marital Status: . Alcohol: Yes, occasional. * Medications: T aking Prazosin HCl 1 MG Capsule 1 capsule at bedtime Orally Once a day , Taking Breyna [...] tab Orally Two times a day , Taking Rexulti 2 MG Tablet 1 tablet Orally Once a day , Taking DULoxetine HCl 60 MG Capsule Delayed Release Particles 2 capsules Orally Once a day , Medication List reviewed and reconciled with the patient * Allergies: L evaquin, Cyclobenzaprine HCl: hives. Objective: * Vitals: W t: 240.4, Temp: 98.9, BP: 146/70, HR: 117, Nurse: pe, Ht: 66, BMI:38.8. * Examination: G eneral Examination: General Appearance: p leasant, NAD, appears healthy, pleasant, well nourished and hydrated; frequent congested cough. H EENT: s clera and conjunctiva clear, PERRLA, TM's normal, translucent. O ral cavity: m ucosa moist and WNL, no erythema. Neck: s upple, no lymphadenopathy. H eart: R RR. L ungs: r honchi posteriorly. N eurologic Exam: a lert and oriented. Assessment: * Assessment: 1. A davon COVID-19 - U07.1 (Primary) 2 . Shereen taylor - J40 Plan: * Treatment: Value Reference Range w bc 7.8 3.5 - 10 * l ym 19.0% 15 - 50 * m id 5.2% 2 - 15 * g ran 75.8% 35 - 80 * r bc 4.53 3.5 - 5.5 * h gb 13.1 11.5 - 16.5 * h ct 39.1 35 - 55 * m cv 86.3 75 - 100 * m ch 29.0 25 - 35 * m chc 33.6 31 - 38 * p lat 211 100 - 400 * Viri Chester 03/17/2025 02: 54:21 PM EDT > Provider reviewed results while patient in office.Elizabeth Blackwood 03/17/2025 08:31:07 PM EDT > Notes: fluids, rest, supportive measures for fever/symptom relief; infectious precaution; declines Paxlovid??2.?Bronchitis? Continue Albuterol Sulfate HFA Aerosol Solution, 108 (90 Base) MCG/ACT, 1 puff as needed, Inhalation, every 4 hrs, prn.?? Notes: to use inhaler 3-4 times daily until cough is much improved; should not smoke?? * Labs: * L ab: Covid test (in house) (Collection Date & Time - 03/17/2025) P ositive Value Reference Range R esult: Pos * Viri Chester 03/17/2025 02: 31:13 PM EDT > Provider reviewed results while patient in office.Thuy Blackwoodharine 03/17/2025 08:31:40 PM EDT > ?Lab: Influenza Screen (in house) (Collection Date & Time - 03/17/2025) ?Negative* Value Reference Range r esults Neg * Viri Chester 03/17/2025 02: 31:39 PM EDT > Provider reviewed results while patient in office.Blackwood, Elizabeth 03/17/2025 08:31:23 PM EDT > * Procedure Codes: 8 7804 Flu Test- Nasal Swab, Modifiers: QW , 68396 COVID TEST IN HOUSE, Modifiers: QW , 91970 CAPILLARY BLOOD DRAW, 62938 CBC WITH AUTO DIFF * Follow Up: p rn * Images: Billing Information: * Visit Code: 92014 Office Visit, Est Pt., Level 3. * Procedure Codes: 46921 Flu Test- Nasal Swab. Modifiers: QW 38573 COVID TEST IN HOUSE. Modifiers: QW 67914 CAPILLARY BLOOD DRAW. 55708 CBC WITH AUTO DIFF. * Electronic signature of Ally Blackwood APRN on 04/06/2025 at 02:30 PM EDT Sign off status: Pending * Provider: KEDAR Henderson Date: 0 03/17/2025 Generated for Rain martínez/Carol/eTgersonsmitting on: 0 04/06/2025 02:30 PM EDT History and Physical Notes * HPI (History of Present Illness) Category Sub-Category Detail Notes Category Not es ENT/respiratory sore throat ear pain left side Short of Breath Chest Pain cough greenish yellow sput um production Fever with chills post nasal drainage headache chest congestion rhinorrhea nasal congestion all the time smoking 1 1/2 PPD dizziness body aches aching all over ear stopped up both ringing in ear Examination Category Sub-Category Detail Notes Category Not es General Examination HEENT: sclera and c onjunctiva clear, PERRLA, TM's normal, translucent Heart: RRR Lungs: rhonchi posteriorly General Appearance: pleasant, NAD, appea rs healthy, pleasant, well nourished and hydrated; frequent congested cough Neurologic Exam: alert and oriented Neck: supple, no lymphaden opathy Oral cavity: mucosa moist and WNL , no erythema
[2025-04-06] VITALS (9 sets, daily range): BP systolic 137–158; BP diastolic 79–90; PULSE 90–124; RESP 11–22; TEMP 36.8–37; O2SAT 95–99; BMI 39.9
--- NOTE | 2025-04-06 14:27 | ECG_ITS ---
APPROVED REPORT Exam: Resting ECG HR:116 bpm ECG Measurements Heart Rate 116 AXES TN 141 P 58 QRSd 81 QRS 68 QT 341 T 44 QTc 410 Conclusion SINUS TACHYCARDIA NONSPECIFIC ST & T-WAVE ABNORMALITY ABNORMAL RHYTHM ECG UNCONFIRMED REPORT Electronically signed by : AYALA ANTONY, 04/06/2025 23:00:18
--- OUTSIDE RECORDS SUMMARY | 2025-04-06 14:30 | XMS_ITS | Clinical Summary ---
Author Organization [facility] Address [address] [place] [address] Care Team Providers Care Help Desk Analyst Name Role Phone Newton Connors MD Primary [...] was normal. These tests have ruled out Courtenay's syndrome. Hypokalemia 09/30/2024 Assessment & Plan (09/30/2024 [...] TEST 2022 FIT Testing (1 year) 2022 INFLUENZA VACCINE 02/06/2025 04/02/2024, , 07/14/2021 TDAP/TD VACCINES (2 - Td or Tdap) 07/14/[address] [place] [id number] [facility] PPO Advance Directives * CPR (Attempt to Resuscitate) (Latest Code Status on File) Date Activated Date Inactivated Comments 05/18/2023 4:09 PM 05/19/2023 4:50 PM Question Answer Comments Code Status (Patient has no pulse and is not breathing): CPR (Attempt to Resuscitate) Medical Interventions (Patie nt has pulse or is breathing): Full Support Care Teams Help Desk Analyst Relationship Specialty Start Date End Date Newton Connors MD [address] [facility] [address] [place] [address] PCP - General Family Medicine 04/20/20
--- OUTSIDE RECORDS SUMMARY | 2025-04-06 14:30 | XMS_ITS | Clinical Summary ---
Author Organization Healthcare Address [address] [place] [address] Care Team Providers Care French Drawer Name Role Phone Unavailable Primary Care Provider [...] 2022 Sigmoidoscopy 2022 [facility]-Colorectal Cancer Screening 2022 [id number] Vaccine (3 - season) 2025 05/10/2021, 04/19/2021 [facility]-Influenza Vaccine (#1) 2025 07/14/2021 [...]
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
--- OUTSIDE RECORDS SUMMARY | 2025-04-06 14:31 | XMS_ITS | Encounter Summary ---
Author Organization Healthcare Address [address] [place] [address] Care Team Providers Care Printed Circuit Boards Laminator Name Role Phone None, None Primary Care Provider [phone] Encounter Details Date Type Department Care Team (Late st Contact Info) Description 05/07/2020 Orders Only External Location [address] [place] [address] Provider, External Social History Tobacco Use Types [...] on filedocumented in this encounter Care Teams [employer]ed [employer] Bo[employer] Laminator Relationship Specialty Start Date End Date None, None [address], [place] [id number] PCP - General NONE FOUND 01/01/23 01/31/24 documented as of this encounter
--- NOTE | 2025-04-06 14:37 | ED_ITS ---
<Statement entered by Christina Adhikari DO - 04/07/25 11:42> I was consulted by the JIM, and we discussed the complexity of problems being addressed. I approved the treatment plan and management plan of this patient's care in the emergency department, thus performing a substantive portion of medical decision making. Christina Adhikari DO <Statement entered by John Parekh MD - 04/07/25 11:00> I was consulted by the JIM, and we discussed the complexity of the problems being addressed. I approve the treatment and management plan for this patient's care in the emergency department, thus performing a substantive portion of the medical decision making. John Parekh MD Discharge Plan Disposition Patient Disposition: Home, Self-Care Condition: Good Prescriptions Prescriptions: No Action trazodone 50 mg tablet 50 mg PO HS potassium chloride 10 mEq capsule, extended release 10 meq PO DAILY Patient Comments: TAKE 1 CAPSULE BY MOUTH ONCE DAILY WITH FOOD cyanocobalamin (vitamin B-12) 2,500 mcg tablet 2,500 mcg PO DAILY albuterol sulfate 90 mcg/actuation HFA aerosol inhaler inhalation Patient Comments: INHALE 1 PUFF BY MOUTH EVERY 4 HOURS NEEDED nicotine (polacrilex) 2 mg gum 2 mg buccal Q2H PRN (Reason: nicotine cravings) Qty: 100 2RF budesonide-formoterol 160-4.5 mcg/actuation HFA aerosol inhaler 2 puff inhalation BID 90 Days Qty: 10.2 3RF gabapentin 600 mg tablet 600 mg PO BID Patient Comments: TAKE 1 TABLET BY MOUTH TWICE DAILY hydroxyzine pamoate [Vistaril] 25 mg capsule See Rx Instructions PO HS PRN (Reason: for sleep or anxiety) 30 Days Qty: 30 2RF Rx Instructions: 1 or 2 capsules orally at bedtime nightly PRN; DO NOT TAKE IF TAKING POTASSIUM duloxetine 60 mg capsule,delayed release(DR/EC) 60 mg PO BID 30 Days Qty: 60 2RF brexpiprazole 2 mg tablet 2 mg PO DAILY 30 Days Qty: 30 2RF brexpiprazole 0.5 mg (7)- 1 mg (7) tablets,dose pack See Rx Instructions PO PER PKG DIR Qty: 14 0RF Rx Instructions: PO PER PKG DIR prazosin 2 mg capsule 2 mg PO HS 30 Days Qty: 30 2RF diltiazem HCl [DILT-XR] 180 mg capsule,ext.rel 24h degradable 180 mg PO BID 90 Days Qty: 180 2RF nadolol 80 mg tablet 80 mg PO BID Qty: 60 5RF Rexulti 0.5 mg (7)- 1 mg (7) tablets,dose pack 0RF omeprazole 40 mg capsule,delayed release(DR/EC) 40 mg PO BID Referrals Follow up/Referrals: Newton Connors MD [Primary Care Provider, Medical] - See instructions Sp Persadu MD [Staff Physician, Cardiology] - See instructions Activity Restrictions/Add. Instructions Additional Instructions/Restrictions: Please return to the emergency department with any worsening signs or symptoms. Please take all your medications at home as prescribed. 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 Clinical Impressions Clinical Impression: SOB (shortness of breath) on exertion, Heart palpitations Instructions Patient Instructions: DI for Shortness of Breath, DI for Palpitations Print Language Print Language: Khmer Discharge ED Provider: Christina Adhikari Adult HPI General Chief complaint: Arrhythmia/Palpitations Stated complaint: HR 162, Facial numbness Time Seen by Provider: 04/06/25 14:22 Mode of Arrival: Ambulatory Source of Information: Patient and Medical Record Limitations: No Limitations History of Present Illness HPI narrative: 49-year-old female presents to the emergency department with heart palpitations, elevated heart rate, concern for high blood pressure , patient states her blood pressure last night was 140 something , which is uncommon for her, patient admits to headache that started today, as well as shortness of breath, patient noticed her heart rate anywhere from 120-160 , noted on Apple watch today, she also endorses lightheadedness, denies any presyncopal or syncopal event, denies any fever chills cough congestion, no chest pain, no abdominal pain no nausea no vomiting no constipation no diarrhea no urinary type symptomatology, no saddle anesthesia, no urinary bladder or bowel dysfunction, patient endorses subjective numbness and tingling , of her face, this started today, patient is a current smoker, denies any alcohol or drug use, other past medical history consistent with chronic PTSD, MDD/EVANGELIST, panic disorder, nonepileptic seizure disorder, hypertension, AMBER, CAD. Initial triage vitals are notable for tachycardia otherwise unremarkable. Please note that above description of symptoms, in this electronic medical record under categorization of recalled from ER triage doctor by RN are reflective of an initial nursing assessment, however, is not reflective of my full history and physical exam that was personally taken and clarified. Consequentially, this preceding description of symptoms, which may include the patient's categorized chief complaint in the EMR, do not reflect my personal clinical impression, and the ultimate description of history of present illness and patient stated complaints should be deferred to this section of the note. Unless stated otherwise or congruent with this section of the note, additional signs, symptoms, or incongruence should be interpreted as inaccurate with my clinical impression. Onset (ago): hour(s) Related Data Home Medications ?Medication ?Instructions ?Recorded ?Confirmed trazodone 50 mg tablet 50 mg PO HS 12/18/22 5 omeprazole 40 mg capsule,delayed 40 mg PO BID 03/25/24 03/27/25 release potassium chloride 10 mEq 10 meq PO DAILY 08/18/24 capsule,extended release cyanocobalamin (vitamin B-12) 2,500 mcg PO DAILY 09/1503/27/25 2,500 mcg tablet gabapentin 600 mg tablet 600 mg PO BID 10/28/2403/27 albuterol sulfate 90 mcg/actuation inhalation 11/27/24 03/27/25 aerosol inhaler Previous Rx's ?Medication ?Instructions ?Recorded diltiazem HCl 180 mg 180 mg PO BID 90 days #180 c aps 10/16/24 capsule,extended release 24 hr, controlled (DILT-XR) nadolol 80 mg tablet 80 mg PO BID #60 tabs budesonide-formoterol HFA 160 2 puff inhalation BID 90 days 01/27/25 mcg-4.5 mcg/actuation aerosol #10.2 grams inhaler nicotine (polacrilex) 2 mg gum 2 mg buccal Q2H PRN manuel otine 01/27/25 cravings #100 ea brexpiprazole 0.5 mg (7)-1 mg (7) See Rx Instructions PO PER PKG DIR 02/27/25 tablets in a dose pack #14 tabs brexpiprazole 2 mg tablet 2 mg PO DAILY 30 days #30 ta bs 02/27/25 duloxetine 60 mg capsule,delayed 60 mg PO BID 30 days #60 caps 02/27/25 release hydroxyzine pamoate 25 mg capsule See Rx Instructions PO HS PRN for 02/27/25 (Vistaril) sleep or anxiety 30 days #30 caps prazosin 2 mg capsule 2 mg PO HS 30 days #30 caps 03/27/25 Allergies Allergy/AdvReac Type Severity Reaction Status Date / Time alprazolam (From Xanax) Allergy Severe Swelling Verified 03/27/25 09:01 of Lip/Tongue/Throat levofloxacin (From LEVAQUIN) Allergy Unknown SWELLING Verified 03/27/25 09:01 [facility] Disclaimer: The information contained in this section may have been updated after the patient was seen, as this information can be updated by other users. Medical History Asthma Eosinophilia Seizure-like activity Syncope SOB (shortness of breath) on exertion Adrenal insufficiency Right upper quadrant abdominal pain AMBER (obstructive sleep apnea) Hyperlipidemia Hypertension Currently normotensive CAD (coronary artery disease) History of snoring Nonepileptic episode Chondromalacia, right knee Family history of heart disease Abnormal stress test Typical angina Tobacco abuse Dyspnea Decreased libido without sexual dysfunction Obesity (BMI 35.0-39.9 without comorbidity) Depression Anxiety Amenorrhea Family history of breast cancer in first degree relative delivery delivered Jaw dislocation surgery X7 DVT (deep venous thrombosis) History of TIA (transient ischemic attack) Surgical History History of mandibular surgery H/O dilation and curettage X3 History of appendectomy History of colon surgery 75% of colon removed, colon stopped working Family History Other Alcoholism Asthma Cancer Diabetes FHx: mental illness Heart attack Hyperlipidemia Hypertension Kidney disease Stroke Social History Smoking Status: Current every day smoker tobacco type: cigarettes packs per day: 1 years smoked: 20 how long ago did patient quit smokin yr alcohol intake: never substance use type: denies use current occupational status: employed Travel in the last 8 weeks?: None household members: spouse and children housing: house number of children: 1 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 current occupational exposures/hazards: No caffeine: No Have you lived/traveled outside [place] in past 30 days?: No Contact w/someone who lives/traveled outside US past 30 days?: No Exposure to someone with infectious disease in past 14 days?: No Do you have a fever (greater than 100.4 F or 38 C)?: No Have you tested positive for COVID-19?: No Exposed to someone with COVID-19 in past 14 days?: No Do you have a sore throat?: No Do you have a cough?: No Do you have any weakness?: No Do you have any diarrhea?: No Are you experiencing any unusual bleeding?: No Do you have any muscle aches/pain?: No Do you have any abdominal pain?: No Are you experiencing loss of taste or smell?: No Other Medical History Have you received the Flu Vaccine for this season: No Have you received the Pneumonia Vaccine: No ROS Obtained: Yes All systems reviewed & no additional complaints except as documented Physical Exam General General appearance: alert and in no apparent distress Head Head exam: atraumatic and normocephalic Eye Eye exam: Present PERRL and EOMI ENT ENT exam: Present mucous membranes moist Neck Neck exam: Present normal inspection Chest Chest inspection: Present normal inspection and symmetric chest wall rise Respiratory Respiratory exam: Present normal lung sounds bilaterally; Absent respiratory distress Cardiovascular Cardiovascular exam: Present normal rhythm and tachycardia Abdominal Exam Abdominal exam: Present soft; Absent tenderness, guarding or rebound Extremities Exam Extremities exam: Present normal inspection Neurological Exam Neurological exam: Present alert, oriented X3 and other (Moves extremities to command, 5 5 strength in the bilateral lower and upper extremities, no pronator drift noted in the bilateral lower and upper extremities, no gross sensation deficit.) Psychiatric Psychiatric exam: Present normal affect Skin Skin exam: Present warm and dry Medical Decision Making Medical Records Medical records reviewed: Yes I reviewed the patient's medical records. Screening: Per USPSTF and CDC recommendations, given the prevalence of disease in our region, it is our hospital?s policy to screen for HIV and viral Hepatitis for all patients aged 18 and over and those with ongoing risk factors. Elver Inquiry Pt receiving controlled substance: No Elver was queried for this patient: No Vital Signs: 04/06/25 14:19 04/06/25 15:00 04/06/25 15:13 Temperature 98.6 F Temperature Source Oral Pulse Rate 113 H 106 H Pulse Rate [Left Radial] 124 H Respiratory Rate 17 15 16 Blood Pressure 148/84 H Blood Pressure [Right Arm] 158/79 H Blood Pressure Mean 108 Blood Pressure Mean [Right Arm] 105 Blood Pressure Source [Right Arm] Automatic Cuff Blood Pressure Position [Right Arm] Supine 02 Sat by Pulse Oximetry 99 95 95 Oxygen Delivery Method Room Air Room Air Room Air 04/06/25 15:13 04/06/25 15:30 04/06/25 16:00 Temperature Temperature Source Pulse Rate 106 H 100 H 95 H Pulse Rate [Left Radial] Respiratory Rate 11 L 17 18 Blood Pressure 150/87 H 151/90 H Blood Pressure [Right Arm] Blood Pressure Mean 100 101 Blood Pressure Mean [Right Arm] Blood Pressure Source [Right Arm] Blood Pressure Position [Right Arm] 02 Sat by Pulse Oximetry 97 96 96 Oxygen Delivery Method Room Air Room Air 04/06/25 16:30 04/06/25 17:00 04/06/25 17:30 Temperature Temperature Source Pulse Rate 98 H 94 H 94 H Pulse Rate [Left Radial] Respiratory Rate 22 15 17 Blood Pressure 137/81 152/80 H 152/85 H Blood Pressure [Right Arm] Blood Pressure Mean 91 104 102 Blood Pressure Mean [Right Arm] Blood Pressure Source [Right Arm] Blood Pressure Position [Right Arm] 02 Sat by Pulse Oximetry 97 97 96 Oxygen Delivery Method Room Air Room Air Room Air Lab Data Lab results reviewed: Yes I reviewed the patient's lab results. Lab Results 04/06/25 14:41: WBC 7.2, RBC 4.13 L, Hgb 12.0 L, Hct 36.2 L, MCV 87.7, MCH 29.1, MCHC 33.1, RDW 15.2, Plt Count 264, MPV 9.8, Neut % (Auto) 59.5, Lymph % (Auto) 27.7, Greene % (Auto) 8.5, Eos % (Auto) 3.6, Baso % (Auto) 0.4, Neut # (Auto) 4.3, Lymph # (Auto) 2.0, Greene # (Auto) 0.6, Eos # (Auto) 0.3, Baso # (Auto) 0.0, PT 10.9, INR 0.98, D-Dimer 0.78 H, Sodium 137, Potassium 3.5, Chloride 104, Carbon Dioxide 26, Anion Gap 10.5, BUN 5 L, Creatinine 0.60, Estimated GFR 107, Est GFR ( Amer) 130, Glucose 96, Calcium 8.9, Magnesium 1.9, Total Bilirubin 0.4, AST 36, ALT 35, Alkaline Phosphatase 135 H, Troponin I < 0.01, Total Protein 7.1, Albumin 3.8, Globulin 3.3 H, Albumin/Globulin Ratio 1.2, Lipase 196, Serum HCG, Qual Negative 04/06/25 14:41 04/06/25 14:41 Orders (Tests/Meds): ED MEDICATIONS Discontinued Medications Generic Name Dose Route Start Last Admin Trade Name Freq PRN Reason Stop Dose Admin Acetaminophen 1,000 mg 04/06/25 15:46 04/06/25 15:53 Acetaminophen 1,000mg/100ml Vial IV 04/06/25 15:47 1,000 mg ONCE ONE Administration Lactated Ringer's 1,000 mls @ 999 mls/hr 04/06/25 14:47 04/06/25 16:58 Lactated Ringer's 1000 Ml Bag IV 04/06/25 15:47 Infused .Q1H1M ONE Infusion Iopamidol 75 ml 04/06/25 16:12 04/06/25 16:17 Iopamidol-370 (76%);100ml Bottle IV 04/06/25 16:13 75 ml ONCE ONE Administration Ketorolac Tromethamine 15 mg 04/06/25 17:49 Ketorolac 15mg/Ml Vial IV 04/06/25 17:50 ONCE ONE Sodium Chloride 10 ml 04/06/25 16:12 04/06/25 16:17 Sodium Chloride 0.9% 10ml Syr (Rad Only) IV 04/06/25 16:13 10 ml ONCE ONE Administration Sodium Chloride 50 ml 04/06/25 16:12 04/06/25 16:16 0.9 % Sodium Chloride 50 Ml Vial IV 04/06/25 16:13 50 ml ONCE ONE Administration ORDERS Category Date Time Status CT angio chest PE protocol Stat Cat Scan 04/06/25 15:[address] head/brain wo con Stat Cat Scan 04/06/25 14:45 Completed XR chest portable Stat Exams 04/06/25 14:46 Completed Complete Blood Count Auto Diff Stat Lab 04/06/25 14:41 Completed Comprehensive Metabolic Panel Stat Lab 04/06/25 14:41 Results D-Dimer Stat Lab 04/06/25 14:41 Completed Lipase Stat Lab 04/06/25 14:41 Results Magnesium Stat Lab 04/06/25 14:41 Results NT Pro Brain Natriuretic Pep. Stat Lab 04/06/25 14:41 Results PT INR [Prothrombin Time INR] Stat Lab 04/06/25 14:41 Completed Serum [HCG Qualitative, Serum] Stat Lab 04/06/25 14:41 Completed T4 (Thyroxine) Stat Lab 04/06/25 14:41 Results TSH [Thyroid Stimulating Hormone] Stat Lab 04/06/25 14:41 Results Troponin I Q3H Lab 04/06/25 17:45 Ordered Troponin I Q3H Lab 04/06/25 20:45 Ordered Troponin I Stat Lab 04/06/25 14:41 Results Medical Decision Narrative: 49-year-old female presents to the emergency department with palpitations, concern for elevated blood pressure lightheadedness headache and shortness of breath, differential diagnose include but not limited to cardiac arrhythmia, electrolyte disturbance, ACS, PE, pneumonia, panic attack, anxiety reaction, thyrotoxicosis among others. I discussed this patient's case with attending patient Dr. Adhikari as well as Dr. Carrizales Will obtain basic laboratory studies EKG CT head without contrast, CXR, D-dimer lipase magnesium level proBNP PT/INR, TSH reflex T4. Will give 1 L LR IV. CBC unremarkable Coags within normal limits CMP is notable for elevated D-dimer at 0.78, troponin is less than 0.01, lipase within normal limits. Due to elevated D-dimer will obtain CTA chest without contrast PE protocol. Notified by nursing staff at approximate 3:45 PM the patient is complaining of headache and request pain medication, will give IV Tylenol 1000 mg. I reviewed the patient's CT head without contrast along the corresponding radiologic report, no evidence for acute transcortical infarct and hydrocephalus acute intracranial hemorrhage or mass effect. I reviewed the patient's chest x-ray along with corresponding radiologic report, no acute findings. Reviewed the patient's CTA chest without contrast PE protocol, no evidence of pulmonary embolism or other acute process multiple bilateral granulomas consistent with prior granulomatous infection. Patient still complaining of some pain upon reexamination at approximately 5:35 PM, will give a dose of IV Toradol 15 mg for symptomatic relief. Reexamination of the patient at approximately 5:50 PM, patient is resting comfortably in bed, tachycardia has improved to around 95 bpm, patient is cleared to be discharged home to self-care, strict ED return precautions were given. I discussed all results with the patient and at the bedside patient and family are in agreement with current treatment plan/discharge plan. Patient follow-up with ferryboat deckhand and the provider in the upcoming days/weeks. Will continue take all medication as prescribed. Critical Care Critical Care Time Critical Care Time: No
--- NOTE | 2025-04-06 14:45 | CT_ITS ---
PROCEDURE INFORMATION: Exam: CT Head Without Contrast Exam date and time: 04/06/2025 4:12 PM Age: 49 years old Clinical indication: Pain; Headache; Additional info: BAUTISTA and lightheadedness TECHNIQUE: Imaging protocol: Computed tomography of the head without contrast. Radiation optimization: All CT scans at this facility use at least one of these dose optimization techniques: automated exposure control; mA and/or kV adjustment per patient size (includes targeted exams where dose is matched to clinical indication); or iterative reconstruction. COMPARISON: CT ANGIO HEAD 09/15/2024 3:28 PM FINDINGS: Brain: No evidence for acute transcortical infarct. No mass effect or midline shift. No extra-axial collection. No acute intracranial hemorrhage. Basal cisterns are patent. Cerebral ventricles: No ventriculomegaly. Paranasal sinuses: Mucosal thickening involving the left maxillary sinus. Mastoid air cells: Visualized mastoid air cells are well aerated. Bones: Unremarkable. No acute fracture. Soft tissues: Unremarkable. IMPRESSION: No evidence for acute transcortical infarct, hydrocephalus, acute intracranial hemorrhage, or mass effect.
--- NOTE | 2025-04-06 14:46 | XR_ITS ---
PROCEDURE INFORMATION: Exam: XR Chest Exam date and time: 04/06/2025 4:24 PM Age: 49 years old Clinical indication: Shortness of breath; Additional info: SOA TECHNIQUE: Imaging protocol: Radiologic exam of the chest. Views: 1 view. COMPARISON: CT ANGIO CHEST PE PROTOCOL 04/06/2025 4:17 PM FINDINGS: Lungs: Unremarkable. No consolidation. Pleural spaces: Unremarkable. No pleural effusion. No pneumothorax. Heart/Mediastinum: Unremarkable. No cardiomegaly. Bones/joints: Unremarkable. IMPRESSION: No acute findings.
[2025-04-06 14:49] LABS: Hematocrit 36.2 % (37.0-47.0); Hemoglobin 12.0 g/dL (12.2-16.2); Immature Granulocytes % 0.3 %; Mean Corpuscular HGB Conc 33.1 g/dL (31.8-35.4); Mean Corpuscular Hemoglobin 29.1 pg (27.0-31.2); Mean Corpuscular Volume 87.7 fl (81-99); Nucleated Red Blood Cells % 0 %; Platelet Count 264 K/mm3 (142-424); Red Blood Count 4.13 M/mm3 (4.20-5.40); Red Cell Distribution Width-SD 48.9 fL; White Blood Count 7.2 K/mm3 (4.8-10.8)
[2025-04-06 14:57] LABS: Alanine Aminotransferase 35 U/L (12-78); Albumin Level 3.8 g/dl (3.5-5.0); Albumin/Globulin Ratio 1.2 (1.1-1.8); Alkaline Phosphatase 135 U/L (38-126); Anion Gap 10.5 mEq/L (5-15); Aspartate Amino Transferase 36 U/L (14-36); Bilirubin,Total 0.4 mg/dl (0.2-1.3); Blood Urea Nitrogen 5 mg/dl (7-17); Calcium 8.9 mg/dl (8.4-10.2); Carbon Dioxide 26 mmol/L (22.0-30.0); Chloride 104 mmol/L (98-107); Creatinine,Serum 0.60 mg/dl (0.52-1.04); Estimated Glomerular Filt Rate 107 ml/min (>60); GFR (African American) 130 ML/MIN (>60); Globulin 3.3 g/dL (1.3-3.2); Glucose 96 mg/dl (74-100); Potassium 3.5 mmoL/L (3.5-5.1); Sodium 137 mmol/L (136-145); Total Protein,Serum 7.1 g/dl (6.3-8.2)
[2025-04-06 14:58] LABS: Lipase 196 U/L (23-300); Magnesium 1.9 mg/dl (1.6-2.3)
[2025-04-06 15:01] LABS: INR 0.98 (0.9-1.1); Prothrombin Time 10.9 seconds (10.1-12.5)
[2025-04-06] MEDS: LACTATED RINGERS 1000ML 1,000 ML 999 ML IV (15:11)
[2025-04-06 15:13] LABS: Troponin I < 0.01 ng/ml (0.00-0.034)
[2025-04-06 15:15] LABS: D-Dimer 0.78 ug/mL (0.0-0.5)
--- NOTE | 2025-04-06 15:24 | CT_ITS ---
PROCEDURE INFORMATION: Exam: CTA Chest With Contrast Exam date and time: 04/06/2025 4:17 PM Age: 49 years old Clinical indication: Shortness of breath; Additional info: SOA, palpations TECHNIQUE: Imaging protocol: Computed tomographic angiography of the chest with contrast. Exam focused on the arteries. 3D rendering (Not supervised by radiologist): MIP and/or 3D reconstructed images were created by the technologist. Radiation optimization: All CT scans at this facility use at least one of these dose optimization techniques: automated exposure control; mA and/or kV adjustment per patient size (includes targeted exams where dose is matched to clinical indication); or iterative reconstruction. Contrast material: ISOVUE; Contrast volume: 70 ml; Contrast route: INTRAVENOUS (IV); COMPARISON: CT ANGIO CHEST PE PROTOCOL 01/06/2025 4:39 PM FINDINGS: Pulmonary arteries: Normal. No pulmonary emboli. Aorta: Unremarkable. No aortic aneurysm. No aortic dissection. Lungs: Left lower lobe densely calcified granuloma. Right mid chest granuloma is also noted. Pleural spaces: Unremarkable. No pneumothorax. No pleural effusion. Heart: Unremarkable. No cardiomegaly. No pericardial effusion. Coronary arteries: No coronary calcium noted. Lymph nodes: Unremarkable. No enlarged lymph nodes. Liver: The liver is low in density. Bones/joints: Unremarkable. No acute fracture. Soft tissues: Unremarkable. IMPRESSION: 1. No evidence of pulmonary embolus or other acute process. 2. Multiple bilateral granulomas consistent with prior granulomatous infection.
[2025-04-06 15:48] LABS: HCG Qualitative, Serum Negative (Negative)
[2025-04-06] MEDS: ACETAMINOPHEN 1,000MG/100ML VIAL 1000 MG IV (15:53)
[2025-04-06] MEDS: 0.9 % SODIUM CHLORIDE 50 ML VIAL IV (16:16)
[2025-04-06] MEDS: IOPAMIDOL-370 (76%);100ML BOTTLE 75 ML IV (16:17)
[2025-04-06] MEDS: SODIUM CHLORIDE 0.9% 10ML SYR (RAD ONLY) 10 ML IV (16:17)
[2025-04-06] MEDS: KETOROLAC 15MG/ML VIAL 15 MG IV (18:07)
[2025-04-06 20:19] LABS: NT Pro Brain Natriuretic Pep. 25.9 pg/mL (0-125)
[2025-04-06 20:27] LABS: T4 (Thyroxine) 8.0 ug/dl (5.53-11.0)
[2025-04-06 20:40] LABS: Thyroid Stimulating Hormone 2.78 uIU/mL (0.465-4.68)
== END 2025-04-06 18:10 | disposition home or self-care (01) ==
PROVIDERS: Physician Assistant; Emergency Provider Student in an Organized Health Care Education/Training Program; PCP Family Medicine
DX: R51.9 Headache, unspecified (principal); R06.02 Shortness of breath; R00.2 Palpitations; R42 Dizziness and giddiness; F17.210 Nicotine dependence, cigarettes, uncomplicated; I10 Essential (primary) hypertension; E78.5 Hyperlipidemia, unspecified
CPT/HCPCS: 70450; 71045; 71275; 80053; 83690; 83735; 83880; 84436; 84443; 84484; 84703; 85025; 85378; 85610; 93005; 96361; 96374; 96375; 99285; J0131; J1885; J7120; Q9967